=== PATIENT | male | born 1960 | race African-American/Black ===

== ENCOUNTER 2016-10-04 14:46 | Inpatient (IN) | payer OTHER ==
[2016-10-04 15:19] VITALS: BMI 25.8
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
[2016-10-04] MEDS ORDERED: diphenhydrAMINE HCL 50 MG CAPSULE PO PRN (16:37)
[2016-10-04] MEDS ORDERED: P-EPHED 60MG/TRIPROLIDI 2.5MG TABLET PO PRN (16:37)
[2016-10-04] MEDS ORDERED: LOPERAMIDE HCL 2 MG CAPSULE PO PRN (16:37)
[2016-10-04] MEDS ORDERED: ACETAMINOPHEN 325 MG TABLET (FP) PO PRN (16:37)
[2016-10-04] MEDS ORDERED: MAGNESIUM CITRATE 300 ML BOTTLE PO PRN (16:37)
[2016-10-04] MEDS ORDERED: MENTHOL/PHENOL 1 EACH UD MM PRN (16:37)
[2016-10-04] MEDS ORDERED: guaiFENesin/D-METHORPHAN HB 10 ML UNIT-DOSE CUPS PO PRN (16:37)
[2016-10-04] MEDS ORDERED: MAG HYDROX/AL HYDROX/SIMETH 30 ML UNIT-DOSE CUP PO PRN (16:37)
[2016-10-04] MEDS ORDERED: MAGNESIUM HYDROX 2400MG/30ML ORAL SUSPENSION 30 ML CUP PO PRN (16:37)
[2016-10-04] MEDS ORDERED: NICOTINE POLACRILEX 2 MG GUM BC PRN (16:37)
[2016-10-04] MEDS ORDERED: diazePAM 5 MG TABLET PO ONE (17:45)
[2016-10-04] MEDS ORDERED: METHADONE HCL 10 MG TABLET PO SCH (19:00)
[2016-10-04] MEDS ORDERED: METHADONE HCL 40 MG DISPERSABLE TABLET ONE (19:06)
[2016-10-04] MEDS ORDERED: METHADONE HCL 10 MG TABLET ONE (19:06)
[2016-10-04] MEDS ORDERED: METHADONE 40 MG, METHADONE 20 MG PO ONE (19:15)
[2016-10-04] MEDS: THIAMINE HCL 100 MG TABLET (FP) PO SCH (22:21)
[2016-10-04] MEDS: diazePAM 5 MG TABLET PO SCH (22:21)
[2016-10-04] MEDS: BACITRACIN 0.9 GM PACKET TP SCH (22:21)
[2016-10-04 23:10] LABS: URINE APPEARANCE CLEAR; URINE BILIRUBIN NEGATIVE (NEGATIVE); URINE BLOOD NEGATIVE (NEGATIVE); URINE COLOR STRAW; URINE GLUCOSE (UA) NEGATIVE (NEGATIVE); URINE KETONE NEGATIVE (NEGATIVE); URINE LEUK ESTERASE NEGATIVE (NEGATIVE); URINE NITRITE NEGATIVE (NEGATIVE); URINE PROTEIN NEGATIVE (NEGATIVE); URINE UROBILINOGEN NEGATIVE E.U./dl (0.2-1.0)
[2016-10-05] MEDS ORDERED: METHADONE HCL 10 MG TABLET ONE (05:00)
[2016-10-05] MEDS ORDERED: METHADONE HCL 40 MG DISPERSABLE TABLET ONE (05:00)
[2016-10-05] MEDS: diazePAM 5 MG TABLET PO SCH ×3 (05:43→22:22)
[2016-10-05] MEDS ORDERED: METHADONE 40 MG, METHADONE 20 MG PO SCH (06:00)
[2016-10-05] MEDS: metFORMIN HCL 500 MG TABLET (FP) PO SCH ×2 (08:00→17:26)
[2016-10-05 10:05] LABS: MCH 29.5 pg (25.7-33.7); MCHC 33.4 g/dl (32.0-35.9); MEAN CELL VOLUME 88.3 fl (80-96); MEAN PLT VOLUME 9.3 fl (7.5-11.1); PLATELET COUNT 183 K/MM3 (134-434); RDW 14.2 % (11.9-15.9); WHITE BLOOD COUNT 6.6 K/mm3 (4.0-10.0)
[2016-10-05] MEDS: diazePAM 5 MG TABLET PO PRN (10:08)
[2016-10-05] MEDS: BACITRACIN 0.9 GM PACKET TP SCH ×2 (10:08→22:22)
[2016-10-05] MEDS: PRENATAL VITAMINS W/ FOLIC ACID TABLET (FP) PO SCH (10:09)
[2016-10-05] MEDS: ASPIRIN 81 MG CHEWABLE TABLETS PO SCH (10:09)
[2016-10-05] MEDS: NICOTINE 14 MG/24 HOURS TOPICAL PATCH TD SCH (10:10)
--- NOTE | 2016-10-05 10:12 | PN ---
S CIWA - CIWA Score Nausea/Vomitin-No Nausea/No Vomiting Muscle Tremors: 4-Moderate,w/Arms Extend Anxiety: 3 Agitation: 4-Moderately Restless Paroxysmal Sweats: 3 Orientation: 0-Oriented Tacttile Disturbances: 0-None Auditory Disturbances: 0-None Visual Disturbances: 0-None Headache: 1-Very Mild CIWA-Ar Total Score: 15 [facility] Progress Note (SOAP) Subjective: agitation sweats irritable interrupted sleep shakes i need my hep c test done to verify if i am hepatitis c Objective: 10/05/16 10:12 Vital Signs Temperature 98 F 10/05/16 10:06 Pulse Rate 73 10/05/16 10:06 Respiratory Rate 18 10/05/16 10:06 Blood Pressure 116/71 10/05/16 10:06 O2 Sat by Pulse Oximetry (%) Laboratory Tests 10/04/16 10/04/16 10/05/16 16:45 22:22 05:37 WBC RBC Hgb Hct MCV MCHC RDW Plt Count MPV POC Glucometer 86 118 Urine Color Straw Urine Appearance Clear Urine pH 6.0 Ur Specific [place] 1.005 Urine Protein Negative Urine Glucose (UA) Negative Urine Ketones Negative Urine Blood Negative Urine Nitrite Negative Urine Bilirubin Negative Urine Urobilinogen Negative Ur Leukocyte Esterase Negative 10/05/16 07:00 WBC 6.6 D RBC 4.61 Hgb 13.6 Hct 40.7 MCV 88.3 MCHC 33.4 RDW 14.2 Plt Count 183 MPV 9.3 POC Glucometer Urine Color Urine Appearance Urine pH Ur Specific [place] Urine Protein Urine Glucose (UA) Urine Ketones Urine Blood Urine Nitrite Urine Bilirubin Urine Urobilinogen Ur Leukocyte Esterase labs pending awake/alert ambulating no acute distress Assessment: 10/05/16 10:14 withdrawal sx Plan: continue detox increase fluids methadone will increase daily to reach his dose of 110mg. hep c test ordered
[2016-10-05 10:17] LABS: ALBUMIN 3.7 g/dl (3.4-5.0); ANION GAP 4 (8-16); CALCIUM 8.7 mg/dL (8.5-10.1); CO2 29 mmol/L (21-32); GLUCOSE,RANDOM 82 mg/dL (74-106)
[2016-10-05 10:24] LABS: ALK PHOS 118 U/L (45-117); BILIRUBIN,TOTAL 0.4 mg/dL (0.2-1.0); CREATININE 1.2 mg/dL (0.7-1.3); SGOT/AST 16 U/L (15-37); SGPT/ALT 19 U/L (12-78)
[2016-10-05] MEDS: ARIPiprazole 5 MG TABLET (FP) PO SCH ×2 (11:53→22:22)
[2016-10-05] MEDS: DIVALPROEX SODIUM 500 MG TABLET E.C. PO SCH ×2 (11:53→22:22)
--- NOTE | 2016-10-05 13:03 | CONSULT ---
[facility] Psychiatric Consult - Data Date of interview: 10/05/16 Admission source: [facility] Identifying data: Kelly is 55 years old male with history of psychiatric admission, history of Bipolar disorder intoxicated with: Alcohol, Cannabuis, Cocaine, OIpioids, Xanax, Nicotine Substance Abuse History: Urine Drug Screen Results: TEVIN-Cocaine, OPI-Opiates, BZO-Benzodiazepines, MTD-Methadone, OXY-Oxycodone- Smoking Cessation. Smoking history: Current every day smoker. Have you smoked in the past 12 months: Yes. Aproximately how many cigarettes per day: 10. Cigars Per Day: 0. Hx Chewing Tobacco Use: No. Initiated information on smoking cessation: Yes. 'Breaking Loose' booklet given: 10/04/16. - Substance & Tx. History. Hx Alcohol Use: Yes. Hx Substance Use: Yes. Substance Use Type: Alcohol, Cocaine, Heroin, Opiates, Tranquilizers. Hx Substance Use Treatment: Yes. - Substances Abused. Alcohol. Route: Oral. Frequency: Daily. Amount used: 3 6pks beer/ 1/2 pint tessy. Age of first use: 10. Date of Last Use: 10/03/16. Alprazolam (Xanax). Route: Oral. Frequency: Daily. Amount used: 6mg. Age of first use: 48. Date of Last Use: 10/03/16 Medical History: DM-2, HepC+, PR Hisotry, MMTP, Sickle cell trait Psychiatric History: Patient reportsa history of Bipolar disorder with most recent psychiatric admission on: 2015 at [facility], reports taking prior to admission: Ablify 5mg po bid. Trazodone 100mg p[o qhs. Depakote 500mg po bid Additional Comment: Urine Drug Screen Results: TEVIN-Cocaine, OPI-Opiates, BZO- Benzodiazepines, MTD-Methadone, OXY-Oxycodone Mental Status Exam - Mental Status Exam Alert and Oriented to: Person Cognitive Function: Fair Patient Appearance: Unkempt Mood: Anxious Affect: Mood Congruent Patient Behavior: Cooperative Speech Pattern: Appropriate Voice Loudness: Normal Thought Process: Circumstantial, Goal Oriented Thought Disorder: Being Controlled Hallucinations: Denies Suicidal Ideation: Denies Homicidal Ideation: Denies Insight/Judgement: Fair Sleep: Difficulty falling asleep Appetite: Fair Muscle strength/Tone: Normal Gait/Station: Shuffling Additional Comments: Ablify 5mg po bid. Trazodone 100mg p[o qhs. Depakote 500mg po bid Psychiatric Findings - Problem List ([place] 1, 2,3) (1) Alcohol dependence with uncomplicated withdrawal Current Visit: Yes Status: Acute (2) Nicotine dependence Current Visit: Yes Status: Acute Qualifiers: Nicotine product type: cigarettes Substance use status: uncomplicated Qualified Code(s): F17.210 - Nicotine dependence, cigarettes, uncomplicated (3) Uncomplicated sedative, hypnotic, or anxiolytic withdrawal Current Visit: Yes Status: Acute (4) Bipolar disorder Current Visit: Yes Status: Suspected Qualifiers: Active/Remission status: in partial remission Most recent bipolar episode type: manic Qualified Code(s): F31.73 - Bipolar disorder, in partial remission, most recent episode manic (5) Sedative dependence Current Visit: No Status: Acute (6) Cannabis dependence, uncomplicated Current Visit: No Status: Chronic (7) Cocaine dependence, uncomplicated Current Visit: No Status: Chronic (8) Methadone maintenance therapy patient Current Visit: No Status: Chronic (9) Opioid dependence on agonist therapy Current Visit: No Status: Chronic - Initial Treatment Plan Initial Treatment Plan: Ablify 5mg po bid. Trazodone 100mg p[o qhs. Depakote 500mg po bid. Blood Depakote level
[2016-10-05] MEDS: THIAMINE HCL 100 MG TABLET (FP) PO SCH (22:22)
[2016-10-05] MEDS: traZODone HCL 100 MG TABLET (FP) PO SCH (22:22)
[2016-10-06] MEDS ORDERED: METHADONE HCL 10 MG TABLET ONE (04:51)
[2016-10-06] MEDS ORDERED: METHADONE HCL 40 MG DISPERSABLE TABLET ONE (04:52)
[2016-10-06] MEDS ORDERED: METHADONE 40 MG, METHADONE 30 MG PO ONE (06:00)
[2016-10-06] MEDS: diazePAM 5 MG TABLET PO PRN ×2 (07:53→17:29)
[2016-10-06] MEDS: metFORMIN HCL 500 MG TABLET (FP) PO SCH ×2 (08:15→17:29)
--- NOTE | 2016-10-06 10:24 | PN ---
[facility] CIWA - CIWA Score Nausea/Vomitin-Mild Nausea/No Vomiting Muscle Tremors: None Anxiety: 2 Agitation: 1-Slight > Activity Paroxysmal Sweats: No Perspiration Orientation: 0-Oriented Tacttile Disturbances: 0-None Auditory Disturbances: 0-None Visual Disturbances: 0-None Headache: 0-None Present CIWA-Ar Total Score: 4 [facility] Progress Note (SOAP) Objective: 10/06/16 10:23 Laboratory Tests 10/04/16 10/04/16 10/05/16 16:45 22:22 05:37 WBC RBC Hgb Hct MCV MCHC RDW Plt Count MPV Sodium Potassium Chloride Carbon Dioxide Anion Gap BUN Creatinine Creat Clearance w eGFR POC Glucometer 86 118 Random Glucose Calcium Total Bilirubin AST ALT Alkaline Phosphatase Total Protein Albumin Urine Color Straw Urine Appearance Clear Urine pH 6.0 Ur Specific [place] 1.005 Urine Protein Negative Urine Glucose (UA) Negative Urine Ketones Negative Urine Blood Negative Urine Nitrite Negative Urine Bilirubin Negative Urine Urobilinogen Negative Ur Leukocyte Esterase Negative Valproic Acid RPR Titer Hepatitis C Antibody 10/05/16 10/05/16 10/05/16 07:00 07:00 07:00 WBC 6.6 D RBC 4.61 Hgb 13.6 Hct 40.7 MCV 88.3 MCHC 33.4 RDW 14.2 Plt Count 183 MPV 9.3 Sodium 139 Potassium 4.4 Chloride 106 Carbon Dioxide 29 Anion Gap 4 L BUN 18 Creatinine 1.2 Creat Clearance w eGFR > 60 POC Glucometer Random Glucose 82 Calcium 8.7 Total Bilirubin 0.4 AST 16 D ALT 19 D Alkaline Phosphatase 118 H D Total Protein 7.0 Albumin 3.7 Urine Color Urine Appearance Urine pH Ur Specific [place] Urine Protein Urine Glucose (UA) Urine Ketones Urine Blood Urine Nitrite Urine Bilirubin Urine Urobilinogen Ur Leukocyte Esterase Valproic Acid RPR Titer Nonreactive Hepatitis C Antibody 10/05/16 10/05/16 10/05/16 07:00 11:15 16:35 WBC RBC Hgb Hct MCV MCHC RDW Plt Count MPV Sodium Potassium Chloride Carbon Dioxide Anion Gap BUN Creatinine Creat Clearance w eGFR POC Glucometer 102 Random Glucose Calcium Total Bilirubin AST ALT Alkaline Phosphatase Total Protein Albumin Urine Color Urine Appearance Urine pH Ur Specific [place] Urine Protein Urine Glucose (UA) Urine Ketones Urine Blood Urine Nitrite Urine Bilirubin Urine Urobilinogen Ur Leukocyte Esterase Valproic Acid < 3.000 L RPR Titer Hepatitis C Antibody <0.1 10/06/16 05:47 WBC RBC Hgb Hct MCV MCHC RDW Plt Count MPV Sodium Potassium Chloride Carbon Dioxide Anion Gap BUN Creatinine Creat Clearance w eGFR POC Glucometer 74 Random Glucose Calcium Total Bilirubin AST ALT Alkaline Phosphatase Total Protein Albumin Urine Color Urine Appearance Urine pH Ur Specific [place] Urine Protein Urine Glucose (UA) Urine Ketones Urine Blood Urine Nitrite Urine Bilirubin Urine Urobilinogen Ur Leukocyte Esterase Valproic Acid RPR Titer Hepatitis C Antibody Vital Signs - 24 hr 10/05/16 10/05/16 10/05/16 14:48 18:07 22:32 Temperature 97 F L 96.4 F L 98.1 F Pulse Rate 73 64 67 Respiratory 16 16 18 Rate Blood Pressure 114/72 106/53 113/71 10/06/16 10/06/16 10/06/16 00:30 03:30 06:00 Temperature 97.3 F L Pulse Rate 58 L Respiratory 18 18 16 Rate Blood Pressure 130/61 10/06/16 10:17 Temperature 98.8 F Pulse Rate 86 Respiratory 18 Rate Blood Pressure 138/75 Assessment: 10/06/16 10:23 ongoing withdrawal Plan: continue detox protocol
[2016-10-06] MEDS: DIVALPROEX SODIUM 500 MG TABLET E.C. PO SCH ×2 (10:33→22:20)
[2016-10-06] MEDS: PRENATAL VITAMINS W/ FOLIC ACID TABLET (FP) PO SCH (10:33)
[2016-10-06] MEDS: ASPIRIN 81 MG CHEWABLE TABLETS PO SCH (10:33)
[2016-10-06] MEDS: ARIPiprazole 5 MG TABLET (FP) PO SCH ×2 (10:33→22:20)
[2016-10-06] MEDS: NICOTINE 14 MG/24 HOURS TOPICAL PATCH TD SCH (10:34)
[2016-10-06] MEDS: BACITRACIN 0.9 GM PACKET TP SCH ×2 (10:34→22:20)
[2016-10-06] MEDS: diazePAM 5 MG TABLET PO SCH ×2 (10:34→22:20)
[2016-10-06] MEDS ORDERED: METHADONE HCL 10 MG TABLET PO ONE (12:12)
[2016-10-06] MEDS: traZODone HCL 100 MG TABLET (FP) PO SCH (22:20)
[2016-10-06] MEDS: THIAMINE HCL 100 MG TABLET (FP) PO SCH (22:20)
[2016-10-07] MEDS ORDERED: METHADONE HCL 40 MG DISPERSABLE TABLET PO ONE (06:00)
[2016-10-07] MEDS: diazePAM 5 MG TABLET PO PRN (07:33)
[2016-10-07] MEDS: metFORMIN HCL 500 MG TABLET (FP) PO SCH (07:34)
[2016-10-07] MEDS: PRENATAL VITAMINS W/ FOLIC ACID TABLET (FP) PO SCH (10:14)
[2016-10-07] MEDS: diazePAM 5 MG TABLET PO SCH (10:14)
[2016-10-07] MEDS: ASPIRIN 81 MG CHEWABLE TABLETS PO SCH (10:14)
[2016-10-07] MEDS: DIVALPROEX SODIUM 500 MG TABLET E.C. PO SCH (10:14)
[2016-10-07] MEDS: ARIPiprazole 5 MG TABLET (FP) PO SCH (10:14)
[2016-10-07] MEDS: BACITRACIN 0.9 GM PACKET TP SCH (10:15)
[2016-10-07] MEDS: NICOTINE 14 MG/24 HOURS TOPICAL PATCH TD SCH (10:15)
--- NOTE | 2016-10-07 10:45 | PN ---
[facility] Progress Note (SOAP) Subjective: ALERT,IRRITABLE,ANXIOUS,TREMOR,PAIN IN THE BODY AND BACK Objective: 10/07/16 10:43 Vital Signs Temperature 99.9 F H 10/07/16 09:38 Pulse Rate 91 H 10/07/16 09:38 Respiratory Rate 18 10/07/16 09:38 Blood Pressure 106/72 10/07/16 09:38 O2 Sat by Pulse Oximetry (%) 10/07/16 10:49 Assessment: 10/07/16 10:49 WITHDRAWAL SYMPTOM Plan: CONTINUE DETOX,DISCHARGE IN AM
--- NOTE | 2016-10-07 11:16 | PN ---
[facility] Progress Note Note: PATIENT DID NOT WANT TO COMPLETE TREATMENT,,SEEN BY ME AND COUNSELOR,INSIST ON LEAVING STATED HE HAS TO LEAVE,SIGNED RELEASE AMA,HAS ALL MEDICATIONS AT HOME ADVISE TO FOLLOW UP WITH PMD FOR MEDICAL PROBLEM AND METHADONE PROGRAM, ADDRESS THE PROBLEM WITH METHADONE DOSE FOR SUNDAY,HE SAID HE IS OK,STILL INSIST TO LEAVE
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
[2016-10-07 14:25] VITALS: BP 123/66; PULSE 77; TEMP 99.3
[2016-10-08] MEDS ORDERED: METHADONE 80 MG, METHADONE 10 MG PO ONE (06:00)
[2016-10-08] MEDS ORDERED: METHADONE HCL 10 MG TABLET PO ONE (06:00)
[2016-10-08] MEDS ORDERED: diazePAM 5 MG TABLET PO SCH (10:00)
== END 2016-10-07 14:08 | disposition left against medical advice (07) | DRG 770 ==
LOC: YASAS 14:46 → Y6N 17:28
PROVIDERS: ADMIT Internal Medicine Addiction Medicine; ATTEND Internal Medicine Addiction Medicine
PROC: HZ2ZZZZ Detoxification Services for Substance Abuse Treatment (ICD-10-PCS; principal; 2016-10-04)
DX: F13.230 Sedative, hypnotic or anxiolytic dependence with withdrawal, uncomplicated (principal); F11.20 Opioid dependence, uncomplicated; F10.230 Alcohol dependence with withdrawal, uncomplicated; F17.210 Nicotine dependence, cigarettes, uncomplicated; F31.73 Bipolar disorder, in partial remission, most recent episode manic; E11.9 Type 2 diabetes mellitus without complications; B18.2 Chronic viral hepatitis C; H91.92 Unspecified hearing loss, left ear; I25.2 Old myocardial infarction; D57.3 Sickle-cell trait; R76.11 Nonspecific reaction to tuberculin skin test without active tuberculosis; Z87.438 Personal history of other diseases of male genital organs
CPT/HCPCS: 36415; 80053; 80164; 81003; 85027; 86593; 86803; 93005; 93010

== ENCOUNTER 2016-12-01 15:23 | Inpatient (IN) | payer OTHER ==
[2016-12-01 18:03] VITALS: BMI 23.3
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
[2016-12-01] MEDS ORDERED: MENTHOL/PHENOL 1 EACH UD MM PRN (18:32)
[2016-12-01] MEDS ORDERED: guaiFENesin/D-METHORPHAN HB 10 ML UNIT-DOSE CUPS PO PRN (18:32)
[2016-12-01] MEDS ORDERED: MAGNESIUM CITRATE 300 ML BOTTLE PO PRN (18:32)
[2016-12-01] MEDS ORDERED: P-EPHED 60MG/TRIPROLIDI 2.5MG TABLET PO PRN (18:32)
[2016-12-01] MEDS ORDERED: ACETAMINOPHEN 325 MG TABLET (FP) PO PRN (18:32)
[2016-12-01] MEDS ORDERED: diphenhydrAMINE HCL 50 MG CAPSULE PO PRN (18:32)
[2016-12-01] MEDS ORDERED: NICOTINE POLACRILEX 2 MG GUM BC PRN (18:32)
[2016-12-01] MEDS ORDERED: MAG HYDROX/AL HYDROX/SIMETH 30 ML UNIT-DOSE CUP PO PRN (18:32)
[2016-12-01] MEDS ORDERED: MAGNESIUM HYDROX 2400MG/30ML ORAL SUSPENSION 30 ML CUP PO PRN (18:32)
[2016-12-01] MEDS ORDERED: LOPERAMIDE HCL 2 MG CAPSULE PO PRN (18:32)
[2016-12-01] MEDS ORDERED: chlordiazePOXIDE HCL 25 MG CAPSULE PO PRN (18:32)
[2016-12-01] MEDS ORDERED: chlordiazePOXIDE HCL 25 MG CAPSULE PO ONE (20:30)
[2016-12-01] MEDS ORDERED: BACITRACIN 0.9 GM PACKET TP ONE (20:30)
[2016-12-01] MEDS: chlordiazePOXIDE HCL 25 MG CAPSULE PO SCH (22:27)
[2016-12-01] MEDS: THIAMINE HCL 100 MG TABLET (FP) PO SCH (22:27)
[2016-12-01 23:11] LABS: URINE APPEARANCE CLEAR; URINE BILIRUBIN NEGATIVE (NEGATIVE); URINE BLOOD NEGATIVE (NEGATIVE); URINE COLOR LTYELLOW; URINE GLUCOSE (UA) NEGATIVE (NEGATIVE); URINE KETONE NEGATIVE (NEGATIVE); URINE LEUK ESTERASE NEGATIVE (NEGATIVE); URINE NITRITE NEGATIVE (NEGATIVE); URINE PROTEIN NEGATIVE (NEGATIVE); URINE UROBILINOGEN NEGATIVE E.U./dl (0.2-1.0)
[2016-12-02] MEDS: chlordiazePOXIDE HCL 25 MG CAPSULE PO SCH ×4 (05:07→22:24)
[2016-12-02] MEDS: metFORMIN HCL 500 MG TABLET (FP) PO SCH ×2 (07:15→17:31)
--- NOTE | 2016-12-02 09:05 | PN ---
S CIWA - CIWA Score Nausea/Vomitin Muscle Tremors: 3 Anxiety: 4-Mod. Anxious/Guarded Agitation: 4-Moderately Restless Paroxysmal Sweats: 3 Orientation: 0-Oriented Tacttile Disturbances: 0-None Auditory Disturbances: 0-None Visual Disturbances: 0-None Headache: 0-None Present CIWA-Ar Total Score: 16 BHS Progress Note (SOAP) Subjective: Anxiety,tremors,sweating,interrupted sleep,restless Objective: 12/02/16 09:04 Vital Signs - 8 hr 12/02/16 12/02/16 03:30 06:31 Temperature 97.1 F L Pulse Rate 63 Respiratory 18 18 Rate Blood Pressure 129/68 Laboratory Tests 12/01/16 12/01/16 12/02/16 18:30 20:15 05:09 POC Glucometer 74 96 Urine Color Ltyellow Urine Appearance Clear Urine pH 5.0 Ur Specific [place] 1.014 Urine Protein Negative Urine Glucose (UA) Negative Urine Ketones Negative Urine Blood Negative Urine Nitrite Negative Urine Bilirubin Negative Urine Urobilinogen Negative Ur Leukocyte Esterase Negative u/a noted Assessment: 12/02/16 09:05 withdrawal sx. Plan: continue detox
[2016-12-02] MEDS ORDERED: METHADONE HCL 10 MG TABLET PO SCH (09:15)
[2016-12-02] MEDS: PRENATAL VITAMINS W/ FOLIC ACID TABLET (FP) PO SCH (10:24)
[2016-12-02] MEDS: ASPIRIN 81 MG CHEWABLE TABLETS PO SCH (10:24)
[2016-12-02] MEDS ORDERED: METHADONE HCL 10 MG TABLET ONE (10:25)
[2016-12-02] MEDS ORDERED: METHADONE HCL 40 MG DISPERSABLE TABLET ONE (10:25)
[2016-12-02] MEDS: METHADONE 80 MG, METHADONE 30 MG PO SCH (10:25)
[2016-12-02] MEDS: NICOTINE 14 MG/24 HOURS TOPICAL PATCH TD SCH (10:26)
[2016-12-02 11:20] LABS: MCH 29.6 pg (25.7-33.7); MEAN CELL VOLUME 89.7 fl (80-96); MEAN PLT VOLUME 9.6 fl (7.5-11.1); PLATELET COUNT 137 K/MM3 (134-434); WHITE BLOOD COUNT 3.7 K/mm3 (4.0-10.0)
[2016-12-02 11:44] LABS: ALBUMIN 3.3 g/dl (3.4-5.0); ALK PHOS 96 U/L (45-117); ANION GAP 10 (8-16); BILIRUBIN,TOTAL 0.5 mg/dL (0.2-1.0); CALCIUM 8.3 mg/dL (8.5-10.1); CO2 27 mmol/L (21-32); GLUCOSE,RANDOM 119 mg/dL (74-106); SGOT/AST 12 U/L (15-37); SGPT/ALT 13 U/L (12-78); TOT PROT 6.3 g/dl (6.4-8.2)
[2016-12-02] MEDS ORDERED: INFLUENZA VACCINE 45 MCG/0.5 ML (MDV 16-17) IM ONE (12:00)
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
[2016-12-02] MEDS ORDERED: BACITRACIN 0.9 GM PACKET ONE (14:20)
[2016-12-02] MEDS: BACITRACIN 30 GM TUBE TOPICAL OINTMENT TP SCH ×2 (14:20→22:24)
[2016-12-02] MEDS: THIAMINE HCL 100 MG TABLET (FP) PO SCH (22:24)
[2016-12-02] MEDS: ARIPiprazole 10 MG TABLET PO SCH (22:24)
[2016-12-02] MEDS: DIVALPROEX SODIUM 500 MG TABLET E.C. PO SCH (22:24)
[2016-12-02] MEDS: traZODone HCL 100 MG TABLET (FP) PO SCH (22:24)
[2016-12-03] MEDS ORDERED: METHADONE HCL 10 MG TABLET ONE (04:00)
[2016-12-03] MEDS ORDERED: METHADONE HCL 40 MG DISPERSABLE TABLET ONE (04:01)
[2016-12-03] MEDS: chlordiazePOXIDE HCL 25 MG CAPSULE PO SCH ×3 (05:44→17:17)
[2016-12-03] MEDS: METHADONE 80 MG, METHADONE 30 MG PO SCH (05:44)
[2016-12-03] MEDS: metFORMIN HCL 500 MG TABLET (FP) PO SCH ×2 (06:05→17:17)
[2016-12-03] MEDS: PRENATAL VITAMINS W/ FOLIC ACID TABLET (FP) PO SCH (10:17)
[2016-12-03] MEDS: DIVALPROEX SODIUM 500 MG TABLET E.C. PO SCH ×2 (10:17→23:00)
[2016-12-03] MEDS: ASPIRIN 81 MG CHEWABLE TABLETS PO SCH (10:17)
[2016-12-03] MEDS: BACITRACIN 30 GM TUBE TOPICAL OINTMENT TP SCH ×2 (10:18→23:00)
[2016-12-03] MEDS: NICOTINE 14 MG/24 HOURS TOPICAL PATCH TD SCH (10:18)
--- NOTE | 2016-12-03 14:54 | PN ---
S CIWA - CIWA Score Nausea/Vomitin Muscle Tremors: 4-Moderate,w/Arms Extend Anxiety: 4-Mod. Anxious/Guarded Agitation: 2 Paroxysmal Sweats: No Perspiration Orientation: 0-Oriented Tacttile Disturbances: 1-Very Mild Itch/Numbness Auditory Disturbances: 0-None Visual Disturbances: 0-None Headache: 3-Moderate CIWA-Ar Total Score: 17 BHS Progress Note (SOAP) Subjective: Anxious, sweating, nausea, interrupted sleep, tremor Objective: 12/03/16 14:52 Last Vital Signs Temp Pulse Resp BP Pulse Ox 97 F L 80 18 112/74 12/03/16 13:54 12/03/16 13:54 12/03/16 13:54 12/03/16 13:54 Laboratory Tests 12/01/16 12/01/16 12/02/16 18:30 20:15 05:09 WBC RBC Hgb Hct MCV MCHC RDW Plt Count MPV Sodium Potassium Chloride Carbon Dioxide Anion Gap BUN Creatinine Creat Clearance w eGFR POC Glucometer 74 96 Random Glucose Calcium Total Bilirubin AST ALT Alkaline Phosphatase Total Protein Albumin Urine Color Ltyellow Urine Appearance Clear Urine pH 5.0 Ur Specific [place] 1.014 Urine Protein Negative Urine Glucose (UA) Negative Urine Ketones Negative Urine Blood Negative Urine Nitrite Negative Urine Bilirubin Negative Urine Urobilinogen Negative Ur Leukocyte Esterase Negative Valproic Acid RPR Titer 12/02/16 12/02/16 12/02/16 08:00 08:00 08:00 WBC 3.7 L D RBC 4.22 Hgb 12.5 Hct 37.9 MCV 89.7 MCHC 33.0 RDW 15.0 Plt Count 137 D MPV 9.6 Sodium 142 Potassium 3.9 Chloride 105 Carbon Dioxide 27 Anion Gap 10 BUN 14 D Creatinine 1.0 Creat Clearance w eGFR > 60 POC Glucometer Random Glucose 119 H D Calcium 8.3 L Total Bilirubin 0.5 D AST 12 L D ALT 13 D Alkaline Phosphatase 96 Total Protein 6.3 L Albumin 3.3 L Urine Color Urine Appearance Urine pH Ur Specific [place] Urine Protein Urine Glucose (UA) Urine Ketones Urine Blood Urine Nitrite Urine Bilirubin Urine Urobilinogen Ur Leukocyte Esterase Valproic Acid 13.056 L RPR Titer 12/02/16 12/02/16 12/03/16 08:00 16:24 05:43 WBC RBC Hgb Hct MCV MCHC RDW Plt Count MPV Sodium Potassium Chloride Carbon Dioxide Anion Gap BUN Creatinine Creat Clearance w eGFR POC Glucometer 76 82 Random Glucose Calcium Total Bilirubin AST ALT Alkaline Phosphatase Total Protein Albumin Urine Color Urine Appearance Urine pH Ur Specific [place] Urine Protein Urine Glucose (UA) Urine Ketones Urine Blood Urine Nitrite Urine Bilirubin Urine Urobilinogen Ur Leukocyte Esterase Valproic Acid RPR Titer Nonreactive 12/03/16 08:00 WBC RBC Hgb Hct MCV MCHC RDW Plt Count MPV Sodium Potassium Chloride Carbon Dioxide Anion Gap BUN Creatinine Creat Clearance w eGFR POC Glucometer Random Glucose Calcium Total Bilirubin AST ALT Alkaline Phosphatase Total Protein Albumin Urine Color Urine Appearance Urine pH Ur Specific [place] Urine Protein Urine Glucose (UA) Urine Ketones Urine Blood Urine Nitrite Urine Bilirubin Urine Urobilinogen Ur Leukocyte Esterase Valproic Acid 15.003 L RPR Titer Labs noted Assessment: 12/03/16 14:53 Withdrawal symptoms Plan: Continue detox
--- NOTE | 2016-12-03 22:53 | EKG ---
Test Reason : Blood Pressure : / mmHG Vent. Rate : 053 BPM Atrial Rate : 053 BPM P-R Int : 174 ms QRS Dur : 090 ms QT Int : 442 ms P-R-T Axes : 063 058 052 degrees QTc Int : 414 ms SINUS BRADYCARDIA RSR' OR QR PATTERN IN V1 SUGGESTS RIGHT VENTRICULAR CONDUCTION DELAY POSSIBLE LEFT ATRIAL ENLARGEMENT BORDERLINE ECG NO PREVIOUS ECGS AVAILABLE Confirmed by ARELI MELGAR, YAO ([id number]) on 12/03/2016 10:53:06 PM Referred By: Confirmed By:YAO SINGLETON MD
[2016-12-03] MEDS: traZODone HCL 100 MG TABLET (FP) PO SCH (23:00)
[2016-12-03] MEDS: ARIPiprazole 10 MG TABLET PO SCH (23:00)
[2016-12-03] MEDS: chlordiazePOXIDE 5 MG CAPSULE PO SCH (23:01)
[2016-12-03] MEDS: THIAMINE HCL 100 MG TABLET (FP) PO SCH (23:01)
[2016-12-04] MEDS ORDERED: METHADONE HCL 40 MG DISPERSABLE TABLET ONE (05:56)
[2016-12-04] MEDS ORDERED: METHADONE HCL 10 MG TABLET ONE (05:56)
[2016-12-04] MEDS: METHADONE 80 MG, METHADONE 30 MG PO SCH (06:07)
[2016-12-04] MEDS: chlordiazePOXIDE 5 MG CAPSULE PO SCH (06:07)
[2016-12-04] MEDS: metFORMIN HCL 500 MG TABLET (FP) PO SCH ×2 (06:33→17:23)
[2016-12-04] MEDS ORDERED: BACITRACIN 0.9 GM PACKET ONE (08:20)
[2016-12-04] MEDS: PRENATAL VITAMINS W/ FOLIC ACID TABLET (FP) PO SCH (10:17)
[2016-12-04] MEDS: DIVALPROEX SODIUM 500 MG TABLET E.C. PO SCH ×2 (10:17→22:24)
[2016-12-04] MEDS: NICOTINE 14 MG/24 HOURS TOPICAL PATCH TD SCH (10:17)
[2016-12-04] MEDS: BACITRACIN 30 GM TUBE TOPICAL OINTMENT TP SCH ×2 (10:17→22:25)
[2016-12-04] MEDS: ASPIRIN 81 MG CHEWABLE TABLETS PO SCH (10:17)
--- NOTE | 2016-12-04 12:55 | PN ---
BHS Progress Note (SOAP) Subjective: Sweating,interrupted sleep,restless Objective: 12/04/16 12:54 Vital Signs - 8 hr 12/04/16 12/04/16 06:42 09:27 Temperature 98.9 F 98.6 F Pulse Rate 73 80 Respiratory 18 18 Rate Blood Pressure 125/71 126/76 Laboratory Tests 12/01/16 12/01/16 12/02/16 18:30 20:15 05:09 WBC RBC Hgb Hct MCV MCHC RDW Plt Count MPV Sodium Potassium Chloride Carbon Dioxide Anion Gap BUN Creatinine Creat Clearance w eGFR POC Glucometer 74 96 Random Glucose Calcium Total Bilirubin AST ALT Alkaline Phosphatase Total Protein Albumin Urine Color Ltyellow Urine Appearance Clear Urine pH 5.0 Ur Specific [place] 1.014 Urine Protein Negative Urine Glucose (UA) Negative Urine Ketones Negative Urine Blood Negative Urine Nitrite Negative Urine Bilirubin Negative Urine Urobilinogen Negative Ur Leukocyte Esterase Negative Valproic Acid RPR Titer 12/02/16 12/02/16 12/02/16 08:00 08:00 08:00 WBC 3.7 L D RBC 4.22 Hgb 12.5 Hct 37.9 MCV 89.7 MCHC 33.0 RDW 15.0 Plt Count 137 D MPV 9.6 Sodium 142 Potassium 3.9 Chloride 105 Carbon Dioxide 27 Anion Gap 10 BUN 14 D Creatinine 1.0 Creat Clearance w eGFR > 60 POC Glucometer Random Glucose 119 H D Calcium 8.3 L Total Bilirubin 0.5 D AST 12 L D ALT 13 D Alkaline Phosphatase 96 Total Protein 6.3 L Albumin 3.3 L Urine Color Urine Appearance Urine pH Ur Specific [place] Urine Protein Urine Glucose (UA) Urine Ketones Urine Blood Urine Nitrite Urine Bilirubin Urine Urobilinogen Ur Leukocyte Esterase Valproic Acid 13.056 L RPR Titer 12/02/16 12/02/16 12/03/16 08:00 16:24 05:43 WBC RBC Hgb Hct MCV MCHC RDW Plt Count MPV Sodium Potassium Chloride Carbon Dioxide Anion Gap BUN Creatinine Creat Clearance w eGFR POC Glucometer 76 82 Random Glucose Calcium Total Bilirubin AST ALT Alkaline Phosphatase Total Protein Albumin Urine Color Urine Appearance Urine pH Ur Specific [place] Urine Protein Urine Glucose (UA) Urine Ketones Urine Blood Urine Nitrite Urine Bilirubin Urine Urobilinogen Ur Leukocyte Esterase Valproic Acid RPR Titer Nonreactive 12/03/16 12/03/16 12/04/16 08:00 16:32 05:55 WBC RBC Hgb Hct MCV MCHC RDW Plt Count MPV Sodium Potassium Chloride Carbon Dioxide Anion Gap BUN Creatinine Creat Clearance w eGFR POC Glucometer 85 114 Random Glucose Calcium Total Bilirubin AST ALT Alkaline Phosphatase Total Protein Albumin Urine Color Urine Appearance Urine pH Ur Specific [place] Urine Protein Urine Glucose (UA) Urine Ketones Urine Blood Urine Nitrite Urine Bilirubin Urine Urobilinogen Ur Leukocyte Esterase Valproic Acid 15.003 L RPR Titer labs noted Assessment: 12/04/16 12:54 Withdrawal sx. Plan: Continue detox
[2016-12-04] MEDS: ARIPiprazole 10 MG TABLET PO SCH (22:24)
[2016-12-04] MEDS: THIAMINE HCL 100 MG TABLET (FP) PO SCH (22:25)
[2016-12-04] MEDS ORDERED: chlordiazePOXIDE HCL 10 MG CAPSULE PO SCH ×2 (23:00)
[2016-12-05] MEDS ORDERED: METHADONE HCL 10 MG TABLET ONE (01:41)
[2016-12-05] MEDS ORDERED: METHADONE HCL 40 MG DISPERSABLE TABLET ONE (01:41)
[2016-12-05] MEDS: METHADONE 80 MG, METHADONE 30 MG PO SCH (05:09)
[2016-12-05] MEDS: metFORMIN HCL 500 MG TABLET (FP) PO SCH (07:24)
[2016-12-05 09:48] VITALS: BP 133/74; PULSE 51; TEMP 96.4
[2016-12-05] MEDS: DIVALPROEX SODIUM 500 MG TABLET E.C. PO SCH (10:18)
[2016-12-05] MEDS: PRENATAL VITAMINS W/ FOLIC ACID TABLET (FP) PO SCH (10:18)
[2016-12-05] MEDS: ASPIRIN 81 MG CHEWABLE TABLETS PO SCH (10:18)
[2016-12-05] MEDS: BACITRACIN 30 GM TUBE TOPICAL OINTMENT TP SCH (10:18)
[2016-12-05] MEDS: NICOTINE 14 MG/24 HOURS TOPICAL PATCH TD SCH (10:18)
--- NOTE | 2016-12-05 10:41 | DS ---
[facility] Detox Discharge Summary Admission Date: 12/01/16 Discharge Date: 12/05/16 - History Present History: Alcohol Dependence, Cocaine Dependence, Sedative Dependence, MMTP Pertinent Past History: Type II DM PPD+ - Physical Exam Results Vital Signs: Vital Signs Temperature 96.4 F L 12/05/16 09:48 Pulse Rate 51 L 12/05/16 09:48 Respiratory Rate 18 12/05/16 09:48 Blood Pressure 133/74 12/05/16 09:48 O2 Sat by Pulse Oximetry (%) Pertinent Admission Physical Exam Findings: Withdrawal sx. Laboratory Tests 12/01/16 12/01/16 12/02/16 18:30 20:15 05:09 WBC RBC Hgb Hct MCV MCHC RDW Plt Count MPV Sodium Potassium Chloride Carbon Dioxide Anion Gap BUN Creatinine Creat Clearance w eGFR POC Glucometer 74 96 Random Glucose Calcium Total Bilirubin AST ALT Alkaline Phosphatase Total Protein Albumin Urine Color Ltyellow Urine Appearance Clear Urine pH 5.0 Ur Specific [place] 1.014 Urine Protein Negative Urine Glucose (UA) Negative Urine Ketones Negative Urine Blood Negative Urine Nitrite Negative Urine Bilirubin Negative Urine Urobilinogen Negative Ur Leukocyte Esterase Negative Valproic Acid RPR Titer 12/02/16 12/02/16 12/02/16 08:00 08:00 08:00 WBC 3.7 L D RBC 4.22 Hgb 12.5 Hct 37.9 MCV 89.7 MCHC 33.0 RDW 15.0 Plt Count 137 D MPV 9.6 Sodium 142 Potassium 3.9 Chloride 105 Carbon Dioxide 27 Anion Gap 10 BUN 14 D Creatinine 1.0 Creat Clearance w eGFR > 60 POC Glucometer Random Glucose 119 H D Calcium 8.3 L Total Bilirubin 0.5 D AST 12 L D ALT 13 D Alkaline Phosphatase 96 Total Protein 6.3 L Albumin 3.3 L Urine Color Urine Appearance Urine pH Ur Specific [place] Urine Protein Urine Glucose (UA) Urine Ketones Urine Blood Urine Nitrite Urine Bilirubin Urine Urobilinogen Ur Leukocyte Esterase Valproic Acid 13.056 L RPR Titer 12/02/16 12/02/16 12/03/16 08:00 16:24 05:43 WBC RBC Hgb Hct MCV MCHC RDW Plt Count MPV Sodium Potassium Chloride Carbon Dioxide Anion Gap BUN Creatinine Creat Clearance w eGFR POC Glucometer 76 82 Random Glucose Calcium Total Bilirubin AST ALT Alkaline Phosphatase Total Protein Albumin Urine Color Urine Appearance Urine pH Ur Specific [place] Urine Protein Urine Glucose (UA) Urine Ketones Urine Blood Urine Nitrite Urine Bilirubin Urine Urobilinogen Ur Leukocyte Esterase Valproic Acid RPR Titer Nonreactive 12/03/16 12/03/16 12/04/16 08:00 16:32 05:55 WBC RBC Hgb Hct MCV MCHC RDW Plt Count MPV Sodium Potassium Chloride Carbon Dioxide Anion Gap BUN Creatinine Creat Clearance w eGFR POC Glucometer 85 114 Random Glucose Calcium Total Bilirubin AST ALT Alkaline Phosphatase Total Protein Albumin Urine Color Urine Appearance Urine pH Ur Specific [place] Urine Protein Urine Glucose (UA) Urine Ketones Urine Blood Urine Nitrite Urine Bilirubin Urine Urobilinogen Ur Leukocyte Esterase Valproic Acid 15.003 L RPR Titer 12/04/16 12/05/16 16:17 05:08 WBC RBC Hgb Hct MCV MCHC RDW Plt Count MPV Sodium Potassium Chloride Carbon Dioxide Anion Gap BUN Creatinine Creat Clearance w eGFR POC Glucometer 119 114 Random Glucose Calcium Total Bilirubin AST ALT Alkaline Phosphatase Total Protein Albumin Urine Color Urine Appearance Urine pH Ur Specific [place] Urine Protein Urine Glucose (UA) Urine Ketones Urine Blood Urine Nitrite Urine Bilirubin Urine Urobilinogen Ur Leukocyte Esterase Valproic Acid RPR Titer labs noted - Treatment Hospital Course: Detox Protocol Followed, Detoxed Safely, Responded well, Discharged Condition Good, Rehab Referral Accepted Patient has Accepted a Rehab Referral to: [facility] - Medication Discharge Medications: Ambulatory Orders Aspirin [ASA -] 81 mg PO DAILY #30 tab.chew 10/07/14 Divalproex [Depakote -] 500 mg PO BID #60 tablet.ec 07/04/16 Trazodone HCl [Desyrel -] 100 mg PO HS #30 tablet 07/04/16 Aripiprazole [Abilify -] 5 mg PO BID 08/30/16 Metformin HCl [Glucophage -] 500 mg PO BID 08/30/16 Aripiprazole [Abilify -] 5 mg PO BID #60 tablet 10/05/16 Divalproex [Depakote -] 500 mg PO BID #60 tablet.ec 10/05/16 Trazodone HCl 100 mg PO HS #30 tablet 10/05/16 Aripiprazole [Abilify -] 10 mg PO DAILY #30 tablet 12/02/16 Divalproex [Depakote -] 500 mg PO BID #60 tablet.ec 12/02/16 Trazodone HCl 50 mg PO HS #30 tablet 12/02/16 - Diagnosis (1) Alcohol dependence with uncomplicated withdrawal Current Visit: Yes Status: Acute (2) Cocaine dependence, uncomplicated Current Visit: Yes Status: Acute (3) Diabetes mellitus type II, controlled Current Visit: Yes Status: Acute Qualifiers: Diabetes mellitus complication status: without complication Diabetes mellitus senior care insulin use: without senior care use Qualified Code(s): E11.9 - Type 2 diabetes mellitus without complications (4) Nicotine dependence Current Visit: Yes Status: Acute Qualifiers: Nicotine product type: cigarettes Substance use status: in withdrawal Qualified Code(s): F17.213 - Nicotine dependence, cigarettes, with withdrawal (5) Opioid dependence on agonist therapy Current Visit: Yes Status: Acute (6) Hepatitis C Current Visit: Yes Status: Chronic Qualifiers: Hepatic coma status: without hepatic coma (7) Sickle cell trait Current Visit: Yes Status: Chronic (8) Uncomplicated sedative, hypnotic, or anxiolytic withdrawal Current Visit: Yes Status: Acute (9) Cannabis dependence, uncomplicated Current Visit: Yes Status: Chronic (10) Bipolar II disorder Current Visit: Yes Status: Suspected
== END 2016-12-05 13:31 | disposition other institution (70) | DRG 773 ==
LOC: YASAS 15:23 → Y3N 19:38
PROVIDERS: ADMIT Internal Medicine; ATTEND Internal Medicine
PROC: HZ2ZZZZ Detoxification Services for Substance Abuse Treatment (ICD-10-PCS; principal; 2016-12-05)
DX: F11.20 Opioid dependence, uncomplicated (principal); F13.230 Sedative, hypnotic or anxiolytic dependence with withdrawal, uncomplicated; F10.230 Alcohol dependence with withdrawal, uncomplicated; F14.20 Cocaine dependence, uncomplicated; F12.20 Cannabis dependence, uncomplicated; F17.213 Nicotine dependence, cigarettes, with withdrawal; F31.81 Bipolar II disorder; B18.2 Chronic viral hepatitis C; E11.9 Type 2 diabetes mellitus without complications; Z79.84 Long term (current) use of oral hypoglycemic drugs; D57.3 Sickle-cell trait; H91.8X2 Other specified hearing loss, left ear; R76.11 Nonspecific reaction to tuberculin skin test without active tuberculosis
CPT/HCPCS: 36415; 80053; 80164; 81003; 85027; 86593; 93005; 93010

== ENCOUNTER 2016-12-05 13:34 | Inpatient (IN) | payer OTHER ==
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
[2016-12-05 14:25] VITALS: BMI 24.3
[2016-12-05] MEDS ORDERED: LOPERAMIDE HCL 2 MG CAPSULE PO PRN (14:42)
[2016-12-05] MEDS ORDERED: NICOTINE POLACRILEX 4 MG GUM BUC PRN (14:42)
[2016-12-05] MEDS ORDERED: IBUPROFEN 400 MG TABLET (FP) PO PRN (14:42)
[2016-12-05] MEDS ORDERED: MAGNESIUM HYDROX 2400MG/30ML ORAL SUSPENSION 30 ML CUP PO PRN (14:42)
[2016-12-05] MEDS ORDERED: MENTHOL/PHENOL 1 EACH UD MM PRN (14:42)
[2016-12-05] MEDS ORDERED: MAG HYDROX/AL HYDROX/SIMETH 30 ML UNIT-DOSE CUP PO PRN (14:42)
[2016-12-05] MEDS ORDERED: ACETAMINOPHEN 325 MG TABLET (FP) PO PRN (14:42)
[2016-12-05] MEDS ORDERED: P-EPHED 60MG/TRIPROLIDI 2.5MG TABLET PO PRN (14:42)
[2016-12-05] MEDS ORDERED: diphenhydrAMINE HCL 50 MG CAPSULE PO PRN (14:42)
[2016-12-05] MEDS ORDERED: guaiFENesin/D-METHORPHAN HB 10 ML UNIT-DOSE CUPS PO PRN (14:42)
[2016-12-05] MEDS ORDERED: MAGNESIUM CITRATE 300 ML BOTTLE PO PRN (14:42)
--- NOTE | 2016-12-05 16:10 | HP ---
JAYA MELGAR Rehab Assess/Revision - Admission History Admitted to Rehab from: [facility] [place] Date of Admission to Rehab: 11/07/16 - Vital signs Vital Signs: Vital Signs Period Temp Pulse Resp BP Sys/Lane Pulse Ox Last 24 Hr 70 18 128/81 - Findings Detox History & Physical reviewed: Yes Concur with findings: Yes Comments/Additional Findings: trasnferred from detox to rehab admission as per protocol
[2016-12-05] MEDS: metFORMIN HCL 500 MG TABLET (FP) PO SCH (17:10)
[2016-12-05] MEDS: DIVALPROEX SODIUM 500 MG TABLET E.C. PO SCH (21:00)
[2016-12-05] MEDS: THIAMINE HCL 100 MG TABLET (FP) PO SCH (21:00)
[2016-12-05] MEDS: traZODone HCL 100 MG TABLET (FP) PO SCH (21:00)
[2016-12-05] MEDS ORDERED: DIVALPROEX SODIUM 500 MG TABLET E.C. PO SCH (22:00)
[2016-12-06] MEDS ORDERED: METHADONE HCL 10 MG TABLET PO SCH (06:45)
[2016-12-06] MEDS ORDERED: METHADONE HCL 10 MG TABLET ONE (06:54)
[2016-12-06] MEDS ORDERED: METHADONE HCL 40 MG DISPERSABLE TABLET ONE (06:54)
[2016-12-06] MEDS: METHADONE 80 MG, METHADONE 30 MG PO SCH (06:56)
[2016-12-06] MEDS: metFORMIN HCL 500 MG TABLET (FP) PO SCH ×2 (07:19→17:06)
[2016-12-06] MEDS: PRENATAL VITAMINS W/ FOLIC ACID TABLET (FP) PO SCH (10:13)
[2016-12-06] MEDS: ASPIRIN 81 MG CHEWABLE TABLETS PO SCH (10:13)
[2016-12-06] MEDS: ARIPiprazole 10 MG TABLET PO SCH (10:13)
[2016-12-06] MEDS: DIVALPROEX SODIUM 500 MG TABLET E.C. PO SCH ×2 (10:13→21:50)
[2016-12-06] MEDS: NICOTINE 21 MG/24 HOURS TOPICAL PATCH TD SCH (10:14)
[2016-12-06] MEDS: traZODone HCL 100 MG TABLET (FP) PO SCH (21:49)
[2016-12-06] MEDS: THIAMINE HCL 100 MG TABLET (FP) PO SCH (21:49)
[2016-12-07] MEDS ORDERED: METHADONE HCL 40 MG DISPERSABLE TABLET ONE (04:15)
[2016-12-07] MEDS ORDERED: METHADONE HCL 10 MG TABLET ONE (04:15)
[2016-12-07] MEDS: METHADONE 80 MG, METHADONE 30 MG PO SCH (06:23)
[2016-12-07] MEDS: metFORMIN HCL 500 MG TABLET (FP) PO SCH ×2 (07:39→17:00)
[2016-12-07 09:16] LABS: HIV 1 & 2 AB NEGATIVE; HIV 1 AGp24 NEGATIVE
[2016-12-07] MEDS: ARIPiprazole 10 MG TABLET PO SCH (10:34)
[2016-12-07] MEDS: ASPIRIN 81 MG CHEWABLE TABLETS PO SCH (10:34)
[2016-12-07] MEDS: DIVALPROEX SODIUM 500 MG TABLET E.C. PO SCH ×2 (10:34→21:19)
[2016-12-07] MEDS: PRENATAL VITAMINS W/ FOLIC ACID TABLET (FP) PO SCH (10:34)
[2016-12-07] MEDS: NICOTINE 21 MG/24 HOURS TOPICAL PATCH TD SCH (10:35)
[2016-12-07] MEDS: THIAMINE HCL 100 MG TABLET (FP) PO SCH (21:19)
[2016-12-07] MEDS: traZODone HCL 100 MG TABLET (FP) PO SCH (21:19)
[2016-12-08] MEDS ORDERED: METHADONE HCL 40 MG DISPERSABLE TABLET ONE (04:41)
[2016-12-08] MEDS ORDERED: METHADONE HCL 10 MG TABLET ONE (04:41)
[2016-12-08] MEDS: METHADONE 80 MG, METHADONE 30 MG PO SCH (06:26)
[2016-12-08 07:00] VITALS: BP 134/72; PULSE 75; TEMP 98.6
[2016-12-08] MEDS: metFORMIN HCL 500 MG TABLET (FP) PO SCH (07:34)
--- NOTE | 2016-12-08 09:52 | PN ---
S Progress Note Note: Patient's Valproic Acid serum level is 97.413 on Depakote 500 mg po BID
[2016-12-08] MEDS: ASPIRIN 81 MG CHEWABLE TABLETS PO SCH (09:58)
[2016-12-08] MEDS: PRENATAL VITAMINS W/ FOLIC ACID TABLET (FP) PO SCH (09:58)
[2016-12-08] MEDS: ARIPiprazole 10 MG TABLET PO SCH (09:58)
[2016-12-08] MEDS: DIVALPROEX SODIUM 500 MG TABLET E.C. PO SCH (09:58)
[2016-12-08] MEDS: NICOTINE 21 MG/24 HOURS TOPICAL PATCH TD SCH (09:59)
--- NOTE | 2016-12-08 10:16 | PN ---
Psychiatric Progress Note Vital Signs: Vital Signs Period Temp Pulse Resp BP Sys/Lane Pulse Ox Last 24 Hr 98.6 F 75 18-18 134/72 Date of Session: 12/08/16 Chief Complaint:: Psychiatrist Discharge Note(AMA) HPI: Patient addressing Alcohol, Cocaine and Sedative Dependence comorbid with Nicotine Dependence and Bipolar II Disorder ROS: type 2 DM, Hep C, old MN, Sickle cell Current Medications: Active Medications Generic Name Dose Route Start Last Admin Trade Name Freq PRN Reason Stop Dose Admin Acetaminophen 650 mg 12/05/16 14:42 Tylenol - PO Q4H PRN FEVER OR PAIN Al Hydroxide/Mg Hydroxide 30 ml 12/05/16 14:42 Mylanta Oral Suspension - PO Q6H PRN DYSPEPSIA Aripiprazole 10 mg 12/06/16 10:00 12/08/16 09:58 Abilify PO 10 mg DAILY ALIDA Administration Aspirin 81 mg 12/06/16 10:00 12/08/16 09:58 Asa - PO 81 mg DAILY ALIDA Administration Diphenhydramine HCl 50 mg 12/05/16 14:42 Benadryl - PO HSMR1 PRN FOR ITCHING Divalproex Sodium 500 mg 12/05/16 22:00 12/08/16 09:58 Depakote - PO 500 mg BID ALIDA Administration Eucalyptus/Menthol/Phenol/Sorbitol 1 each 12/05/16 14:42 Cepastat Lozenge - MM Q4H PRN SORE THROAT Guaifenesin 10 ml 12/05/16 14:42 12/07/16 15:48 Robitussin Dm - PO 10 ml Q6H PRN Administration COUGH Ibuprofen 400 mg 12/05/16 14:42 Motrin - PO Q6H PRN PAIN Loperamide HCl 4 mg 12/05/16 14:42 Imodium - PO Q6H PRN DIARRHEA Magnesium Hydroxide 30 ml 12/05/16 14:42 Milk Of Magnesia - PO DAILY PRN CONSTIPATION Metformin HCl 500 mg 12/05/16 16:30 12/08/16 07:34 Glucophage - PO 500 mg BIDAC ALIDA Administration Methadone HCl 80 mg/ Methadone 110 mg 12/06/16 07:00 12/08/16 06:26 HCl 30 mg PO 110 mg DAILY@0600 ALIDA Administration Nicotine 21 mg 12/06/16 10:00 12/08/16 09:59 Nicoderm Patch - TD Not Given DAILY ALIDA Nicotine Polacrilex 4 mg 12/05/16 14:42 Nicorette Gum - BUC Q2H PRN NICOTINE REPLACEMENT RX Multivit/Folic Acid/Iron 1 tab 12/06/16 10:00 12/08/16 09:58 Vitamins (Sjr) - PO 1 tab DAILY ALIDA Administration Pseudoephedrine/Triprolidine 1 combo 12/05/16 14:42 Actifed - PO TID PRN NASAL CONGESTION Thiamine HCl 100 mg 12/05/16 22:00 12/07/16 21:19 Vitamin B1 - PO 100 mg HS ALIDA Administration Trazodone HCl 100 mg 12/05/16 22:00 12/07/16 21:19 Desyrel - PO 100 mg HS ALIDA Administration Current Side Effect: No Lab tests ordered: Yes Lab tests reviewed: Yes Provider note:: Patient wants to leave treatment against medical advice. His reason for being in treatment was discussed and he was reminded about consequences of not completing treatment. He is determined to leave [facility] despite encouragement from automotive service writer to stay and complete treatment. He is currently on Depakote 500 mg po BID(serum level: 97.413 on 12/06/16), Abilify 10 mg po daily and Trazadone 100 mg po HS and found that regimen very helpful. Scripts for 30 days supply electronically transmitted to [facility] on [address] [place] [address]. He is stable for discharge today against medical advice Total face to face time:: 25 Mental Status Exam - Mental Status Exam Alert and Oriented to: Time, Place, Person Cognitive Function: Fair Patient Appearance: Well Groomed Mood: Hopeful, Euthymic Affect: Appropriate Patient Behavior: Cooperative Speech Pattern: Clear Voice Loudness: Normal Thought Process: Intact Thought Disorder: Not Present Hallucinations: Denies Suicidal Ideation: Denies Insight/Judgement: Fair Sleep: Fair Appetite: Good Muscle strength/Tone: Normal Gait/Station: Normal Psychiatric Treatment Plan - Problem List (1) Alcohol dependence with uncomplicated withdrawal Current Visit: No (2) Cocaine dependence, uncomplicated Current Visit: No (3) Sedative dependence Current Visit: No (4) Opioid dependence on agonist therapy Current Visit: No (5) Nicotine dependence Current Visit: No Qualifiers: Nicotine product type: cigarettes Substance use status: in withdrawal Qualified Code(s): F17.213 - Nicotine dependence, cigarettes, with withdrawal (6) Bipolar II disorder Current Visit: No (7) Diabetes mellitus type II, controlled Current Visit: No Qualifiers: Diabetes mellitus complication status: without complication Diabetes mellitus intermediate accountant insulin use: without intermediate accountant use Qualified Code(s): E11.9 - Type 2 diabetes mellitus without complications (8) Old MN (myocardial infarction) Current Visit: No (9) Deafness in left ear Current Visit: No (10) Hepatitis C Current Visit: No Qualifiers: Hepatic coma status: without hepatic coma (11) Sickle cell trait Current Visit: No Initial treatment plan: Patient is leaving [facility] today and will go back to [facility] for outpatient treatment
--- NOTE | 2016-12-12 16:09 | HP ---
JAYA MELGAR Rehab Assess/Revision - Admission History Admitted to Rehab from: [facility] Date of Admission to Rehab: 12/12/16 - Findings Detox History & Physical reviewed: Yes Concur with findings: Yes Comments/Additional Findings: transferred from detox to rehab admission as per protocol
[2016-12-12] MEDS ORDERED: MAG HYDROX/AL HYDROX/SIMETH 30 ML UNIT-DOSE CUP PO PRN (16:10)
[2016-12-12] MEDS ORDERED: NICOTINE POLACRILEX 2 MG GUM BUC PRN (16:10)
[2016-12-12] MEDS ORDERED: MAGNESIUM HYDROX 2400MG/30ML ORAL SUSPENSION 30 ML CUP PO PRN (16:10)
[2016-12-12] MEDS ORDERED: LOPERAMIDE HCL 2 MG CAPSULE PO PRN (16:10)
[2016-12-12] MEDS ORDERED: guaiFENesin/D-METHORPHAN HB 10 ML UNIT-DOSE CUPS PO PRN (16:10)
[2016-12-12] MEDS ORDERED: ACETAMINOPHEN 325 MG TABLET (FP) PO PRN (16:10)
[2016-12-12] MEDS ORDERED: hydrOXYzine PAMOATE 50 MG CAPSULE (FP) PO PRN (16:10)
[2016-12-12] MEDS ORDERED: NICOTINE 14 MG/24 HOURS TOPICAL PATCH TD PRN (16:10)
[2016-12-12] MEDS ORDERED: diphenhydrAMINE HCL 50 MG CAPSULE PO PRN (16:10)
[2016-12-12] MEDS ORDERED: P-EPHED 60MG/TRIPROLIDI 2.5MG TABLET PO PRN (16:10)
[2016-12-12] MEDS ORDERED: MENTHOL/PHENOL 1 EACH UD MM PRN (16:10)
[2016-12-12] MEDS ORDERED: MAGNESIUM CITRATE 300 ML BOTTLE PO PRN (16:10)
[2016-12-12] MEDS ORDERED: metFORMIN HCL 500 MG TABLET (FP) PO SCH (16:30)
[2016-12-12] MEDS ORDERED: THIAMINE HCL 100 MG TABLET (FP) PO SCH (22:00)
[2016-12-13] MEDS ORDERED: PRENATAL VITAMINS W/ FOLIC ACID TABLET (FP) PO SCH (10:00)
[2016-12-13] MEDS ORDERED: ASPIRIN 81 MG CHEWABLE TABLETS PO SCH (10:00)
== END 2016-12-08 10:20 | disposition left against medical advice (07) | DRG 770 ==
LOC: YASAS 13:34 → Y3W 13:35
PROVIDERS: ADMIT Psychiatry & Neurology Psychiatry; ATTEND Psychiatry & Neurology Psychiatry
PROC: HZ42ZZZ Group Counseling for Substance Abuse Treatment, Cognitive-Behavioral (ICD-10-PCS; principal; 2016-12-08)
DX: F11.20 Opioid dependence, uncomplicated (principal); F13.230 Sedative, hypnotic or anxiolytic dependence with withdrawal, uncomplicated; F10.230 Alcohol dependence with withdrawal, uncomplicated; F14.20 Cocaine dependence, uncomplicated; F17.210 Nicotine dependence, cigarettes, uncomplicated; E11.9 Type 2 diabetes mellitus without complications; Z79.84 Long term (current) use of oral hypoglycemic drugs; B18.2 Chronic viral hepatitis C; I25.2 Old myocardial infarction
CPT/HCPCS: 36415; 80164; 87389

== ENCOUNTER 2017-01-25 10:41 | Inpatient (IN) | payer OTHER ==
[2017-01-25 11:17] VITALS: BMI 23.1
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
[2017-01-25] MEDS ORDERED: MENTHOL/PHENOL 1 EACH UD MM PRN (13:52)
[2017-01-25] MEDS ORDERED: MAGNESIUM CITRATE 300 ML BOTTLE PO PRN (13:52)
[2017-01-25] MEDS ORDERED: LOPERAMIDE HCL 2 MG CAPSULE PO PRN (13:52)
[2017-01-25] MEDS ORDERED: guaiFENesin/D-METHORPHAN HB 10 ML UNIT-DOSE CUPS PO PRN (13:52)
[2017-01-25] MEDS ORDERED: IBUPROFEN 400 MG TABLET (FP) PO PRN (13:52)
[2017-01-25] MEDS ORDERED: diphenhydrAMINE HCL 50 MG CAPSULE PO PRN (13:52)
[2017-01-25] MEDS ORDERED: MAG HYDROX/AL HYDROX/SIMETH 30 ML UNIT-DOSE CUP PO PRN (13:52)
[2017-01-25] MEDS ORDERED: hydrOXYzine PAMOATE 50 MG CAPSULE (FP) PO PRN (13:52)
[2017-01-25] MEDS ORDERED: P-EPHED 60MG/TRIPROLIDI 2.5MG TABLET PO PRN (13:52)
[2017-01-25] MEDS ORDERED: MAGNESIUM HYDROX 2400MG/30ML ORAL SUSPENSION 30 ML CUP PO PRN (13:52)
[2017-01-25] MEDS ORDERED: ACETAMINOPHEN 325 MG TABLET (FP) PO PRN (13:52)
[2017-01-25] MEDS ORDERED: diazePAM 5 MG TABLET PO ONE (14:06)
[2017-01-25] MEDS: diazePAM 5 MG TABLET PO SCH ×2 (14:53→22:47)
--- NOTE | 2017-01-25 16:01 | CONSULT ---
[facility] Psychiatric Consult - Data Date of interview: 01/25/17 Admission source: [facility] Identifying data: This is 56 years old male with history of Bipolar Disorder , intoxicated with: Cociane, Xanax, Alcohol, Methadone, Nicotine Substance Abuse History: Smoking history: Current every day smoker. Have you smoked in the past 12 months: Yes. Aproximately how many cigarettes per day: 10. Cigars Per Day: 0. Hx Chewing Tobacco Use: No. Initiated information on smoking cessation: Yes. 'Breaking Loose' booklet given: 01/25/17. - Substance & Tx. History. Hx Alcohol Use: Yes. Hx Substance Use: Yes. Substance Use Type : Alcohol, Tranquilizers. Hx Substance Use Treatment: Yes. - Substances Abused. Alcohol. Route: Oral. Frequency: Daily. Amount used: 1 pint vodka. Age of first use: 10. Date of Last Use: 01/24/17. Alprazolam (Xanax ). Route: Oral. Frequency: Daily. Amount used: 3-4mg. Age of first use: 43. Date of Last Use: 01/23/17. Cocaine. Route: Injection. Frequency: Daily. Amount used: $25. Age of first use: 19. Date of Last Use: 01/23/17 Medical History: Weight loss history, DM-2, HepC+, Left ear deafness, Sickle cell trait, Psychiatric History: Patient rep[orts history od Bipolar disorderwith most recent psychiatric hospitalization on 2016 at [facility] due to depression, reports currently taking: Depakote 500mg po bid. Abilify 10mg poqd. Trazodone 100mg po qhs Physical/Sexual Abuse/Trauma History: Denies Additional Comment: Depakote 500mg po bid. Abilify 10mg poqd. Trazodone 100mg po qhs Mental Status Exam - Mental Status Exam Alert and Oriented to: Person Cognitive Function: Fair Patient Appearance: Well Groomed Mood: Apprehensive Affect: Mood Congruent Patient Behavior: Cooperative Speech Pattern: Appropriate Voice Loudness: Normal Thought Process: Goal Oriented Thought Disorder: Being Controlled Hallucinations: Denies Suicidal Ideation: Denies Homicidal Ideation: Denies Insight/Judgement: Fair Sleep: Difficulty falling asleep Appetite: Weight loss Muscle strength/Tone: Normal Gait/Station: Normal Additional Comments: Depakote 500mg po bid. Abilify 10mg poqd. Trazodone 100mg po qhs Psychiatric Findings - Problem List ([place] 1, 2,3) (1) Alcohol dependence with uncomplicated withdrawal Current Visit: Yes Status: Chronic (2) Cocaine dependence, uncomplicated Current Visit: Yes Status: Chronic (3) Methadone maintenance therapy patient Current Visit: Yes Status: Chronic Comment: 110 mg verification pending (4) Nicotine dependence Current Visit: Yes Status: Chronic Qualifiers: Nicotine product type: cigarettes Substance use status: uncomplicated Qualified Code(s): F17.210 - Nicotine dependence, cigarettes, uncomplicated (5) Bipolar disorder Current Visit: Yes Status: Acute - Initial Treatment Plan Initial Treatment Plan: Depakote 500mg po bid. Abilify 10mg poqd. Trazodone 100mg po qhs
--- NOTE | 2017-01-25 16:08 | EKG ---
Test Reason : Blood Pressure : / mmHG Vent. Rate : 062 BPM Atrial Rate : 062 BPM P-R Int : 176 ms QRS Dur : 092 ms QT Int : 424 ms P-R-T Axes : 070 051 038 degrees QTc Int : 430 ms NORMAL SINUS RHYTHM POSSIBLE LEFT ATRIAL ENLARGEMENT BORDERLINE ECG WHEN COMPARED WITH ECG OF 01-DEC-2016 20:24, NO SIGNIFICANT CHANGE WAS FOUND Confirmed by ROSALINDA MULLER MD ([id number]) on 01/25/2017 4:07:57 PM Referred By: Confirmed By:ROSALINDA MULLER MD
[2017-01-25] MEDS: metFORMIN HCL 500 MG TABLET (FP) PO SCH (17:43)
[2017-01-25] MEDS: diazePAM 5 MG TABLET PO PRN (18:43)
[2017-01-25 18:58] LABS: HIV 1 & 2 AB NEGATIVE; HIV 1 AGp24 NEGATIVE
[2017-01-25 20:07] LABS: URINE APPEARANCE CLEAR; URINE BILIRUBIN NEGATIVE (NEGATIVE); URINE BLOOD NEGATIVE (NEGATIVE); URINE COLOR COLORLESS; URINE GLUCOSE (UA) NEGATIVE (NEGATIVE); URINE KETONE NEGATIVE (NEGATIVE); URINE LEUK ESTERASE NEGATIVE (NEGATIVE); URINE NITRITE NEGATIVE (NEGATIVE); URINE PROTEIN NEGATIVE (NEGATIVE); URINE UROBILINOGEN NEGATIVE E.U./dl (0.2-1.0)
[2017-01-25] MEDS: BACITRACIN 0.9 GM PACKET TP SCH (22:47)
[2017-01-25] MEDS: THIAMINE HCL 100 MG TABLET (FP) PO SCH (22:47)
[2017-01-26] MEDS: diazePAM 5 MG TABLET PO SCH ×3 (05:23→22:39)
[2017-01-26] MEDS ORDERED: METHADONE HCL 10 MG TABLET PO SCH (06:45)
[2017-01-26] MEDS ORDERED: METHADONE HCL 10 MG TABLET ONE (06:52)
[2017-01-26] MEDS ORDERED: METHADONE HCL 40 MG DISPERSABLE TABLET ONE (06:53)
[2017-01-26] MEDS: METHADONE 80 MG, METHADONE 30 MG PO SCH (06:54)
[2017-01-26] MEDS: metFORMIN HCL 500 MG TABLET (FP) PO SCH ×2 (06:55→17:17)
[2017-01-26] MEDS: PRENATAL VITAMINS W/ FOLIC ACID TABLET (FP) PO SCH (09:58)
[2017-01-26] MEDS: ASPIRIN 81 MG CHEWABLE TABLETS PO SCH (09:58)
[2017-01-26] MEDS: BACITRACIN 0.9 GM PACKET TP SCH ×2 (09:58→22:39)
[2017-01-26] MEDS: NICOTINE 21 MG/24 HOURS TOPICAL PATCH TD SCH (09:58)
[2017-01-26] MEDS: diazePAM 5 MG TABLET PO PRN (09:58)
[2017-01-26 10:17] LABS: MCH 29.7 pg (25.7-33.7); MEAN CELL VOLUME 89.8 fl (80-96); PLATELET COUNT 178 K/MM3 (134-434); RDW 15.3 % (11.9-15.9); WHITE BLOOD COUNT 4.1 K/mm3 (4.0-10.0)
[2017-01-26 10:35] LABS: ALBUMIN 3.7 g/dl (3.4-5.0); ALK PHOS 93 U/L (45-117); ANION GAP 9 (8-16); BILIRUBIN,TOTAL 0.6 mg/dL (0.2-1.0); CO2 30 mmol/L (21-32); COCKROFT - GAULT 84.95; CREATININE 0.9 mg/dL (0.7-1.3); GLUCOSE,RANDOM 94 mg/dL (74-106); SGOT/AST 14 U/L (15-37); SGPT/ALT 14 U/L (12-78)
--- NOTE | 2017-01-26 11:16 | PN ---
[facility] CIWA - CIWA Score Nausea/Vomitin-No Nausea/No Vomiting Muscle Tremors: 4-Moderate,w/Arms Extend Anxiety: 4-Mod. Anxious/Guarded Agitation: 4-Moderately Restless Paroxysmal Sweats: 1-Minimal Palms Moist Orientation: 0-Oriented Tacttile Disturbances: 3-Moderate Itch/Numb/Burn Auditory Disturbances: 0-None Visual Disturbances: 0-None Headache: 0-None Present CIWA-Ar Total Score: 16 BHS Progress Note (SOAP) Subjective: ANXIETY,TREMORS, BACKACHE, INTERMITTENT SLEEP Objective: 01/26/17 11:15 Vital Signs Temperature 97.6 F 01/26/17 09:20 Pulse Rate 70 01/26/17 09:20 Respiratory Rate 18 01/26/17 09:20 Blood Pressure 129/76 01/26/17 09:20 O2 Sat by Pulse Oximetry (%) Laboratory Last Values WBC 4.1 K/mm3 (4.0-10.0) 01/26/17 06:00 RBC 4.48 M/mm3 (4.00-5.60) 01/26/17 06:00 Hgb 13.3 GM/dL (11.7-16.9) 01/26/17 06:00 Hct 40.2 % (35.4-49) 01/26/17 06:00 MCV 89.8 fl (80-96) 01/26/17 06:00 MCHC 33.0 g/dl (32.0-35.9) 01/26/17 06:00 RDW 15.3 % (11.9-15.9) 01/26/17 06:00 Plt Count 178 K/MM3 (134-434) D 01/26/17 06:00 MPV 10.0 fl (7.5-11.1) 01/26/17 06:00 Sodium 139 mmol/L (136-145) 01/26/17 06:00 Potassium 4.2 mmol/L (3.5-5.1) 01/26/17 06:00 Chloride 100 mmol/L (98-107) 01/26/17 06:00 Carbon Dioxide 30 mmol/L (21-32) 01/26/17 06:00 Anion Gap 9 (8-16) 01/26/17 06:00 BUN 13 mg/dL (7-18) 01/26/17 06:00 Creatinine 0.9 mg/dL (0.7-1.3) 01/26/17 06:00 Creat Clearance w eGFR > 60 (>60) 01/26/17 06:00 POC Glucometer 93 UNITS (()) 01/26/17 05:22 Random Glucose 94 mg/dL (74-106) D 01/26/17 06:00 Calcium 9.0 mg/dL (8.5-10.1) 01/26/17 06:00 Total Bilirubin 0.6 mg/dL (0.2-1.0) 01/26/17 06:00 AST 14 U/L (15-37) L 01/26/17 06:00 ALT 14 U/L (12-78) 01/26/17 06:00 Alkaline Phosphatase 93 U/L (45-117) 01/26/17 06:00 Total Protein 7.0 g/dl (6.4-8.2) 01/26/17 06:00 Albumin 3.7 g/dl (3.4-5.0) 01/26/17 06:00 Urine Color Colorless 01/25/17 14:00 Urine Appearance Clear 01/25/17 14:00 Urine pH 6.0 (5.0-8.0) 01/25/17 14:00 Ur Specific [place] 1.005 (1.001-1.035) 01/25/17 14:00 Urine Protein Negative (NEGATIVE) 01/25/17 14:00 Urine Glucose (UA) Negative (NEGATIVE) 01/25/17 14:00 Urine Ketones Negative (NEGATIVE) 01/25/17 14:00 Urine Blood Negative (NEGATIVE) 01/25/17 14:00 Urine Nitrite Negative (NEGATIVE) 01/25/17 14:00 Urine Bilirubin Negative (NEGATIVE) 01/25/17 14:00 Urine Urobilinogen Negative E.U./dl (0.2-1.0) 01/25/17 14:00 Ur Leukocyte Esterase Negative (NEGATIVE) 01/25/17 14:00 HIV 1&2 Antibody Screen Negative 01/25/17 12:00 HIV P24 Antigen Negative 01/25/17 12:00 Assessment: 01/26/17 11:15 WITHDRAWAL SX Plan: CONTINUE DETOX
[2017-01-26] MEDS: THIAMINE HCL 100 MG TABLET (FP) PO SCH (22:39)
[2017-01-27] MEDS ORDERED: METHADONE HCL 10 MG TABLET ONE (05:03)
[2017-01-27] MEDS ORDERED: METHADONE HCL 40 MG DISPERSABLE TABLET ONE (05:04)
[2017-01-27] MEDS: METHADONE 80 MG, METHADONE 30 MG PO SCH (05:04)
[2017-01-27] MEDS: diazePAM 5 MG TABLET PO PRN (05:07)
[2017-01-27] MEDS: metFORMIN HCL 500 MG TABLET (FP) PO SCH ×2 (07:34→17:20)
[2017-01-27] MEDS: NICOTINE 21 MG/24 HOURS TOPICAL PATCH TD SCH (10:35)
[2017-01-27] MEDS: ASPIRIN 81 MG CHEWABLE TABLETS PO SCH (10:35)
[2017-01-27] MEDS: PRENATAL VITAMINS W/ FOLIC ACID TABLET (FP) PO SCH (10:35)
[2017-01-27] MEDS: BACITRACIN 0.9 GM PACKET TP SCH ×2 (10:35→22:33)
[2017-01-27] MEDS: diazePAM 5 MG TABLET PO SCH ×2 (10:35→22:33)
[2017-01-27] MEDS ORDERED: ONDANSETRON *ODT* 4 MG TABLET SL PRN (10:50)
--- NOTE | 2017-01-27 14:26 | PN ---
S CIWA - CIWA Score Nausea/Vomitin Muscle Tremors: 4-Moderate,w/Arms Extend Anxiety: 2 Agitation: 3 Paroxysmal Sweats: 3 Orientation: 0-Oriented Tacttile Disturbances: 3-Moderate Itch/Numb/Burn Auditory Disturbances: 0-None Visual Disturbances: 0-None Headache: 0-None Present CIWA-Ar Total Score: 20 BHS Progress Note (SOAP) Subjective: Tremors, Sweating, Body aches, Vomiting, Interrupted sleep. Objective: PT. A & O X 3, OBSERVED AMBULATING ON UNIT. 01/27/17 14:24 Vital Signs Temperature 97.8 F 01/27/17 13:40 Pulse Rate 60 01/27/17 13:40 Respiratory Rate 18 01/27/17 13:40 Blood Pressure 127/79 01/27/17 13:40 O2 Sat by Pulse Oximetry (%) Laboratory Last Values WBC 4.1 K/mm3 (4.0-10.0) 01/26/17 06:00 RBC 4.48 M/mm3 (4.00-5.60) 01/26/17 06:00 Hgb 13.3 GM/dL (11.7-16.9) 01/26/17 06:00 Hct 40.2 % (35.4-49) 01/26/17 06:00 MCV 89.8 fl (80-96) 01/26/17 06:00 MCHC 33.0 g/dl (32.0-35.9) 01/26/17 06:00 RDW 15.3 % (11.9-15.9) 01/26/17 06:00 Plt Count 178 K/MM3 (134-434) D 01/26/17 06:00 MPV 10.0 fl (7.5-11.1) 01/26/17 06:00 Sodium 139 mmol/L (136-145) 01/26/17 06:00 Potassium 4.2 mmol/L (3.5-5.1) 01/26/17 06:00 Chloride 100 mmol/L (98-107) 01/26/17 06:00 Carbon Dioxide 30 mmol/L (21-32) 01/26/17 06:00 Anion Gap 9 (8-16) 01/26/17 06:00 BUN 13 mg/dL (7-18) 01/26/17 06:00 Creatinine 0.9 mg/dL (0.7-1.3) 01/26/17 06:00 Creat Clearance w eGFR > 60 (>60) 01/26/17 06:00 POC Glucometer 121 UNITS (()) 01/27/17 05:06 Random Glucose 94 mg/dL (74-106) D 01/26/17 06:00 Calcium 9.0 mg/dL (8.5-10.1) 01/26/17 06:00 Total Bilirubin 0.6 mg/dL (0.2-1.0) 01/26/17 06:00 AST 14 U/L (15-37) L 01/26/17 06:00 ALT 14 U/L (12-78) 01/26/17 06:00 Alkaline Phosphatase 93 U/L (45-117) 01/26/17 06:00 Total Protein 7.0 g/dl (6.4-8.2) 01/26/17 06:00 Albumin 3.7 g/dl (3.4-5.0) 01/26/17 06:00 Urine Color Colorless 01/25/17 14:00 Urine Appearance Clear 01/25/17 14:00 Urine pH 6.0 (5.0-8.0) 01/25/17 14:00 Ur Specific [place] 1.005 (1.001-1.035) 01/25/17 14:00 Urine Protein Negative (NEGATIVE) 01/25/17 14:00 Urine Glucose (UA) Negative (NEGATIVE) 01/25/17 14:00 Urine Ketones Negative (NEGATIVE) 01/25/17 14:00 Urine Blood Negative (NEGATIVE) 01/25/17 14:00 Urine Nitrite Negative (NEGATIVE) 01/25/17 14:00 Urine Bilirubin Negative (NEGATIVE) 01/25/17 14:00 Urine Urobilinogen Negative E.U./dl (0.2-1.0) 01/25/17 14:00 Ur Leukocyte Esterase Negative (NEGATIVE) 01/25/17 14:00 RPR Titer Nonreactive (NONREACTIVE) 01/26/17 06:00 HIV 1&2 Antibody Screen Negative 01/25/17 12:00 HIV P24 Antigen Negative 01/25/17 12:00 LABS NOTED. Assessment: 01/27/17 14:25 WITHDRAWAL SYMPTOMS. Plan: CONTINUE DETOX. ADVISED PATIENT TO FOLLOW-UP WITH CLIENT MANAGER [employer] / REHAB MEDICAL PROVIDER AFTER DISCHARGE FROM DETOX FOR GENERAL MEDICAL ASSESSMENT AND FOR ABNORMAL ADMISSION LAB VALUES.
[2017-01-27] MEDS: THIAMINE HCL 100 MG TABLET (FP) PO SCH (22:33)
[2017-01-28] MEDS ORDERED: METHADONE HCL 40 MG DISPERSABLE TABLET ONE (03:25)
[2017-01-28] MEDS ORDERED: METHADONE HCL 10 MG TABLET ONE (03:25)
[2017-01-28] MEDS: METHADONE 80 MG, METHADONE 30 MG PO SCH (05:44)
[2017-01-28] MEDS: metFORMIN HCL 500 MG TABLET (FP) PO SCH (07:16)
[2017-01-28] MEDS: PRENATAL VITAMINS W/ FOLIC ACID TABLET (FP) PO SCH (10:41)
[2017-01-28] MEDS: ASPIRIN 81 MG CHEWABLE TABLETS PO SCH (10:41)
[2017-01-28] MEDS: diazePAM 5 MG TABLET PO SCH (10:42)
[2017-01-28] MEDS: BACITRACIN 0.9 GM PACKET TP SCH (10:42)
[2017-01-28] MEDS: NICOTINE 21 MG/24 HOURS TOPICAL PATCH TD SCH (10:42)
[2017-01-28 13:34] VITALS: BP 117/77; PULSE 77; TEMP 96
--- NOTE | 2017-01-28 14:00 | PN ---
BHS Progress Note (SOAP) Subjective: Anxious, restless, sweating, interrupted sleep Objective: 01/28/17 13:58 Last Vital Signs Temp Pulse Resp BP Pulse Ox 96 F L 77 18 117/77 01/28/17 13:27 01/28/17 13:27 01/28/17 13:27 01/28/17 13:27 Laboratory Tests 01/25/17 01/25/17 01/25/17 12:00 12:43 14:00 WBC RBC Hgb Hct MCV MCHC RDW Plt Count MPV Sodium Potassium Chloride Carbon Dioxide Anion Gap BUN Creatinine Creat Clearance w eGFR POC Glucometer 127 Random Glucose Calcium Total Bilirubin AST ALT Alkaline Phosphatase Total Protein Albumin Urine Color Colorless Urine Appearance Clear Urine pH 6.0 Ur Specific [place] 1.005 Urine Protein Negative Urine Glucose (UA) Negative Urine Ketones Negative Urine Blood Negative Urine Nitrite Negative Urine Bilirubin Negative Urine Urobilinogen Negative Ur Leukocyte Esterase Negative RPR Titer HIV 1&2 Antibody Screen Negative HIV P24 Antigen Negative 01/25/17 01/26/17 01/26/17 16:21 05:22 06:00 WBC 4.1 RBC 4.48 Hgb 13.3 Hct 40.2 MCV 89.8 MCHC 33.0 RDW 15.3 Plt Count 178 D MPV 10.0 Sodium Potassium Chloride Carbon Dioxide Anion Gap BUN Creatinine Creat Clearance w eGFR POC Glucometer 76 93 Random Glucose Calcium Total Bilirubin AST ALT Alkaline Phosphatase Total Protein Albumin Urine Color Urine Appearance Urine pH Ur Specific [place] Urine Protein Urine Glucose (UA) Urine Ketones Urine Blood Urine Nitrite Urine Bilirubin Urine Urobilinogen Ur Leukocyte Esterase RPR Titer HIV 1&2 Antibody Screen HIV P24 Antigen 01/26/17 01/26/17 01/26/17 06:00 06:00 16:18 WBC RBC Hgb Hct MCV MCHC RDW Plt Count MPV Sodium 139 Potassium 4.2 Chloride 100 Carbon Dioxide 30 Anion Gap 9 BUN 13 Creatinine 0.9 Creat Clearance w eGFR > 60 POC Glucometer 90 Random Glucose 94 D Calcium 9.0 Total Bilirubin 0.6 AST 14 L ALT 14 Alkaline Phosphatase 93 Total Protein 7.0 Albumin 3.7 Urine Color Urine Appearance Urine pH Ur Specific [place] Urine Protein Urine Glucose (UA) Urine Ketones Urine Blood Urine Nitrite Urine Bilirubin Urine Urobilinogen Ur Leukocyte Esterase RPR Titer Nonreactive HIV 1&2 Antibody Screen HIV P24 Antigen 0401/27/17 01/28/17 05:06 16:22 05:43 WBC RBC Hgb Hct MCV MCHC RDW Plt Count MPV Sodium Potassium Chloride Carbon Dioxide Anion Gap BUN Creatinine Creat Clearance w eGFR POC Glucometer 121 99 111 Random Glucose Calcium Total Bilirubin AST ALT Alkaline Phosphatase Total Protein Albumin Urine Color Urine Appearance Urine pH Ur Specific [place] Urine Protein Urine Glucose (UA) Urine Ketones Urine Blood Urine Nitrite Urine Bilirubin Urine Urobilinogen Ur Leukocyte Esterase RPR Titer HIV 1&2 Antibody Screen HIV P24 Antigen Labs noted Assessment: 01/28/17 13:58 Withdrawal symptoms Plan: Continue detox, patient requesting rehab admission here at [facility] post discharge
--- NOTE | 2017-01-28 15:59 | DS ---
[facility] Detox Discharge Summary Admission Date: 01/25/17 Discharge Date: 01/28/17 - History Present History: Alcohol Dependence, Cocaine Dependence, Sedative Dependence, MMTP Pertinent Past History: PPD Positive DMT2 Hepatitis C - Physical Exam Results Vital Signs: Vital Signs Temperature 96 F L 01/28/17 13:27 Pulse Rate 77 01/28/17 13:27 Respiratory Rate 18 01/28/17 13:27 Blood Pressure 117/77 01/28/17 13:27 O2 Sat by Pulse Oximetry (%) Pertinent Admission Physical Exam Findings: Withdrawal symptoms Laboratory Tests 01/25/17 01/25/17 01/25/17 12:00 12:43 14:00 WBC RBC Hgb Hct MCV MCHC RDW Plt Count MPV Sodium Potassium Chloride Carbon Dioxide Anion Gap BUN Creatinine Creat Clearance w eGFR POC Glucometer 127 Random Glucose Calcium Total Bilirubin AST ALT Alkaline Phosphatase Total Protein Albumin Urine Color Colorless Urine Appearance Clear Urine pH 6.0 Ur Specific [place] 1.005 Urine Protein Negative Urine Glucose (UA) Negative Urine Ketones Negative Urine Blood Negative Urine Nitrite Negative Urine Bilirubin Negative Urine Urobilinogen Negative Ur Leukocyte Esterase Negative RPR Titer HIV 1&2 Antibody Screen Negative HIV P24 Antigen Negative 01/25/17 01/26/17 01/26/17 16:21 05:22 06:00 WBC 4.1 RBC 4.48 Hgb 13.3 Hct 40.2 MCV 89.8 MCHC 33.0 RDW 15.3 Plt Count 178 D MPV 10.0 Sodium Potassium Chloride Carbon Dioxide Anion Gap BUN Creatinine Creat Clearance w eGFR POC Glucometer 76 93 Random Glucose Calcium Total Bilirubin AST ALT Alkaline Phosphatase Total Protein Albumin Urine Color Urine Appearance Urine pH Ur Specific [place] Urine Protein Urine Glucose (UA) Urine Ketones Urine Blood Urine Nitrite Urine Bilirubin Urine Urobilinogen Ur Leukocyte Esterase RPR Titer HIV 1&2 Antibody Screen HIV P24 Antigen 01/26/17 01/26/17 01/26/17 06:00 06:00 16:18 WBC RBC Hgb Hct MCV MCHC RDW Plt Count MPV Sodium 139 Potassium 4.2 Chloride 100 Carbon Dioxide 30 Anion Gap 9 BUN 13 Creatinine 0.9 Creat Clearance w eGFR > 60 POC Glucometer 90 Random Glucose 94 D Calcium 9.0 Total Bilirubin 0.6 AST 14 L ALT 14 Alkaline Phosphatase 93 Total Protein 7.0 Albumin 3.7 Urine Color Urine Appearance Urine pH Ur Specific [place] Urine Protein Urine Glucose (UA) Urine Ketones Urine Blood Urine Nitrite Urine Bilirubin Urine Urobilinogen Ur Leukocyte Esterase RPR Titer Nonreactive HIV 1&2 Antibody Screen HIV P24 Antigen 01/27/17 01/27/17 01/28/17 05:06 16:22 05:43 WBC RBC Hgb Hct MCV MCHC RDW Plt Count MPV Sodium Potassium Chloride Carbon Dioxide Anion Gap BUN Creatinine Creat Clearance w eGFR POC Glucometer 121 99 111 Random Glucose Calcium Total Bilirubin AST ALT Alkaline Phosphatase Total Protein Albumin Urine Color Urine Appearance Urine pH Ur Specific [place] Urine Protein Urine Glucose (UA) Urine Ketones Urine Blood Urine Nitrite Urine Bilirubin Urine Urobilinogen Ur Leukocyte Esterase RPR Titer HIV 1&2 Antibody Screen HIV P24 Antigen Labs noted - Medication Discharge Medications: Ambulatory Orders Aspirin [ASA -] 81 mg PO DAILY #30 tab.chew 10/07/14 Metformin HCl [Glucophage -] 500 mg PO BID 08/30/16 Aripiprazole [Abilify -] 10 mg PO DAILY #30 tablet 12/08/16 Divalproex [Depakote -] 500 mg PO BID #60 tablet.ec 12/08/16 Trazodone HCl [Desyrel -] 100 mg PO HS #30 tablet 12/08/16 - Diagnosis (1) Alcohol dependence with uncomplicated withdrawal Status: Acute (2) Diabetes mellitus type II, controlled Status: Chronic Qualifiers: Diabetes mellitus complication status: without complication Diabetes mellitus group home insulin use: without director long term care use Qualified Code(s): E11.9 - Type 2 diabetes mellitus without complications (3) Hepatitis C Status: Chronic Qualifiers: Hepatic coma status: without hepatic coma (4) Methadone maintenance therapy patient Status: Chronic (5) Nicotine dependence Status: Chronic Qualifiers: Nicotine product type: cigarettes Substance use status: uncomplicated Qualified Code(s): F17.210 - Nicotine dependence, cigarettes, uncomplicated (6) Cocaine dependence, uncomplicated Status: Chronic (7) Sedative hypnotic or anxiolytic dependence Status: Acute - AMA Did Patient Leave Against Medical Advice: Yes
[2017-01-29] MEDS ORDERED: diazePAM 5 MG TABLET PO SCH (10:00)
== END 2017-01-28 15:04 | disposition left against medical advice (07) | DRG 770 ==
LOC: YASAS 10:41 → Y3N 13:30
PROVIDERS: ADMIT Internal Medicine; ATTEND Internal Medicine
PROC: HZ2ZZZZ Detoxification Services for Substance Abuse Treatment (ICD-10-PCS; principal; 2017-01-28)
DX: F11.20 Opioid dependence, uncomplicated (principal); F13.230 Sedative, hypnotic or anxiolytic dependence with withdrawal, uncomplicated; F10.230 Alcohol dependence with withdrawal, uncomplicated; F14.20 Cocaine dependence, uncomplicated; F17.210 Nicotine dependence, cigarettes, uncomplicated; E11.9 Type 2 diabetes mellitus without complications; Z79.84 Long term (current) use of oral hypoglycemic drugs; F31.9 Bipolar disorder, unspecified; B18.2 Chronic viral hepatitis C; D57.3 Sickle-cell trait; S41.002A Unspecified open wound of left shoulder, initial encounter
CPT/HCPCS: 36415; 80053; 81003; 85027; 86593; 87389; 93005; 93010

== ENCOUNTER 2017-03-19 11:19 | Inpatient (IN) | payer OTHER ==
[2017-03-19 12:17] VITALS: BMI 20.9
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
[2017-03-19] MEDS ORDERED: MENTHOL/PHENOL 1 EACH UD MM PRN (13:59)
[2017-03-19] MEDS ORDERED: LOPERAMIDE HCL 2 MG CAPSULE PO PRN (13:59)
[2017-03-19] MEDS ORDERED: ACETAMINOPHEN 325 MG TABLET (FP) PO PRN (13:59)
[2017-03-19] MEDS ORDERED: NICOTINE POLACRILEX 2 MG GUM BUC PRN (13:59)
[2017-03-19] MEDS ORDERED: MAG HYDROX/AL HYDROX/SIMETH 30 ML UNIT-DOSE CUP PO PRN (13:59)
[2017-03-19] MEDS ORDERED: MAGNESIUM HYDROX 2400MG/30ML ORAL SUSPENSION 30 ML CUP PO PRN (13:59)
[2017-03-19] MEDS ORDERED: IBUPROFEN 400 MG TABLET (FP) PO PRN (13:59)
[2017-03-19] MEDS ORDERED: MAGNESIUM CITRATE 300 ML BOTTLE PO PRN (13:59)
[2017-03-19] MEDS ORDERED: diphenhydrAMINE HCL 50 MG CAPSULE PO PRN (13:59)
[2017-03-19] MEDS ORDERED: guaiFENesin/D-METHORPHAN HB 10 ML UNIT-DOSE CUPS PO PRN (13:59)
[2017-03-19] MEDS ORDERED: P-EPHED 60MG/TRIPROLIDI 2.5MG TABLET PO PRN (13:59)
[2017-03-19] MEDS ORDERED: diazePAM 5 MG TABLET PO ONE (14:33)
[2017-03-19] MEDS: ASPIRIN 81 MG CHEWABLE TABLETS PO SCH (14:49)
[2017-03-19] MEDS: NICOTINE 14 MG/24 HOURS TOPICAL PATCH TD SCH (14:50)
[2017-03-19] MEDS: metFORMIN HCL 500 MG TABLET (FP) PO SCH (17:07)
[2017-03-19 17:49] LABS: URINE APPEARANCE CLEAR; URINE BILIRUBIN NEGATIVE (NEGATIVE); URINE BLOOD NEGATIVE (NEGATIVE); URINE COLOR LTYELLOW; URINE GLUCOSE (UA) NEGATIVE (NEGATIVE); URINE KETONE NEGATIVE (NEGATIVE); URINE NITRITE NEGATIVE (NEGATIVE); URINE PROTEIN NEGATIVE (NEGATIVE); URINE UROBILINOGEN NEGATIVE E.U./dl (0.2-1.0)
[2017-03-19 17:56] LABS: URINE LEUK ESTERASE TRACE (NEGATIVE)
[2017-03-19 18:09] LABS: URINE RBC <1 /hpf (0-3); URINE WBC 2 /hpf (3-5)
[2017-03-19] MEDS ORDERED: metFORMIN HCL 500 MG TABLET (FP) PO SCH (22:00)
[2017-03-19] MEDS: diazePAM 5 MG TABLET PO SCH (22:17)
[2017-03-19] MEDS: THIAMINE HCL 100 MG TABLET (FP) PO SCH (22:17)
[2017-03-20] MEDS: diazePAM 5 MG TABLET PO SCH ×3 (06:13→22:10)
--- NOTE | 2017-03-20 08:38 | CONSULT ---
[facility] Psychiatric Consult - Data Date of interview: 03/20/17 Admission source: [facility] Identifying data: This is 56 years old male with history of Bipolar Disorder, history of Psychiatric admissions, intoxicated with: Alcohol, Cocaine, Xanax and Nicotine, Opiuoids dependence history Substance Abuse History: - Smoking Cessation. Smoking history: Current every day smoker. Have you smoked in the past 12 months: Yes. Aproximately how many cigarettes per day: 10. Cigars Per Day: 0. Hx Chewing Tobacco Use: No. Initiated information on smoking cessation: Yes. 'Breaking Loose' booklet given : 03/19/17. - Substance & Tx. History. Hx Alcohol Use: Yes (BEER/JOSSY). Hx Substance Use: Yes (COCAINE/XANAX/MARIJUANA). Substance Use Type: Alcohol, Cocaine, Marijuana, Tranquilizers. - Substances Abused. Cocaine. Route: Injection. Frequency: 1-2 times per week. Amount used: $20. Age of first use : 18. Date of Last Use: 03/18/17. Alcohol-beer/jossy. Route: Oral. Frequency: Daily. Amount used: 2-6 pks./2 pts. Age of first use: 11. Date of Last Use: 03/19/17. Xanax. Route: Oral. Frequency: 3-6 times per week. Amount used: 6 mg. Age of first use: 54. Date of Last Use: 03/18/17. Marijuana. Route: Smoking. Frequency: 1-2 times per week. Amount used: $10. Age of first use: 11. Date of Last Use: 03/16/17 Medical History: Weight loss, HepC+, dm, Old [place] history, Left ear deafness, Sickle cell trait Psychiatric History: Patient reports to carry Bipolar Disorder, reports currently stable on: Depakote 500mg po bid. Trazodone 100mg po qhs. Abilify 10mg poqd. Reports most recent psychioatric admission at [facility] on 2016 for safety Physical/Sexual Abuse/Trauma History: Denies Additional Comment: Depakote 500mg po bid. Trazodone 100mg po qhs. Abilify 10mg poqd Mental Status Exam - Mental Status Exam Alert and Oriented to: Place, Person Cognitive Function: Fair Patient Appearance: Well Groomed Mood: Apprehensive Affect: Appropriate Patient Behavior: Cooperative Speech Pattern: Appropriate Voice Loudness: Normal Thought Process: Goal Oriented Thought Disorder: Being Controlled Hallucinations: Denies Suicidal Ideation: Denies Homicidal Ideation: Denies Sleep: Difficulty falling asleep Appetite: Weight loss Muscle strength/Tone: Normal Gait/Station: Normal Additional Comments: Depakote 500mg po bid. Trazodone 100mg po qhs. Abilify 10mg poqd Psychiatric Findings - Problem List ([place] 1, 2,3) (1) Alcohol dependence with uncomplicated withdrawal Current Visit: Yes Status: Acute (2) Cocaine dependence, uncomplicated Current Visit: Yes Status: Acute (3) Nicotine dependence Current Visit: Yes Status: Acute Qualifiers: Nicotine product type: cigarettes Substance use status: in withdrawal Qualified Code(s): F17.213 - Nicotine dependence, cigarettes, with withdrawal (4) Sedative hypnotic or anxiolytic dependence Current Visit: Yes Status: Acute (5) Weight loss Current Visit: Yes Status: Acute (6) Diabetes mellitus type II, controlled Current Visit: Yes Status: Chronic Qualifiers: Diabetes mellitus complication status: without complication (7) Methadone maintenance therapy patient Current Visit: Yes Status: Chronic Comment: 110 MG VERIFIED--LAST DOSE TODAY. (8) Bipolar disorder Current Visit: No Status: Acute - Initial Treatment Plan Initial Treatment Plan: Depakote 500mg po bid. Trazodone 100mg po qhs. Abilify 10mg poqd
[2017-03-20] MEDS ORDERED: METHADONE HCL 10 MG TABLET PO ONE (08:41)
[2017-03-20] MEDS ORDERED: METHADONE 80 MG, METHADONE 30 MG PO ONE (09:05)
[2017-03-20] MEDS ORDERED: METHADONE HCL 40 MG DISPERSABLE TABLET ONE (09:15)
[2017-03-20] MEDS ORDERED: METHADONE HCL 10 MG TABLET ONE (09:16)
[2017-03-20] MEDS: metFORMIN HCL 500 MG TABLET (FP) PO SCH ×2 (09:20→17:58)
[2017-03-20 09:44] LABS: MCH 29.8 pg (25.7-33.7); MCHC 33.4 g/dl (32.0-35.9); MEAN CELL VOLUME 89.1 fl (80-96); MEAN PLT VOLUME 9.2 fl (7.5-11.1); PLATELET COUNT 199 K/MM3 (134-434); RDW 14.9 % (11.9-15.9); WHITE BLOOD COUNT 3.8 K/mm3 (4.0-10.0)
[2017-03-20 10:13] LABS: ALBUMIN 3.7 g/dl (3.4-5.0); ALK PHOS 94 U/L (45-117); ANION GAP 8 (8-16); BILIRUBIN,TOTAL 0.8 mg/dL (0.2-1.0); CALCIUM 9.1 mg/dL (8.5-10.1); CO2 28 mmol/L (21-32); CREATININE 1.2 mg/dL (0.7-1.3); GLUCOSE,RANDOM 92 mg/dL (74-106); SGOT/AST 17 U/L (15-37); SGPT/ALT 18 U/L (12-78); TOT PROT 7.1 g/dl (6.4-8.2)
[2017-03-20] MEDS: PRENATAL VITAMINS W/ FOLIC ACID TABLET (FP) PO SCH (10:20)
[2017-03-20] MEDS: ASPIRIN 81 MG CHEWABLE TABLETS PO SCH (10:20)
[2017-03-20] MEDS: DIVALPROEX SODIUM 500 MG TABLET E.C. PO SCH ×2 (10:20→22:10)
[2017-03-20] MEDS: NICOTINE 14 MG/24 HOURS TOPICAL PATCH TD SCH (10:21)
[2017-03-20] MEDS: ARIPiprazole 10 MG TABLET PO SCH (10:21)
[2017-03-20] MEDS: diazePAM 5 MG TABLET PO PRN ×2 (10:22→16:58)
--- NOTE | 2017-03-20 10:26 | PN ---
S CIWA - CIWA Score Nausea/Vomitin Muscle Tremors: 2 Anxiety: 3 Agitation: 2 Paroxysmal Sweats: 3 Orientation: 0-Oriented Tacttile Disturbances: 2-Mild Itch/Numbness/Burn Auditory Disturbances: 0-None Visual Disturbances: 0-None Headache: 0-None Present CIWA-Ar Total Score: 14 S Progress Note (SOAP) Subjective: interrupted sleep, sweats, knee pains , wants to wear sneakers Objective: 03/20/17 10:24 Last Vital Signs Temp Pulse Resp BP Pulse Ox 98.4 F 76 18 136/76 03/20/17 09:37 03/20/17 09:37 03/20/17 09:37 03/20/17 09:37 Laboratory Tests 03/19/17 03/19/17 03/19/17 13:12 15:00 16:39 WBC RBC Hgb Hct MCV MCHC RDW Plt Count MPV POC Glucometer 73 111 Urine Color Ltyellow Urine Appearance Clear Urine pH 6.0 Ur Specific [place] 1.015 Urine Protein Negative Urine Glucose (UA) Negative Urine Ketones Negative Urine Blood Negative Urine Nitrite Negative Urine Bilirubin Negative Urine Urobilinogen Negative Ur Leukocyte Esterase Trace H Urine RBC <1 Urine WBC 2 03/20/17 03/20/17 03/20/17 05:50 05:58 06:00 WBC 3.8 L RBC 4.45 Hgb 13.3 Hct 39.7 MCV 89.1 MCHC 33.4 RDW 14.9 Plt Count 199 MPV 9.2 POC Glucometer 89 135 Urine Color Urine Appearance Urine pH Ur Specific [place] Urine Protein Urine Glucose (UA) Urine Ketones Urine Blood Urine Nitrite Urine Bilirubin Urine Urobilinogen Ur Leukocyte Esterase Urine RBC Urine WBC pending labs pt aox3 in nad ambulating Assessment: 03/20/17 10:25 withdrawal sx's dm Plan: cont. detox increease fluids may use own sneakers f/up pending labs daily bgms
--- NOTE | 2017-03-20 14:47 | EKG ---
Test Reason : Blood Pressure : / mmHG Vent. Rate : 067 BPM Atrial Rate : 067 BPM P-R Int : 168 ms QRS Dur : 094 ms QT Int : 422 ms P-R-T Axes : 071 054 040 degrees QTc Int : 445 ms NORMAL SINUS RHYTHM POSSIBLE LEFT ATRIAL ENLARGEMENT ST ELEVATION, CONSIDER EARLY REPOLARIZATION BORDERLINE ECG WHEN COMPARED WITH ECG OF 25-JAN-2017 14:03, NO SIGNIFICANT CHANGE WAS FOUND Confirmed by HAZEL MELGAR, ALTAGRACIA ([id number]) on 03/20/2017 2:47:24 PM Referred By: Bartolo Munroe Confirmed By:ALTAGRACIA OLIVA MD
[2017-03-20] MEDS: traZODone HCL 100 MG TABLET (FP) PO SCH (22:10)
[2017-03-20] MEDS: THIAMINE HCL 100 MG TABLET (FP) PO SCH (22:10)
[2017-03-21] MEDS ORDERED: METHADONE HCL 40 MG DISPERSABLE TABLET ONE (04:39)
[2017-03-21] MEDS ORDERED: METHADONE HCL 10 MG TABLET ONE (04:40)
[2017-03-21] MEDS: METHADONE 80 MG, METHADONE 30 MG PO SCH (05:46)
[2017-03-21] MEDS ORDERED: METHADONE HCL 40 MG DISPERSABLE TABLET PO SCH (06:00)
[2017-03-21] MEDS: ASPIRIN 81 MG CHEWABLE TABLETS PO SCH (10:17)
[2017-03-21] MEDS: DIVALPROEX SODIUM 500 MG TABLET E.C. PO SCH ×2 (10:17→22:26)
[2017-03-21] MEDS: ARIPiprazole 10 MG TABLET PO SCH (10:17)
[2017-03-21] MEDS: diazePAM 5 MG TABLET PO SCH ×2 (10:17→22:26)
[2017-03-21] MEDS: PRENATAL VITAMINS W/ FOLIC ACID TABLET (FP) PO SCH (10:17)
[2017-03-21] MEDS: NICOTINE 14 MG/24 HOURS TOPICAL PATCH TD SCH (10:18)
--- NOTE | 2017-03-21 12:30 | PN ---
[facility] CIWA - CIWA Score Nausea/Vomitin Muscle Tremors: 2 Anxiety: 2 Agitation: 2 Paroxysmal Sweats: 3 Orientation: 0-Oriented Tacttile Disturbances: 1-Very Mild Itch/Numbness Auditory Disturbances: 0-None Visual Disturbances: 0-None Headache: 0-None Present CIWA-Ar Total Score: 12 S Progress Note (SOAP) Subjective: sweats , but better today Objective: 03/21/17 12:29 Vital Signs Temperature 99.1 F 03/21/17 09:50 Pulse Rate 83 03/21/17 09:50 Respiratory Rate 18 03/21/17 09:50 Blood Pressure 108/73 03/21/17 09:50 O2 Sat by Pulse Oximetry (%) Laboratory Tests 03/19/17 03/19/17 03/19/17 12:00 13:12 15:00 WBC RBC Hgb Hct MCV MCHC RDW Plt Count MPV Sodium Potassium Chloride Carbon Dioxide Anion Gap BUN Creatinine Creat Clearance w eGFR POC Glucometer 73 Random Glucose Calcium Total Bilirubin AST ALT Alkaline Phosphatase Total Protein Albumin Urine Color Ltyellow Urine Appearance Clear Urine pH 6.0 Ur Specific [place] 1.015 Urine Protein Negative Urine Glucose (UA) Negative Urine Ketones Negative Urine Blood Negative Urine Nitrite Negative Urine Bilirubin Negative Urine Urobilinogen Negative Ur Leukocyte Esterase Trace H Urine RBC <1 Urine WBC 2 Valproic Acid RPR Titer Hepatitis C Antibody 0.1 03/19/17 03/20/17 03/20/17 16:39 05:50 05:58 WBC RBC Hgb Hct MCV MCHC RDW Plt Count MPV Sodium Potassium Chloride Carbon Dioxide Anion Gap BUN Creatinine Creat Clearance w eGFR POC Glucometer 111 89 135 Random Glucose Calcium Total Bilirubin AST ALT Alkaline Phosphatase Total Protein Albumin Urine Color Urine Appearance Urine pH Ur Specific [place] Urine Protein Urine Glucose (UA) Urine Ketones Urine Blood Urine Nitrite Urine Bilirubin Urine Urobilinogen Ur Leukocyte Esterase Urine RBC Urine WBC Valproic Acid RPR Titer Hepatitis C Antibody 03/20/17 03/20/17 03/20/17 06:00 06:00 06:00 WBC 3.8 L RBC 4.45 Hgb 13.3 Hct 39.7 MCV 89.1 MCHC 33.4 RDW 14.9 Plt Count 199 MPV 9.2 Sodium 138 Potassium 4.2 Chloride 102 Carbon Dioxide 28 Anion Gap 8 BUN 20 H D Creatinine 1.2 D Creat Clearance w eGFR > 60 POC Glucometer Random Glucose 92 Calcium 9.1 Total Bilirubin 0.8 D AST 17 D ALT 18 D Alkaline Phosphatase 94 Total Protein 7.1 Albumin 3.7 Urine Color Urine Appearance Urine pH Ur Specific [place] Urine Protein Urine Glucose (UA) Urine Ketones Urine Blood Urine Nitrite Urine Bilirubin Urine Urobilinogen Ur Leukocyte Esterase Urine RBC Urine WBC Valproic Acid RPR Titer Nonreactive Hepatitis C Antibody 03/20/17 03/21/17 16:44 07:00 WBC RBC Hgb Hct MCV MCHC RDW Plt Count MPV Sodium Potassium Chloride Carbon Dioxide Anion Gap BUN Creatinine Creat Clearance w eGFR POC Glucometer 57 Random Glucose Calcium Total Bilirubin AST ALT Alkaline Phosphatase Total Protein Albumin Urine Color Urine Appearance Urine pH Ur Specific [place] Urine Protein Urine Glucose (UA) Urine Ketones Urine Blood Urine Nitrite Urine Bilirubin Urine Urobilinogen Ur Leukocyte Esterase Urine RBC Urine WBC Valproic Acid 68.039 RPR Titer Hepatitis C Antibody pt aox3 in nad ambulating Assessment: 03/21/17 12:29 withdrawal sx's Plan: cont. detox increase fluids
[2017-03-21] MEDS: metFORMIN HCL 500 MG TABLET (FP) PO SCH (22:22)
[2017-03-21] MEDS: THIAMINE HCL 100 MG TABLET (FP) PO SCH (22:25)
[2017-03-21] MEDS: traZODone HCL 100 MG TABLET (FP) PO SCH (22:26)
[2017-03-22] MEDS ORDERED: METHADONE HCL 10 MG TABLET ONE (05:16)
[2017-03-22] MEDS ORDERED: METHADONE HCL 40 MG DISPERSABLE TABLET ONE (05:16)
[2017-03-22] MEDS: METHADONE 80 MG, METHADONE 30 MG PO SCH (05:44)
[2017-03-22] MEDS: metFORMIN HCL 500 MG TABLET (FP) PO SCH ×3 (08:16→17:15)
--- NOTE | 2017-03-22 09:18 | PN ---
[facility] Progress Note (SOAP) Subjective: sweats Objective: 03/22/17 09:17 Vital Signs Temperature 98.4 F 03/22/17 06:00 Pulse Rate 67 03/22/17 06:00 Respiratory Rate 18 03/22/17 06:00 Blood Pressure 117/60 03/22/17 06:00 O2 Sat by Pulse Oximetry (%) Laboratory Tests 03/19/17 03/19/17 03/19/17 12:00 13:12 15:00 WBC RBC Hgb Hct MCV MCHC RDW Plt Count MPV Sodium Potassium Chloride Carbon Dioxide Anion Gap BUN Creatinine Creat Clearance w eGFR POC Glucometer 73 Random Glucose Calcium Total Bilirubin AST ALT Alkaline Phosphatase Total Protein Albumin Urine Color Ltyellow Urine Appearance Clear Urine pH 6.0 Ur Specific [place] 1.015 Urine Protein Negative Urine Glucose (UA) Negative Urine Ketones Negative Urine Blood Negative Urine Nitrite Negative Urine Bilirubin Negative Urine Urobilinogen Negative Ur Leukocyte Esterase Trace H Urine RBC <1 Urine WBC 2 Valproic Acid RPR Titer Hepatitis C Antibody 0.1 03/19/17 03/20/17 03/20/17 16:39 05:50 05:58 WBC RBC Hgb Hct MCV MCHC RDW Plt Count MPV Sodium Potassium Chloride Carbon Dioxide Anion Gap BUN Creatinine Creat Clearance w eGFR POC Glucometer 111 89 135 Random Glucose Calcium Total Bilirubin AST ALT Alkaline Phosphatase Total Protein Albumin Urine Color Urine Appearance Urine pH Ur Specific [place] Urine Protein Urine Glucose (UA) Urine Ketones Urine Blood Urine Nitrite Urine Bilirubin Urine Urobilinogen Ur Leukocyte Esterase Urine RBC Urine WBC Valproic Acid RPR Titer Hepatitis C Antibody 03/20/17 03/20/17 03/20/17 06:00 06:00 06:00 WBC 3.8 L RBC 4.45 Hgb 13.3 Hct 39.7 MCV 89.1 MCHC 33.4 RDW 14.9 Plt Count 199 MPV 9.2 Sodium 138 Potassium 4.2 Chloride 102 Carbon Dioxide 28 Anion Gap 8 BUN 20 H D Creatinine 1.2 D Creat Clearance w eGFR > 60 POC Glucometer Random Glucose 92 Calcium 9.1 Total Bilirubin 0.8 D AST 17 D ALT 18 D Alkaline Phosphatase 94 Total Protein 7.1 Albumin 3.7 Urine Color Urine Appearance Urine pH Ur Specific [place] Urine Protein Urine Glucose (UA) Urine Ketones Urine Blood Urine Nitrite Urine Bilirubin Urine Urobilinogen Ur Leukocyte Esterase Urine RBC Urine WBC Valproic Acid RPR Titer Nonreactive Hepatitis C Antibody 03/20/17 03/21/17 03/21/17 16:44 07:00 16:20 WBC RBC Hgb Hct MCV MCHC RDW Plt Count MPV Sodium Potassium Chloride Carbon Dioxide Anion Gap BUN Creatinine Creat Clearance w eGFR POC Glucometer 57 91 Random Glucose Calcium Total Bilirubin AST ALT Alkaline Phosphatase Total Protein Albumin Urine Color Urine Appearance Urine pH Ur Specific [place] Urine Protein Urine Glucose (UA) Urine Ketones Urine Blood Urine Nitrite Urine Bilirubin Urine Urobilinogen Ur Leukocyte Esterase Urine RBC Urine WBC Valproic Acid 68.039 RPR Titer Hepatitis C Antibody pt aox3 in nad ambulating Assessment: 03/22/17 09:17 withdrawal sx's Plan: cont. detox increase fluids d/c in am
[2017-03-22] MEDS: PRENATAL VITAMINS W/ FOLIC ACID TABLET (FP) PO SCH (10:58)
[2017-03-22] MEDS: ARIPiprazole 10 MG TABLET PO SCH (10:58)
[2017-03-22] MEDS: NICOTINE 14 MG/24 HOURS TOPICAL PATCH TD SCH (10:58)
[2017-03-22] MEDS: DIVALPROEX SODIUM 500 MG TABLET E.C. PO SCH ×2 (10:58→22:27)
[2017-03-22] MEDS: diazePAM 5 MG TABLET PO SCH ×2 (10:58→22:27)
[2017-03-22] MEDS: ASPIRIN 81 MG CHEWABLE TABLETS PO SCH (10:58)
[2017-03-22] MEDS: traZODone HCL 100 MG TABLET (FP) PO SCH (22:27)
[2017-03-22] MEDS: THIAMINE HCL 100 MG TABLET (FP) PO SCH (22:27)
[2017-03-23] MEDS ORDERED: METHADONE HCL 40 MG DISPERSABLE TABLET ONE (04:30)
[2017-03-23] MEDS ORDERED: METHADONE HCL 10 MG TABLET ONE (04:30)
[2017-03-23] MEDS: METHADONE 80 MG, METHADONE 30 MG PO SCH (05:31)
[2017-03-23] MEDS: metFORMIN HCL 500 MG TABLET (FP) PO SCH (07:55)
[2017-03-23] MEDS ORDERED: diazePAM 5 MG TABLET PO SCH (10:00)
--- NOTE | 2017-03-23 10:36 | DS ---
[facility] Detox Discharge Summary Admission Date: 03/19/17 Discharge Date: 03/23/17 - History Present History: Alcohol Dependence, Cocaine Dependence, Sedative Dependence, MMTP Pertinent Past History: Hep C Type II DM - Physical Exam Results Vital Signs: Vital Signs Temperature 97.5 F L 03/23/17 06:00 Pulse Rate 52 L 03/23/17 06:00 Respiratory Rate 18 03/23/17 06:00 Blood Pressure 137/70 03/23/17 06:00 O2 Sat by Pulse Oximetry (%) Pertinent Admission Physical Exam Findings: Withdrawal sx. Laboratory Last Values WBC 3.8 K/mm3 (4.0-10.0) L 03/20/17 06:00 RBC 4.45 M/mm3 (4.00-5.60) 03/20/17 06:00 Hgb 13.3 GM/dL (11.7-16.9) 03/20/17 06:00 Hct 39.7 % (35.4-49) 03/20/17 06:00 MCV 89.1 fl (80-96) 03/20/17 06:00 MCHC 33.4 g/dl (32.0-35.9) 03/20/17 06:00 RDW 14.9 % (11.9-15.9) 03/20/17 06:00 Plt Count 199 K/MM3 (134-434) 03/20/17 06:00 MPV 9.2 fl (7.5-11.1) 03/20/17 06:00 Sodium 138 mmol/L (136-145) 03/20/17 06:00 Potassium 4.2 mmol/L (3.5-5.1) 03/20/17 06:00 Chloride 102 mmol/L (98-107) 03/20/17 06:00 Carbon Dioxide 28 mmol/L (21-32) 03/20/17 06:00 Anion Gap 8 (8-16) 03/20/17 06:00 BUN 20 mg/dL (7-18) H D 03/20/17 06:00 Creatinine 1.2 mg/dL (0.7-1.3) D 03/20/17 06:00 Creat Clearance w eGFR > 60 (>60) 03/20/17 06:00 POC Glucometer 91 UNITS (()) 03/22/17 16:29 Random Glucose 92 mg/dL (74-106) 03/20/17 06:00 Calcium 9.1 mg/dL (8.5-10.1) 03/20/17 06:00 Total Bilirubin 0.8 mg/dL (0.2-1.0) D 03/20/17 06:00 AST 17 U/L (15-37) D 03/20/17 06:00 ALT 18 U/L (12-78) D 03/20/17 06:00 Alkaline Phosphatase 94 U/L (45-117) 03/20/17 06:00 Total Protein 7.1 g/dl (6.4-8.2) 03/20/17 06:00 Albumin 3.7 g/dl (3.4-5.0) 03/20/17 06:00 Urine Color Ltyellow 03/19/17 15:00 Urine Appearance Clear 03/19/17 15:00 Urine pH 6.0 (5.0-8.0) 03/19/17 15:00 Ur Specific [place] 1.015 (1.005-1.025) 03/19/17 15:00 Urine Protein Negative (NEGATIVE) 03/19/17 15:00 Urine Glucose (UA) Negative (NEGATIVE) 03/19/17 15:00 Urine Ketones Negative (NEGATIVE) 03/19/17 15:00 Urine Blood Negative (NEGATIVE) 03/19/17 15:00 Urine Nitrite Negative (NEGATIVE) 03/19/17 15:00 Urine Bilirubin Negative (NEGATIVE) 03/19/17 15:00 Urine Urobilinogen Negative E.U./dl (0.2-1.0) 03/19/17 15:00 Ur Leukocyte Esterase Trace (NEGATIVE) H 03/19/17 15:00 Urine RBC <1 /hpf (0-3) 03/19/17 15:00 Urine WBC 2 /hpf (3-5) 03/19/17 15:00 Valproic Acid 68.039 ug/ml (50-100) 03/21/17 07:00 RPR Titer Nonreactive (NONREACTIVE) 03/20/17 06:00 Hepatitis C Antibody 0.1 s/co ratio (0.0-0.9) 03/19/17 12:00 labs noted - Treatment Hospital Course: Detox Protocol Followed, Detoxed Safely, Responded well, Discharged Condition Good, Rehab Referral Accepted Patient has Accepted a Rehab Referral to: [facility] - Medication Discharge Medications: Ambulatory Orders Aspirin [ASA -] 81 mg PO DAILY #30 tab.chew 10/07/14 Metformin HCl [Glucophage -] 500 mg PO BID 08/30/16 Aripiprazole [Abilify -] 10 mg PO DAILY #30 tablet 12/08/16 Divalproex [Depakote -] 500 mg PO BID #60 tablet.ec 12/08/16 Trazodone HCl [Desyrel -] 100 mg PO HS #30 tablet 12/08/16 Aripiprazole [Abilify -] 10 mg PO DAILY #30 tablet 03/20/17 Divalproex [Depakote -] 500 mg PO BID #60 tablet.ec 03/20/17 Trazodone HCl [Desyrel -] 100 mg PO HS #30 tablet 03/20/17 - Diagnosis (1) Alcohol dependence with uncomplicated withdrawal Current Visit: Yes Status: Acute (2) Cocaine dependence, uncomplicated Current Visit: Yes Status: Acute (3) Nicotine dependence Current Visit: Yes Status: Acute Qualifiers: Nicotine product type: cigarettes Substance use status: in withdrawal Qualified Code(s): F17.213 - Nicotine dependence, cigarettes, with withdrawal (4) Sedative hypnotic or anxiolytic dependence Current Visit: Yes Status: Acute (5) Deafness in left ear Current Visit: Yes Status: Chronic (6) Diabetes mellitus type II, controlled Current Visit: Yes Status: Chronic Qualifiers: Diabetes mellitus complication status: without complication (7) Methadone maintenance therapy patient Current Visit: Yes Status: Chronic (8) Bipolar disorder Current Visit: No Status: Acute (9) Hepatitis C Current Visit: No Status: Chronic Qualifiers: Hepatic coma status: without hepatic coma - AMA Did Patient Leave Against Medical Advice: No
[2017-03-23 10:54] VITALS: BP 150/65; PULSE 71; TEMP 98.1
== END 2017-03-23 09:15 | disposition home or self-care (01) | DRG 773 ==
LOC: YASAS 11:19 → Y6N 14:06
PROVIDERS: ADMIT Internal Medicine; ATTEND Internal Medicine
PROC: HZ2ZZZZ Detoxification Services for Substance Abuse Treatment (ICD-10-PCS; principal; 2017-03-23)
DX: F11.20 Opioid dependence, uncomplicated (principal); F13.20 Sedative, hypnotic or anxiolytic dependence, uncomplicated; F10.230 Alcohol dependence with withdrawal, uncomplicated; F14.20 Cocaine dependence, uncomplicated; F17.213 Nicotine dependence, cigarettes, with withdrawal; F31.9 Bipolar disorder, unspecified; B18.2 Chronic viral hepatitis C; H91.92 Unspecified hearing loss, left ear; E11.9 Type 2 diabetes mellitus without complications; Z79.84 Long term (current) use of oral hypoglycemic drugs; D57.3 Sickle-cell trait; E66.01 Morbid (severe) obesity due to excess calories; Z68.21 Body mass index [BMI] 21.0-21.9, adult
CPT/HCPCS: 36415; 80053; 80164; 81003; 81015; 85027; 86593; 86803; 93005; 93010

== ENCOUNTER 2017-04-27 11:21 | Inpatient (IN) | payer OTHER ==
[2017-04-27 12:13] VITALS: BMI 23.8
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
[2017-04-27] MEDS ORDERED: guaiFENesin/D-METHORPHAN HB 10 ML UNIT-DOSE CUPS PO PRN (16:57)
[2017-04-27] MEDS ORDERED: MAGNESIUM HYDROX 2400MG/30ML ORAL SUSPENSION 30 ML CUP PO PRN (16:57)
[2017-04-27] MEDS ORDERED: LOPERAMIDE HCL 2 MG CAPSULE PO PRN (16:57)
[2017-04-27] MEDS ORDERED: ACETAMINOPHEN 325 MG TABLET (FP) PO PRN (16:57)
[2017-04-27] MEDS ORDERED: IBUPROFEN 400 MG TABLET (FP) PO PRN (16:57)
[2017-04-27] MEDS ORDERED: P-EPHED 60MG/TRIPROLIDI 2.5MG TABLET PO PRN (16:57)
[2017-04-27] MEDS ORDERED: MENTHOL/PHENOL 1 EACH UD MM PRN (16:57)
[2017-04-27] MEDS ORDERED: hydrOXYzine PAMOATE 25 MG CAPSULE (FP) PO PRN (16:57)
[2017-04-27] MEDS ORDERED: MAG HYDROX/AL HYDROX/SIMETH 30 ML UNIT-DOSE CUP PO PRN (16:57)
[2017-04-27] MEDS ORDERED: MAGNESIUM CITRATE 300 ML BOTTLE PO PRN (16:57)
[2017-04-27] MEDS: metFORMIN HCL 500 MG TABLET (FP) PO SCH (20:03)
[2017-04-27] MEDS: THIAMINE HCL 100 MG TABLET (FP) PO SCH (21:59)
[2017-04-27] MEDS ORDERED: diphenhydrAMINE HCL 50 MG CAPSULE PO PRN (22:00)
[2017-04-27 22:02] LABS: URINE APPEARANCE CLEAR; URINE BILIRUBIN NEGATIVE (NEGATIVE); URINE BLOOD NEGATIVE (NEGATIVE); URINE COLOR YELLOW; URINE GLUCOSE (UA) NEGATIVE (NEGATIVE); URINE KETONE NEGATIVE (NEGATIVE); URINE LEUK ESTERASE TRACE (NEGATIVE); URINE NITRITE NEGATIVE (NEGATIVE); URINE PROTEIN NEGATIVE (NEGATIVE); URINE UROBILINOGEN NEGATIVE mg/dL (0.2-1.0)
[2017-04-27 22:13] LABS: URINE MUCUS RARE; URINE RBC <1 /hpf (0-3)
[2017-04-28] MEDS: metFORMIN HCL 500 MG TABLET (FP) PO SCH ×2 (06:53→17:35)
[2017-04-28] MEDS ORDERED: METHADONE HCL 10 MG TABLET PO SCH (10:00)
[2017-04-28 10:35] LABS: MCH 29.8 pg (25.7-33.7); MCHC 32.9 g/dl (32.0-35.9); MEAN CELL VOLUME 90.4 fl (80-96); MEAN PLT VOLUME 9.1 fl (7.5-11.1); PLATELET COUNT 149 K/MM3 (134-434); RDW 14.8 % (11.9-15.9)
[2017-04-28] MEDS: PRENATAL VITAMINS W/ FOLIC ACID TABLET (FP) PO SCH (10:55)
[2017-04-28] MEDS: ASPIRIN 81 MG CHEWABLE TABLETS PO SCH (10:55)
[2017-04-28 10:56] LABS: ALBUMIN 3.6 g/dl (3.4-5.0); ALK PHOS 101 U/L (45-117); ANION GAP 7 (8-16); BILIRUBIN,TOTAL 0.3 mg/dL (0.2-1.0); CALCIUM 9.3 mg/dL (8.5-10.1); CO2 30 mmol/L (21-32); CREATININE 1.1 mg/dL (0.7-1.3); GLUCOSE,RANDOM 73 mg/dL (74-106); SGPT/ALT 15 U/L (12-78)
[2017-04-28 10:58] LABS: SGOT/AST 16 U/L (15-37)
[2017-04-28] MEDS ORDERED: METHADONE HCL 10 MG TABLET ONE (10:58)
[2017-04-28] MEDS ORDERED: METHADONE HCL 40 MG DISPERSABLE TABLET ONE (10:58)
[2017-04-28] MEDS ORDERED: METHADONE 80 MG, METHADONE 10 MG PO ONE (11:00)
[2017-04-28] MEDS: ARIPiprazole 10 MG TABLET PO SCH (13:56)
[2017-04-28] MEDS: DIVALPROEX SODIUM 500 MG TABLET E.C. PO SCH ×2 (13:56→23:54)
[2017-04-28] MEDS: traZODone HCL 100 MG TABLET (FP) PO SCH (23:54)
[2017-04-28] MEDS: THIAMINE HCL 100 MG TABLET (FP) PO SCH (23:54)
[2017-04-29] MEDS ORDERED: METHADONE HCL 40 MG DISPERSABLE TABLET ONE (05:18)
[2017-04-29] MEDS ORDERED: METHADONE HCL 10 MG TABLET ONE (05:18)
[2017-04-29] MEDS: METHADONE 80 MG, METHADONE 10 MG PO SCH (06:10)
[2017-04-29] MEDS: metFORMIN HCL 500 MG TABLET (FP) PO SCH ×2 (06:12→17:44)
[2017-04-29] MEDS ORDERED: ARIPiprazole 5 MG TABLET (FP) ONE (08:32)
[2017-04-29] MEDS: ARIPiprazole 10 MG TABLET PO SCH (09:37)
[2017-04-29] MEDS: DIVALPROEX SODIUM 500 MG TABLET E.C. PO SCH ×2 (09:38→23:29)
[2017-04-29] MEDS: PRENATAL VITAMINS W/ FOLIC ACID TABLET (FP) PO SCH (09:38)
[2017-04-29] MEDS: ASPIRIN 81 MG CHEWABLE TABLETS PO SCH (09:38)
[2017-04-29] MEDS: traZODone HCL 100 MG TABLET (FP) PO SCH (23:30)
[2017-04-29] MEDS: THIAMINE HCL 100 MG TABLET (FP) PO SCH (23:31)
[2017-04-30] MEDS ORDERED: METHADONE HCL 10 MG TABLET ONE (04:11)
[2017-04-30] MEDS ORDERED: METHADONE HCL 40 MG DISPERSABLE TABLET ONE (04:11)
[2017-04-30] MEDS: METHADONE 80 MG, METHADONE 10 MG PO SCH (06:18)
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
[2017-04-30] MEDS: metFORMIN HCL 500 MG TABLET (FP) PO SCH (07:27)
[2017-04-30] MEDS: DIVALPROEX SODIUM 500 MG TABLET E.C. PO SCH ×2 (09:36→21:41)
[2017-04-30] MEDS: PRENATAL VITAMINS W/ FOLIC ACID TABLET (FP) PO SCH (09:36)
[2017-04-30] MEDS: ARIPiprazole 10 MG TABLET PO SCH (09:36)
[2017-04-30] MEDS: ASPIRIN 81 MG CHEWABLE TABLETS PO SCH (09:37)
--- NOTE | 2017-04-30 09:59 | EKG ---
Test Reason : Blood Pressure : / mmHG Vent. Rate : 068 BPM Atrial Rate : 068 BPM P-R Int : 186 ms QRS Dur : 088 ms QT Int : 408 ms P-R-T Axes : 071 059 049 degrees QTc Int : 433 ms NORMAL SINUS RHYTHM POSSIBLE LEFT ATRIAL ENLARGEMENT BORDERLINE ECG WHEN COMPARED WITH ECG OF 19-MAR-2017 14:02, NO SIGNIFICANT CHANGE WAS FOUND Confirmed by ALTAGRACIA OLIVA MD ([id number]) on 04/30/2017 9:59:02 AM Referred By: Chelsea Tomas Confirmed By:ALTAGRACIA OLIVA MD
[2017-04-30] MEDS: THIAMINE HCL 100 MG TABLET (FP) PO SCH (21:41)
[2017-04-30] MEDS: traZODone HCL 100 MG TABLET (FP) PO SCH (21:41)
[2017-05-01] MEDS ORDERED: METHADONE HCL 40 MG DISPERSABLE TABLET ONE (04:44)
[2017-05-01] MEDS ORDERED: METHADONE HCL 10 MG TABLET ONE (04:44)
[2017-05-01] MEDS: METHADONE 80 MG, METHADONE 10 MG PO SCH (06:13)
[2017-05-01] MEDS: metFORMIN HCL 500 MG TABLET (FP) PO SCH (06:58)
[2017-05-01] MEDS: ASPIRIN 81 MG CHEWABLE TABLETS PO SCH (10:02)
[2017-05-01] MEDS: ARIPiprazole 10 MG TABLET PO SCH (10:02)
[2017-05-01] MEDS: PRENATAL VITAMINS W/ FOLIC ACID TABLET (FP) PO SCH (10:02)
[2017-05-01] MEDS: DIVALPROEX SODIUM 500 MG TABLET E.C. PO SCH ×2 (10:03→21:38)
[2017-05-01] MEDS: THIAMINE HCL 100 MG TABLET (FP) PO SCH (21:37)
[2017-05-01] MEDS: traZODone HCL 100 MG TABLET (FP) PO SCH (21:37)
[2017-05-02] MEDS ORDERED: METHADONE HCL 10 MG TABLET ONE (04:12)
[2017-05-02] MEDS ORDERED: METHADONE HCL 40 MG DISPERSABLE TABLET ONE (04:12)
[2017-05-02] MEDS: METHADONE 80 MG, METHADONE 10 MG PO SCH (06:35)
[2017-05-02 07:03] VITALS: TEMP 98.4
[2017-05-02] MEDS: metFORMIN HCL 500 MG TABLET (FP) PO SCH (07:43)
[2017-05-02] MEDS: DIVALPROEX SODIUM 500 MG TABLET E.C. PO SCH (10:00)
[2017-05-02] MEDS: ASPIRIN 81 MG CHEWABLE TABLETS PO SCH (10:00)
[2017-05-02] MEDS: ARIPiprazole 10 MG TABLET PO SCH (10:00)
[2017-05-02] MEDS: PRENATAL VITAMINS W/ FOLIC ACID TABLET (FP) PO SCH (10:00)
[2017-05-02 11:12] VITALS: BP 110/59; PULSE 65
--- NOTE | 2017-05-02 14:44 | PN ---
Psychiatric Progress Note Vital Signs: Vital Signs Period Temp Pulse Resp BP Sys/Lane Pulse Ox Last 24 Hr 98.4 F 57-67 18-18 110-124/59-68 Date of Session: 05/02/17 Chief Complaint:: AMA Discharge Note HPI: Patient addressing Sedative Dependence comorbid with Opoid Dependence on Agonist Therapy, Nicotine Dependence and Bipolar Disorder ROS: Deafness left ear, type 2 DM, Sickle Elena trait Current Medications: Active Medications Generic Name Dose Route Start Last Admin Trade Name Freq PRN Reason Stop Dose Admin Acetaminophen 650 mg 04/27/17 16:57 Tylenol - PO Q4H PRN PAIN Al Hydroxide/Mg Hydroxide 30 ml 04/27/17 16:57 Mylanta Oral Suspension - PO Q6H PRN DYSPEPSIA Aripiprazole 10 mg 04/28/17 13:30 05/02/17 10:00 Abilify PO 10 mg DAILY ALIDA Administration Aspirin 81 mg 04/28/17 10:00 05/02/17 10:00 Asa - PO 81 mg DAILY ALIDA Administration Diphenhydramine HCl 50 mg 04/27/17 22:00 04/27/17 22:00 Benadryl - PO 50 mg HSMR1 PRN Administration INSOMNIA Divalproex Sodium 500 mg 04/28/17 13:30 05/02/17 10:00 Depakote - PO 500 mg BID ALIDA Administration Eucalyptus/Menthol/Phenol/Sorbitol 1 each 04/27/17 16:57 Cepastat Lozenge - MM Q4H PRN SORE THROAT Guaifenesin 10 ml 04/27/17 16:57 Robitussin Dm - PO Q6H PRN COUGH Hydroxyzine Pamoate 25 mg 04/27/17 16:57 Vistaril - PO Q4H PRN AGITATION Loperamide HCl 4 mg 04/27/17 16:57 Imodium - PO Q6H PRN DIARRHEA Magnesium Citrate 300 ml 04/27/17 16:57 Citroma - PO Q48H PRN CONSTIPATION Magnesium Hydroxide 30 ml 04/27/17 16:57 Milk Of Magnesia - PO DAILY PRN CONSTIPATION Metformin HCl 500 mg 05/01/17 07:00 05/02/17 07:43 Glucophage - PO 500 mg DAILY@0700 ALIDA Administration Methadone HCl 80 mg/ Methadone 90 mg 04/29/17 06:00 05/02/17 06:35 HCl 10 mg PO 05/04/17 06:01 90 mg DAILY@0600 ALIDA Administration Multivit/Folic Acid/Iron 1 tab 04/28/17 10:00 05/02/17 10:00 Vitamins (Sjr) - PO 1 tab DAILY ALIDA Administration Pseudoephedrine/Triprolidine 1 combo 04/27/17 16:57 Actifed - PO TID PRN NASAL CONGESTION Thiamine HCl 100 mg 04/27/17 22:00 05/01/17 21:37 Vitamin B1 - PO 100 mg HS ALIDA Administration Trazodone HCl 100 mg 04/28/17 22:00 05/01/17 21:37 Desyrel - PO 100 mg HS ALIDA Administration Current Side Effect: No Lab tests ordered: Yes Lab tests reviewed: Yes Provider note:: Patient has not completed this program. He wants to leave against medical advice citing"eviction from his apartment." He is determined to leave despite encourage by staff to stay and complete the program. He declined scripts for his medications(Depakote 500 mg po BID, Abilify 10 mg po daily & Trazadone 100 mg po HS) saying he has medications at home. He is stable for discharge against medical advice Total face to face time:: 25 Mental Status Exam - Mental Status Exam Alert and Oriented to: Time, Place, Person Cognitive Function: Fair Patient Appearance: Well Groomed Mood: Hopeful, Euthymic Affect: Appropriate Patient Behavior: Cooperative Speech Pattern: Clear Voice Loudness: Normal Thought Process: Intact, Goal Oriented Thought Disorder: Not Present Hallucinations: Denies Suicidal Ideation: Denies Homicidal Ideation: Denies Sleep: Fair Appetite: Good Muscle strength/Tone: Normal Gait/Station: Normal Psychiatric Treatment Plan - Problem List (1) Sedative dependence Current Visit: Yes (2) Opioid dependence on agonist therapy Current Visit: Yes (3) Nicotine dependence Current Visit: No Qualifiers: Nicotine product type: cigarettes Substance use status: in withdrawal Qualified Code(s): F17.213 - Nicotine dependence, cigarettes, with withdrawal (4) Bipolar II disorder Current Visit: Yes (5) Deafness in left ear Current Visit: No (6) Diabetes mellitus type II, controlled Current Visit: No Qualifiers: Diabetes mellitus complication status: without complication (7) Sickle cell trait Current Visit: No Initial treatment plan: Patient is leaving [place]
== END 2017-05-02 14:45 | disposition left against medical advice (07) | DRG 770 ==
LOC: YASAS 11:21 → Y3W 16:32
PROVIDERS: ADMIT Psychiatry & Neurology Psychiatry; ATTEND Psychiatry & Neurology Psychiatry
PROC: HZ42ZZZ Group Counseling for Substance Abuse Treatment, Cognitive-Behavioral (ICD-10-PCS; principal; 2017-04-27)
DX: F13.20 Sedative, hypnotic or anxiolytic dependence, uncomplicated (principal); F11.20 Opioid dependence, uncomplicated; F17.213 Nicotine dependence, cigarettes, with withdrawal; F31.81 Bipolar II disorder; B18.2 Chronic viral hepatitis C; H91.92 Unspecified hearing loss, left ear; E11.9 Type 2 diabetes mellitus without complications; D57.3 Sickle-cell trait; Z87.438 Personal history of other diseases of male genital organs; Z87.898 Personal history of other specified conditions; Z79.84 Long term (current) use of oral hypoglycemic drugs; Z87.828 Personal history of other (healed) physical injury and trauma
CPT/HCPCS: 36415; 80053; 80164; 81003; 81015; 85027; 86593; 93005; 93010

== ENCOUNTER 2017-06-01 10:07 | Inpatient (IN) | payer OTHER ==
[2017-06-01 10:46] VITALS: BMI 24.8
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
[2017-06-01] MEDS ORDERED: diazePAM 5 MG TABLET PO PRN (13:02)
[2017-06-01] MEDS ORDERED: MENTHOL/PHENOL 1 EACH UD MM PRN (13:02)
[2017-06-01] MEDS ORDERED: diphenhydrAMINE HCL 50 MG CAPSULE PO PRN (13:02)
[2017-06-01] MEDS ORDERED: LOPERAMIDE HCL 2 MG CAPSULE PO PRN (13:02)
[2017-06-01] MEDS ORDERED: MAGNESIUM CITRATE 300 ML BOTTLE PO PRN (13:02)
[2017-06-01] MEDS ORDERED: guaiFENesin/D-METHORPHAN HB 10 ML UNIT-DOSE CUPS PO PRN (13:02)
[2017-06-01] MEDS ORDERED: MAGNESIUM HYDROX 2400MG/30ML ORAL SUSPENSION 30 ML CUP PO PRN (13:02)
[2017-06-01] MEDS ORDERED: NICOTINE POLACRILEX 4 MG GUM BC PRN (13:02)
[2017-06-01] MEDS ORDERED: MAG HYDROX/AL HYDROX/SIMETH 30 ML UNIT-DOSE CUP PO PRN (13:02)
[2017-06-01] MEDS ORDERED: ACETAMINOPHEN 325 MG TABLET (FP) PO PRN (13:02)
[2017-06-01] MEDS ORDERED: hydrOXYzine PAMOATE 50 MG CAPSULE (FP) PO PRN (13:02)
[2017-06-01] MEDS ORDERED: P-EPHED 60MG/TRIPROLIDI 2.5MG TABLET PO PRN (13:02)
[2017-06-01] MEDS ORDERED: diazePAM 5 MG TABLET PO ONE (13:30)
[2017-06-01] MEDS ORDERED: METHADONE HCL 40 MG DISPERSABLE TABLET PO ONE (13:30)
[2017-06-01] MEDS: diazePAM 5 MG TABLET PO SCH ×2 (13:46→22:24)
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
[2017-06-01] MEDS: metFORMIN HCL 500 MG TABLET (FP) PO SCH (17:55)
[2017-06-01] MEDS ORDERED: BACITRACIN 0.9 GM PACKET TP ONE (19:03)
[2017-06-01 21:16] LABS: URINE APPEARANCE CLEAR; URINE BILIRUBIN NEGATIVE (NEGATIVE); URINE BLOOD NEGATIVE (NEGATIVE); URINE COLOR LT. YELLOW; URINE GLUCOSE (UA) NEGATIVE (NEGATIVE); URINE KETONE NEGATIVE (NEGATIVE); URINE LEUK ESTERASE NEGATIVE (NEGATIVE); URINE NITRITE NEGATIVE (NEGATIVE); URINE PROTEIN NEGATIVE (NEGATIVE); URINE UROBILINOGEN 0.2 mg/dL (0.2-1.0)
[2017-06-01] MEDS: THIAMINE HCL 100 MG TABLET (FP) PO SCH (22:24)
[2017-06-01] MEDS: DIVALPROEX SODIUM 500 MG TABLET E.C. PO SCH (22:24)
[2017-06-02] MEDS: METHADONE HCL 40 MG DISPERSABLE TABLET PO SCH (05:33)
[2017-06-02] MEDS: diazePAM 5 MG TABLET PO SCH ×4 (05:33→22:18)
[2017-06-02] MEDS: metFORMIN HCL 500 MG TABLET (FP) PO SCH ×2 (07:25→17:36)
[2017-06-02] MEDS: IBUPROFEN 400 MG TABLET (FP) PO PRN (07:27)
[2017-06-02] MEDS: INSULIN SLIDING SCALE (NOVOLOG) 1 VIAL SQ SCH ×2 (07:32→16:51)
[2017-06-02 10:32] LABS: MCH 29.4 pg (25.7-33.7); MEAN CELL VOLUME 89.1 fl (80-96); MEAN PLT VOLUME 10.1 fl (7.5-11.1); PLATELET COUNT 181 K/MM3 (134-434); RDW 14.6 % (11.9-15.9); WHITE BLOOD COUNT 4.1 K/mm3 (4.0-10.0)
[2017-06-02] MEDS: DIVALPROEX SODIUM 500 MG TABLET E.C. PO SCH ×2 (10:34→22:18)
[2017-06-02] MEDS: PRENATAL VITAMINS W/ FOLIC ACID TABLET (FP) PO SCH (10:34)
[2017-06-02] MEDS: ASPIRIN 81 MG CHEWABLE TABLETS PO SCH (10:34)
[2017-06-02] MEDS: NICOTINE 21 MG/24 HOURS TOPICAL PATCH TD SCH (10:34)
[2017-06-02] MEDS: ARIPiprazole 10 MG TABLET PO SCH (10:34)
[2017-06-02 10:57] LABS: ALBUMIN 3.8 g/dl (3.4-5.0); ALK PHOS 111 U/L (45-117); ANION GAP 7 (8-16); BILIRUBIN,TOTAL 0.5 mg/dL (0.2-1.0); CALCIUM 9.3 mg/dL (8.5-10.1); CO2 27 mmol/L (21-32); GLUCOSE,RANDOM 83 mg/dL (74-106); SGOT/AST 20 U/L (15-37); SGPT/ALT 20 U/L (12-78); TOT PROT 7.6 g/dl (6.4-8.2)
--- NOTE | 2017-06-02 11:37 | PN ---
S CIWA - CIWA Score Nausea/Vomitin Muscle Tremors: 4-Moderate,w/Arms Extend Anxiety: 4-Mod. Anxious/Guarded Agitation: 4-Moderately Restless Paroxysmal Sweats: 3 Orientation: 0-Oriented Tacttile Disturbances: 1-Very Mild Itch/Numbness Auditory Disturbances: 0-None Visual Disturbances: 0-None Headache: 1-Very Mild CIWA-Ar Total Score: 20 BHS Progress Note (SOAP) Subjective: nausea, sweats, interrupted sleep, anxiety, tremors Objective: 06/02/17 11:36 Vital Signs - 24 hr 06/01/17 06/01/17 06/01/17 13:55 17:59 21:16 Temperature 96.9 F L 98.2 F 98.7 F Pulse Rate 84 73 73 Respiratory 18 18 18 Rate Blood Pressure 130/70 129/78 115/72 06/02/17 06/02/17 06/02/17 00:30 03:30 06:00 Temperature 97.3 F L Pulse Rate 62 Respiratory 18 18 16 Rate Blood Pressure 130/85 06/02/17 10:07 Temperature 99.1 F Pulse Rate 63 Respiratory 18 Rate Blood Pressure 119/84 Laboratory Tests 06/01/17 06/01/17 06/02/17 14:00 16:38 05:32 WBC RBC Hgb Hct MCV MCH MCHC RDW Plt Count MPV Sodium Potassium Chloride Carbon Dioxide Anion Gap BUN Creatinine Creat Clearance w eGFR POC Glucometer 84 101 Random Glucose Calcium Total Bilirubin AST ALT Alkaline Phosphatase Total Protein Albumin Urine Color Lt. yellow Urine Appearance Clear Urine pH 6.0 Ur Specific [place] 1.015 Urine Protein Negative Urine Glucose (UA) Negative Urine Ketones Negative Urine Blood Negative Urine Nitrite Negative Urine Bilirubin Negative Urine Urobilinogen 0.2 Ur Leukocyte Esterase Negative Valproic Acid 06/02/17 06/02/17 06/02/17 06:00 06:00 06:00 WBC 4.1 RBC 4.82 Hgb 14.2 Hct 42.9 MCV 89.1 MCH 29.4 MCHC 33.0 RDW 14.6 Plt Count 181 D MPV 10.1 D Sodium 138 Potassium 4.3 Chloride 104 Carbon Dioxide 27 Anion Gap 7 L BUN 18 Creatinine 1.0 Creat Clearance w eGFR > 60 POC Glucometer Random Glucose 83 Calcium 9.3 Total Bilirubin 0.5 D AST 20 D ALT 20 D Alkaline Phosphatase 111 Total Protein 7.6 Albumin 3.8 Urine Color Urine Appearance Urine pH Ur Specific [place] Urine Protein Urine Glucose (UA) Urine Ketones Urine Blood Urine Nitrite Urine Bilirubin Urine Urobilinogen Ur Leukocyte Esterase Valproic Acid 5.081 L Assessment: 06/02/17 11:37 withdrawal sx, labs noted, low depakote leel Plan: cont detox, fluids, notify psychiatrist of result
[2017-06-02] MEDS: BACITRACIN 0.9 GM PACKET TP SCH ×2 (12:09→22:18)
--- NOTE | 2017-06-02 13:01 | EKG ---
Test Reason : Blood Pressure : / mmHG Vent. Rate : 067 BPM Atrial Rate : 067 BPM P-R Int : 174 ms QRS Dur : 090 ms QT Int : 424 ms P-R-T Axes : 064 041 036 degrees QTc Int : 448 ms NORMAL SINUS RHYTHM POSSIBLE LEFT ATRIAL ENLARGEMENT RSR' IN V1-V2 NONSPECIFIC ST ABNORMALITY ABNORMAL ECG WHEN COMPARED WITH ECG OF 27-APR-2017 21:49, RSR' IN V1-V2 REPEAT EKG IF CLINICALLY INDICATED Confirmed by LIZ AVILA MD ([id number]) on 06/02/2017 1:00:53 PM Referred By: Georgia LYNN Confirmed By:LIZ AVILA MD
[2017-06-02] MEDS: TOLNAFTATE 1% CREAM 15 GM TUBE TP SCH ×2 (15:10→22:18)
[2017-06-02] MEDS: THIAMINE HCL 100 MG TABLET (FP) PO SCH (22:18)
[2017-06-03] MEDS: METHADONE HCL 40 MG DISPERSABLE TABLET PO SCH (05:53)
[2017-06-03] MEDS: INSULIN SLIDING SCALE (NOVOLOG) 1 VIAL SQ SCH ×2 (06:54→16:55)
[2017-06-03] MEDS: metFORMIN HCL 500 MG TABLET (FP) PO SCH ×2 (06:54→17:55)
--- NOTE | 2017-06-03 10:20 | PN ---
S CIWA - CIWA Score Nausea/Vomitin Muscle Tremors: 4-Moderate,w/Arms Extend Anxiety: 4-Mod. Anxious/Guarded Agitation: 4-Moderately Restless Paroxysmal Sweats: 3 Orientation: 0-Oriented Tacttile Disturbances: 1-Very Mild Itch/Numbness Auditory Disturbances: 0-None Visual Disturbances: 0-None Headache: 1-Very Mild CIWA-Ar Total Score: 20 BHS Progress Note (SOAP) Subjective: naussa, sweats, interrupted sleep, anxiety, tremors Objective: 06/03/17 10:20 Vital Signs - 8 hr 06/03/17 06/03/17 03:30 06:20 Temperature 97.2 F L Pulse Rate 64 Respiratory 18 16 Rate Blood Pressure 111/76 Laboratory Tests 06/01/17 06/01/17 06/02/17 14:00 16:38 05:32 WBC RBC Hgb Hct MCV MCH MCHC RDW Plt Count MPV Sodium Potassium Chloride Carbon Dioxide Anion Gap BUN Creatinine Creat Clearance w eGFR POC Glucometer 84 101 Random Glucose Calcium Total Bilirubin AST ALT Alkaline Phosphatase Total Protein Albumin Urine Color Lt. yellow Urine Appearance Clear Urine pH 6.0 Ur Specific [place] 1.015 Urine Protein Negative Urine Glucose (UA) Negative Urine Ketones Negative Urine Blood Negative Urine Nitrite Negative Urine Bilirubin Negative Urine Urobilinogen 0.2 Ur Leukocyte Esterase Negative Valproic Acid RPR Titer 06/02/17 06/02/17 06/02/17 06:00 06:00 06:00 WBC 4.1 RBC 4.82 Hgb 14.2 Hct 42.9 MCV 89.1 MCH 29.4 MCHC 33.0 RDW 14.6 Plt Count 181 D MPV 10.1 D Sodium 138 Potassium 4.3 Chloride 104 Carbon Dioxide 27 Anion Gap 7 L BUN 18 Creatinine 1.0 Creat Clearance w eGFR > 60 POC Glucometer Random Glucose 83 Calcium 9.3 Total Bilirubin 0.5 D AST 20 D ALT 20 D Alkaline Phosphatase 111 Total Protein 7.6 Albumin 3.8 Urine Color Urine Appearance Urine pH Ur Specific [place] Urine Protein Urine Glucose (UA) Urine Ketones Urine Blood Urine Nitrite Urine Bilirubin Urine Urobilinogen Ur Leukocyte Esterase Valproic Acid RPR Titer Nonreactive 06/02/17 06/02/17 06/03/17 06:00 16:31 05:55 WBC RBC Hgb Hct MCV MCH MCHC RDW Plt Count MPV Sodium Potassium Chloride Carbon Dioxide Anion Gap BUN Creatinine Creat Clearance w eGFR POC Glucometer 100 94 Random Glucose Calcium Total Bilirubin AST ALT Alkaline Phosphatase Total Protein Albumin Urine Color Urine Appearance Urine pH Ur Specific [place] Urine Protein Urine Glucose (UA) Urine Ketones Urine Blood Urine Nitrite Urine Bilirubin Urine Urobilinogen Ur Leukocyte Esterase Valproic Acid 5.081 L RPR Titer Assessment: 06/03/17 10:20 withdrawal sx Plan: cont detox
[2017-06-03] MEDS: PRENATAL VITAMINS W/ FOLIC ACID TABLET (FP) PO SCH (10:40)
[2017-06-03] MEDS: DIVALPROEX SODIUM 500 MG TABLET E.C. PO SCH ×2 (10:41→22:30)
[2017-06-03] MEDS: diazePAM 5 MG TABLET PO SCH ×2 (10:41→22:30)
[2017-06-03] MEDS: ASPIRIN 81 MG CHEWABLE TABLETS PO SCH (10:41)
[2017-06-03] MEDS: ARIPiprazole 10 MG TABLET PO SCH (10:41)
[2017-06-03] MEDS: BACITRACIN 0.9 GM PACKET TP SCH ×2 (10:41→22:29)
[2017-06-03] MEDS: TOLNAFTATE 1% CREAM 15 GM TUBE TP SCH ×2 (10:42→22:30)
[2017-06-03] MEDS: NICOTINE 21 MG/24 HOURS TOPICAL PATCH TD SCH (12:17)
[2017-06-03] MEDS: THIAMINE HCL 100 MG TABLET (FP) PO SCH (22:30)
[2017-06-04] MEDS: METHADONE HCL 40 MG DISPERSABLE TABLET PO SCH (05:22)
[2017-06-04] MEDS: metFORMIN HCL 500 MG TABLET (FP) PO SCH (06:50)
[2017-06-04] MEDS: INSULIN SLIDING SCALE (NOVOLOG) 1 VIAL SQ SCH (06:51)
[2017-06-04] MEDS: IBUPROFEN 400 MG TABLET (FP) PO PRN (07:20)
[2017-06-04 09:32] VITALS: BP 138/79; PULSE 65; TEMP 97.9
[2017-06-04] MEDS: BACITRACIN 0.9 GM PACKET TP SCH (10:28)
[2017-06-04] MEDS: TOLNAFTATE 1% CREAM 15 GM TUBE TP SCH (10:28)
[2017-06-04] MEDS: ARIPiprazole 10 MG TABLET PO SCH (10:29)
[2017-06-04] MEDS: PRENATAL VITAMINS W/ FOLIC ACID TABLET (FP) PO SCH (10:29)
[2017-06-04] MEDS: DIVALPROEX SODIUM 500 MG TABLET E.C. PO SCH (10:29)
[2017-06-04] MEDS: ASPIRIN 81 MG CHEWABLE TABLETS PO SCH (10:29)
[2017-06-04] MEDS: NICOTINE 21 MG/24 HOURS TOPICAL PATCH TD SCH (10:29)
--- NOTE | 2017-06-04 10:29 | PN ---
BHS Progress Note (SOAP) Subjective: no complaints Objective: 06/04/17 10:28 Vital Signs - 24 hr 06/03/17 06/03/17 06/03/17 10:32 14:16 18:10 Temperature 97.9 F 98.1 F 97.9 F Pulse Rate 79 71 68 Respiratory 16 18 18 Rate Blood Pressure 130/91 126/78 133/60 06/03/17 06/04/17 06/04/17 23:14 00:30 06:35 Temperature 98.2 F 96.9 F L Pulse Rate 78 59 L Respiratory 18 18 16 Rate Blood Pressure 127/78 101/54 06/04/17 09:32 Temperature 97.9 F Pulse Rate 65 Respiratory 16 Rate Blood Pressure 138/79 Laboratory Tests 06/01/17 06/01/17 06/02/17 14:00 16:38 05:32 WBC RBC Hgb Hct MCV MCH MCHC RDW Plt Count MPV Sodium Potassium Chloride Carbon Dioxide Anion Gap BUN Creatinine Creat Clearance w eGFR POC Glucometer 84 101 Random Glucose Calcium Total Bilirubin AST ALT Alkaline Phosphatase Total Protein Albumin Urine Color Lt. yellow Urine Appearance Clear Urine pH 6.0 Ur Specific [place] 1.015 Urine Protein Negative Urine Glucose (UA) Negative Urine Ketones Negative Urine Blood Negative Urine Nitrite Negative Urine Bilirubin Negative Urine Urobilinogen 0.2 Ur Leukocyte Esterase Negative Valproic Acid RPR Titer 06/02/17 06/02/17 06/02/17 06:00 06:00 06:00 WBC 4.1 RBC 4.82 Hgb 14.2 Hct 42.9 MCV 89.1 MCH 29.4 MCHC 33.0 RDW 14.6 Plt Count 181 D MPV 10.1 D Sodium 138 Potassium 4.3 Chloride 104 Carbon Dioxide 27 Anion Gap 7 L BUN 18 Creatinine 1.0 Creat Clearance w eGFR > 60 POC Glucometer Random Glucose 83 Calcium 9.3 Total Bilirubin 0.5 D AST 20 D ALT 20 D Alkaline Phosphatase 111 Total Protein 7.6 Albumin 3.8 Urine Color Urine Appearance Urine pH Ur Specific [place] Urine Protein Urine Glucose (UA) Urine Ketones Urine Blood Urine Nitrite Urine Bilirubin Urine Urobilinogen Ur Leukocyte Esterase Valproic Acid RPR Titer Nonreactive 06/02/17 06/02/17 06/03/17 06:00 16:31 05:55 WBC RBC Hgb Hct MCV MCH MCHC RDW Plt Count MPV Sodium Potassium Chloride Carbon Dioxide Anion Gap BUN Creatinine Creat Clearance w eGFR POC Glucometer 100 94 Random Glucose Calcium Total Bilirubin AST ALT Alkaline Phosphatase Total Protein Albumin Urine Color Urine Appearance Urine pH Ur Specific [place] Urine Protein Urine Glucose (UA) Urine Ketones Urine Blood Urine Nitrite Urine Bilirubin Urine Urobilinogen Ur Leukocyte Esterase Valproic Acid 5.081 L RPR Titer 06/03/17 06/04/17 16:34 06:01 WBC RBC Hgb Hct MCV MCH MCHC RDW Plt Count MPV Sodium Potassium Chloride Carbon Dioxide Anion Gap BUN Creatinine Creat Clearance w eGFR POC Glucometer 107 105 Random Glucose Calcium Total Bilirubin AST ALT Alkaline Phosphatase Total Protein Albumin Urine Color Urine Appearance Urine pH Ur Specific [place] Urine Protein Urine Glucose (UA) Urine Ketones Urine Blood Urine Nitrite Urine Bilirubin Urine Urobilinogen Ur Leukocyte Esterase Valproic Acid RPR Titer Assessment: 06/04/17 10:28 no withdrawal sx, completed detox, medically stable Plan: d/c today
--- NOTE | 2017-06-04 10:32 | DS ---
[facility] Detox Discharge Summary Admission Date: 06/01/17 Discharge Date: 06/04/17 - History Present History: Alcohol Dependence, Cannabis Dependence, Sedative Dependence, MMTP Pertinent Past History: nicotine dependence, insomnia, anxiety, depression - Physical Exam Results Vital Signs: Vital Signs Temperature 97.9 F 06/04/17 09:32 Pulse Rate 65 06/04/17 09:32 Respiratory Rate 16 06/04/17 09:32 Blood Pressure 138/79 06/04/17 09:32 O2 Sat by Pulse Oximetry (%) Laboratory Tests 06/01/17 06/01/17 06/02/17 14:00 16:38 05:32 WBC RBC Hgb Hct MCV MCH MCHC RDW Plt Count MPV Sodium Potassium Chloride Carbon Dioxide Anion Gap BUN Creatinine Creat Clearance w eGFR POC Glucometer 84 101 Random Glucose Calcium Total Bilirubin AST ALT Alkaline Phosphatase Total Protein Albumin Urine Color Lt. yellow Urine Appearance Clear Urine pH 6.0 Ur Specific [place] 1.015 Urine Protein Negative Urine Glucose (UA) Negative Urine Ketones Negative Urine Blood Negative Urine Nitrite Negative Urine Bilirubin Negative Urine Urobilinogen 0.2 Ur Leukocyte Esterase Negative Valproic Acid RPR Titer 06/02/17 06/02/17 06/02/17 06:00 06:00 06:00 WBC 4.1 RBC 4.82 Hgb 14.2 Hct 42.9 MCV 89.1 MCH 29.4 MCHC 33.0 RDW 14.6 Plt Count 181 D MPV 10.1 D Sodium 138 Potassium 4.3 Chloride 104 Carbon Dioxide 27 Anion Gap 7 L BUN 18 Creatinine 1.0 Creat Clearance w eGFR > 60 POC Glucometer Random Glucose 83 Calcium 9.3 Total Bilirubin 0.5 D AST 20 D ALT 20 D Alkaline Phosphatase 111 Total Protein 7.6 Albumin 3.8 Urine Color Urine Appearance Urine pH Ur Specific [place] Urine Protein Urine Glucose (UA) Urine Ketones Urine Blood Urine Nitrite Urine Bilirubin Urine Urobilinogen Ur Leukocyte Esterase Valproic Acid RPR Titer Nonreactive 06/02/17 06/02/17 06/03/17 06:00 16:31 05:55 WBC RBC Hgb Hct MCV MCH MCHC RDW Plt Count MPV Sodium Potassium Chloride Carbon Dioxide Anion Gap BUN Creatinine Creat Clearance w eGFR POC Glucometer 100 94 Random Glucose Calcium Total Bilirubin AST ALT Alkaline Phosphatase Total Protein Albumin Urine Color Urine Appearance Urine pH Ur Specific [place] Urine Protein Urine Glucose (UA) Urine Ketones Urine Blood Urine Nitrite Urine Bilirubin Urine Urobilinogen Ur Leukocyte Esterase Valproic Acid 5.081 L RPR Titer 06/03/17 06/04/17 16:34 06:01 WBC RBC Hgb Hct MCV MCH MCHC RDW Plt Count MPV Sodium Potassium Chloride Carbon Dioxide Anion Gap BUN Creatinine Creat Clearance w eGFR POC Glucometer 107 105 Random Glucose Calcium Total Bilirubin AST ALT Alkaline Phosphatase Total Protein Albumin Urine Color Urine Appearance Urine pH Ur Specific [place] Urine Protein Urine Glucose (UA) Urine Ketones Urine Blood Urine Nitrite Urine Bilirubin Urine Urobilinogen Ur Leukocyte Esterase Valproic Acid RPR Titer Pertinent Admission Physical Exam Findings: withdrawal sx - Treatment Hospital Course: Detox Protocol Followed, Detoxed Safely, Responded well, Discharged Condition Good, Rehab Referral Accepted Patient has Accepted a Rehab Referral to: Yes - Medication Discharge Medications: Ambulatory Orders Metformin HCl [Glucophage -] 500 mg PO BID 08/30/16 Aripiprazole [Abilify -] 10 mg PO DAILY #30 tablet 03/20/17 Divalproex [Depakote -] 500 mg PO BID #60 tablet.ec 03/20/17 Trazodone HCl [Desyrel -] 100 mg PO HS #30 tablet 03/20/17 Aspirin [ASA -] 81 mg PO DAILY #30 tab.chew 05/02/17 Aripiprazole [Abilify -] 10 mg PO DAILY #30 tablet 06/01/17 Divalproex [Depakote -] 500 mg PO BID #60 tablet.ec 06/01/17 Trazodone HCl 100 mg PO HS #30 tablet 06/01/17 - Diagnosis (1) Alcohol dependence with uncomplicated withdrawal Current Visit: Yes Status: Chronic (2) [place]hu[place] dependence Current Visit: Yes Status: Chronic (3) Nicotine dependence Current Visit: Yes Status: Chronic Qualifiers: Nicotine product type: cigarettes Substance use status: uncomplicated Qualified Code(s): F17.210 - Nicotine dependence, cigarettes, uncomplicated (4) Opioid dependence on agonist therapy Current Visit: Yes Status: Chronic (5) Bipolar disorder Current Visit: Yes Status: Chronic (6) Cocaine dependence, uncomplicated Current Visit: Yes Status: Chronic (7) Deafness in left ear Current Visit: Yes Status: Chronic (8) Diabetes mellitus type II, controlled Current Visit: Yes Status: Chronic Qualifiers: Diabetes mellitus complication status: without complication Diabetes mellitus fdc insulin use: with fdc use Qualified Code(s): E11.9 - Type 2 diabetes mellitus without complications (9) Hepatitis C Current Visit: Yes Status: Chronic Qualifiers: Viral hepatitis chronicity: chronic (10) Sedative hypnotic or anxiolytic dependence Current Visit: Yes Status: Chronic (11) Sickle cell trait Current Visit: Yes Status: Inactive - AMA Did Patient Leave Against Medical Advice: No
[2017-06-05] MEDS ORDERED: diazePAM 5 MG TABLET PO SCH ×2 (10:00)
== END 2017-06-04 10:50 | disposition home or self-care (01) | DRG 773 ==
LOC: YASAS 10:07 → Y6N 12:48
PROVIDERS: ADMIT Internal Medicine Addiction Medicine; ATTEND Internal Medicine Addiction Medicine
PROC: HZ2ZZZZ Detoxification Services for Substance Abuse Treatment (ICD-10-PCS; principal; 2017-06-01)
DX: F10.230 Alcohol dependence with withdrawal, uncomplicated (principal); F11.20 Opioid dependence, uncomplicated; F13.20 Sedative, hypnotic or anxiolytic dependence, uncomplicated; F14.20 Cocaine dependence, uncomplicated; F12.20 Cannabis dependence, uncomplicated; F17.210 Nicotine dependence, cigarettes, uncomplicated; F31.9 Bipolar disorder, unspecified; H91.92 Unspecified hearing loss, left ear; E11.9 Type 2 diabetes mellitus without complications; B18.2 Chronic viral hepatitis C; D57.3 Sickle-cell trait; Z79.4 Long term (current) use of insulin; Z87.438 Personal history of other diseases of male genital organs
CPT/HCPCS: 36415; 80053; 80164; 81003; 85027; 86593; 93005; 93010

== ENCOUNTER 2017-10-16 12:10 | Inpatient (IN) | payer OTHER ==
[2017-10-16 14:35] VITALS: BMI 25.2
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
[2017-10-16] MEDS ORDERED: MENTHOL/PHENOL 1 EACH UD MM PRN (18:22)
[2017-10-16] MEDS ORDERED: LOPERAMIDE HCL 2 MG CAPSULE PO PRN (18:22)
[2017-10-16] MEDS ORDERED: MAGNESIUM HYDROX 2400MG/30ML ORAL SUSPENSION 30 ML CUP PO PRN (18:22)
[2017-10-16] MEDS ORDERED: MAG HYDROX/AL HYDROX/SIMETH 30 ML UNIT-DOSE CUP PO PRN (18:22)
[2017-10-16] MEDS ORDERED: MAGNESIUM CITRATE 300 ML BOTTLE PO PRN (18:22)
[2017-10-16] MEDS ORDERED: P-EPHED 60MG/TRIPROLIDI 2.5MG TABLET PO PRN (18:22)
[2017-10-16] MEDS ORDERED: NICOTINE POLACRILEX 2 MG GUM BC PRN (18:22)
[2017-10-16] MEDS ORDERED: ACETAMINOPHEN 325 MG TABLET (FP) PO PRN (18:22)
[2017-10-16] MEDS ORDERED: diazePAM 5 MG TABLET PO ONE (19:00)
[2017-10-16] MEDS: MINERAL OIL/PETROLAT/WATER TOPICAL CREAM 113 GM JAR TP SCH (21:59)
[2017-10-16] MEDS: diazePAM 5 MG TABLET PO SCH (22:01)
[2017-10-16] MEDS: THIAMINE HCL 100 MG TABLET (FP) PO SCH (22:01)
[2017-10-17 00:02] LABS: URINE APPEARANCE CLEAR; URINE BILIRUBIN NEGATIVE (NEGATIVE); URINE BLOOD NEGATIVE (NEGATIVE); URINE COLOR YELLOW; URINE GLUCOSE (UA) NEGATIVE (NEGATIVE); URINE KETONE NEGATIVE (NEGATIVE); URINE LEUK ESTERASE NEGATIVE (NEGATIVE); URINE NITRITE NEGATIVE (NEGATIVE); URINE PROTEIN NEGATIVE (NEGATIVE); URINE UROBILINOGEN 4.0 E.U/dl mg/dL (0.2-1.0)
[2017-10-17] MEDS: diazePAM 5 MG TABLET PO SCH ×3 (05:07→22:05)
[2017-10-17] MEDS ORDERED: METHADONE HCL 10 MG TABLET PO SCH (07:30)
[2017-10-17] MEDS ORDERED: METHADONE HCL 10 MG TABLET ONE (07:48)
[2017-10-17] MEDS ORDERED: METHADONE HCL 40 MG DISPERSABLE TABLET ONE (07:49)
[2017-10-17] MEDS: METHADONE 120 MG, METHADONE 10 MG PO SCH (07:50)
[2017-10-17] MEDS: metFORMIN HCL 500 MG TABLET (FP) PO SCH ×2 (07:50→17:31)
[2017-10-17] MEDS: ASPIRIN 81 MG CHEWABLE TABLETS PO SCH (10:01)
[2017-10-17] MEDS: PRENATAL VITAMINS W/ FOLIC ACID TABLET (FP) PO SCH (10:01)
[2017-10-17] MEDS: NICOTINE 14 MG/24 HOURS TOPICAL PATCH TD SCH (10:02)
[2017-10-17] MEDS: guaiFENesin/D-METHORPHAN HB 10 ML UNIT-DOSE CUPS PO PRN ×2 (10:03→17:44)
[2017-10-17 10:37] LABS: CHLORIDE 104 mmol/L (98-107); HEMATOCRIT 42.8 % (35.4-49); MCH 30.1 pg (25.7-33.7); MCHC 32.8 g/dl (32.0-35.9); MEAN CELL VOLUME 91.8 fl (80-96); MEAN PLT VOLUME 9.2 fl (7.5-11.1); PLATELET COUNT 235 K/MM3 (134-434); POTASSIUM 4.2 mmol/L (3.5-5.1); RBC 4.66 M/mm3 (4.00-5.60); RDW 15.5 % (11.9-15.9); SODIUM 139 mmol/L (136-145); WHITE BLOOD COUNT 5.5 K/mm3 (4.0-10.0)
[2017-10-17] MEDS ORDERED: TOLNAFTATE 1% CREAM 15 GM TUBE TP SCH (10:45)
--- NOTE | 2017-10-17 10:45 | EKG ---
Test Reason : Blood Pressure : / mmHG Vent. Rate : 060 BPM Atrial Rate : 060 BPM P-R Int : 184 ms QRS Dur : 086 ms QT Int : 440 ms P-R-T Axes : 072 062 052 degrees QTc Int : 440 ms NORMAL SINUS RHYTHM NORMAL ECG WHEN COMPARED WITH ECG OF 01-JUN-2017 14:34, NO SIGNIFICANT CHANGE WAS FOUND Confirmed by GRACIE ALANIS MD ([id number]) on 10/17/2017 10:45:17 AM Referred By: Confirmed By:GRACIE ALANIS MD
--- NOTE | 2017-10-17 10:47 | PN ---
[facility] CIWA - CIWA Score Nausea/Vomitin-No Nausea/No Vomiting Muscle Tremors: 4-Moderate,w/Arms Extend Anxiety: 4-Mod. Anxious/Guarded Agitation: 4-Moderately Restless Paroxysmal Sweats: 1-Minimal Palms Moist Orientation: 0-Oriented Tacttile Disturbances: 3-Moderate Itch/Numb/Burn Auditory Disturbances: 0-None Visual Disturbances: 0-None Headache: 0-None Present CIWA-Ar Total Score: 16 BHS Progress Note (SOAP) Subjective: ANXIETY,SWEATS,TREMORS,ITCHY FEET. Objective: 10/17/17 10:45 Vital Signs Temperature 98.4 F 10/17/17 09:09 Pulse Rate 70 10/17/17 09:09 Respiratory Rate 18 10/17/17 09:09 Blood Pressure 116/71 10/17/17 09:09 O2 Sat by Pulse Oximetry (%) Laboratory Last Values POC Glucometer 108 UNITS (80-120) 10/17/17 05:06 Urine Color Yellow 10/16/17 19:45 Urine Appearance Clear 10/16/17 19:45 Urine pH 6.0 (5.0-8.0) 10/16/17 19:45 Ur Specific [place] 1.013 (1.001-1.035) 10/16/17 19:45 Urine Protein Negative (NEGATIVE) 10/16/17 19:45 Urine Glucose (UA) Negative (NEGATIVE) 10/16/17 19:45 Urine Ketones Negative (NEGATIVE) 10/16/17 19:45 Urine Blood Negative (NEGATIVE) 10/16/17 19:45 Urine Nitrite Negative (NEGATIVE) 10/16/17 19:45 Urine Bilirubin Negative (NEGATIVE) 10/16/17 19:45 Urine Urobilinogen 4.0 e.u/dl mg/dL (0.2-1.0) 10/16/17 19:45 Ur Leukocyte Esterase Negative (NEGATIVE) 10/16/17 19:45 OTHER LABS PENDING FEET:DRY AND SCALY Assessment: 10/17/17 10:45 WITHDRAWAL SX [facility] Plan: CONTINUE DETOX TINACTIN CREAM DIRECTED
[2017-10-17 10:49] LABS: ALBUMIN 3.6 g/dl (3.4-5.0); ALK PHOS 95 U/L (45-117); ANION GAP 5 (8-16); BILIRUBIN,TOTAL 0.7 mg/dL (0.2-1.0); BLOOD UREA NITROGEN 8 mg/dL (7-18); CALCIUM 8.8 mg/dL (8.5-10.1); CO2 30 mmol/L (21-32); GLUCOSE,RANDOM 107 mg/dL (74-106); SGOT/AST 15 U/L (15-37); SGPT/ALT 21 U/L (12-78); TOT PROT 7.6 g/dl (6.4-8.2)
[2017-10-17] MEDS: TOLNAFTATE 1% CREAM 15 GM TUBE TP SCH ×2 (13:15→22:05)
--- NOTE | 2017-10-17 16:45 | CONSULT ---
[facility] Psychiatric Consult - Data Date of interview: 10/17/17 Admission source: [facility] Identifying data: Pt. is a 56 year old male, , father of eight, and currently unemployed. This is one of multiple admissions for patient. Pt. admitted to for alcohol, benzodiazepine, and cocaine dependence. Substance Abuse History: Following information confirmed with Mr. Ramos: - Smoking Cessation. Smoking history: Current every day smoker. Have you smoked in the past 12 months: Yes. Aproximately how many cigarettes per day: 10. Cigars Per Day: 0. Hx Chewing Tobacco Use: No. Initiated information on smoking cessation: Yes. 'Breaking Loose' booklet given: 10/16/17. - Substance & Tx. History. Hx Alcohol Use: Yes. Hx Substance Use: Yes. Substance Use Type : Alcohol, Cocaine. Hx Substance Use Treatment: Yes (06/2017 [facility] - Substances Abused. Alcohol. Route: Oral. Frequency: Daily. Amount used: 2 6PK BEER 1/2 [place]. Age of first use: 10. Date of Last Use: 10/16/17. Alprazolam (Xanax). Route: Oral. Frequency: Daily. Amount used: 6MG. Age of first use: 33. Date of Last Use: 10/15/17. Cocaine. Route: Injection. Frequency: Daily. Amount used: 1/2 GRAM. Age of first use: 23. Date of Last Use: 10/14/17 Medical History: Diabetes Psychiatric History: Pt. with a h/o multiple psychiatric hospitalizations. Most recently hospitalized one month ago at [facility]. Reports a diagnosis of MDD and bipolar disorder. Pt is currently provided outpatient psychiatric care by Dr. Guy at [facility]. States he is prescribed Depakote 500mg BID, trazodone 100mg and abilify 10mg. Pharmacy claims reviewed and verified. Pt. denies h/o suicide attempts. Physical/Sexual Abuse/Trauma History: Denies. Mental Status Exam - Mental Status Exam Alert and Oriented to: Time, Place, Person Cognitive Function: Good Patient Appearance: Well Groomed Mood: Withdrawn Affect: Normal Range Patient Behavior: Fatigued, Cooperative Speech Pattern: Appropriate Voice Loudness: Normal Thought Process: Goal Oriented Thought Disorder: Not Present Hallucinations: Denies Suicidal Ideation: Denies Homicidal Ideation: Denies Insight/Judgement: Poor Sleep: Poorly Appetite: Fair Muscle strength/Tone: Normal Gait/Station: Normal Psychiatric Findings - Problem List ([place] 1, 2,3) (1) MDD (major depressive disorder) Current Visit: Yes Status: Chronic Comment: Self reports. (2) Alcohol dependence with uncomplicated withdrawal Current Visit: Yes Status: Acute (3) Cocaine dependence, uncomplicated Current Visit: Yes Status: Acute (4) Nicotine dependence Current Visit: Yes Status: Acute Qualifiers: Nicotine product type: cigarettes Substance use status: in withdrawal Qualified Code(s): F17.213 - Nicotine dependence, cigarettes, with withdrawal (5) Sedative, hypnotic or anxiolytic dependence with withdrawal, uncomplicated Current Visit: Yes Status: Acute (6) Bipolar disorder Current Visit: Yes Status: Chronic Comment: Self reports. - Initial Treatment Plan Initial Treatment Plan: Psychoeducation provided. Detoxification in progress. Depakote 500mg BID + Trazodone 50mg qhs (reduce dosage) + abilify 10mg. Depakote level ordered for the morning of 10/18/2017. Pharmacy claims reviewed and verified. Verbal consent given. Benefits and side effects discussed. Will continue to monitor patient.
[2017-10-17] MEDS: THIAMINE HCL 100 MG TABLET (FP) PO SCH (22:05)
[2017-10-17] MEDS: DIVALPROEX SODIUM 500 MG TABLET E.C. PO SCH (22:05)
[2017-10-17] MEDS: traZODone HCL 50 MG TABLET (FP) PO SCH (22:05)
[2017-10-17] MEDS: MINERAL OIL/PETROLAT/WATER TOPICAL CREAM 113 GM JAR TP SCH (22:06)
[2017-10-18] MEDS ORDERED: METHADONE HCL 10 MG TABLET ONE (04:47)
[2017-10-18] MEDS ORDERED: METHADONE HCL 40 MG DISPERSABLE TABLET ONE (04:48)
[2017-10-18] MEDS: METHADONE 120 MG, METHADONE 10 MG PO SCH (05:05)
[2017-10-18] MEDS: metFORMIN HCL 500 MG TABLET (FP) PO SCH ×2 (06:43→17:43)
[2017-10-18] MEDS: diazePAM 5 MG TABLET PO PRN (08:26)
[2017-10-18] MEDS: diazePAM 5 MG TABLET PO SCH ×2 (10:01→22:01)
[2017-10-18] MEDS: TOLNAFTATE 1% CREAM 15 GM TUBE TP SCH ×2 (10:02→22:03)
[2017-10-18] MEDS: ASPIRIN 81 MG CHEWABLE TABLETS PO SCH (10:02)
[2017-10-18] MEDS: ARIPiprazole 10 MG TABLET PO SCH (10:02)
[2017-10-18] MEDS: DIVALPROEX SODIUM 500 MG TABLET E.C. PO SCH ×2 (10:02→22:02)
[2017-10-18] MEDS: NICOTINE 14 MG/24 HOURS TOPICAL PATCH TD SCH (10:02)
[2017-10-18] MEDS: PRENATAL VITAMINS W/ FOLIC ACID TABLET (FP) PO SCH (10:03)
[2017-10-18] MEDS: guaiFENesin/D-METHORPHAN HB 10 ML UNIT-DOSE CUPS PO PRN (10:04)
--- NOTE | 2017-10-18 10:31 | PN ---
S CIWA - CIWA Score Nausea/Vomitin-No Nausea/No Vomiting Muscle Tremors: 3 Anxiety: 3 Agitation: 3 Paroxysmal Sweats: 1-Minimal Palms Moist Orientation: 0-Oriented Tacttile Disturbances: 3-Moderate Itch/Numb/Burn Auditory Disturbances: 0-None Visual Disturbances: 0-None Headache: 0-None Present CIWA-Ar Total Score: 13 BHS Progress Note (SOAP) Subjective: DECREASED ANXIETY,SWEATS,TREMORS. REPORTS MEDS EFFECTIVE. Objective: 10/18/17 10:30 Vital Signs Temperature 96.4 F L 10/18/17 09:01 Pulse Rate 76 10/18/17 09:01 Respiratory Rate 18 10/18/17 09:01 Blood Pressure 134/80 10/18/17 09:01 O2 Sat by Pulse Oximetry (%) Laboratory Last Values WBC 5.5 K/mm3 (4.0-10.0) D 10/17/17 05:45 RBC 4.66 M/mm3 (4.00-5.60) 10/17/17 05:45 Hgb 14.0 GM/dL (11.7-16.9) 10/17/17 05:45 Hct 42.8 % (35.4-49) 10/17/17 05:45 MCV 91.8 fl (80-96) 10/17/17 05:45 MCH 30.1 pg (25.7-33.7) 10/17/17 05:45 MCHC 32.8 g/dl (32.0-35.9) 10/17/17 05:45 RDW 15.5 % (11.9-15.9) 10/17/17 05:45 Plt Count 235 K/MM3 (134-434) D 10/17/17 05:45 MPV 9.2 fl (7.5-11.1) 10/17/17 05:45 Sodium 139 mmol/L (136-145) 10/17/17 05:45 Potassium 4.2 mmol/L (3.5-5.1) 10/17/17 05:45 Chloride 104 mmol/L (98-107) 10/17/17 05:45 Carbon Dioxide 30 mmol/L (21-32) 10/17/17 05:45 Anion Gap 5 (8-16) L 10/17/17 05:45 BUN 8 mg/dL (7-18) D 10/17/17 05:45 Creatinine 1.0 mg/dL (0.7-1.3) 10/17/17 05:45 Creat Clearance w eGFR > 60 (>60) 10/17/17 05:45 POC Glucometer 106 UNITS (80-120) 10/17/17 16:15 Random Glucose 107 mg/dL (74-106) H D 10/17/17 05:45 Calcium 8.8 mg/dL (8.5-10.1) 10/17/17 05:45 Total Bilirubin 0.7 mg/dL (0.2-1.0) D 10/17/17 05:45 AST 15 U/L (15-37) D 10/17/17 05:45 ALT 21 U/L (12-78) 10/17/17 05:45 Alkaline Phosphatase 95 U/L (45-117) 10/17/17 05:45 Total Protein 7.6 g/dl (6.4-8.2) 10/17/17 05:45 Albumin 3.6 g/dl (3.4-5.0) 10/17/17 05:45 Urine Color Yellow 10/16/17 19:45 Urine Appearance Clear 10/16/17 19:45 Urine pH 6.0 (5.0-8.0) 10/16/17 19:45 Ur Specific [place] 1.013 (1.001-1.035) 10/16/17 19:45 Urine Protein Negative (NEGATIVE) 10/16/17 19:45 Urine Glucose (UA) Negative (NEGATIVE) 10/16/17 19:45 Urine Ketones Negative (NEGATIVE) 10/16/17 19:45 Urine Blood Negative (NEGATIVE) 10/16/17 19:45 Urine Nitrite Negative (NEGATIVE) 10/16/17 19:45 Urine Bilirubin Negative (NEGATIVE) 10/16/17 19:45 Urine Urobilinogen 4.0 e.u/dl mg/dL (0.2-1.0) 10/16/17 19:45 Ur Leukocyte Esterase Negative (NEGATIVE) 10/16/17 19:45 RPR Titer Nonreactive (NONREACTIVE) 10/17/17 05:45 HIV 1&2 Antibody Screen Negative 10/16/17 05:45 HIV P24 Antigen Negative 10/16/17 05:45 Assessment: 10/18/17 10:31 DECREASED WITHDRAWAL SX Plan: CONTINUE DETOX
[2017-10-18] MEDS: THIAMINE HCL 100 MG TABLET (FP) PO SCH (22:01)
[2017-10-18] MEDS: traZODone HCL 50 MG TABLET (FP) PO SCH (22:02)
[2017-10-18] MEDS: MINERAL OIL/PETROLAT/WATER TOPICAL CREAM 113 GM JAR TP SCH (22:03)
[2017-10-19] MEDS ORDERED: METHADONE HCL 10 MG TABLET ONE (04:20)
[2017-10-19] MEDS ORDERED: METHADONE HCL 40 MG DISPERSABLE TABLET ONE (04:20)
[2017-10-19] MEDS: METHADONE 120 MG, METHADONE 10 MG PO SCH (05:32)
[2017-10-19] MEDS: metFORMIN HCL 500 MG TABLET (FP) PO SCH (06:49)
[2017-10-19] MEDS: diazePAM 5 MG TABLET PO PRN (08:51)
[2017-10-19] MEDS: ARIPiprazole 10 MG TABLET PO SCH (10:03)
[2017-10-19] MEDS: guaiFENesin/D-METHORPHAN HB 10 ML UNIT-DOSE CUPS PO PRN (10:03)
[2017-10-19] MEDS: TOLNAFTATE 1% CREAM 15 GM TUBE TP SCH (10:03)
[2017-10-19] MEDS: diazePAM 5 MG TABLET PO SCH (10:03)
[2017-10-19] MEDS: PRENATAL VITAMINS W/ FOLIC ACID TABLET (FP) PO SCH (10:03)
[2017-10-19] MEDS: ASPIRIN 81 MG CHEWABLE TABLETS PO SCH (10:03)
[2017-10-19] MEDS: DIVALPROEX SODIUM 500 MG TABLET E.C. PO SCH (10:03)
[2017-10-19] MEDS: NICOTINE 14 MG/24 HOURS TOPICAL PATCH TD SCH (11:37)
--- NOTE | 2017-10-19 11:50 | PN ---
BHS Progress Note (SOAP) Subjective: DECREASED ANXIETY,SWEATS,TREMORS. Objective: 10/19/17 11:49 Vital Signs Temperature 97.3 F L 10/19/17 09:35 Pulse Rate 66 10/19/17 09:35 Respiratory Rate 19 10/19/17 09:35 Blood Pressure 111/75 10/19/17 09:35 O2 Sat by Pulse Oximetry (%) Laboratory Last Values WBC 5.5 K/mm3 (4.0-10.0) D 10/17/17 05:45 RBC 4.66 M/mm3 (4.00-5.60) 10/17/17 05:45 Hgb 14.0 GM/dL (11.7-16.9) 10/17/17 05:45 Hct 42.8 % (35.4-49) 10/17/17 05:45 MCV 91.8 fl (80-96) 10/17/17 05:45 MCH 30.1 pg (25.7-33.7) 10/17/17 05:45 MCHC 32.8 g/dl (32.0-35.9) 10/17/17 05:45 RDW 15.5 % (11.9-15.9) 10/17/17 05:45 Plt Count 235 K/MM3 (134-434) D 10/17/17 05:45 MPV 9.2 fl (7.5-11.1) 10/17/17 05:45 Sodium 139 mmol/L (136-145) 10/17/17 05:45 Potassium 4.2 mmol/L (3.5-5.1) 10/17/17 05:45 Chloride 104 mmol/L (98-107) 10/17/17 05:45 Carbon Dioxide 30 mmol/L (21-32) 10/17/17 05:45 Anion Gap 5 (8-16) L 10/17/17 05:45 BUN 8 mg/dL (7-18) D 10/17/17 05:45 Creatinine 1.0 mg/dL (0.7-1.3) 10/17/17 05:45 Creat Clearance w eGFR > 60 (>60) 10/17/17 05:45 POC Glucometer 92 UNITS (80-120) 10/19/17 05:31 Random Glucose 107 mg/dL (74-106) H D 10/17/17 05:45 Calcium 8.8 mg/dL (8.5-10.1) 10/17/17 05:45 Total Bilirubin 0.7 mg/dL (0.2-1.0) D 10/17/17 05:45 AST 15 U/L (15-37) D 10/17/17 05:45 ALT 21 U/L (12-78) 10/17/17 05:45 Alkaline Phosphatase 95 U/L (45-117) 10/17/17 05:45 Total Protein 7.6 g/dl (6.4-8.2) 10/17/17 05:45 Albumin 3.6 g/dl (3.4-5.0) 10/17/17 05:45 Urine Color Yellow 10/16/17 19:45 Urine Appearance Clear 10/16/17 19:45 Urine pH 6.0 (5.0-8.0) 10/16/17 19:45 Ur Specific [place] 1.013 (1.001-1.035) 10/16/17 19:45 Urine Protein Negative (NEGATIVE) 10/16/17 19:45 Urine Glucose (UA) Negative (NEGATIVE) 10/16/17 19:45 Urine Ketones Negative (NEGATIVE) 10/16/17 19:45 Urine Blood Negative (NEGATIVE) 10/16/17 19:45 Urine Nitrite Negative (NEGATIVE) 10/16/17 19:45 Urine Bilirubin Negative (NEGATIVE) 10/16/17 19:45 Urine Urobilinogen 4.0 e.u/dl mg/dL (0.2-1.0) 10/16/17 19:45 Ur Leukocyte Esterase Negative (NEGATIVE) 10/16/17 19:45 Valproic Acid < 3.000 ug/ml (50-100) L 10/18/17 06:00 RPR Titer Nonreactive (NONREACTIVE) 10/17/17 05:45 HIV 1&2 Antibody Screen Negative 10/16/17 05:45 HIV P24 Antigen Negative 10/16/17 05:45 Assessment: 10/19/17 11:49 WITHDRAWAL SX Plan: CONTINUE DETOX
[2017-10-19 13:09] VITALS: BP 113/75; PULSE 68; TEMP 97.9
--- NOTE | 2017-10-19 15:22 | DS ---
[facility] Detox Discharge Summary Admission Date: 10/16/17 Discharge Date: 10/19/17 - Physical Exam Results Vital Signs: Vital Signs Temperature 97.9 F 10/19/17 13:08 Pulse Rate 68 10/19/17 13:08 Respiratory Rate 20 10/19/17 13:08 Blood Pressure 113/75 10/19/17 13:08 O2 Sat by Pulse Oximetry (%) - Medication Discharge Medications: Ambulatory Orders Metformin HCl [Glucophage -] 500 mg PO BID 08/30/16 Trazodone HCl [Desyrel -] 100 mg PO HS #30 tablet 03/20/17 Aspirin [ASA -] 81 mg PO DAILY #30 tab.chew 05/02/17 Aripiprazole [Abilify -] 10 mg PO DAILY #30 tablet 06/01/17 Divalproex [Depakote -] 500 mg PO BID #60 tablet.ec 06/01/17 - Diagnosis (1) Alcohol dependence with uncomplicated withdrawal Current Visit: Yes Status: Acute (2) Nicotine dependence Current Visit: Yes Status: Acute Qualifiers: Nicotine product type: cigarettes Substance use status: in withdrawal Qualified Code(s): F17.213 - Nicotine dependence, cigarettes, with withdrawal (3) Diabetes mellitus type II, controlled Current Visit: Yes Status: Chronic Qualifiers: Diabetes mellitus complication status: without complication Diabetes mellitus mcc insulin use: without exterminator use Qualified Code(s): E11.9 - Type 2 diabetes mellitus without complications (4) 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
[2017-10-20] MEDS ORDERED: diazePAM 5 MG TABLET PO SCH (10:00)
== END 2017-10-19 15:28 | disposition left against medical advice (07) | DRG 770 ==
LOC: YASAS 12:10 → Y3N 16:48
PROVIDERS: ADMIT Internal Medicine; ATTEND Internal Medicine
PROC: HZ2ZZZZ Detoxification Services for Substance Abuse Treatment (ICD-10-PCS; principal; 2017-10-16)
DX: F11.20 Opioid dependence, uncomplicated (principal); F13.230 Sedative, hypnotic or anxiolytic dependence with withdrawal, uncomplicated; F10.230 Alcohol dependence with withdrawal, uncomplicated; F14.20 Cocaine dependence, uncomplicated; F17.213 Nicotine dependence, cigarettes, with withdrawal; F33.9 Major depressive disorder, recurrent, unspecified; F31.9 Bipolar disorder, unspecified; E11.9 Type 2 diabetes mellitus without complications; Z79.84 Long term (current) use of oral hypoglycemic drugs; B35.3 Tinea pedis; H91.92 Unspecified hearing loss, left ear; Z87.438 Personal history of other diseases of male genital organs
CPT/HCPCS: 36415; 71046-TC; 80053; 80164; 81003; 82962; 85027; 86593; 87389; 93005; 93010

== ENCOUNTER 2017-11-26 09:45 | Inpatient (IN) | payer OTHER ==
[2017-11-26 10:46] VITALS: BMI 25.0
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
[2017-11-26] MEDS ORDERED: IBUPROFEN 400 MG TABLET (FP) PO PRN (11:54)
[2017-11-26] MEDS ORDERED: MAG HYDROX/AL HYDROX/SIMETH 30 ML UNIT-DOSE CUP PO PRN (11:54)
[2017-11-26] MEDS ORDERED: guaiFENesin/D-METHORPHAN HB 10 ML UNIT-DOSE CUPS PO PRN (11:54)
[2017-11-26] MEDS ORDERED: hydrOXYzine PAMOATE 50 MG CAPSULE (FP) PO PRN (11:54)
[2017-11-26] MEDS ORDERED: P-EPHED 60MG/TRIPROLIDI 2.5MG TABLET PO PRN (11:54)
[2017-11-26] MEDS ORDERED: MENTHOL/PHENOL 1 EACH UD MM PRN (11:54)
[2017-11-26] MEDS ORDERED: ACETAMINOPHEN 325 MG TABLET (FP) PO PRN (11:54)
[2017-11-26] MEDS ORDERED: MAGNESIUM HYDROX 2400MG/30ML ORAL SUSPENSION 30 ML CUP PO PRN (11:54)
[2017-11-26] MEDS ORDERED: LOPERAMIDE HCL 2 MG CAPSULE PO PRN (11:54)
[2017-11-26] MEDS ORDERED: MAGNESIUM CITRATE 300 ML BOTTLE PO PRN (11:54)
[2017-11-26] MEDS ORDERED: METHADONE HCL 10 MG TABLET PO ONE (11:55)
[2017-11-26] MEDS ORDERED: METHADONE 120 MG, METHADONE 10 MG PO ONE (14:00)
[2017-11-26] MEDS ORDERED: METHADONE HCL 40 MG DISPERSABLE TABLET ONE (14:40)
[2017-11-26] MEDS ORDERED: METHADONE HCL 10 MG TABLET ONE (14:40)
[2017-11-26 15:16] LABS: HEMATOCRIT 38.7 % (35.4-49); HEMOGLOBIN 12.9 GM/dL (11.7-16.9); MCHC 33.4 g/dl (32.0-35.9); MEAN CELL VOLUME 89.7 fl (80-96); MEAN PLT VOLUME 9.3 fl (7.5-11.1); PLATELET COUNT 166 K/MM3 (134-434); RBC 4.32 M/mm3 (4.00-5.60); RDW 13.8 % (11.9-15.9); WHITE BLOOD COUNT 3.6 K/mm3 (4.0-10.0)
[2017-11-26 15:17] LABS: CHLORIDE 102 mmol/L (98-107); POTASSIUM 4.1 mmol/L (3.5-5.1); SODIUM 139 mmol/L (136-145)
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
[2017-11-26 15:26] LABS: ALBUMIN 3.4 g/dl (3.4-5.0); ALK PHOS 81 U/L (45-117); ANION GAP 10 (8-16); BILIRUBIN,TOTAL 0.5 mg/dL (0.2-1.0); BLOOD UREA NITROGEN 10 mg/dL (7-18); CALCIUM 9.4 mg/dL (8.5-10.1); CO2 27 mmol/L (21-32); GLUCOSE,RANDOM 97 mg/dL (74-106); SGOT/AST 61 U/L (15-37); SGPT/ALT 27 U/L (12-78); TOT PROT 7.1 g/dl (6.4-8.2)
[2017-11-26] MEDS: metFORMIN HCL 500 MG TABLET (FP) PO SCH (16:48)
[2017-11-26 18:38] LABS: URINE APPEARANCE CLEAR; URINE BILIRUBIN NEGATIVE (NEGATIVE); URINE BLOOD NEGATIVE (NEGATIVE); URINE COLOR LTYELLOW; URINE GLUCOSE (UA) NEGATIVE (NEGATIVE); URINE KETONE NEGATIVE (NEGATIVE); URINE LEUK ESTERASE TRACE (NEGATIVE); URINE NITRITE NEGATIVE (NEGATIVE); URINE PROTEIN NEGATIVE (NEGATIVE)
[2017-11-26] MEDS: THIAMINE HCL 100 MG TABLET (FP) PO SCH (21:27)
[2017-11-26] MEDS: DIVALPROEX SODIUM 500 MG TABLET E.C. PO SCH (21:27)
[2017-11-26] MEDS: traZODone HCL 100 MG TABLET (FP) PO SCH (21:27)
[2017-11-27] MEDS ORDERED: METHADONE HCL 40 MG DISPERSABLE TABLET PO SCH (06:00)
[2017-11-27] MEDS ORDERED: METHADONE HCL 10 MG TABLET ONE (06:03)
[2017-11-27] MEDS ORDERED: METHADONE HCL 40 MG DISPERSABLE TABLET ONE (06:04)
[2017-11-27] MEDS: METHADONE 120 MG, METHADONE 10 MG PO SCH (06:15)
[2017-11-27] MEDS: metFORMIN HCL 500 MG TABLET (FP) PO SCH ×2 (06:15→16:55)
[2017-11-27] MEDS: DIVALPROEX SODIUM 500 MG TABLET E.C. PO SCH ×2 (10:13→21:39)
[2017-11-27] MEDS: NICOTINE 14 MG/24 HOURS TOPICAL PATCH TD SCH (10:13)
[2017-11-27] MEDS: PRENATAL VITAMINS W/ FOLIC ACID TABLET (FP) PO SCH (10:13)
[2017-11-27] MEDS: ARIPiprazole 10 MG TABLET PO SCH (10:13)
[2017-11-27] MEDS: ASPIRIN 81 MG CHEWABLE TABLETS PO SCH (10:13)
--- NOTE | 2017-11-27 13:35 | EKG ---
Test Reason : Blood Pressure : / mmHG Vent. Rate : 056 BPM Atrial Rate : 056 BPM P-R Int : 180 ms QRS Dur : 084 ms QT Int : 434 ms P-R-T Axes : 071 066 058 degrees QTc Int : 418 ms SINUS BRADYCARDIA POSSIBLE LEFT ATRIAL ENLARGEMENT BORDERLINE ECG WHEN COMPARED WITH ECG OF 16-OCT-2017 20:20, NO SIGNIFICANT CHANGE WAS FOUND Confirmed by MD Rendon Daniel ([id number]) on 11/27/2017 1:35:04 PM Referred By: Confirmed By:Blaise Rendon MD
--- NOTE | 2017-11-27 15:23 | PN ---
S Progress Note Note: depakote blood result noted 4.532 low, patient on Depakote 500 mg po bid started on 11/26/17
[2017-11-27] MEDS: THIAMINE HCL 100 MG TABLET (FP) PO SCH (21:39)
[2017-11-27] MEDS: traZODone HCL 100 MG TABLET (FP) PO SCH (21:39)
[2017-11-28] MEDS ORDERED: METHADONE HCL 10 MG TABLET ONE (03:31)
[2017-11-28] MEDS ORDERED: METHADONE HCL 40 MG DISPERSABLE TABLET ONE (03:32)
[2017-11-28] MEDS: METHADONE 120 MG, METHADONE 10 MG PO SCH (06:09)
[2017-11-28] MEDS: metFORMIN HCL 500 MG TABLET (FP) PO SCH ×2 (06:09→16:58)
[2017-11-28] MEDS: ARIPiprazole 10 MG TABLET PO SCH (10:27)
[2017-11-28] MEDS: DIVALPROEX SODIUM 500 MG TABLET E.C. PO SCH ×2 (10:27→21:58)
[2017-11-28] MEDS: NICOTINE 14 MG/24 HOURS TOPICAL PATCH TD SCH (10:27)
[2017-11-28] MEDS: PRENATAL VITAMINS W/ FOLIC ACID TABLET (FP) PO SCH (10:27)
[2017-11-28] MEDS: ASPIRIN 81 MG CHEWABLE TABLETS PO SCH (10:27)
[2017-11-28] MEDS ORDERED: ALBUTEROL SO4 2.5/IPRATROPIUM 0.5 INH SOL 3 ML VIAL.NEB. NEB PRN (14:43)
[2017-11-28] MEDS: ALBUTEROL SO4 18 GM HFA INHALER IH PRN (16:04)
[2017-11-28] MEDS: traZODone HCL 100 MG TABLET (FP) PO SCH (21:58)
[2017-11-28] MEDS: THIAMINE HCL 100 MG TABLET (FP) PO SCH (21:58)
[2017-11-29] MEDS ORDERED: METHADONE HCL 10 MG TABLET ONE (05:20)
[2017-11-29] MEDS ORDERED: METHADONE HCL 40 MG DISPERSABLE TABLET ONE (05:20)
[2017-11-29] MEDS: METHADONE 120 MG, METHADONE 10 MG PO SCH (06:06)
[2017-11-29] MEDS: metFORMIN HCL 500 MG TABLET (FP) PO SCH (06:06)
[2017-11-29 07:05] VITALS: BP 144/72; PULSE 63; TEMP 98.3
[2017-11-29] MEDS: ARIPiprazole 10 MG TABLET PO SCH (10:19)
[2017-11-29] MEDS: DIVALPROEX SODIUM 500 MG TABLET E.C. PO SCH (10:19)
[2017-11-29] MEDS: PRENATAL VITAMINS W/ FOLIC ACID TABLET (FP) PO SCH (10:19)
[2017-11-29] MEDS: NICOTINE 14 MG/24 HOURS TOPICAL PATCH TD SCH (10:19)
[2017-11-29] MEDS: ASPIRIN 81 MG CHEWABLE TABLETS PO SCH (10:19)
[2017-11-29] MEDS: ALBUTEROL SO4 18 GM HFA INHALER IH PRN (10:20)
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
== END 2017-11-29 11:00 | disposition left against medical advice (07) | DRG 770 ==
LOC: YASAS 09:45 → Y5N 13:11
PROVIDERS: ADMIT Psychiatry & Neurology Psychiatry; ATTEND Psychiatry & Neurology Psychiatry
PROC: HZ42ZZZ Group Counseling for Substance Abuse Treatment, Cognitive-Behavioral (ICD-10-PCS; principal; 2017-11-26)
DX: F10.20 Alcohol dependence, uncomplicated (principal); F11.20 Opioid dependence, uncomplicated; F14.20 Cocaine dependence, uncomplicated; F13.20 Sedative, hypnotic or anxiolytic dependence, uncomplicated; F17.210 Nicotine dependence, cigarettes, uncomplicated; F31.9 Bipolar disorder, unspecified; E11.9 Type 2 diabetes mellitus without complications; D57.3 Sickle-cell trait; H90.42 Sensorineural hearing loss, unilateral, left ear, with unrestricted hearing on the contralateral side; Z79.84 Long term (current) use of oral hypoglycemic drugs; Z87.438 Personal history of other diseases of male genital organs
CPT/HCPCS: 36415; 80053; 80164; 81003; 81015; 82962; 85027; 86593; 93005; 93010

== ENCOUNTER 2018-03-06 11:48 | Inpatient (IN) | payer OTHER ==
[2018-03-06 15:49] VITALS: BMI 25.4
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
[2018-03-06] MEDS ORDERED: MENTHOL/PHENOL 1 EACH UD MM PRN (17:31)
[2018-03-06] MEDS ORDERED: guaiFENesin/D-METHORPHAN HB 10 ML UNIT-DOSE CUPS PO PRN (17:31)
[2018-03-06] MEDS ORDERED: NICOTINE POLACRILEX 2 MG GUM BC PRN (17:31)
[2018-03-06] MEDS ORDERED: LOPERAMIDE HCL 2 MG CAPSULE PO PRN (17:31)
[2018-03-06] MEDS ORDERED: hydrOXYzine PAMOATE 50 MG CAPSULE (FP) PO PRN (17:31)
[2018-03-06] MEDS ORDERED: IBUPROFEN 400 MG TABLET (FP) PO PRN (17:31)
[2018-03-06] MEDS ORDERED: ACETAMINOPHEN 325 MG TABLET (FP) PO PRN (17:31)
[2018-03-06] MEDS ORDERED: MAGNESIUM CITRATE 300 ML BOTTLE PO PRN (17:31)
[2018-03-06] MEDS ORDERED: MAGNESIUM HYDROX 2400MG/30ML ORAL SUSPENSION 30 ML CUP PO PRN (17:31)
[2018-03-06] MEDS ORDERED: chlordiazePOXIDE HCL 25 MG CAPSULE PO PRN (17:31)
[2018-03-06] MEDS ORDERED: MAG HYDROX/AL HYDROX/SIMETH 30 ML UNIT-DOSE CUP PO PRN (17:31)
[2018-03-06] MEDS ORDERED: chlordiazePOXIDE HCL 25 MG CAPSULE PO ONE (18:15)
[2018-03-06] MEDS: metFORMIN HCL 500 MG TABLET (FP) PO SCH (20:04)
[2018-03-06] MEDS ORDERED: MELATONIN 5 MG TABLETS PO PRN (22:00)
[2018-03-06] MEDS: chlordiazePOXIDE HCL 25 MG CAPSULE PO SCH (22:23)
[2018-03-06] MEDS: THIAMINE HCL 100 MG TABLET (FP) PO SCH (22:23)
[2018-03-07] MEDS: chlordiazePOXIDE HCL 25 MG CAPSULE PO SCH ×4 (05:27→22:19)
[2018-03-07] MEDS: INSULIN SLIDING SCALE (NOVOLOG) 1 VIAL SQ SCH ×2 (07:13→16:59)
[2018-03-07] MEDS: metFORMIN HCL 500 MG TABLET (FP) PO SCH ×2 (07:13→16:58)
[2018-03-07] MEDS ORDERED: METHADONE HCL 10 MG TABLET ONE (07:43)
[2018-03-07] MEDS ORDERED: METHADONE HCL 40 MG DISPERSABLE TABLET ONE (07:43)
[2018-03-07] MEDS ORDERED: METHADONE HCL 10 MG TABLET PO SCH (07:45)
[2018-03-07] MEDS: METHADONE 120 MG, METHADONE 20 MG PO SCH (07:51)
[2018-03-07 07:52] LABS: URINE APPEARANCE CLEAR; URINE BILIRUBIN NEGATIVE (<2.0 mg/dL); URINE BLOOD NEGATIVE (NEGATIVE); URINE COLOR LTYELLOW; URINE GLUCOSE (UA) NEGATIVE (NEGATIVE); URINE KETONE NEGATIVE (NEGATIVE); URINE LEUK ESTERASE TRACE (NEGATIVE); URINE NITRITE NEGATIVE (NEGATIVE); URINE PROTEIN NEGATIVE (NEGATIVE); URINE UROBILINOGEN NEGATIVE mg/dL (0.2-1.0)
[2018-03-07] MEDS: P-EPHED 60MG/TRIPROLIDI 2.5MG TABLET PO PRN ×2 (08:39→22:20)
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
[2018-03-07] MEDS: ASPIRIN 81 MG CHEWABLE TABLETS PO SCH (10:13)
[2018-03-07] MEDS: PRENATAL VITAMINS W/ FOLIC ACID TABLET (FP) PO SCH (10:13)
[2018-03-07] MEDS: NICOTINE 14 MG/24 HOURS TOPICAL PATCH TD SCH (10:14)
[2018-03-07 10:37] LABS: HEMATOCRIT 41.2 % (35.4-49); MCH 29.9 pg (25.7-33.7); MEAN CELL VOLUME 88.1 fl (80-96); PLATELET COUNT 189 K/MM3 (134-434); RBC 4.68 M/mm3 (4.00-5.60); RDW 15.1 % (11.9-15.9); WHITE BLOOD COUNT 5.5 K/mm3 (4.0-10.0)
[2018-03-07 10:46] LABS: CHLORIDE 103 mmol/L (98-107); SODIUM 139 mmol/L (136-145)
[2018-03-07] MEDS: ARIPiprazole 10 MG TABLET PO SCH (10:58)
[2018-03-07 11:26] LABS: ALBUMIN 3.6 g/dl (3.4-5.0); ALK PHOS 105 U/L (45-117); ANION GAP 9 (8-16); BILIRUBIN,TOTAL 0.6 mg/dL (0.2-1.0); BLOOD UREA NITROGEN 12 mg/dL (7-18); CO2 27 mmol/L (21-32); GLUCOSE,RANDOM 107 mg/dL (74-106); SGOT/AST 16 U/L (15-37); SGPT/ALT 17 U/L (12-78)
--- NOTE | 2018-03-07 11:43 | EKG ---
Test Reason : Blood Pressure : / mmHG Vent. Rate : 065 BPM Atrial Rate : 065 BPM P-R Int : 166 ms QRS Dur : 090 ms QT Int : 406 ms P-R-T Axes : 073 065 053 degrees QTc Int : 422 ms NORMAL SINUS RHYTHM POSSIBLE LEFT ATRIAL ENLARGEMENT BORDERLINE ECG WHEN COMPARED WITH ECG OF 26-NOV-2017 15:46, NO SIGNIFICANT CHANGE WAS FOUND Confirmed by YOHANA MELGAR, ROSALINDA ([id number]) on 03/07/2018 11:42:43 AM Referred By: Confirmed By:ROSALINDA MULLER MD
--- NOTE | 2018-03-07 13:51 | PN ---
S CIWA - CIWA Score Nausea/Vomitin-No Nausea/No Vomiting Muscle Tremors: 4-Moderate,w/Arms Extend Anxiety: 4-Mod. Anxious/Guarded Agitation: 4-Moderately Restless Paroxysmal Sweats: 1-Minimal Palms Moist Orientation: 0-Oriented Tacttile Disturbances: 0-None Auditory Disturbances: 0-None Visual Disturbances: 0-None Headache: 0-None Present CIWA-Ar Total Score: 13 BHS Progress Note (SOAP) Subjective: ANXIETY,TREMORS, SWEATS/CHILLS,NASAL CONGESTION. Objective: 03/07/18 13:50 Vital Signs 03/07/18 03/07/18 06:11 09:51 Temperature 97 F L 98.6 F Pulse Rate 67 75 Respiratory 18 18 Rate Blood Pressure 107/67 125/69 Laboratory Tests 03/06/18 03/06/18 03/07/18 16:44 22:00 05:27 WBC RBC Hgb Hct MCV MCH MCHC RDW Plt Count MPV Sodium Potassium Chloride Carbon Dioxide Anion Gap BUN Creatinine Creat Clearance w eGFR POC Glucometer 140 115 Random Glucose Calcium Total Bilirubin AST ALT Alkaline Phosphatase Total Protein Albumin Urine Color Ltyellow Urine Appearance Clear Urine pH 5.0 D Ur Specific [place] 1.013 Urine Protein Negative Urine Glucose (UA) Negative Urine Ketones Negative Urine Blood Negative Urine Nitrite Negative Urine Bilirubin Negative Urine Urobilinogen Negative Ur Leukocyte Esterase Trace Urine WBC (Auto) <1 Urine RBC (Auto) <1 Valproic Acid 03/07/18 03/07/18 03/07/18 08:00 08:00 09:00 WBC 5.5 D RBC 4.68 Hgb 14.0 Hct 41.2 MCV 88.1 MCH 29.9 MCHC 34.0 RDW 15.1 Plt Count 189 MPV 9.0 Sodium 139 Potassium 4.0 Chloride 103 Carbon Dioxide 27 Anion Gap 9 BUN 12 Creatinine 1.0 Creat Clearance w eGFR > 60 POC Glucometer Random Glucose 107 H Calcium 9.0 Total Bilirubin 0.6 AST 16 D ALT 17 D Alkaline Phosphatase 105 D Total Protein 7.0 Albumin 3.6 Urine Color Urine Appearance Urine pH Ur Specific [place] Urine Protein Urine Glucose (UA) Urine Ketones Urine Blood Urine Nitrite Urine Bilirubin Urine Urobilinogen Ur Leukocyte Esterase Urine WBC (Auto) Urine RBC (Auto) Valproic Acid 17.3 L Assessment: 03/07/18 13:51 WITHDRAWAL SX Plan: CONTINUE DETOX
[2018-03-07] MEDS: THIAMINE HCL 100 MG TABLET (FP) PO SCH (22:19)
[2018-03-07] MEDS: DIVALPROEX SODIUM 500 MG TABLET E.C. PO SCH (22:19)
[2018-03-07] MEDS: traZODone HCL 50 MG TABLET (FP) PO SCH (22:19)
[2018-03-08] MEDS ORDERED: METHADONE HCL 10 MG TABLET ONE (04:10)
[2018-03-08] MEDS ORDERED: METHADONE HCL 40 MG DISPERSABLE TABLET ONE (04:11)
[2018-03-08] MEDS: METHADONE 120 MG, METHADONE 20 MG PO SCH (05:04)
[2018-03-08] MEDS: chlordiazePOXIDE HCL 25 MG CAPSULE PO SCH ×3 (05:05→17:24)
[2018-03-08] MEDS: metFORMIN HCL 500 MG TABLET (FP) PO SCH ×2 (06:20→17:24)
[2018-03-08] MEDS: INSULIN SLIDING SCALE (NOVOLOG) 1 VIAL SQ SCH ×2 (06:21→17:25)
[2018-03-08] MEDS: PRENATAL VITAMINS W/ FOLIC ACID TABLET (FP) PO SCH (10:10)
[2018-03-08] MEDS: ARIPiprazole 10 MG TABLET PO SCH (10:10)
[2018-03-08] MEDS: DIVALPROEX SODIUM 500 MG TABLET E.C. PO SCH ×2 (10:10→22:24)
[2018-03-08] MEDS: ASPIRIN 81 MG CHEWABLE TABLETS PO SCH (10:11)
[2018-03-08] MEDS: NICOTINE 14 MG/24 HOURS TOPICAL PATCH TD SCH (10:12)
[2018-03-08] MEDS: P-EPHED 60MG/TRIPROLIDI 2.5MG TABLET PO PRN (11:36)
--- NOTE | 2018-03-08 13:01 | PN ---
[facility] CIWA - CIWA Score Nausea/Vomitin-No Nausea/No Vomiting Muscle Tremors: 4-Moderate,w/Arms Extend Anxiety: 4-Mod. Anxious/Guarded Agitation: 4-Moderately Restless Paroxysmal Sweats: 1-Minimal Palms Moist Orientation: 0-Oriented Tacttile Disturbances: 0-None Auditory Disturbances: 0-None Visual Disturbances: 0-None Headache: 0-None Present CIWA-Ar Total Score: 13 S Progress Note (SOAP) Subjective: ANXIETY,TREMORS,FATIGUE.SLURRY SPEECH DUE TO DRY MOUTH.ALERT O X 3. NAD, OOB AMBULATING WITH STEADY GAIT. Objective: 03/08/18 13:00 Vital Signs 03/08/18 03/08/18 06:31 09:48 Temperature 97.8 F 97.9 F Pulse Rate 65 75 Respiratory 18 18 Rate Blood Pressure 130/71 110/74 Laboratory Tests 03/06/18 03/06/18 03/07/18 16:44 22:00 05:27 WBC RBC Hgb Hct MCV MCH MCHC RDW Plt Count MPV Sodium Potassium Chloride Carbon Dioxide Anion Gap BUN Creatinine Creat Clearance w eGFR POC Glucometer 140 115 Random Glucose Calcium Total Bilirubin AST ALT Alkaline Phosphatase Total Protein Albumin Urine Color Ltyellow Urine Appearance Clear Urine pH 5.0 D Ur Specific [place] 1.013 Urine Protein Negative Urine Glucose (UA) Negative Urine Ketones Negative Urine Blood Negative Urine Nitrite Negative Urine Bilirubin Negative Urine Urobilinogen Negative Ur Leukocyte Esterase Trace Urine WBC (Auto) <1 Urine RBC (Auto) <1 Valproic Acid RPR Titer Hep C Ab Diagnostic Liver Fibrosis Interp HIV 1&2 Antibody Screen HIV P24 Antigen 03/07/18 03/07/18 03/07/18 08:00 08:00 08:00 WBC 5.5 D RBC 4.68 Hgb 14.0 Hct 41.2 MCV 88.1 MCH 29.9 MCHC 34.0 RDW 15.1 Plt Count 189 MPV 9.0 Sodium 139 Potassium 4.0 Chloride 103 Carbon Dioxide 27 Anion Gap 9 BUN 12 Creatinine 1.0 Creat Clearance w eGFR > 60 POC Glucometer Random Glucose 107 H Calcium 9.0 Total Bilirubin 0.6 AST 16 D ALT 17 D Alkaline Phosphatase 105 D Total Protein 7.0 Albumin 3.6 Urine Color Urine Appearance Urine pH Ur Specific [place] Urine Protein Urine Glucose (UA) Urine Ketones Urine Blood Urine Nitrite Urine Bilirubin Urine Urobilinogen Ur Leukocyte Esterase Urine WBC (Auto) Urine RBC (Auto) Valproic Acid RPR Titer Hep C Ab Diagnostic Liver Fibrosis Interp HIV 1&2 Antibody Screen Negative HIV P24 Antigen Negative 03/07/18 03/07/18 03/07/18 08:00 08:00 09:00 WBC RBC Hgb Hct MCV MCH MCHC RDW Plt Count MPV Sodium Potassium Chloride Carbon Dioxide Anion Gap BUN Creatinine Creat Clearance w eGFR POC Glucometer Random Glucose Calcium Total Bilirubin AST ALT Alkaline Phosphatase Total Protein Albumin Urine Color Urine Appearance Urine pH Ur Specific [place] Urine Protein Urine Glucose (UA) Urine Ketones Urine Blood Urine Nitrite Urine Bilirubin Urine Urobilinogen Ur Leukocyte Esterase Urine WBC (Auto) Urine RBC (Auto) Valproic Acid 17.3 L RPR Titer Nonreactive Hep C Ab Diagnostic <0.1 Liver Fibrosis Interp HIV 1&2 Antibody Screen HIV P24 Antigen 03/07/18 03/08/18 16:34 05:07 WBC RBC Hgb Hct MCV MCH MCHC RDW Plt Count MPV Sodium Potassium Chloride Carbon Dioxide Anion Gap BUN Creatinine Creat Clearance w eGFR POC Glucometer 103 90 Random Glucose Calcium Total Bilirubin AST ALT Alkaline Phosphatase Total Protein Albumin Urine Color Urine Appearance Urine pH Ur Specific [place] Urine Protein Urine Glucose (UA) Urine Ketones Urine Blood Urine Nitrite Urine Bilirubin Urine Urobilinogen Ur Leukocyte Esterase Urine WBC (Auto) Urine RBC (Auto) Valproic Acid RPR Titer Hep C Ab Diagnostic Liver Fibrosis Interp HIV 1&2 Antibody Screen HIV P24 Antigen Assessment: 03/08/18 13:01 WITHDRAWAL SX Plan: CONTINUE DETOX INCREASE PO FLUIDS.
[2018-03-08] MEDS: chlordiazePOXIDE 5 MG CAPSULE PO SCH (22:24)
[2018-03-08] MEDS: traZODone HCL 50 MG TABLET (FP) PO SCH (22:24)
[2018-03-08] MEDS: THIAMINE HCL 100 MG TABLET (FP) PO SCH (22:24)
[2018-03-09] MEDS ORDERED: METHADONE HCL 40 MG DISPERSABLE TABLET ONE (04:00)
[2018-03-09] MEDS ORDERED: METHADONE HCL 10 MG TABLET ONE (04:00)
[2018-03-09] MEDS: METHADONE 120 MG, METHADONE 20 MG PO SCH (05:42)
[2018-03-09] MEDS: chlordiazePOXIDE 5 MG CAPSULE PO SCH ×3 (05:42→17:25)
[2018-03-09] MEDS: metFORMIN HCL 500 MG TABLET (FP) PO SCH ×2 (06:39→17:25)
[2018-03-09] MEDS: INSULIN SLIDING SCALE (NOVOLOG) 1 VIAL SQ SCH ×2 (06:50→17:25)
[2018-03-09] MEDS: ASPIRIN 81 MG CHEWABLE TABLETS PO SCH (10:24)
[2018-03-09] MEDS: ARIPiprazole 10 MG TABLET PO SCH (10:24)
[2018-03-09] MEDS: PRENATAL VITAMINS W/ FOLIC ACID TABLET (FP) PO SCH (10:24)
[2018-03-09] MEDS: DIVALPROEX SODIUM 500 MG TABLET E.C. PO SCH ×2 (10:24→22:26)
[2018-03-09] MEDS: NICOTINE 14 MG/24 HOURS TOPICAL PATCH TD SCH (10:25)
[2018-03-09] MEDS: P-EPHED 60MG/TRIPROLIDI 2.5MG TABLET PO PRN (12:56)
--- NOTE | 2018-03-09 17:06 | PN ---
BHS Progress Note (SOAP) Subjective: Fatigue, Sweating. Objective: PATIENT A & O X 3, OBSERVED AMBULATING ON UNIT. NO ACUTE DISTRESS. 03/09/18 17:04 Vital Signs Temperature 99.9 F H 03/09/18 14:11 Pulse Rate 83 03/09/18 14:11 Respiratory Rate 20 03/09/18 14:11 Blood Pressure 115/77 03/09/18 14:11 O2 Sat by Pulse Oximetry (%) Laboratory Tests 03/06/18 03/06/18 03/07/18 16:44 22:00 05:27 WBC RBC Hgb Hct MCV MCH MCHC RDW Plt Count MPV Sodium Potassium Chloride Carbon Dioxide Anion Gap BUN Creatinine Creat Clearance w eGFR POC Glucometer 140 115 Random Glucose Calcium Total Bilirubin AST ALT Alkaline Phosphatase Total Protein Albumin Urine Color Ltyellow Urine Appearance Clear Urine pH 5.0 D Ur Specific [place] 1.013 Urine Protein Negative Urine Glucose (UA) Negative Urine Ketones Negative Urine Blood Negative Urine Nitrite Negative Urine Bilirubin Negative Urine Urobilinogen Negative Ur Leukocyte Esterase Trace Urine WBC (Auto) <1 Urine RBC (Auto) <1 Valproic Acid RPR Titer Hep C Ab Diagnostic Liver Fibrosis Interp HIV 1&2 Antibody Screen HIV P24 Antigen 03/07/18 03/07/18 03/07/18 08:00 08:00 08:00 WBC 5.5 D RBC 4.68 Hgb 14.0 Hct 41.2 MCV 88.1 MCH 29.9 MCHC 34.0 RDW 15.1 Plt Count 189 MPV 9.0 Sodium 139 Potassium 4.0 Chloride 103 Carbon Dioxide 27 Anion Gap 9 BUN 12 Creatinine 1.0 Creat Clearance w eGFR > 60 POC Glucometer Random Glucose 107 H Calcium 9.0 Total Bilirubin 0.6 AST 16 D ALT 17 D Alkaline Phosphatase 105 D Total Protein 7.0 Albumin 3.6 Urine Color Urine Appearance Urine pH Ur Specific [place] Urine Protein Urine Glucose (UA) Urine Ketones Urine Blood Urine Nitrite Urine Bilirubin Urine Urobilinogen Ur Leukocyte Esterase Urine WBC (Auto) Urine RBC (Auto) Valproic Acid RPR Titer Hep C Ab Diagnostic Liver Fibrosis Interp HIV 1&2 Antibody Screen Negative HIV P24 Antigen Negative 03/07/18 03/07/18 03/07/18 08:00 08:00 09:00 WBC RBC Hgb Hct MCV MCH MCHC RDW Plt Count MPV Sodium Potassium Chloride Carbon Dioxide Anion Gap BUN Creatinine Creat Clearance w eGFR POC Glucometer Random Glucose Calcium Total Bilirubin AST ALT Alkaline Phosphatase Total Protein Albumin Urine Color Urine Appearance Urine pH Ur Specific [place] Urine Protein Urine Glucose (UA) Urine Ketones Urine Blood Urine Nitrite Urine Bilirubin Urine Urobilinogen Ur Leukocyte Esterase Urine WBC (Auto) Urine RBC (Auto) Valproic Acid 17.3 L RPR Titer Nonreactive Hep C Ab Diagnostic <0.1 Liver Fibrosis Interp HIV 1&2 Antibody Screen HIV P24 Antigen 03/07/18 03/08/18 03/08/18 16:34 05:07 16:17 WBC RBC Hgb Hct MCV MCH MCHC RDW Plt Count MPV Sodium Potassium Chloride Carbon Dioxide Anion Gap BUN Creatinine Creat Clearance w eGFR POC Glucometer 103 90 109 Random Glucose Calcium Total Bilirubin AST ALT Alkaline Phosphatase Total Protein Albumin Urine Color Urine Appearance Urine pH Ur Specific [place] Urine Protein Urine Glucose (UA) Urine Ketones Urine Blood Urine Nitrite Urine Bilirubin Urine Urobilinogen Ur Leukocyte Esterase Urine WBC (Auto) Urine RBC (Auto) Valproic Acid RPR Titer Hep C Ab Diagnostic Liver Fibrosis Interp HIV 1&2 Antibody Screen HIV P24 Antigen 03/09/18 03/09/18 05:45 16:20 WBC RBC Hgb Hct MCV MCH MCHC RDW Plt Count MPV Sodium Potassium Chloride Carbon Dioxide Anion Gap BUN Creatinine Creat Clearance w eGFR POC Glucometer 176 88 Random Glucose Calcium Total Bilirubin AST ALT Alkaline Phosphatase Total Protein Albumin Urine Color Urine Appearance Urine pH Ur Specific [place] Urine Protein Urine Glucose (UA) Urine Ketones Urine Blood Urine Nitrite Urine Bilirubin Urine Urobilinogen Ur Leukocyte Esterase Urine WBC (Auto) Urine RBC (Auto) Valproic Acid RPR Titer Hep C Ab Diagnostic Liver Fibrosis Interp HIV 1&2 Antibody Screen HIV P24 Antigen LABS NOTED. Assessment: 03/09/18 17:04 WITHDRAWAL SYMPTOMS. Plan: CONTINUE DETOX. PATIENT SCHEDULED FOR D/C TOMORROW.
[2018-03-09] MEDS: traZODone HCL 50 MG TABLET (FP) PO SCH (22:26)
[2018-03-09] MEDS: THIAMINE HCL 100 MG TABLET (FP) PO SCH (22:26)
[2018-03-09] MEDS: chlordiazePOXIDE HCL 10 MG CAPSULE PO SCH (22:26)
[2018-03-10] MEDS ORDERED: METHADONE HCL 10 MG TABLET ONE (03:33)
[2018-03-10] MEDS ORDERED: METHADONE HCL 40 MG DISPERSABLE TABLET ONE (03:34)
[2018-03-10] MEDS: METHADONE 120 MG, METHADONE 20 MG PO SCH (05:25)
[2018-03-10] MEDS: chlordiazePOXIDE HCL 10 MG CAPSULE PO SCH (05:25)
[2018-03-10] MEDS: metFORMIN HCL 500 MG TABLET (FP) PO SCH (06:02)
[2018-03-10] MEDS: INSULIN SLIDING SCALE (NOVOLOG) 1 VIAL SQ SCH (06:02)
[2018-03-10 06:19] VITALS: BP 104/67; PULSE 76; TEMP 97.9
--- NOTE | 2018-03-10 15:45 | PN ---
BHS Progress Note (SOAP) Subjective: PT COMPLETED DETOX. Objective: 03/10/18 15:42 Vital Signs - 24 hr 03/09/18 03/09/18 03/10/18 18:00 23:01 00:30 Temperature 96.9 F L 99.1 F Pulse Rate 66 91 H Respiratory 18 18 16 Rate Blood Pressure 102/59 116/76 03/10/18 03/10/18 03:30 06:18 Temperature 97.9 F Pulse Rate 76 Respiratory 18 16 Rate Blood Pressure 104/67 Laboratory Tests 03/06/18 03/06/18 03/07/18 16:44 22:00 05:27 WBC RBC Hgb Hct MCV MCH MCHC RDW Plt Count MPV Sodium Potassium Chloride Carbon Dioxide Anion Gap BUN Creatinine Creat Clearance w eGFR POC Glucometer 140 115 Random Glucose Calcium Total Bilirubin AST ALT Alkaline Phosphatase Total Protein Albumin Urine Color Ltyellow Urine Appearance Clear Urine pH 5.0 D Ur Specific [place] 1.013 Urine Protein Negative Urine Glucose (UA) Negative Urine Ketones Negative Urine Blood Negative Urine Nitrite Negative Urine Bilirubin Negative Urine Urobilinogen Negative Ur Leukocyte Esterase Trace Urine WBC (Auto) <1 Urine RBC (Auto) <1 Valproic Acid RPR Titer Hep C Ab Diagnostic Liver Fibrosis Interp HIV 1&2 Antibody Screen HIV P24 Antigen 03/07/18 03/07/18 03/07/18 08:00 08:00 08:00 WBC 5.5 D RBC 4.68 Hgb 14.0 Hct 41.2 MCV 88.1 MCH 29.9 MCHC 34.0 RDW 15.1 Plt Count 189 MPV 9.0 Sodium 139 Potassium 4.0 Chloride 103 Carbon Dioxide 27 Anion Gap 9 BUN 12 Creatinine 1.0 Creat Clearance w eGFR > 60 POC Glucometer Random Glucose 107 H Calcium 9.0 Total Bilirubin 0.6 AST 16 D ALT 17 D Alkaline Phosphatase 105 D Total Protein 7.0 Albumin 3.6 Urine Color Urine Appearance Urine pH Ur Specific [place] Urine Protein Urine Glucose (UA) Urine Ketones Urine Blood Urine Nitrite Urine Bilirubin Urine Urobilinogen Ur Leukocyte Esterase Urine WBC (Auto) Urine RBC (Auto) Valproic Acid RPR Titer Hep C Ab Diagnostic Liver Fibrosis Interp HIV 1&2 Antibody Screen Negative HIV P24 Antigen Negative 03/07/18 03/07/18 03/07/18 08:00 08:00 09:00 WBC RBC Hgb Hct MCV MCH MCHC RDW Plt Count MPV Sodium Potassium Chloride Carbon Dioxide Anion Gap BUN Creatinine Creat Clearance w eGFR POC Glucometer Random Glucose Calcium Total Bilirubin AST ALT Alkaline Phosphatase Total Protein Albumin Urine Color Urine Appearance Urine pH Ur Specific [place] Urine Protein Urine Glucose (UA) Urine Ketones Urine Blood Urine Nitrite Urine Bilirubin Urine Urobilinogen Ur Leukocyte Esterase Urine WBC (Auto) Urine RBC (Auto) Valproic Acid 17.3 L RPR Titer Nonreactive Hep C Ab Diagnostic <0.1 Liver Fibrosis Interp HIV 1&2 Antibody Screen HIV P24 Antigen 03/07/18 03/08/18 03/08/18 16:34 05:07 16:17 WBC RBC Hgb Hct MCV MCH MCHC RDW Plt Count MPV Sodium Potassium Chloride Carbon Dioxide Anion Gap BUN Creatinine Creat Clearance w eGFR POC Glucometer 103 90 109 Random Glucose Calcium Total Bilirubin AST ALT Alkaline Phosphatase Total Protein Albumin Urine Color Urine Appearance Urine pH Ur Specific [place] Urine Protein Urine Glucose (UA) Urine Ketones Urine Blood Urine Nitrite Urine Bilirubin Urine Urobilinogen Ur Leukocyte Esterase Urine WBC (Auto) Urine RBC (Auto) Valproic Acid RPR Titer Hep C Ab Diagnostic Liver Fibrosis Interp HIV 1&2 Antibody Screen HIV P24 Antigen 03/09/18 03/09/18 03/10/18 05:45 16:20 05:28 WBC RBC Hgb Hct MCV MCH MCHC RDW Plt Count MPV Sodium Potassium Chloride Carbon Dioxide Anion Gap BUN Creatinine Creat Clearance w eGFR POC Glucometer 176 88 117 Random Glucose Calcium Total Bilirubin AST ALT Alkaline Phosphatase Total Protein Albumin Urine Color Urine Appearance Urine pH Ur Specific [place] Urine Protein Urine Glucose (UA) Urine Ketones Urine Blood Urine Nitrite Urine Bilirubin Urine Urobilinogen Ur Leukocyte Esterase Urine WBC (Auto) Urine RBC (Auto) Valproic Acid RPR Titer Hep C Ab Diagnostic Liver Fibrosis Interp HIV 1&2 Antibody Screen HIV P24 Antigen Assessment: 03/10/18 15:42 MEDICALLY STABLE Plan: D/C PT TODAY
--- NOTE | 2018-03-10 15:48 | DS ---
[facility] Detox Discharge Summary Admission Date: 03/06/18 Discharge Date: 03/10/18 - History Present History: Alcohol Dependence, Cannabis Dependence, Cocaine Dependence, Sedative Dependence, MMTP Additional Comments: DETOX COMPLETED. PT WILL FOLLOW UP WITH HIS PMD FOR MEDICAL MANAGEMENT OF COMORBID CONDITIONS. Pertinent Past History: PLEASE SEE DX BELOW - Physical Exam Results Vital Signs: Vital Signs Temperature 97.9 F 03/10/18 06:18 Pulse Rate 76 03/10/18 06:18 Respiratory Rate 16 03/10/18 06:18 Blood Pressure 104/67 03/10/18 06:18 O2 Sat by Pulse Oximetry (%) Pertinent Admission Physical Exam Findings: WITHDRAWAL SX Laboratory Tests 03/06/18 03/06/18 03/07/18 16:44 22:00 05:27 WBC RBC Hgb Hct MCV MCH MCHC RDW Plt Count MPV Sodium Potassium Chloride Carbon Dioxide Anion Gap BUN Creatinine Creat Clearance w eGFR POC Glucometer 140 115 Random Glucose Calcium Total Bilirubin AST ALT Alkaline Phosphatase Total Protein Albumin Urine Color Ltyellow Urine Appearance Clear Urine pH 5.0 D Ur Specific [place] 1.013 Urine Protein Negative Urine Glucose (UA) Negative Urine Ketones Negative Urine Blood Negative Urine Nitrite Negative Urine Bilirubin Negative Urine Urobilinogen Negative Ur Leukocyte Esterase Trace Urine WBC (Auto) <1 Urine RBC (Auto) <1 Valproic Acid RPR Titer Hep C Ab Diagnostic Liver Fibrosis Interp HIV 1&2 Antibody Screen HIV P24 Antigen 03/07/18 03/07/18 03/07/18 08:00 08:00 08:00 WBC 5.5 D RBC 4.68 Hgb 14.0 Hct 41.2 MCV 88.1 MCH 29.9 MCHC 34.0 RDW 15.1 Plt Count 189 MPV 9.0 Sodium 139 Potassium 4.0 Chloride 103 Carbon Dioxide 27 Anion Gap 9 BUN 12 Creatinine 1.0 Creat Clearance w eGFR > 60 POC Glucometer Random Glucose 107 H Calcium 9.0 Total Bilirubin 0.6 AST 16 D ALT 17 D Alkaline Phosphatase 105 D Total Protein 7.0 Albumin 3.6 Urine Color Urine Appearance Urine pH Ur Specific [place] Urine Protein Urine Glucose (UA) Urine Ketones Urine Blood Urine Nitrite Urine Bilirubin Urine Urobilinogen Ur Leukocyte Esterase Urine WBC (Auto) Urine RBC (Auto) Valproic Acid RPR Titer Hep C Ab Diagnostic Liver Fibrosis Interp HIV 1&2 Antibody Screen Negative HIV P24 Antigen Negative 03/07/18 03/07/18 03/07/18 08:00 08:00 09:00 WBC RBC Hgb Hct MCV MCH MCHC RDW Plt Count MPV Sodium Potassium Chloride Carbon Dioxide Anion Gap BUN Creatinine Creat Clearance w eGFR POC Glucometer Random Glucose Calcium Total Bilirubin AST ALT Alkaline Phosphatase Total Protein Albumin Urine Color Urine Appearance Urine pH Ur Specific [place] Urine Protein Urine Glucose (UA) Urine Ketones Urine Blood Urine Nitrite Urine Bilirubin Urine Urobilinogen Ur Leukocyte Esterase Urine WBC (Auto) Urine RBC (Auto) Valproic Acid 17.3 L RPR Titer Nonreactive Hep C Ab Diagnostic <0.1 Liver Fibrosis Interp HIV 1&2 Antibody Screen HIV P24 Antigen 03/07/18 03/08/18 03/08/18 16:34 05:07 16:17 WBC RBC Hgb Hct MCV MCH MCHC RDW Plt Count MPV Sodium Potassium Chloride Carbon Dioxide Anion Gap BUN Creatinine Creat Clearance w eGFR POC Glucometer 103 90 109 Random Glucose Calcium Total Bilirubin AST ALT Alkaline Phosphatase Total Protein Albumin Urine Color Urine Appearance Urine pH Ur Specific [place] Urine Protein Urine Glucose (UA) Urine Ketones Urine Blood Urine Nitrite Urine Bilirubin Urine Urobilinogen Ur Leukocyte Esterase Urine WBC (Auto) Urine RBC (Auto) Valproic Acid RPR Titer Hep C Ab Diagnostic Liver Fibrosis Interp HIV 1&2 Antibody Screen HIV P24 Antigen 03/09/18 03/09/18 03/10/18 05:45 16:20 05:28 WBC RBC Hgb Hct MCV MCH MCHC RDW Plt Count MPV Sodium Potassium Chloride Carbon Dioxide Anion Gap BUN Creatinine Creat Clearance w eGFR POC Glucometer 176 88 117 Random Glucose Calcium Total Bilirubin AST ALT Alkaline Phosphatase Total Protein Albumin Urine Color Urine Appearance Urine pH Ur Specific [place] Urine Protein Urine Glucose (UA) Urine Ketones Urine Blood Urine Nitrite Urine Bilirubin Urine Urobilinogen Ur Leukocyte Esterase Urine WBC (Auto) Urine RBC (Auto) Valproic Acid RPR Titer Hep C Ab Diagnostic Liver Fibrosis Interp HIV 1&2 Antibody Screen HIV P24 Antigen - Treatment Hospital Course: Detox Protocol Followed, Detoxed Safely, Responded well, Discharged Condition Good - Medication Discharge Medications: Ambulatory Orders metFORMIN HCL [Glucophage -] 500 mg PO BID 08/30/16 Aspirin [ASA -] 81 mg PO DAILY #30 tab.chew 05/02/17 Aripiprazole [Abilify -] 10 mg PO DAILY #30 tablet 11/29/17 Divalproex [Depakote -] 500 mg PO BID #60 tablet.ec 11/29/17 traZODone HCL [Desyrel -] 100 mg PO HS #30 tablet 11/29/17 - Diagnosis (1) Alcohol dependence with uncomplicated withdrawal Status: Acute (2) Sedative, hypnotic or anxiolytic dependence with withdrawal, uncomplicated Status: Acute (3) Cocaine dependence, uncomplicated Status: Acute (4) 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 (5) Diabetes mellitus type II, controlled Status: Chronic Qualifiers: Diabetes mellitus rehab nursing tech insulin use: without rehab nursing tech use Diabetes mellitus complication status: without complication Qualified Code(s): E11.9 - Type 2 diabetes mellitus without complications (6) Nicotine dependence Status: Acute Qualifiers: Nicotine product type: cigarettes Substance use status: in withdrawal Qualified Code(s): F17.213 - Nicotine dependence, cigarettes, with withdrawal (7) Cannabis dependence Status: Acute (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
== END 2018-03-10 06:50 | disposition home or self-care (01) | DRG 773 ==
LOC: YASAS 11:48 → Y3N 17:09
PROVIDERS: ADMIT Surgery; ATTEND Surgery
PROC: HZ2ZZZZ Detoxification Services for Substance Abuse Treatment (ICD-10-PCS; principal; 2018-03-06)
DX: F10.230 Alcohol dependence with withdrawal, uncomplicated (principal); F11.20 Opioid dependence, uncomplicated; F13.230 Sedative, hypnotic or anxiolytic dependence with withdrawal, uncomplicated; F14.20 Cocaine dependence, uncomplicated; F12.20 Cannabis dependence, uncomplicated; F17.213 Nicotine dependence, cigarettes, with withdrawal; F31.81 Bipolar II disorder; H91.92 Unspecified hearing loss, left ear; E11.9 Type 2 diabetes mellitus without complications; R76.11 Nonspecific reaction to tuberculin skin test without active tuberculosis; K76.0 Fatty (change of) liver, not elsewhere classified; D57.3 Sickle-cell trait; Z86.73 Personal history of transient ischemic attack (TIA), and cerebral infarction without residual deficits; Z87.438 Personal history of other diseases of male genital organs
CPT/HCPCS: 36415; 80053; 80164; 81003; 81015; 82962; 85027; 86593; 87389; 93005; 93010

== ENCOUNTER 2018-12-23 12:05 | Inpatient (IN) | payer OTHER ==
[2018-12-23 13:20] VITALS: BMI 25.9
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
[2018-12-23] MEDS ORDERED: METHOCARBAMOL 500 MG TABLET PO PRN (14:35)
[2018-12-23] MEDS ORDERED: ACETAMINOPHEN 325 MG TABLET (FP) PO PRN ×2 (14:35)
[2018-12-23] MEDS ORDERED: MENTHOL/PHENOL 1 EACH UD MM PRN (14:35)
[2018-12-23] MEDS ORDERED: DICYCLOMINE HCL 10 MG CAPSULE PO PRN (14:35)
[2018-12-23] MEDS ORDERED: NICOTINE POLACRILEX 4 MG GUM BUC PRN (14:35)
[2018-12-23] MEDS ORDERED: diazePAM 5 MG TABLET PO ONE (14:35)
[2018-12-23] MEDS ORDERED: MAGNESIUM HYDROX 2400MG/30ML ORAL SUSPENSION 30 ML CUP PO PRN (14:35)
[2018-12-23] MEDS ORDERED: ONDANSETRON *ODT* 4 MG TABLET SL PRN (14:35)
[2018-12-23] MEDS ORDERED: MAGNESIUM CITRATE 300 ML BOTTLE PO PRN (14:35)
[2018-12-23] MEDS ORDERED: MAG HYDROX/AL HYDROX/SIMETH 30 ML UNIT-DOSE CUP PO PRN (14:35)
[2018-12-23] MEDS ORDERED: traZODone HCL 100 MG TABLET (FP) PO PRN (14:35)
[2018-12-23] MEDS ORDERED: BISMUTH SUBSALICYLATE 524 MG/30 ML UD PO PRN (14:35)
[2018-12-23] MEDS ORDERED: hydrOXYzine PAMOATE 25 MG CAPSULE (FP) PO PRN (14:35)
[2018-12-23] MEDS: ASPIRIN 81 MG CHEWABLE TABLETS PO SCH (17:41)
[2018-12-23] MEDS: MINERAL OIL/PETROLAT/WATER TOPICAL CREAM 113 GM JAR TP SCH (17:41)
[2018-12-23] MEDS: metFORMIN HCL 500 MG TABLET (FP) PO SCH (17:42)
[2018-12-23] MEDS: NICOTINE 21 MG/24 HOURS TOPICAL PATCH TD SCH (17:42)
[2018-12-23] MEDS: THIAMINE HCL 100 MG TABLET (FP) PO SCH (22:07)
[2018-12-23] MEDS: MELATONIN 5 MG TABLETS PO PRN (22:07)
[2018-12-23] MEDS: diazePAM 5 MG TABLET PO SCH (22:07)
[2018-12-23] MEDS: CLOTRIMAZOLE 1% CREAM 15 GM TUBE TP SCH (23:08)
[2018-12-24] MEDS: diazePAM 5 MG TABLET PO SCH ×3 (05:31→22:09)
[2018-12-24] MEDS: metFORMIN HCL 500 MG TABLET (FP) PO SCH ×2 (06:34→17:36)
[2018-12-24] MEDS ORDERED: METHADONE HCL 10 MG TABLET ONE (09:27)
[2018-12-24] MEDS ORDERED: METHADONE HCL 40 MG DISPERSABLE TABLET ONE (09:28)
[2018-12-24] MEDS: PRENATAL VITAMINS W/ FOLIC ACID TABLET (FP) PO SCH (09:46)
[2018-12-24] MEDS: diazePAM 5 MG TABLET PO PRN ×2 (09:46→17:35)
[2018-12-24] MEDS: ASPIRIN 81 MG CHEWABLE TABLETS PO SCH (09:47)
[2018-12-24] MEDS: MINERAL OIL/PETROLAT/WATER TOPICAL CREAM 113 GM JAR TP SCH (09:47)
[2018-12-24] MEDS: CLOTRIMAZOLE 1% CREAM 15 GM TUBE TP SCH ×2 (09:47→22:09)
[2018-12-24] MEDS: NICOTINE 21 MG/24 HOURS TOPICAL PATCH TD SCH (09:47)
[2018-12-24] MEDS ORDERED: METHADONE HCL 10 MG TABLET PO ONE (10:00)
[2018-12-24] MEDS ORDERED: METHADONE 120 MG, METHADONE 30 MG PO ONE (10:00)
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
--- NOTE | 2018-12-24 11:06 | PN ---
S CIWA - CIWA Score Nausea/Vomitin-Mild Nausea/No Vomiting Muscle Tremors: 4-Moderate,w/Arms Extend Anxiety: 3 Agitation: 2 Paroxysmal Sweats: 1-Minimal Palms Moist Orientation: 2-Disoriented Date<2 days Tacttile Disturbances: 0-None Auditory Disturbances: 0-None Visual Disturbances: 0-None Headache: 0-None Present CIWA-Ar Total Score: 13 BHS Progress Note (SOAP) Subjective: feeling better with valium better concentration and self care Objective: 12/24/18 11:06 Vital Signs Temperature 97.7 F 12/24/18 09:18 Pulse Rate 88 12/24/18 09:18 Respiratory Rate 20 12/24/18 09:18 Blood Pressure 122/79 12/24/18 09:18 O2 Sat by Pulse Oximetry (%) 12/24/18 11:06 lab pending Assessment: 12/24/18 11:06 withdrawal sx Plan: continue detox
[2018-12-24 12:23] LABS: HEMATOCRIT 39.1 % (35.4-49); HEMOGLOBIN 13.1 GM/dL (11.7-16.9); MCH 30.2 pg (25.7-33.7); MCHC 33.4 g/dl (32.0-35.9); MEAN CELL VOLUME 90.4 fl (80-96); MEAN PLT VOLUME 8.8 fl (7.5-11.1); PLATELET COUNT 133 K/MM3 (134-434); RBC 4.33 M/mm3 (4.00-5.60); RDW 15.5 % (11.9-15.9); WHITE BLOOD COUNT 3.9 K/mm3 (4.0-10.0)
[2018-12-24 12:41] LABS: ALBUMIN 3.3 g/dl (3.4-5.0); ALK PHOS 95 U/L (45-117); ANION GAP 7 MMOL/L (8-16); BILIRUBIN,TOTAL 0.3 mg/dL (0.2-1); BLOOD UREA NITROGEN 24 mg/dL (7-18); CALCIUM 8.4 mg/dL (8.5-10.1); CHLORIDE 107 mmol/L (98-107); CO2 27 mmol/L (21-32); CREATININE 1.3 mg/dL (0.55-1.3); GLUCOSE,RANDOM 125 mg/dL (74-106); POTASSIUM 4.1 mmol/L (3.5-5.1); SGOT/AST 14 U/L (15-37); SGPT/ALT 14 U/L (13-61); SODIUM 141 mmol/L (136-145); TOT PROT 6.2 g/dl (6.4-8.2)
[2018-12-24] MEDS: DIVALPROEX SODIUM 500 MG TABLET E.C. PO SCH (22:08)
[2018-12-24] MEDS: traZODone HCL 50 MG TABLET (FP) PO SCH (22:09)
[2018-12-24] MEDS: THIAMINE HCL 100 MG TABLET (FP) PO SCH (22:09)
[2018-12-24] MEDS: MELATONIN 5 MG TABLETS PO PRN (22:09)
[2018-12-25] MEDS ORDERED: METHADONE HCL 10 MG TABLET ONE (04:41)
[2018-12-25] MEDS ORDERED: METHADONE HCL 40 MG DISPERSABLE TABLET ONE (04:42)
[2018-12-25] MEDS: METHADONE 120 MG, METHADONE 30 MG PO SCH (05:56)
[2018-12-25] MEDS ORDERED: METHADONE HCL 10 MG TABLET PO SCH (06:00)
[2018-12-25] MEDS: metFORMIN HCL 500 MG TABLET (FP) PO SCH ×2 (07:48→18:19)
[2018-12-25] MEDS: CLOTRIMAZOLE 1% CREAM 15 GM TUBE TP SCH ×2 (10:04→22:43)
[2018-12-25] MEDS: DIVALPROEX SODIUM 500 MG TABLET E.C. PO SCH ×2 (10:04→22:43)
[2018-12-25] MEDS: PRENATAL VITAMINS W/ FOLIC ACID TABLET (FP) PO SCH (10:04)
[2018-12-25] MEDS: ASPIRIN 81 MG CHEWABLE TABLETS PO SCH (10:04)
[2018-12-25] MEDS: diazePAM 5 MG TABLET PO SCH ×2 (10:04→22:43)
[2018-12-25] MEDS: MINERAL OIL/PETROLAT/WATER TOPICAL CREAM 113 GM JAR TP SCH (10:05)
[2018-12-25] MEDS: NICOTINE 21 MG/24 HOURS TOPICAL PATCH TD SCH (10:05)
--- NOTE | 2018-12-25 11:30 | PN ---
[facility] CIWA - CIWA Score Nausea/Vomitin-No Nausea/No Vomiting Muscle Tremors: 2 Anxiety: 1-Mildly Anxious Agitation: 2 Paroxysmal Sweats: 1-Minimal Palms Moist Orientation: 2-Disoriented Date<2 days Tacttile Disturbances: 0-None Auditory Disturbances: 0-None Visual Disturbances: 0-None Headache: 1-Very Mild CIWA-Ar Total Score: 9 S Progress Note (SOAP) Subjective: feeling better preferring return to methadone program Objective: 12/25/18 11:29 Vital Signs Temperature 97.4 F L 12/25/18 09:35 Pulse Rate 91 H 12/25/18 09:35 Respiratory Rate 18 12/25/18 09:35 Blood Pressure 123/82 12/25/18 09:35 O2 Sat by Pulse Oximetry (%) Laboratory Last Values WBC 3.9 K/mm3 (4.0-10.0) L 12/24/18 07:30 RBC 4.33 M/mm3 (4.00-5.60) 12/24/18 07:30 Hgb 13.1 GM/dL (11.7-16.9) 12/24/18 07:30 Hct 39.1 % (35.4-49) 12/24/18 07:30 MCV 90.4 fl (80-96) 12/24/18 07:30 MCH 30.2 pg (25.7-33.7) 12/24/18 07:30 MCHC 33.4 g/dl (32.0-35.9) 12/24/18 07:30 RDW 15.5 % (11.9-15.9) 12/24/18 07:30 Plt Count 133 K/MM3 (134-434) L D 12/24/18 07:30 MPV 8.8 fl (7.5-11.1) 12/24/18 07:30 Sodium 141 mmol/L (136-145) 12/24/18 07:30 Potassium 4.1 mmol/L (3.5-5.1) 12/24/18 07:30 Chloride 107 mmol/L (98-107) 12/24/18 07:30 Carbon Dioxide 27 mmol/L (21-32) 12/24/18 07:30 Anion Gap 7 MMOL/L (8-16) L 12/24/18 07:30 BUN 24 mg/dL (7-18) H 12/24/18 07:30 Creatinine 1.3 mg/dL (0.55-1.3) 12/24/18 07:30 Creat Clearance w eGFR 56.31 (>60) 12/24/18 07:30 Random Glucose 125 mg/dL (74-106) H 12/24/18 07:30 Calcium 8.4 mg/dL (8.5-10.1) L 12/24/18 07:30 Total Bilirubin 0.3 mg/dL (0.2-1) 12/24/18 07:30 AST 14 U/L (15-37) L 12/24/18 07:30 ALT 14 U/L (13-61) 12/24/18 07:30 Alkaline Phosphatase 95 U/L (45-117) 12/24/18 07:30 Total Protein 6.2 g/dl (6.4-8.2) L 12/24/18 07:30 Albumin 3.3 g/dl (3.4-5.0) L 12/24/18 07:30 Valproic Acid < 3.0 ug/ml (50-100) L 12/24/18 07:30 RPR Titer Nonreactive (NONREACTIVE) 12/24/18 07:30 lab noted Assessment: 12/25/18 11:30 withdrawal sx Plan: continue detox
[2018-12-25] MEDS: traZODone HCL 50 MG TABLET (FP) PO SCH (22:43)
[2018-12-25] MEDS: THIAMINE HCL 100 MG TABLET (FP) PO SCH (22:43)
[2018-12-26] MEDS ORDERED: METHADONE HCL 10 MG TABLET ONE (04:45)
[2018-12-26] MEDS ORDERED: METHADONE HCL 40 MG DISPERSABLE TABLET ONE (04:45)
[2018-12-26] MEDS: METHADONE 120 MG, METHADONE 30 MG PO SCH (05:52)
[2018-12-26] MEDS ORDERED: diazePAM 5 MG TABLET PO SCH (06:00)
[2018-12-26] MEDS: metFORMIN HCL 500 MG TABLET (FP) PO SCH ×2 (07:51→17:24)
[2018-12-26] MEDS: ASPIRIN 81 MG CHEWABLE TABLETS PO SCH (10:26)
[2018-12-26] MEDS: PRENATAL VITAMINS W/ FOLIC ACID TABLET (FP) PO SCH (10:26)
[2018-12-26] MEDS: DIVALPROEX SODIUM 500 MG TABLET E.C. PO SCH (10:26)
[2018-12-26] MEDS: NICOTINE 21 MG/24 HOURS TOPICAL PATCH TD SCH (10:26)
[2018-12-26] MEDS: CLOTRIMAZOLE 1% CREAM 15 GM TUBE TP SCH (10:27)
[2018-12-26] MEDS: MINERAL OIL/PETROLAT/WATER TOPICAL CREAM 113 GM JAR TP SCH (10:29)
--- NOTE | 2018-12-26 14:05 | DS ---
[facility] Detox Discharge Summary Admission Date: 12/23/18 Discharge Date: 12/26/18 - History Present History: Alcohol Dependence, Sedative Dependence Additional Comments: 58 years old male admitted on 12/23/18 for alcohol and benzo withdrawal stabilization completed detox regimen [facility] - Physical Exam Results Vital Signs: Vital Signs Temperature 98.4 F 12/26/18 10:18 Pulse Rate 92 H 12/26/18 10:18 Respiratory Rate 18 12/26/18 10:18 Blood Pressure 128/77 12/26/18 10:18 O2 Sat by Pulse Oximetry (%) Pertinent Admission Physical Exam Findings: alcohol and benzo withdrawal sx Laboratory Last Values WBC 3.9 K/mm3 (4.0-10.0) L 12/24/18 07:30 RBC 4.33 M/mm3 (4.00-5.60) 12/24/18 07:30 Hgb 13.1 GM/dL (11.7-16.9) 12/24/18 07:30 Hct 39.1 % (35.4-49) 12/24/18 07:30 MCV 90.4 fl (80-96) 12/24/18 07:30 MCH 30.2 pg (25.7-33.7) 12/24/18 07:30 MCHC 33.4 g/dl (32.0-35.9) 12/24/18 07:30 RDW 15.5 % (11.9-15.9) 12/24/18 07:30 Plt Count 133 K/MM3 (134-434) L D 12/24/18 07:30 MPV 8.8 fl (7.5-11.1) 12/24/18 07:30 Sodium 141 mmol/L (136-145) 12/24/18 07:30 Potassium 4.1 mmol/L (3.5-5.1) 12/24/18 07:30 Chloride 107 mmol/L (98-107) 12/24/18 07:30 Carbon Dioxide 27 mmol/L (21-32) 12/24/18 07:30 Anion Gap 7 MMOL/L (8-16) L 12/24/18 07:30 BUN 24 mg/dL (7-18) H 12/24/18 07:30 Creatinine 1.3 mg/dL (0.55-1.3) 12/24/18 07:30 Creat Clearance w eGFR 56.31 (>60) 12/24/18 07:30 Random Glucose 125 mg/dL (74-106) H 12/24/18 07:30 Calcium 8.4 mg/dL (8.5-10.1) L 12/24/18 07:30 Total Bilirubin 0.3 mg/dL (0.2-1) 12/24/18 07:30 AST 14 U/L (15-37) L 12/24/18 07:30 ALT 14 U/L (13-61) 12/24/18 07:30 Alkaline Phosphatase 95 U/L (45-117) 12/24/18 07:30 Total Protein 6.2 g/dl (6.4-8.2) L 12/24/18 07:30 Albumin 3.3 g/dl (3.4-5.0) L 12/24/18 07:30 Valproic Acid < 3.0 ug/ml (50-100) L 12/24/18 07:30 RPR Titer Nonreactive (NONREACTIVE) 12/24/18 07:30 lab noted - Treatment Hospital Course: Detox Protocol Followed, Detoxed Safely, Responded well, Discharged Condition Good, Rehab Referral Accepted - Medication Discharge Medications: Ambulatory Orders Aspirin [ASA -] 81 mg PO DAILY #30 tab.chew 05/02/17 Divalproex [Depakote -] 500 mg PO BID #60 tablet.ec 06/10/18 metFORMIN HCL [Glucophage -] 500 mg PO BID@0700,1630 #60 tablet 06/10/18 traZODone HCL [Desyrel -] 100 mg PO HS #30 tablet 06/10/18 Methadone [Dolophine -] 150 mg PO DAILY 12/23/18 - Diagnosis (1) Alcohol dependence with uncomplicated withdrawal Current Visit: Yes Status: Acute (2) Bipolar I disorder, most recent episode depressed Current Visit: Yes Status: Suspected (3) Nicotine dependence Current Visit: Yes Status: Acute Qualifiers: Nicotine product type: cigarettes Substance use status: in withdrawal Qualified Code(s): F17.213 - Nicotine dependence, cigarettes, with withdrawal (4) Opioid dependence on agonist therapy Current Visit: Yes Status: Chronic (5) Sedative, hypnotic or anxiolytic dependence with withdrawal, uncomplicated Current Visit: Yes Status: Acute (6) Deafness in left ear Current Visit: Yes Status: Chronic (7) Diabetes mellitus type II, controlled Status: Chronic Qualifiers: Diabetes mellitus watcher automat long goods insulin use: without watcher automat long goods use Diabetes mellitus complication status: without complication Qualified Code(s): E11.9 - Type 2 diabetes mellitus without complications (8) Methadone maintenance therapy patient Current Visit: Yes Status: Chronic (9) Positive PPD, treated Current Visit: Yes Status: Resolved - AMA Did Patient Leave Against Medical Advice: No
[2018-12-26 14:58] VITALS: BP 105/66; PULSE 87; TEMP 98.6
== END 2018-12-26 17:49 | disposition other institution (70) | DRG 773 ==
LOC: YASAS 12:05 → Y3N 15:50
PROVIDERS: ADMIT Surgery; ATTEND Surgery
PROC: HZ2ZZZZ Detoxification Services for Substance Abuse Treatment (ICD-10-PCS; principal; 2018-12-23)
DX: F10.230 Alcohol dependence with withdrawal, uncomplicated (principal); F11.20 Opioid dependence, uncomplicated; F13.230 Sedative, hypnotic or anxiolytic dependence with withdrawal, uncomplicated; F17.210 Nicotine dependence, cigarettes, uncomplicated; F31.30 Bipolar disorder, current episode depressed, mild or moderate severity, unspecified; E11.9 Type 2 diabetes mellitus without complications; H91.92 Unspecified hearing loss, left ear; R76.11 Nonspecific reaction to tuberculin skin test without active tuberculosis; R01.1 Cardiac murmur, unspecified; D57.3 Sickle-cell trait; Z86.73 Personal history of transient ischemic attack (TIA), and cerebral infarction without residual deficits; Z87.438 Personal history of other diseases of male genital organs
CPT/HCPCS: 36415; 71046-TC-FY; 80053; 80164; 85027; 86593

== ENCOUNTER 2018-12-26 18:25 | Inpatient (IN) | payer OTHER ==
[2018-12-26] MEDS ORDERED: MAGNESIUM HYDROX 2400MG/30ML ORAL SUSPENSION 30 ML CUP PO PRN (18:32)
[2018-12-26] MEDS ORDERED: ACETAMINOPHEN 325 MG TABLET (FP) PO PRN (18:32)
[2018-12-26] MEDS ORDERED: P-EPHED 60MG/TRIPROLIDI 2.5MG TABLET PO PRN (18:32)
[2018-12-26] MEDS ORDERED: MAGNESIUM CITRATE 300 ML BOTTLE PO PRN (18:32)
[2018-12-26] MEDS ORDERED: hydrOXYzine PAMOATE 25 MG CAPSULE (FP) PO PRN (18:32)
[2018-12-26] MEDS ORDERED: MENTHOL/PHENOL 1 EACH UD MM PRN (18:32)
[2018-12-26] MEDS ORDERED: MAG HYDROX/AL HYDROX/SIMETH 30 ML UNIT-DOSE CUP PO PRN (18:32)
[2018-12-26] MEDS ORDERED: guaiFENesin 200 MG/10 ML 10 ML UNIT-DOSE CUPS PO PRN (18:32)
--- NOTE | 2018-12-26 19:58 | PN ---
S Progress Note Note: Called to see pt for low grade fever and an episode of n/v. Pt states he thinks he ate something that did not agree with him Does not want any medications now PE- alert and oriented abd exam- ess normal exam a/p Non specific gastroenteritis: f/u as needed prn meds
[2018-12-26] MEDS: DIVALPROEX SODIUM 500 MG TABLET E.C. PO SCH (22:41)
[2018-12-26] MEDS: THIAMINE HCL 100 MG TABLET (FP) PO SCH (22:41)
[2018-12-26] MEDS: traZODone HCL 100 MG TABLET (FP) PO SCH (22:41)
[2018-12-27] MEDS ORDERED: METHADONE HCL 10 MG TABLET ONE (04:06)
[2018-12-27] MEDS ORDERED: METHADONE HCL 40 MG DISPERSABLE TABLET ONE (04:06)
[2018-12-27] MEDS ORDERED: METHADONE HCL 40 MG DISPERSABLE TABLET PO SCH (06:00)
[2018-12-27] MEDS: METHADONE 120 MG, METHADONE 30 MG PO SCH (06:14)
[2018-12-27] MEDS: metFORMIN HCL 500 MG TABLET (FP) PO SCH ×2 (07:03→17:02)
[2018-12-27 10:31] LABS: PH,URINE 5.5 (5.0-8.0); URINE APPEARANCE CLEAR; URINE BILIRUBIN NEGATIVE (NEGATIVE); URINE COLOR YELLOW; URINE GLUCOSE (UA) NEGATIVE (NEGATIVE); URINE KETONE NEGATIVE (NEGATIVE); URINE LEUK ESTERASE NEGATIVE (NEGATIVE); URINE NITRITE NEGATIVE (NEGATIVE); URINE PROTEIN NEGATIVE (NEGATIVE); URINE UROBILINOGEN 0.2 mg/dL (0.2-1.0)
[2018-12-27] MEDS: ASPIRIN 81 MG CHEWABLE TABLETS PO SCH (10:45)
[2018-12-27] MEDS: PRENATAL VITAMINS W/ FOLIC ACID TABLET (FP) PO SCH (10:45)
[2018-12-27] MEDS: DIVALPROEX SODIUM 500 MG TABLET E.C. PO SCH ×2 (10:45→21:45)
--- NOTE | 2018-12-27 15:06 | HP ---
[facility] Rehab Assess/Revision - Admission History Admitted to Rehab from: [facility] [place] Date of Admission to Rehab: 12/26/18 - Vital signs Vital Signs: Vital Signs Period Temp Pulse Resp BP Sys/Lane Pulse Ox Last 24 Hr 98.9 F 101 18-18 101/68 - Findings Detox History & Physical reviewed: Yes Concur with findings: Yes Comments/Additional Findings: PT COMPLETED DETOX ON AND REFERRED TO [address] [place] [address] ON 12/26/18. Inpatient Rehab Admission - Rehab Decision to Admit Inpatient rehab admission?: Yes - Initial Determination Are CD services needed?: Yes Free of communicable disease: Yes Not in need of hospitalization: Yes - Rehab Admission Criteria Previous failed treatment: Yes Poor recovery environment: Yes Comorbidities: Yes Lacks judgement: Yes Patient is meeting Inpatient Rehab admission criteria:: Yes
[2018-12-27] MEDS: THIAMINE HCL 100 MG TABLET (FP) PO SCH (21:45)
[2018-12-27] MEDS: traZODone HCL 100 MG TABLET (FP) PO SCH (21:45)
[2018-12-27] MEDS: MELATONIN 5 MG TABLETS PO PRN (21:46)
[2018-12-28] MEDS ORDERED: METHADONE HCL 10 MG TABLET ONE (03:57)
[2018-12-28] MEDS ORDERED: METHADONE HCL 40 MG DISPERSABLE TABLET ONE (03:57)
[2018-12-28] MEDS: METHADONE 120 MG, METHADONE 30 MG PO SCH (06:33)
[2018-12-28] MEDS: metFORMIN HCL 500 MG TABLET (FP) PO SCH ×2 (06:35→16:35)
[2018-12-28] MEDS: ASPIRIN 81 MG CHEWABLE TABLETS PO SCH (10:01)
[2018-12-28] MEDS: DIVALPROEX SODIUM 500 MG TABLET E.C. PO SCH ×2 (10:02→22:48)
[2018-12-28] MEDS: PRENATAL VITAMINS W/ FOLIC ACID TABLET (FP) PO SCH (10:02)
[2018-12-28] MEDS ORDERED: TRIMETHOBENZAMIDE HCL 200MG/2ML INJ IM PRN (22:29)
[2018-12-28] MEDS: THIAMINE HCL 100 MG TABLET (FP) PO SCH (22:48)
[2018-12-28] MEDS: traZODone HCL 100 MG TABLET (FP) PO SCH (22:48)
[2018-12-29] MEDS: IBUPROFEN 400 MG TABLET (FP) PO PRN (00:52)
[2018-12-29] MEDS ORDERED: METHADONE HCL 40 MG DISPERSABLE TABLET ONE (03:36)
[2018-12-29] MEDS ORDERED: METHADONE HCL 10 MG TABLET ONE (03:36)
[2018-12-29] MEDS: METHADONE 120 MG, METHADONE 30 MG PO SCH (06:43)
[2018-12-29] MEDS: metFORMIN HCL 500 MG TABLET (FP) PO SCH ×2 (06:45→16:48)
[2018-12-29] MEDS: DIVALPROEX SODIUM 500 MG TABLET E.C. PO SCH ×2 (10:08→22:02)
[2018-12-29] MEDS: PRENATAL VITAMINS W/ FOLIC ACID TABLET (FP) PO SCH (10:08)
[2018-12-29] MEDS: ASPIRIN 81 MG CHEWABLE TABLETS PO SCH (10:08)
--- NOTE | 2018-12-29 21:37 | PN ---
[facility] Progress Note Note: I was notified by the nurse, Mr. Silas Sin RN that patient vomited but has been refusing Tigan injection as ordered. Patient was seen and examined at bedside. He reports that he vomited about three hours ago but he does not want any injection Vital Signs Temperature 98.3 F 12/29/18 06:43 Pulse Rate 102 H 12/29/18 06:43 Respiratory Rate 16 12/29/18 06:43 Blood Pressure 115/76 12/29/18 06:43 O2 Sat by Pulse Oximetry (%) Action: Ondansetron 4mg sublingual ordered
[2018-12-29] MEDS ORDERED: ONDANSETRON *ODT* 4 MG TABLET SL ONE (21:45)
[2018-12-29] MEDS: THIAMINE HCL 100 MG TABLET (FP) PO SCH (22:02)
[2018-12-29] MEDS: traZODone HCL 100 MG TABLET (FP) PO SCH (22:02)
[2018-12-30] MEDS ORDERED: METHADONE HCL 40 MG DISPERSABLE TABLET ONE (04:12)
[2018-12-30] MEDS ORDERED: METHADONE HCL 10 MG TABLET ONE (04:12)
[2018-12-30] MEDS: METHADONE 120 MG, METHADONE 30 MG PO SCH (06:39)
[2018-12-30] MEDS: metFORMIN HCL 500 MG TABLET (FP) PO SCH ×2 (06:41→16:48)
[2018-12-30] MEDS: DIVALPROEX SODIUM 500 MG TABLET E.C. PO SCH ×2 (10:46→21:48)
[2018-12-30] MEDS: ASPIRIN 81 MG CHEWABLE TABLETS PO SCH (10:46)
[2018-12-30] MEDS: PRENATAL VITAMINS W/ FOLIC ACID TABLET (FP) PO SCH (10:46)
[2018-12-30] MEDS: traZODone HCL 100 MG TABLET (FP) PO SCH (21:48)
[2018-12-30] MEDS: THIAMINE HCL 100 MG TABLET (FP) PO SCH (21:48)
[2018-12-31] MEDS ORDERED: METHADONE HCL 10 MG TABLET ONE (03:18)
[2018-12-31] MEDS ORDERED: METHADONE HCL 40 MG DISPERSABLE TABLET ONE (03:18)
[2018-12-31] MEDS: METHADONE 120 MG, METHADONE 30 MG PO SCH (06:43)
[2018-12-31] MEDS: metFORMIN HCL 500 MG TABLET (FP) PO SCH ×2 (06:44→17:11)
[2018-12-31] MEDS ORDERED: ONDANSETRON *ODT* 4 MG TABLET SL PRN (09:37)
--- NOTE | 2018-12-31 09:37 | PN ---
[facility] Progress Note Note: PT REPORTS HE WILL PREFER THE SL "NAUSEA MEDICINE BECAUSE THE INJECTION HURTS". PT REPORTS HE VOMITED "COUPLE OF TIMES FROM LAST NIGHT TO THIS MORNING". Vital Signs (72 hours) 12/29/18 12/29/18 12/30/18 03:30 06:43 00:30 Temperature 98.3 F Pulse Rate 102 H Respiratory 18 16 18 Rate Blood Pressure 115/76 12/30/18 12/30/18 12/31/18 03:30 07:11 00:30 Temperature 98.2 F Pulse Rate 89 Respiratory 18 18 18 Rate Blood Pressure 107/66 12/31/18 06:51 Temperature 98.4 F Pulse Rate 108 H Respiratory 16 Rate Blood Pressure 148/75 Laboratory Tests 12/27/18 12/27/18 12/28/18 07:00 17:01 16:31 POC Glucometer 81 103 Urine Color Yellow Urine Appearance Clear Urine pH 5.5 Ur Specific Lenora 1.016 Urine Protein Negative Urine Glucose (UA) Negative Urine Ketones Negative Urine Blood Negative Urine Nitrite Negative Urine Bilirubin Negative Urine Urobilinogen 0.2 Ur Leukocyte Esterase Negative 12/29/18 12/29/18 12/30/18 16:42 20:06 17:05 POC Glucometer 69 75 57 Urine Color Urine Appearance Urine pH Ur Specific Lenora Urine Protein Urine Glucose (UA) Urine Ketones Urine Blood Urine Nitrite Urine Bilirubin Urine Urobilinogen Ur Leukocyte Esterase LABS NOTED. A:N/V PLAN:ZOFRAN 4 MG SL Q8H DIRECTED.
[2018-12-31] MEDS: ONDANSETRON *ODT* 4 MG TABLET SL PRN (09:58)
[2018-12-31] MEDS: PRENATAL VITAMINS W/ FOLIC ACID TABLET (FP) PO SCH (10:36)
[2018-12-31] MEDS: DIVALPROEX SODIUM 500 MG TABLET E.C. PO SCH ×2 (10:36→21:51)
[2018-12-31] MEDS: ASPIRIN 81 MG CHEWABLE TABLETS PO SCH (10:36)
--- NOTE | 2018-12-31 18:31 | PN ---
S Progress Note Note: Pt states he takes Metformin 500 mg 3 x / week at home " as a precaution " and checks FS 3 x /week . P : d/c Metfomin ,start daily fingerstick . Pt was advised to notify nursing for any further medical concerns and /or symptoms. Pt verbalizes understanding and agreement w/ POC.
[2018-12-31] MEDS: THIAMINE HCL 100 MG TABLET (FP) PO SCH (21:51)
[2018-12-31] MEDS: traZODone HCL 100 MG TABLET (FP) PO SCH (21:51)
[2018-12-31] MEDS: MELATONIN 5 MG TABLETS PO PRN (21:52)
[2019-01-01] MEDS ORDERED: METHADONE HCL 10 MG TABLET ONE (04:19)
[2019-01-01] MEDS ORDERED: METHADONE HCL 40 MG DISPERSABLE TABLET ONE (04:20)
[2019-01-01] MEDS: METHADONE 120 MG, METHADONE 30 MG PO SCH (06:50)
[2019-01-01] MEDS: PRENATAL VITAMINS W/ FOLIC ACID TABLET (FP) PO SCH (10:28)
[2019-01-01] MEDS: DIVALPROEX SODIUM 500 MG TABLET E.C. PO SCH ×2 (10:28→21:31)
[2019-01-01] MEDS: ASPIRIN 81 MG CHEWABLE TABLETS PO SCH (10:28)
[2019-01-01] MEDS: traZODone HCL 100 MG TABLET (FP) PO SCH (21:31)
[2019-01-01] MEDS: THIAMINE HCL 100 MG TABLET (FP) PO SCH (21:31)
[2019-01-02] MEDS ORDERED: METHADONE HCL 10 MG TABLET ONE (06:40)
[2019-01-02] MEDS: METHADONE 120 MG, METHADONE 30 MG PO SCH (06:41)
[2019-01-02] MEDS ORDERED: METHADONE HCL 40 MG DISPERSABLE TABLET ONE (06:41)
[2019-01-02] MEDS: PRENATAL VITAMINS W/ FOLIC ACID TABLET (FP) PO SCH (10:16)
[2019-01-02] MEDS: ASPIRIN 81 MG CHEWABLE TABLETS PO SCH (10:16)
[2019-01-02] MEDS: DIVALPROEX SODIUM 500 MG TABLET E.C. PO SCH ×2 (10:16→21:41)
[2019-01-02] MEDS: traZODone HCL 100 MG TABLET (FP) PO SCH (21:41)
[2019-01-02] MEDS: THIAMINE HCL 100 MG TABLET (FP) PO SCH (21:41)
[2019-01-03] MEDS ORDERED: METHADONE HCL 40 MG DISPERSABLE TABLET ONE (05:56)
[2019-01-03] MEDS ORDERED: METHADONE HCL 10 MG TABLET ONE (05:56)
[2019-01-03] MEDS: METHADONE 120 MG, METHADONE 30 MG PO SCH (06:34)
[2019-01-03] MEDS: DIVALPROEX SODIUM 500 MG TABLET E.C. PO SCH ×2 (10:13→21:59)
[2019-01-03] MEDS: PRENATAL VITAMINS W/ FOLIC ACID TABLET (FP) PO SCH (10:13)
[2019-01-03] MEDS: ASPIRIN 81 MG CHEWABLE TABLETS PO SCH (10:13)
[2019-01-03] MEDS: traZODone HCL 100 MG TABLET (FP) PO SCH (21:59)
[2019-01-03] MEDS: THIAMINE HCL 100 MG TABLET (FP) PO SCH (21:59)
[2019-01-04] MEDS ORDERED: METHADONE HCL 40 MG DISPERSABLE TABLET ONE (04:43)
[2019-01-04] MEDS ORDERED: METHADONE HCL 10 MG TABLET ONE (04:43)
[2019-01-04] MEDS: METHADONE 120 MG, METHADONE 30 MG PO SCH (07:00)
[2019-01-04] MEDS: PRENATAL VITAMINS W/ FOLIC ACID TABLET (FP) PO SCH (10:06)
[2019-01-04] MEDS: DIVALPROEX SODIUM 500 MG TABLET E.C. PO SCH ×2 (10:06→21:36)
[2019-01-04] MEDS: ASPIRIN 81 MG CHEWABLE TABLETS PO SCH (10:06)
[2019-01-04] MEDS: IBUPROFEN 400 MG TABLET (FP) PO PRN (10:06)
[2019-01-04] MEDS: traZODone HCL 100 MG TABLET (FP) PO SCH (21:36)
[2019-01-04] MEDS: THIAMINE HCL 100 MG TABLET (FP) PO SCH (21:36)
[2019-01-04] MEDS: ONDANSETRON *ODT* 4 MG TABLET SL PRN (22:58)
[2019-01-05] MEDS ORDERED: METHADONE HCL 10 MG TABLET ONE (04:21)
[2019-01-05] MEDS ORDERED: METHADONE HCL 40 MG DISPERSABLE TABLET ONE (04:21)
[2019-01-05] MEDS: METHADONE 120 MG, METHADONE 30 MG PO SCH (06:09)
[2019-01-05] MEDS: ASPIRIN 81 MG CHEWABLE TABLETS PO SCH (09:51)
[2019-01-05] MEDS: PRENATAL VITAMINS W/ FOLIC ACID TABLET (FP) PO SCH (09:52)
[2019-01-05] MEDS: ONDANSETRON *ODT* 4 MG TABLET SL PRN (09:52)
[2019-01-05] MEDS: DIVALPROEX SODIUM 500 MG TABLET E.C. PO SCH ×2 (09:52→21:58)
[2019-01-05] MEDS: traZODone HCL 100 MG TABLET (FP) PO SCH (21:57)
[2019-01-05] MEDS: THIAMINE HCL 100 MG TABLET (FP) PO SCH (21:58)
[2019-01-06] MEDS ORDERED: METHADONE HCL 10 MG TABLET ONE (03:58)
[2019-01-06] MEDS ORDERED: METHADONE HCL 40 MG DISPERSABLE TABLET ONE (03:59)
[2019-01-06] MEDS: METHADONE 120 MG, METHADONE 30 MG PO SCH (06:27)
[2019-01-06] MEDS: PRENATAL VITAMINS W/ FOLIC ACID TABLET (FP) PO SCH (10:58)
[2019-01-06] MEDS: DIVALPROEX SODIUM 500 MG TABLET E.C. PO SCH ×2 (10:58→21:48)
[2019-01-06] MEDS: ASPIRIN 81 MG CHEWABLE TABLETS PO SCH (10:58)
[2019-01-06] MEDS: LOPERAMIDE HCL 2 MG CAPSULE PO PRN (12:15)
--- NOTE | 2019-01-06 12:56 | PN ---
[facility] Progress Note Note: C/O DIARRHEA AND OCCASIONAL NAUSEA.REQUESTING IMODIUM. ALERT O X 3. OOB AMBULATING WITH STEADY GAIT. Vital Signs - 24 hr 01/06/19 01/06/19 01/06/19 00:30 03:30 06:45 Temperature 98.2 F Pulse Rate 97 H Respiratory 18 18 18 Rate Blood Pressure 100/65 Laboratory Tests 12/27/18 12/27/18 12/28/18 07:00 17:01 16:31 POC Glucometer 81 103 Urine Color Yellow Urine Appearance Clear Urine pH 5.5 Ur Specific [place] 1.016 Urine Protein Negative Urine Glucose (UA) Negative Urine Ketones Negative Urine Blood Negative Urine Nitrite Negative Urine Bilirubin Negative Urine Urobilinogen 0.2 Ur Leukocyte Esterase Negative 12/29/18 12/29/18 12/30/18 16:42 20:06 17:05 POC Glucometer 69 75 57 Urine Color Urine Appearance Urine pH Ur Specific [place] Urine Protein Urine Glucose (UA) Urine Ketones Urine Blood Urine Nitrite Urine Bilirubin Urine Urobilinogen Ur Leukocyte Esterase 12/31/18 12/31/18 01/04/19 17:10 17:52 07:01 POC Glucometer 54 65 92 Urine Color Urine Appearance Urine pH Ur Specific [place] Urine Protein Urine Glucose (UA) Urine Ketones Urine Blood Urine Nitrite Urine Bilirubin Urine Urobilinogen Ur Leukocyte Esterase 01/05/19 06:08 POC Glucometer 76 Urine Color Urine Appearance Urine pH Ur Specific [place] Urine Protein Urine Glucose (UA) Urine Ketones Urine Blood Urine Nitrite Urine Bilirubin Urine Urobilinogen Ur Leukocyte Esterase NAD PLAN;IMODIUM PRN DIRECTED. CONTINUE ZOFRAN PRN
[2019-01-06] MEDS: THIAMINE HCL 100 MG TABLET (FP) PO SCH (21:48)
[2019-01-06] MEDS: traZODone HCL 100 MG TABLET (FP) PO SCH (21:48)
[2019-01-07] MEDS ORDERED: METHADONE HCL 40 MG DISPERSABLE TABLET ONE (06:32)
[2019-01-07] MEDS: METHADONE 120 MG, METHADONE 30 MG PO SCH (06:32)
[2019-01-07] MEDS ORDERED: METHADONE HCL 10 MG TABLET ONE (06:32)
[2019-01-07] MEDS: ASPIRIN 81 MG CHEWABLE TABLETS PO SCH (10:12)
[2019-01-07] MEDS: DIVALPROEX SODIUM 500 MG TABLET E.C. PO SCH ×2 (10:12→21:41)
[2019-01-07] MEDS: PRENATAL VITAMINS W/ FOLIC ACID TABLET (FP) PO SCH (10:12)
[2019-01-07] MEDS: LOPERAMIDE HCL 2 MG CAPSULE PO PRN (10:13)
[2019-01-07] MEDS: traZODone HCL 100 MG TABLET (FP) PO SCH (21:41)
[2019-01-07] MEDS: THIAMINE HCL 100 MG TABLET (FP) PO SCH (21:41)
[2019-01-08] MEDS ORDERED: METHADONE HCL 10 MG TABLET ONE (04:18)
[2019-01-08] MEDS ORDERED: METHADONE HCL 40 MG DISPERSABLE TABLET ONE (04:18)
[2019-01-08] MEDS: METHADONE 120 MG, METHADONE 30 MG PO SCH (06:36)
[2019-01-08] MEDS: ONDANSETRON *ODT* 4 MG TABLET SL PRN (08:35)
[2019-01-08] MEDS: DIVALPROEX SODIUM 500 MG TABLET E.C. PO SCH ×2 (10:35→21:17)
[2019-01-08] MEDS: PRENATAL VITAMINS W/ FOLIC ACID TABLET (FP) PO SCH (10:35)
[2019-01-08] MEDS: ASPIRIN 81 MG CHEWABLE TABLETS PO SCH (10:35)
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
[2019-01-08] MEDS: traZODone HCL 100 MG TABLET (FP) PO SCH (21:17)
[2019-01-08] MEDS: THIAMINE HCL 100 MG TABLET (FP) PO SCH (21:17)
[2019-01-09] MEDS ORDERED: METHADONE HCL 10 MG TABLET ONE (05:44)
[2019-01-09] MEDS ORDERED: METHADONE HCL 40 MG DISPERSABLE TABLET ONE (05:45)
[2019-01-09] MEDS ORDERED: METHADONE HCL 10 MG TABLET PO SCH (06:00)
[2019-01-09] MEDS ORDERED: METHADONE 120 MG, METHADONE 30 MG PO SCH (06:00)
[2019-01-09 07:05] VITALS: BP 114/61; PULSE 66; TEMP 98.5
--- NOTE | 2019-01-09 08:45 | PN ---
[facility] Progress Note Note: PT COMPLETED REHAB AND DISCHARGED TODAY. PT MET WITH HIS COUNSELOR, MONICA HATHAWAY AND HAS BEEN REFERRED TO [facility] ON [address] [place], [place] FOR AFTERCARE. PT WILL ALSO FOLLOW UP WITH HIS MMTP AT [facility] ON [place], [place]. PT REPORTS HE HAS A PCP DR. JERZY CLARK ON [place], [place]. Vital Signs - 24 hr 01/09/19 01/09/19 01/09/19 00:30 03:30 07:04 Temperature 98.5 F Pulse Rate 66 Respiratory 18 18 18 Rate Blood Pressure 114/61 Laboratory Tests 12/27/18 12/27/18 12/28/18 07:00 17:01 16:31 POC Glucometer 81 103 Urine Color Yellow Urine Appearance Clear Urine pH 5.5 Ur Specific [place] 1.016 Urine Protein Negative Urine Glucose (UA) Negative Urine Ketones Negative Urine Blood Negative Urine Nitrite Negative Urine Bilirubin Negative Urine Urobilinogen 0.2 Ur Leukocyte Esterase Negative 12/29/18 12/29/18 12/30/18 16:42 20:06 17:05 POC Glucometer 69 75 57 Urine Color Urine Appearance Urine pH Ur Specific [place] Urine Protein Urine Glucose (UA) Urine Ketones Urine Blood Urine Nitrite Urine Bilirubin Urine Urobilinogen Ur Leukocyte Esterase 12/31/18 12/31/18 01/04/19 17:10 17:52 07:01 POC Glucometer 54 65 92 Urine Color Urine Appearance Urine pH Ur Specific [place] Urine Protein Urine Glucose (UA) Urine Ketones Urine Blood Urine Nitrite Urine Bilirubin Urine Urobilinogen Ur Leukocyte Esterase 01/05/19 01/08/19 06:08 06:40 POC Glucometer 76 83 Urine Color Urine Appearance Urine pH Ur Specific [place] Urine Protein Urine Glucose (UA) Urine Ketones Urine Blood Urine Nitrite Urine Bilirubin Urine Urobilinogen Ur Leukocyte Esterase NAD MEDICALLY STABLE PLAN:FOLLOW UP WITH [facility] ON 01/10/19 @ 11:00 AND PCP FOR MEDICAL MANAGEMENT INDICATED WITHIN 1 WEEK AFTER DISCHARGE.
[2019-01-09] MEDS: ASPIRIN 81 MG CHEWABLE TABLETS PO SCH (09:38)
[2019-01-09] MEDS: DIVALPROEX SODIUM 500 MG TABLET E.C. PO SCH (09:38)
[2019-01-09] MEDS: PRENATAL VITAMINS W/ FOLIC ACID TABLET (FP) PO SCH (09:38)
== END 2019-01-09 10:10 | disposition home or self-care (01) | DRG 772 ==
LOC: YASAS 18:25 → Y5N 18:30
PROVIDERS: ADMIT Neuromusculoskeletal Medicine & OMM; ATTEND Neuromusculoskeletal Medicine & OMM
PROC: HZ40ZZZ Group Counseling for Substance Abuse Treatment, Cognitive (ICD-10-PCS; principal; 2018-12-26)
DX: F10.20 Alcohol dependence, uncomplicated (principal); F11.20 Opioid dependence, uncomplicated; F13.20 Sedative, hypnotic or anxiolytic dependence, uncomplicated; F14.20 Cocaine dependence, uncomplicated; F17.213 Nicotine dependence, cigarettes, with withdrawal; F31.9 Bipolar disorder, unspecified; E11.9 Type 2 diabetes mellitus without complications; D57.3 Sickle-cell trait; R11.2 Nausea with vomiting, unspecified; K52.9 Noninfective gastroenteritis and colitis, unspecified; K76.0 Fatty (change of) liver, not elsewhere classified; Z87.438 Personal history of other diseases of male genital organs; Z79.84 Long term (current) use of oral hypoglycemic drugs; Z86.73 Personal history of transient ischemic attack (TIA), and cerebral infarction without residual deficits
CPT/HCPCS: 81003; 82962; Q0162

== ENCOUNTER 2019-06-16 17:43 | Inpatient (IN) | payer OTHER ==
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
[2019-06-17] MEDS ORDERED: guaiFENesin 200 MG/10 ML 10 ML UNIT-DOSE CUPS PO PRN (00:36)
[2019-06-17] MEDS ORDERED: NICOTINE POLACRILEX 2 MG GUM BUC PRN (00:36)
[2019-06-17] MEDS ORDERED: IBUPROFEN 400 MG TABLET (FP) PO PRN (00:36)
[2019-06-17] MEDS ORDERED: hydrOXYzine PAMOATE 25 MG CAPSULE (FP) PO PRN (00:36)
[2019-06-17] MEDS ORDERED: MENTHOL/PHENOL 1 EACH UD MM PRN (00:36)
[2019-06-17] MEDS ORDERED: DICYCLOMINE HCL 10 MG CAPSULE PO PRN (00:36)
[2019-06-17] MEDS ORDERED: BISMUTH SUBSALICYLATE 524 MG/30 ML UD PO PRN (00:36)
[2019-06-17] MEDS ORDERED: P-EPHED 60MG/TRIPROLIDI 2.5MG TABLET PO PRN (00:36)
[2019-06-17] MEDS ORDERED: chlordiazePOXIDE HCL 25 MG CAPSULE PO PRN (00:36)
[2019-06-17] MEDS ORDERED: ACETAMINOPHEN 325 MG TABLET (FP) PO PRN (00:36)
[2019-06-17] MEDS ORDERED: ONDANSETRON *ODT* 4 MG TABLET SL PRN (00:36)
[2019-06-17] MEDS ORDERED: MAG HYDROX/AL HYDROX/SIMETH 30 ML UNIT-DOSE CUP PO PRN (00:36)
[2019-06-17] MEDS ORDERED: METHOCARBAMOL 500 MG TABLET PO PRN (00:36)
[2019-06-17] MEDS ORDERED: MAGNESIUM CITRATE 300 ML BOTTLE PO PRN (00:36)
[2019-06-17] MEDS ORDERED: MAGNESIUM HYDROX 2400MG/30ML ORAL SUSPENSION 30 ML CUP PO PRN (00:36)
[2019-06-17] MEDS: chlordiazePOXIDE HCL 25 MG CAPSULE PO SCH ×4 (06:19→22:06)
[2019-06-17] MEDS: metFORMIN HCL 500 MG TABLET (FP) PO SCH ×2 (06:20→16:47)
[2019-06-17] MEDS ORDERED: METHADONE HCL 40 MG DISPERSABLE TABLET PO ONE (09:01)
[2019-06-17] MEDS: DIVALPROEX SODIUM 500 MG TABLET E.C. PO SCH ×2 (09:38→22:06)
[2019-06-17] MEDS: ASPIRIN 81 MG CHEWABLE TABLETS PO SCH (09:38)
[2019-06-17] MEDS: PRENATAL VITAMINS W/ FOLIC ACID TABLET (FP) PO SCH (09:38)
[2019-06-17] MEDS: NICOTINE 21 MG/24 HOURS TOPICAL PATCH TD SCH (09:39)
[2019-06-17 10:01] LABS: HEMATOCRIT 42.7 % (35.4-49); HEMOGLOBIN 14.5 GM/dL (11.7-16.9); MCH 30.5 pg (25.7-33.7); MCHC 33.9 g/dl (32.0-35.9); MEAN CELL VOLUME 90.1 fl (80-96); MEAN PLT VOLUME 9.2 fl (7.5-11.1); PLATELET COUNT 199 K/MM3 (134-434); RBC 4.73 M/mm3 (4.00-5.60); RDW 14.7 % (11.9-15.9); WHITE BLOOD COUNT 5.4 K/mm3 (4.0-10.0)
[2019-06-17 10:12] LABS: ALBUMIN 3.6 g/dl (3.4-5.0); BILIRUBIN,TOTAL 0.4 mg/dL (0.2-1); CALCIUM 9.1 mg/dL (8.5-10.1); CREATININE 1.2 mg/dL (0.55-1.3); POTASSIUM 4.2 mmol/L (3.5-5.1); TOT PROT 6.9 g/dl (6.4-8.2)
--- NOTE | 2019-06-17 11:41 | PN ---
S CIWA - CIWA Score Nausea/Vomitin Muscle Tremors: 2 Anxiety: 2 Agitation: 2 Paroxysmal Sweats: 1-Minimal Palms Moist Orientation: 0-Oriented Tacttile Disturbances: 1-Very Mild Itch/Numbness Auditory Disturbances: 0-None Visual Disturbances: 0-None Headache: 2-Mild CIWA-Ar Total Score: 12 [facility] Progress Note (SOAP) Subjective: alert,irritable,anxious,interrupted sleep,tremor,pain in the body Objective: 06/17/19 11:39 Vital Signs Temperature 98.4 F 06/17/19 09:20 Pulse Rate 79 06/17/19 09:20 Respiratory Rate 18 06/17/19 09:20 Blood Pressure 112/70 06/17/19 09:20 O2 Sat by Pulse Oximetry (%) 06/17/19 11:40 Laboratory Last Values WBC 5.4 K/mm3 (4.0-10.0) 06/17/19 08:00 RBC 4.73 M/mm3 (4.00-5.60) 06/17/19 08:00 Hgb 14.5 GM/dL (11.7-16.9) 06/17/19 08:00 Hct 42.7 % (35.4-49) 06/17/19 08:00 MCV 90.1 fl (80-96) 06/17/19 08:00 MCH 30.5 pg (25.7-33.7) 06/17/19 08:00 MCHC 33.9 g/dl (32.0-35.9) 06/17/19 08:00 RDW 14.7 % (11.9-15.9) 06/17/19 08:00 Plt Count 199 K/MM3 (134-434) D 06/17/19 08:00 MPV 9.2 fl (7.5-11.1) 06/17/19 08:00 Sodium 137 mmol/L (136-145) 06/17/19 08:00 Potassium 4.2 mmol/L (3.5-5.1) 06/17/19 08:00 Chloride 103 mmol/L (98-107) 06/17/19 08:00 Carbon Dioxide 28 mmol/L (21-32) 06/17/19 08:00 Anion Gap 6 MMOL/L (8-16) L 06/17/19 08:00 BUN 15.0 mg/dL (7-18) 06/17/19 08:00 Creatinine 1.2 mg/dL (0.55-1.3) 06/17/19 08:00 Est GFR (CKD-EPI)AfAm 75.72 06/17/19 08:00 Est GFR (CKD-EPI)NonAf 65.33 06/17/19 08:00 POC Glucometer 70 UNITS (80-120) 06/16/19 20:02 Random Glucose 123 mg/dL (74-106) H 06/17/19 08:00 Calcium 9.1 mg/dL (8.5-10.1) 06/17/19 08:00 Total Bilirubin 0.4 mg/dL (0.2-1) 06/17/19 08:00 AST 22 U/L (15-37) 06/17/19 08:00 ALT 22 U/L (13-61) 06/17/19 08:00 Alkaline Phosphatase 104 U/L (45-117) 06/17/19 08:00 Total Protein 6.9 g/dl (6.4-8.2) 06/17/19 08:00 Albumin 3.6 g/dl (3.4-5.0) 06/17/19 08:00 Assessment: 06/17/19 11:40 withdrawal symptom Plan: continue detox librium regimen,bgm monitoring
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
--- NOTE | 2019-06-17 12:13 | CONSULT ---
[facility] Psychiatric Consult - Data Date of interview: 06/17/19
[2019-06-17] MEDS ORDERED: MELATONIN 5 MG TABLETS PO PRN (22:00)
[2019-06-17] MEDS: THIAMINE HCL 100 MG TABLET (FP) PO SCH (22:06)
[2019-06-17] MEDS: traZODone HCL 100 MG TABLET (FP) PO SCH (22:06)
[2019-06-18] MEDS: METHADONE HCL 40 MG DISPERSABLE TABLET PO SCH (05:41)
[2019-06-18] MEDS: chlordiazePOXIDE HCL 25 MG CAPSULE PO SCH ×4 (05:41→22:05)
[2019-06-18] MEDS: metFORMIN HCL 500 MG TABLET (FP) PO SCH ×2 (06:24→17:22)
[2019-06-18] MEDS: ARIPiprazole 5 MG TABLET (FP) PO SCH (10:36)
[2019-06-18] MEDS: DIVALPROEX SODIUM 500 MG TABLET E.C. PO SCH ×2 (10:36→22:05)
[2019-06-18] MEDS: NICOTINE 21 MG/24 HOURS TOPICAL PATCH TD SCH (10:36)
[2019-06-18] MEDS: PRENATAL VITAMINS W/ FOLIC ACID TABLET (FP) PO SCH (10:36)
[2019-06-18] MEDS: ASPIRIN 81 MG CHEWABLE TABLETS PO SCH (10:36)
[2019-06-18 11:36] LABS: PH,URINE 5.5 (5.0-8.0); URINE APPEARANCE CLEAR; URINE BILIRUBIN NEGATIVE (NEGATIVE); URINE COLOR YELLOW; URINE GLUCOSE (UA) NEGATIVE (NEGATIVE); URINE KETONE NEGATIVE (NEGATIVE); URINE LEUK ESTERASE NEGATIVE (NEGATIVE); URINE NITRITE NEGATIVE (NEGATIVE); URINE PROTEIN NEGATIVE (NEGATIVE); URINE UROBILINOGEN 0.2 mg/dL (0.2-1.0)
--- NOTE | 2019-06-18 13:05 | PN ---
[facility] CIWA - CIWA Score Nausea/Vomitin-No Nausea/No Vomiting Muscle Tremors: 3 Anxiety: 3 Agitation: 2 Paroxysmal Sweats: 2 Orientation: 0-Oriented Tacttile Disturbances: 0-None Auditory Disturbances: 0-None Visual Disturbances: 0-None Headache: 0-None Present CIWA-Ar Total Score: 10 [facility] Progress Note (SOAP) Subjective: doing well with librium detox regimen sleep better at night less tremor tolerate food and fluid well mild anxiety Objective: 06/18/19 13:06 Vital Signs Temperature 97.9 F 06/18/19 09:23 Pulse Rate 91 H 06/18/19 09:23 Respiratory Rate 20 06/18/19 09:23 Blood Pressure 107/68 06/18/19 09:23 O2 Sat by Pulse Oximetry (%) Laboratory Last Values WBC 5.4 K/mm3 (4.0-10.0) 06/17/19 08:00 RBC 4.73 M/mm3 (4.00-5.60) 06/17/19 08:00 Hgb 14.5 GM/dL (11.7-16.9) 06/17/19 08:00 Hct 42.7 % (35.4-49) 06/17/19 08:00 MCV 90.1 fl (80-96) 06/17/19 08:00 MCH 30.5 pg (25.7-33.7) 06/17/19 08:00 MCHC 33.9 g/dl (32.0-35.9) 06/17/19 08:00 RDW 14.7 % (11.9-15.9) 06/17/19 08:00 Plt Count 199 K/MM3 (134-434) D 06/17/19 08:00 MPV 9.2 fl (7.5-11.1) 06/17/19 08:00 Sodium 137 mmol/L (136-145) 06/17/19 08:00 Potassium 4.2 mmol/L (3.5-5.1) 06/17/19 08:00 Chloride 103 mmol/L (98-107) 06/17/19 08:00 Carbon Dioxide 28 mmol/L (21-32) 06/17/19 08:00 Anion Gap 6 MMOL/L (8-16) L 06/17/19 08:00 BUN 15.0 mg/dL (7-18) 06/17/19 08:00 Creatinine 1.2 mg/dL (0.55-1.3) 06/17/19 08:00 Est GFR (CKD-EPI)AfAm 75.72 06/17/19 08:00 Est GFR (CKD-EPI)NonAf 65.33 06/17/19 08:00 POC Glucometer 139 UNITS (80-120) 06/18/19 05:40 Random Glucose 123 mg/dL (74-106) H 06/17/19 08:00 Calcium 9.1 mg/dL (8.5-10.1) 06/17/19 08:00 Total Bilirubin 0.4 mg/dL (0.2-1) 06/17/19 08:00 AST 22 U/L (15-37) 06/17/19 08:00 ALT 22 U/L (13-61) 06/17/19 08:00 Alkaline Phosphatase 104 U/L (45-117) 06/17/19 08:00 Total Protein 6.9 g/dl (6.4-8.2) 06/17/19 08:00 Albumin 3.6 g/dl (3.4-5.0) 06/17/19 08:00 Urine Color Yellow 06/18/19 08:55 Urine Appearance Clear 06/18/19 08:55 Urine pH 5.5 (5.0-8.0) 06/18/19 08:55 Ur Specific [place] 1.012 (1.010-1.035) 06/18/19 08:55 Urine Protein Negative (NEGATIVE) 06/18/19 08:55 Urine Glucose (UA) Negative (NEGATIVE) 06/18/19 08:55 Urine Ketones Negative (NEGATIVE) 06/18/19 08:55 Urine Blood Negative (NEGATIVE) 06/18/19 08:55 Urine Nitrite Negative (NEGATIVE) 06/18/19 08:55 Urine Bilirubin Negative (NEGATIVE) 06/18/19 08:55 Urine Urobilinogen 0.2 mg/dL (0.2-1.0) 06/18/19 08:55 Ur Leukocyte Esterase Negative (NEGATIVE) 06/18/19 08:55 RPR Titer Nonreactive (NONREACTIVE) 06/17/19 08:00 lab noted diabetes treated with metformin bgm within acceptable range 06/18/19 13:08 Assessment: 09/18/19 13:08 alcohol and benzo withdrawal sx Plan: continue librium detox regmen
[2019-06-18] MEDS: traZODone HCL 100 MG TABLET (FP) PO SCH (22:05)
[2019-06-18] MEDS: THIAMINE HCL 100 MG TABLET (FP) PO SCH (22:05)
[2019-06-19] MEDS ORDERED: chlordiazePOXIDE HCL 10 MG CAPSULE PO PRN
[2019-06-19] MEDS: metFORMIN HCL 500 MG TABLET (FP) PO SCH ×2 (06:02→18:06)
[2019-06-19] MEDS: METHADONE HCL 40 MG DISPERSABLE TABLET PO SCH (06:03)
[2019-06-19] MEDS: chlordiazePOXIDE HCL 10 MG CAPSULE PO SCH ×4 (06:03→22:17)
[2019-06-19] MEDS: DIVALPROEX SODIUM 500 MG TABLET E.C. PO SCH ×2 (10:35→22:17)
[2019-06-19] MEDS: PRENATAL VITAMINS W/ FOLIC ACID TABLET (FP) PO SCH (10:35)
[2019-06-19] MEDS: NICOTINE 21 MG/24 HOURS TOPICAL PATCH TD SCH (10:35)
[2019-06-19] MEDS: ASPIRIN 81 MG CHEWABLE TABLETS PO SCH (10:35)
[2019-06-19] MEDS: ARIPiprazole 5 MG TABLET (FP) PO SCH (10:35)
--- NOTE | 2019-06-19 15:35 | PN ---
S CIWA - CIWA Score Nausea/Vomitin-Mild Nausea/No Vomiting Muscle Tremors: 2 Anxiety: 2 Agitation: 2 Paroxysmal Sweats: 1-Minimal Palms Moist Orientation: 0-Oriented Tacttile Disturbances: 0-None Auditory Disturbances: 0-None Visual Disturbances: 0-None Headache: 0-None Present CIWA-Ar Total Score: 8 S Progress Note (SOAP) Subjective: doing well with librium detox regimen mild body ache less tremor Objective: 06/19/19 15:33 Vital Signs Temperature 98.5 F 06/19/19 13:12 Pulse Rate 68 06/19/19 13:12 Respiratory Rate 18 06/19/19 13:12 Blood Pressure 112/67 06/19/19 13:12 O2 Sat by Pulse Oximetry (%) Laboratory Last Values WBC 5.4 K/mm3 (4.0-10.0) 06/17/19 08:00 RBC 4.73 M/mm3 (4.00-5.60) 06/17/19 08:00 Hgb 14.5 GM/dL (11.7-16.9) 06/17/19 08:00 Hct 42.7 % (35.4-49) 06/17/19 08:00 MCV 90.1 fl (80-96) 06/17/19 08:00 MCH 30.5 pg (25.7-33.7) 06/17/19 08:00 MCHC 33.9 g/dl (32.0-35.9) 06/17/19 08:00 RDW 14.7 % (11.9-15.9) 06/17/19 08:00 Plt Count 199 K/MM3 (134-434) D 06/17/19 08:00 MPV 9.2 fl (7.5-11.1) 06/17/19 08:00 Sodium 137 mmol/L (136-145) 06/17/19 08:00 Potassium 4.2 mmol/L (3.5-5.1) 06/17/19 08:00 Chloride 103 mmol/L (98-107) 06/17/19 08:00 Carbon Dioxide 28 mmol/L (21-32) 06/17/19 08:00 Anion Gap 6 MMOL/L (8-16) L 06/17/19 08:00 BUN 15.0 mg/dL (7-18) 06/17/19 08:00 Creatinine 1.2 mg/dL (0.55-1.3) 06/17/19 08:00 Est GFR (CKD-EPI)AfAm 75.72 06/17/19 08:00 Est GFR (CKD-EPI)NonAf 65.33 06/17/19 08:00 POC Glucometer 110 UNITS (80-120) 06/19/19 06:05 Random Glucose 123 mg/dL (74-106) H 06/17/19 08:00 Calcium 9.1 mg/dL (8.5-10.1) 06/17/19 08:00 Total Bilirubin 0.4 mg/dL (0.2-1) 06/17/19 08:00 AST 22 U/L (15-37) 06/17/19 08:00 ALT 22 U/L (13-61) 06/17/19 08:00 Alkaline Phosphatase 104 U/L (45-117) 06/17/19 08:00 Total Protein 6.9 g/dl (6.4-8.2) 06/17/19 08:00 Albumin 3.6 g/dl (3.4-5.0) 06/17/19 08:00 Urine Color Yellow 06/18/19 08:55 Urine Appearance Clear 06/18/19 08:55 Urine pH 5.5 (5.0-8.0) 06/18/19 08:55 Ur Specific [place] 1.012 (1.010-1.035) 06/18/19 08:55 Urine Protein Negative (NEGATIVE) 06/18/19 08:55 Urine Glucose (UA) Negative (NEGATIVE) 06/18/19 08:55 Urine Ketones Negative (NEGATIVE) 06/18/19 08:55 Urine Blood Negative (NEGATIVE) 06/18/19 08:55 Urine Nitrite Negative (NEGATIVE) 06/18/19 08:55 Urine Bilirubin Negative (NEGATIVE) 06/18/19 08:55 Urine Urobilinogen 0.2 mg/dL (0.2-1.0) 06/18/19 08:55 Ur Leukocyte Esterase Negative (NEGATIVE) 06/18/19 08:55 RPR Titer Nonreactive (NONREACTIVE) 06/17/19 08:00 lab noted Assessment: 06/19/19 15:34 alcohol and benzo withdrawal sx Plan: continue librium detox regimen
[2019-06-19] MEDS: traZODone HCL 100 MG TABLET (FP) PO SCH (22:17)
[2019-06-19] MEDS: THIAMINE HCL 100 MG TABLET (FP) PO SCH (22:17)
[2019-06-20] MEDS: chlordiazePOXIDE HCL 10 MG CAPSULE PO SCH ×2 (05:26→17:32)
[2019-06-20] MEDS: METHADONE HCL 40 MG DISPERSABLE TABLET PO SCH (05:27)
[2019-06-20] MEDS: metFORMIN HCL 500 MG TABLET (FP) PO SCH ×2 (06:13→17:32)
[2019-06-20] MEDS: ASPIRIN 81 MG CHEWABLE TABLETS PO SCH (10:05)
[2019-06-20] MEDS: ARIPiprazole 5 MG TABLET (FP) PO SCH (10:05)
[2019-06-20] MEDS: NICOTINE 21 MG/24 HOURS TOPICAL PATCH TD SCH (10:05)
[2019-06-20] MEDS: PRENATAL VITAMINS W/ FOLIC ACID TABLET (FP) PO SCH (10:05)
[2019-06-20] MEDS: DIVALPROEX SODIUM 500 MG TABLET E.C. PO SCH ×2 (10:05→22:07)
--- NOTE | 2019-06-20 17:47 | PN ---
S CIWA - CIWA Score Nausea/Vomitin-No Nausea/No Vomiting Muscle Tremors: None Anxiety: 0-No Anxiety, at Ease Agitation: 2 Paroxysmal Sweats: No Perspiration Orientation: 0-Oriented Tacttile Disturbances: 0-None Auditory Disturbances: 0-None Visual Disturbances: 0-None Headache: 0-None Present CIWA-Ar Total Score: 2 BHS Progress Note (SOAP) Subjective: Patient denies current Withdrawal / Detox symptoms and reports that he feels well overall at this time. Objective: PATIENT A & O X 3, OBSERVED AMBULATING ON DETOX UNIT UNASSISTED. IN NO ACUTE DISTRESS. 06/20/19 17:44 Vital Signs Temperature 99.3 F 06/20/19 17:34 Pulse Rate 81 06/20/19 17:34 Respiratory Rate 18 06/20/19 17:34 Blood Pressure 102/65 06/20/19 17:34 O2 Sat by Pulse Oximetry (%) Laboratory Tests 06/16/19 06/17/19 06/17/19 20:02 08:00 08:00 WBC 5.4 RBC 4.73 Hgb 14.5 Hct 42.7 MCV 90.1 MCH 30.5 MCHC 33.9 RDW 14.7 Plt Count 199 D MPV 9.2 Sodium 137 Potassium 4.2 Chloride 103 Carbon Dioxide 28 Anion Gap 6 L BUN 15.0 Creatinine 1.2 Est GFR (CKD-EPI)AfAm 75.72 Est GFR (CKD-EPI)NonAf 65.33 POC Glucometer 70 Random Glucose 123 H Fasting Glucose Calcium 9.1 Total Bilirubin 0.4 AST 22 ALT 22 Alkaline Phosphatase 104 Total Protein 6.9 Albumin 3.6 Urine Color Urine Appearance Urine pH Ur Specific [place] Urine Protein Urine Glucose (UA) Urine Ketones Urine Blood Urine Nitrite Urine Bilirubin Urine Urobilinogen Ur Leukocyte Esterase RPR Titer 06/17/19 06/17/19 06/18/19 08:00 16:31 05:40 WBC RBC Hgb Hct MCV MCH MCHC RDW Plt Count MPV Sodium Potassium Chloride Carbon Dioxide Anion Gap BUN Creatinine Est GFR (CKD-EPI)AfAm Est GFR (CKD-EPI)NonAf POC Glucometer 101 139 Random Glucose Fasting Glucose Calcium Total Bilirubin AST ALT Alkaline Phosphatase Total Protein Albumin Urine Color Urine Appearance Urine pH Ur Specific [place] Urine Protein Urine Glucose (UA) Urine Ketones Urine Blood Urine Nitrite Urine Bilirubin Urine Urobilinogen Ur Leukocyte Esterase RPR Titer Nonreactive 06/18/19 06/18/19 06/19/19 08:55 17:01 06:05 WBC RBC Hgb Hct MCV MCH MCHC RDW Plt Count MPV Sodium Potassium Chloride Carbon Dioxide Anion Gap BUN Creatinine Est GFR (CKD-EPI)AfAm Est GFR (CKD-EPI)NonAf POC Glucometer 94 110 Random Glucose Fasting Glucose Calcium Total Bilirubin AST ALT Alkaline Phosphatase Total Protein Albumin Urine Color Yellow Urine Appearance Clear Urine pH 5.5 Ur Specific [place] 1.012 Urine Protein Negative Urine Glucose (UA) Negative Urine Ketones Negative Urine Blood Negative Urine Nitrite Negative Urine Bilirubin Negative Urine Urobilinogen 0.2 Ur Leukocyte Esterase Negative RPR Titer 06/19/19 06/20/19 06/20/19 16:25 05:25 07:00 WBC RBC Hgb Hct MCV MCH MCHC RDW Plt Count MPV Sodium Potassium Chloride Carbon Dioxide Anion Gap BUN Creatinine Est GFR (CKD-EPI)AfAm Est GFR (CKD-EPI)NonAf POC Glucometer 96 93 Random Glucose Fasting Glucose 80 Calcium Total Bilirubin AST ALT Alkaline Phosphatase Total Protein Albumin Urine Color Urine Appearance Urine pH Ur Specific [place] Urine Protein Urine Glucose (UA) Urine Ketones Urine Blood Urine Nitrite Urine Bilirubin Urine Urobilinogen Ur Leukocyte Esterase RPR Titer 06/20/19 16:34 WBC RBC Hgb Hct MCV MCH MCHC RDW Plt Count MPV Sodium Potassium Chloride Carbon Dioxide Anion Gap BUN Creatinine Est GFR (CKD-EPI)AfAm Est GFR (CKD-EPI)NonAf POC Glucometer 108 Random Glucose Fasting Glucose Calcium Total Bilirubin AST ALT Alkaline Phosphatase Total Protein Albumin Urine Color Urine Appearance Urine pH Ur Specific [place] Urine Protein Urine Glucose (UA) Urine Ketones Urine Blood Urine Nitrite Urine Bilirubin Urine Urobilinogen Ur Leukocyte Esterase RPR Titer LABS NOTED. Assessment: 06/20/19 17:44 WITHDRAWAL SYMPTOMS. Plan: CONTINUE DETOX. PATIENT SCHEDULED FOR D/C FROM DETOX UNIT TOMORROW.
[2019-06-20] MEDS: traZODone HCL 100 MG TABLET (FP) PO SCH (22:07)
[2019-06-20] MEDS: THIAMINE HCL 100 MG TABLET (FP) PO SCH (22:07)
[2019-06-21] MEDS ORDERED: chlordiazePOXIDE HCL 10 MG CAPSULE PO ONE (05:00)
[2019-06-21] MEDS: METHADONE HCL 40 MG DISPERSABLE TABLET PO SCH (05:23)
[2019-06-21] MEDS: ACETAMINOPHEN 325 MG TABLET (FP) PO PRN (05:26)
[2019-06-21] MEDS: metFORMIN HCL 500 MG TABLET (FP) PO SCH ×2 (07:01→17:59)
[2019-06-21] MEDS: ARIPiprazole 5 MG TABLET (FP) PO SCH (10:41)
[2019-06-21] MEDS: DIVALPROEX SODIUM 500 MG TABLET E.C. PO SCH ×2 (10:41→22:46)
[2019-06-21] MEDS: ASPIRIN 81 MG CHEWABLE TABLETS PO SCH (10:41)
[2019-06-21] MEDS: PRENATAL VITAMINS W/ FOLIC ACID TABLET (FP) PO SCH (10:41)
[2019-06-21] MEDS: NICOTINE 21 MG/24 HOURS TOPICAL PATCH TD SCH (10:41)
--- NOTE | 2019-06-21 15:50 | PN ---
S CIWA - CIWA Score Nausea/Vomitin-No Nausea/No Vomiting Muscle Tremors: None Anxiety: 2 Agitation: 0-Normal Activity Paroxysmal Sweats: No Perspiration Orientation: 2-Disoriented Date<2 days Tacttile Disturbances: 0-None Auditory Disturbances: 0-None Visual Disturbances: 0-None Headache: 0-None Present CIWA-Ar Total Score: 4 BHS Progress Note (SOAP) Subjective: Patient denies current Withdrawal / Detox symptoms and reports that he feels well overall at this time. Objective: PATIENT A & O X 2 (UNCERTAIN ABOUT CURRENT DAY / DATE). IN NO ACUTE DISTRESS. 06/21/19 15:46 Vital Signs Temperature 98.8 F 06/21/19 13:27 Pulse Rate 65 06/21/19 13:27 Respiratory Rate 18 06/21/19 13:27 Blood Pressure 113/62 06/21/19 13:27 O2 Sat by Pulse Oximetry (%) Laboratory Tests 06/16/19 06/17/19 06/17/19 20:02 08:00 08:00 WBC 5.4 RBC 4.73 Hgb 14.5 Hct 42.7 MCV 90.1 MCH 30.5 MCHC 33.9 RDW 14.7 Plt Count 199 D MPV 9.2 Sodium 137 Potassium 4.2 Chloride 103 Carbon Dioxide 28 Anion Gap 6 L BUN 15.0 Creatinine 1.2 Est GFR (CKD-EPI)AfAm 75.72 Est GFR (CKD-EPI)NonAf 65.33 POC Glucometer 70 Random Glucose 123 H Fasting Glucose Calcium 9.1 Total Bilirubin 0.4 AST 22 ALT 22 Alkaline Phosphatase 104 Total Protein 6.9 Albumin 3.6 Urine Color Urine Appearance Urine pH Ur Specific [place] Urine Protein Urine Glucose (UA) Urine Ketones Urine Blood Urine Nitrite Urine Bilirubin Urine Urobilinogen Ur Leukocyte Esterase RPR Titer 06/17/19 06/17/19 06/18/19 08:00 16:31 05:40 WBC RBC Hgb Hct MCV MCH MCHC RDW Plt Count MPV Sodium Potassium Chloride Carbon Dioxide Anion Gap BUN Creatinine Est GFR (CKD-EPI)AfAm Est GFR (CKD-EPI)NonAf POC Glucometer 101 139 Random Glucose Fasting Glucose Calcium Total Bilirubin AST ALT Alkaline Phosphatase Total Protein Albumin Urine Color Urine Appearance Urine pH Ur Specific [place] Urine Protein Urine Glucose (UA) Urine Ketones Urine Blood Urine Nitrite Urine Bilirubin Urine Urobilinogen Ur Leukocyte Esterase RPR Titer Nonreactive 06/18/19 06/18/19 06/19/19 08:55 17:01 06:05 WBC RBC Hgb Hct MCV MCH MCHC RDW Plt Count MPV Sodium Potassium Chloride Carbon Dioxide Anion Gap BUN Creatinine Est GFR (CKD-EPI)AfAm Est GFR (CKD-EPI)NonAf POC Glucometer 94 110 Random Glucose Fasting Glucose Calcium Total Bilirubin AST ALT Alkaline Phosphatase Total Protein Albumin Urine Color Yellow Urine Appearance Clear Urine pH 5.5 Ur Specific [place] 1.012 Urine Protein Negative Urine Glucose (UA) Negative Urine Ketones Negative Urine Blood Negative Urine Nitrite Negative Urine Bilirubin Negative Urine Urobilinogen 0.2 Ur Leukocyte Esterase Negative RPR Titer 06/19/19 06/20/19 06/20/19 16:25 05:25 07:00 WBC RBC Hgb Hct MCV MCH MCHC RDW Plt Count MPV Sodium Potassium Chloride Carbon Dioxide Anion Gap BUN Creatinine Est GFR (CKD-EPI)AfAm Est GFR (CKD-EPI)NonAf POC Glucometer 96 93 Random Glucose Fasting Glucose 80 Calcium Total Bilirubin AST ALT Alkaline Phosphatase Total Protein Albumin Urine Color Urine Appearance Urine pH Ur Specific [place] Urine Protein Urine Glucose (UA) Urine Ketones Urine Blood Urine Nitrite Urine Bilirubin Urine Urobilinogen Ur Leukocyte Esterase RPR Titer 06/20/19 06/21/19 16:34 05:24 WBC RBC Hgb Hct MCV MCH MCHC RDW Plt Count MPV Sodium Potassium Chloride Carbon Dioxide Anion Gap BUN Creatinine Est GFR (CKD-EPI)AfAm Est GFR (CKD-EPI)NonAf POC Glucometer 108 96 Random Glucose Fasting Glucose Calcium Total Bilirubin AST ALT Alkaline Phosphatase Total Protein Albumin Urine Color Urine Appearance Urine pH Ur Specific [place] Urine Protein Urine Glucose (UA) Urine Ketones Urine Blood Urine Nitrite Urine Bilirubin Urine Urobilinogen Ur Leukocyte Esterase RPR Titer LABS NOTED. Assessment: 06/21/19 15:48 WITHDRAWAL SYMPTOMS. Plan: PATIENT INITIALLY SCHEDULED FOR DISCHARGE FROM DETOX UNIT TODAY. HOWEVER, PATIENT WAS FEBRILE X 2 READINGS EARLIER IN AM. PATIENT LATER AFEBRILE X 2 READINGS. PATIENT DENIES ANY UNUSUAL SYMPTOMS AT THIS TIME. NO SIGNIFICANT ABNORMALITIES NOTED ON DETOX ADMISSION UA. PATIENT DENIES ANY UNUSUAL URINARY COMPLAINTS ( BURNING, PAIN, FREQUENCY, URGENCY, HESITANCY, VISUALIZATION OF BLOOD IN URINE). RESULTS OF DETOX ADMISSION WBC LEVEL WITHIN NORMAL RANGE (5.4). PATIENT DENIES HISTORY OF I.V.D.U. A PRECAUTION, PATIENT TO REMAIN ON DETOX UNIT UNTIL TOMORROW AM SO THAT SUBSEQUENT TEMPS. MAY BE ASSESSED. PATIENT TO BE DISCHARGED TOMORROW AM PENDING AM EVALUATION BY COVERING MEDICAL PROVIDER AT THAT TIME.
[2019-06-21] MEDS: traZODone HCL 100 MG TABLET (FP) PO SCH (22:46)
[2019-06-21] MEDS: THIAMINE HCL 100 MG TABLET (FP) PO SCH (22:47)
[2019-06-22] MEDS: METHADONE HCL 40 MG DISPERSABLE TABLET PO SCH (06:21)
[2019-06-22] MEDS: ACETAMINOPHEN 325 MG TABLET (FP) PO PRN (06:23)
[2019-06-22] MEDS: metFORMIN HCL 500 MG TABLET (FP) PO SCH ×2 (06:34→17:39)
--- NOTE | 2019-06-22 07:42 | PN ---
[facility] Progress Note Note: ASKED TO SEE CLIENT FOR FEVER 102.7. CLIENT DENIES SOB, C.P., FEVER, CHILLS, O- Vital Signs (72 hours) 06/19/19 06/19/19 06/19/19 09:28 13:12 17:24 Temperature 98.7 F 98.5 F 97.9 F Pulse Rate 83 68 56 L Respiratory 18 18 16 Rate Blood Pressure 102/67 112/67 116/64 06/19/19 06/20/19 06/20/19 21:37 00:27 03:30 Temperature 98 F Pulse Rate 61 Respiratory 18 18 18 Rate Blood Pressure 102/64 06/20/19 06/20/19 06/20/19 06:07 09:30 15:00 Temperature 98.0 F 97.7 F 98.0 F Pulse Rate 61 60 72 Respiratory 18 18 18 Rate Blood Pressure 100/48 L 111/61 104/61 06/20/19 06/20/19 06/21/19 17:34 21:23 00:22 Temperature 99.3 F 98.8 F Pulse Rate 81 71 Respiratory 18 18 18 Rate Blood Pressure 102/65 100/69 06/21/19 06/21/19 06/21/19 03:30 06:16 07:23 Temperature 101.7 F H 101.4 F H Pulse Rate 93 H Respiratory 18 18 Rate Blood Pressure 121/66 06/21/19 06/21/19 06/21/19 09:28 13:27 17:53 Temperature 98.9 F 98.8 F 97.5 F L Pulse Rate 69 65 61 Respiratory 18 18 18 Rate Blood Pressure 112/63 113/62 99/58 L 06/21/19 06/22/19 06/22/19 21:33 00:26 03:30 Temperature 98.5 F Pulse Rate 83 Respiratory 18 18 18 Rate Blood Pressure 120/76 06/22/19 06/22/19 06:23 07:00 Temperature 102.7 F H 102.6 F H Pulse Rate 108 H 111 H Respiratory 18 18 Rate Blood Pressure 119/70 147/76 Laboratory Tests 06/16/19 06/17/19 06/17/19 20:02 08:00 08:00 WBC 5.4 RBC 4.73 Hgb 14.5 Hct 42.7 MCV 90.1 MCH 30.5 MCHC 33.9 RDW 14.7 Plt Count 199 D MPV 9.2 Sodium 137 Potassium 4.2 Chloride 103 Carbon Dioxide 28 Anion Gap 6 L BUN 15.0 Creatinine 1.2 Est GFR (CKD-EPI)AfAm 75.72 Est GFR (CKD-EPI)NonAf 65.33 POC Glucometer 70 Random Glucose 123 H Fasting Glucose Calcium 9.1 Total Bilirubin 0.4 AST 22 ALT 22 Alkaline Phosphatase 104 Total Protein 6.9 Albumin 3.6 Urine Color Urine Appearance Urine pH Ur Specific [place] Urine Protein Urine Glucose (UA) Urine Ketones Urine Blood Urine Nitrite Urine Bilirubin Urine Urobilinogen Ur Leukocyte Esterase RPR Titer 06/17/19 06/17/19 06/18/19 08:00 16:31 05:40 WBC RBC Hgb Hct MCV MCH MCHC RDW Plt Count MPV Sodium Potassium Chloride Carbon Dioxide Anion Gap BUN Creatinine Est GFR (CKD-EPI)AfAm Est GFR (CKD-EPI)NonAf POC Glucometer 101 139 Random Glucose Fasting Glucose Calcium Total Bilirubin AST ALT Alkaline Phosphatase Total Protein Albumin Urine Color Urine Appearance Urine pH Ur Specific [place] Urine Protein Urine Glucose (UA) Urine Ketones Urine Blood Urine Nitrite Urine Bilirubin Urine Urobilinogen Ur Leukocyte Esterase RPR Titer Nonreactive 06/18/19 06/18/19 06/19/19 08:55 17:01 06:05 WBC RBC Hgb Hct MCV MCH MCHC RDW Plt Count MPV Sodium Potassium Chloride Carbon Dioxide Anion Gap BUN Creatinine Est GFR (CKD-EPI)AfAm Est GFR (CKD-EPI)NonAf POC Glucometer 94 110 Random Glucose Fasting Glucose Calcium Total Bilirubin AST ALT Alkaline Phosphatase Total Protein Albumin Urine Color Yellow Urine Appearance Clear Urine pH 5.5 Ur Specific [place] 1.012 Urine Protein Negative Urine Glucose (UA) Negative Urine Ketones Negative Urine Blood Negative Urine Nitrite Negative Urine Bilirubin Negative Urine Urobilinogen 0.2 Ur Leukocyte Esterase Negative RPR Titer 06/19/19 06/20/19 06/20/19 16:25 05:25 07:00 WBC RBC Hgb Hct MCV MCH MCHC RDW Plt Count MPV Sodium Potassium Chloride Carbon Dioxide Anion Gap BUN Creatinine Est GFR (CKD-EPI)AfAm Est GFR (CKD-EPI)NonAf POC Glucometer 96 93 Random Glucose Fasting Glucose 80 Calcium Total Bilirubin AST ALT Alkaline Phosphatase Total Protein Albumin Urine Color Urine Appearance Urine pH Ur Specific [place] Urine Protein Urine Glucose (UA) Urine Ketones Urine Blood Urine Nitrite Urine Bilirubin Urine Urobilinogen Ur Leukocyte Esterase RPR Titer 06/20/19 06/21/19 06/21/19 16:34 05:24 16:27 WBC RBC Hgb Hct MCV MCH MCHC RDW Plt Count MPV Sodium Potassium Chloride Carbon Dioxide Anion Gap BUN Creatinine Est GFR (CKD-EPI)AfAm Est GFR (CKD-EPI)NonAf POC Glucometer 108 96 74 Random Glucose Fasting Glucose Calcium Total Bilirubin AST ALT Alkaline Phosphatase Total Protein Albumin Urine Color Urine Appearance Urine pH Ur Specific [place] Urine Protein Urine Glucose (UA) Urine Ketones Urine Blood Urine Nitrite Urine Bilirubin Urine Urobilinogen Ur Leukocyte Esterase RPR Titer 06/22/19 06:30 WBC RBC Hgb Hct MCV MCH MCHC RDW Plt Count MPV Sodium Potassium Chloride Carbon Dioxide Anion Gap BUN Creatinine Est GFR (CKD-EPI)AfAm Est GFR (CKD-EPI)NonAf POC Glucometer 80 Random Glucose Fasting Glucose Calcium Total Bilirubin AST ALT Alkaline Phosphatase Total Protein Albumin Urine Color Urine Appearance Urine pH Ur Specific [place] Urine Protein Urine Glucose (UA) Urine Ketones Urine Blood Urine Nitrite Urine Bilirubin Urine Urobilinogen Ur Leukocyte Esterase RPR Titer CLIENT SEEN LYING IN BED SUPINE EATING SOMETHING AND COUGHING. HE IS A/O X1 APPEARS CONFUSED AND POOR HISTORIAN MUMBLING IS SPEECH CV- TACHY CHEST- WHEEZING, COARSE BREATH SOUNDS, WET COUGHING NOTED SKIN- WARM TO TOUCH A- FEVER, ALTERED MS, R/O ASPIRATION P- TRANSFER TO [facility] FOR EVAL REPORT GIVEN TO DR. BERNADETTE PATEL
[2019-06-22] MEDS: ASPIRIN 81 MG CHEWABLE TABLETS PO SCH (16:03)
[2019-06-22] MEDS: ARIPiprazole 5 MG TABLET (FP) PO SCH (16:03)
[2019-06-22] MEDS: DIVALPROEX SODIUM 500 MG TABLET E.C. PO SCH (16:11)
[2019-06-22] MEDS: PRENATAL VITAMINS W/ FOLIC ACID TABLET (FP) PO SCH (16:11)
[2019-06-22] MEDS: NICOTINE 21 MG/24 HOURS TOPICAL PATCH TD SCH (16:11)
[2019-06-22] MEDS ORDERED: PT OWN MED DRAWER 7, Y5N ONE (23:03)
[2019-06-22] MEDS: THIAMINE HCL 100 MG TABLET (FP) PO SCH (23:08)
[2019-06-22] MEDS: traZODone HCL 100 MG TABLET (FP) PO SCH (23:08)
[2019-06-23] MEDS: DIVALPROEX SODIUM 500 MG TABLET E.C. PO SCH ×2 (00:35→10:09)
[2019-06-23 05:47] VITALS: BMI 25.9
[2019-06-23] MEDS: METHADONE HCL 40 MG DISPERSABLE TABLET PO SCH (06:21)
[2019-06-23] MEDS: metFORMIN HCL 500 MG TABLET (FP) PO SCH (06:55)
[2019-06-23] MEDS ORDERED: PT OWN MED DRAWER 7, Y5N ONE (09:37)
[2019-06-23 10:03] VITALS: BP 123/65; PULSE 74; TEMP 98.7
[2019-06-23] MEDS: NICOTINE 21 MG/24 HOURS TOPICAL PATCH TD SCH (10:08)
[2019-06-23] MEDS: ARIPiprazole 5 MG TABLET (FP) PO SCH (10:08)
[2019-06-23] MEDS: ASPIRIN 81 MG CHEWABLE TABLETS PO SCH (10:08)
[2019-06-23] MEDS: PRENATAL VITAMINS W/ FOLIC ACID TABLET (FP) PO SCH (10:09)
== END 2019-06-22 08:00 | disposition short-term general hospital (02) | DRG 773 ==
LOC: YASAS 17:43 → Y3N 23:09 → J5S 06-22 18:41 → UNDODISIN 06-23 11:14
PROVIDERS: ADMIT Surgery; ATTEND Surgery
PROC: HZ2ZZZZ Detoxification Services for Substance Abuse Treatment (ICD-10-PCS; principal; 2019-06-16)
DX: F10.230 Alcohol dependence with withdrawal, uncomplicated (principal); F11.20 Opioid dependence, uncomplicated; F13.10 Sedative, hypnotic or anxiolytic abuse, uncomplicated; F14.20 Cocaine dependence, uncomplicated; F12.20 Cannabis dependence, uncomplicated; F17.210 Nicotine dependence, cigarettes, uncomplicated; F19.282 Other psychoactive substance dependence with psychoactive substance-induced sleep disorder; F19.24 Other psychoactive substance dependence with psychoactive substance-induced mood disorder; F31.9 Bipolar disorder, unspecified; F42.4 Excoriation (skin-picking) disorder; E11.9 Type 2 diabetes mellitus without complications; Z79.84 Long term (current) use of oral hypoglycemic drugs; D57.3 Sickle-cell trait; G47.00 Insomnia, unspecified; H91.92 Unspecified hearing loss, left ear; R50.9 Fever, unspecified; R41.82 Altered mental status, unspecified; Z86.73 Personal history of transient ischemic attack (TIA), and cerebral infarction without residual deficits; Z91.19 Patient's noncompliance with other medical treatment and regimen
CPT/HCPCS: 36415; 80053; 81003; 82947; 82962; 85027; 86593

== ENCOUNTER 2019-06-22 08:05 | Inpatient (IN) | payer OTHER ==
[2019-06-22] MEDS ORDERED: ACETAMINOPHEN 1000 MG/100 ML VIAL (NON FORMULARY) IVPB ONE (08:37)
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
[2019-06-22 09:07] LABS: VENOUS PC02 53.8 mmHg (38-52); VENOUS PH 7.37 (7.31-7.41); VENOUS PO2 58.8 mmHg (28-48)
[2019-06-22 09:17] LABS: BASO % 0.3 % (0-2.0); EOS % 0.1 % (0-4.5); HEMATOCRIT 42.5 % (35.4-49); HEMOGLOBIN 14.5 GM/dL (11.7-16.9); LYMPH % 7.5 % (8-40); MCH 30.2 pg (25.7-33.7); MCHC 34.1 g/dl (32.0-35.9); MEAN CELL VOLUME 88.6 fl (80-96); MEAN PLT VOLUME 9.3 fl (7.5-11.1); MONO % 8.7 % (3.8-10.2); NEUT % 83.4 % (42.8-82.8); PLATELET COUNT 156 K/MM3 (134-434); RDW 14.3 % (11.9-15.9); WHITE BLOOD COUNT 6.7 K/mm3 (4.0-10.0)
[2019-06-22 09:24] LABS: INR 1.15 (0.83-1.09); PROTHROMBIN TIME (PATIENT) 13.6 SEC (9.7-13.0)
[2019-06-22 09:27] LABS: ACTIVATED PTT 35.1 SECONDS (25.2-36.5)
[2019-06-22] MEDS: SODIUM CHLORIDE 0.9% 1000 ML INFUS.BAG IV SCH (09:30)
[2019-06-22 09:39] LABS: ALK PHOS 67 U/L (45-117); ANION GAP 2 MMOL/L (8-16); BILIRUBIN,TOTAL 0.4 mg/dL (0.2-1); BLOOD UREA NITROGEN 10.6 mg/dL (7-18); CALCIUM 9.4 mg/dL (8.5-10.1); CHLORIDE 100 mmol/L (98-107); CO2 30 mmol/L (21-32); GLUCOSE,RANDOM 79 mg/dL (74-106); SGOT/AST 87 U/L (15-37); SGPT/ALT 21 U/L (13-61); SODIUM 132 mmol/L (136-145); TOT PROT 7.6 g/dl (6.4-8.2)
[2019-06-22 09:51] LABS: URINE APPEARANCE CLEAR; URINE BILIRUBIN NEGATIVE (NEGATIVE); URINE COLOR YELLOW; URINE GLUCOSE (UA) NEGATIVE (NEGATIVE); URINE KETONE 1+ (NEGATIVE); URINE LEUK ESTERASE NEGATIVE (NEGATIVE); URINE NITRITE NEGATIVE (NEGATIVE); URINE PROTEIN NEGATIVE (NEGATIVE)
[2019-06-22 10:21] LABS: COCAINE, UR NEGATIVE ng/ml (CUTOFF=300); OPIATES, URI NEGATIVE ng/ml (CUTOFF=300); PHENCYCLIDINE,URINE NEGATIVE ng/ml (CUTOFF=25); URINE AMPHETAMINES NEGATIVE ng/ml (CUTOFF=500); URINE BARBITURATES NEGATIVE ng/ml (CUTOFF=200)
[2019-06-22 10:27] LABS: METHADONE, UR POSITIVE ng/ml (CUTOFF=300); URINE BENZODIAZEPINES POSITIVE ng/ml (CUTOFF=200)
--- NOTE | 2019-06-22 10:38 | PDOC ---
Attending Attestation - Resident Resident Name: Randall Loco - ED Attending Attestation I have performed the following: I have examined & evaluated the patient, The case was reviewed & discussed with the resident, I agree w/resident's findings & plan, Exceptions are as noted - HPI HPI: 06/22/19 10:32 58 M with h/o ETOH and methadone, presenting to ED for fever, cough, and confusion. Per [facility]E CLE[facility]ER, pt has had progressively worsening symptoms over the past 3 days. Pt febrile at [facility], with cough and wheezing. Pt noted to be more lethargic as well. - Physicial Exam PE: 06/22/19 10:47 "GENERAL: Awake, alert, in no acute distress. HEAD: No signs of trauma EYES: PERRLA, EOMI, sclera anicteric, conjunctiva clear ENT: Auricles normal inspection, hearing grossly normal, nares patent, oropharynx clear without exudates. Moist mucosa NECK: Nontender, no stepoffs, Normal ROM, supple, no lymphadenopathy, JVD, or masses LUNGS: + Diffuse rhonchi HEART: Regular rate and rhythm, normal S1 and S2, no murmurs, rubs or gallops ABDOMEN: Soft, nontender, normoactive bowel sounds. No guarding, no rebound. No masses EXTREMITIES: Normal range of motion, no edema. No clubbing or cyanosis. No cords, erythema, or tenderness NEUROLOGICAL: Cranial nerves II through XII intact. 5/5 strength and sensation in all extremities, Normal speech, normal gait, normal cerebellar function SKIN: Warm, Dry, normal turgor, no rashes or lesions noted. - Medical Decision Making 06/22/19 10:50 58 M with fever, confusion. Suspect sepsis. Likely respiratory source. - Labs, cultures - CXR, UA - CT head - IVF, tylenol 06/22/19 13:04 Labs, CXR, UA all unremarkable Pt reassessed - now completely awake and alert, oriented x3 I discussed with pt need for LP to rule out meningitis given his initial presentation of fever and confusion. Pt refusing LP at this time. Pt denies headache, denies neck pain/stiffness. States he feels well. CT chest shows consolidation.
[2019-06-22] MEDS ORDERED: VANCOMYCIN 1 GM in D5W (PRE-DOCKED) 1,000 MG/250 ML IVPB ONE (11:49)
[2019-06-22] MEDS ORDERED: PIPERACILLIN/TAZOB 4.5 GM 4.5 GM in DEXTROSE 5%-WATER 100 ML IVPB ONE (11:50)
[2019-06-22] MEDS ORDERED: VANCOMYCIN 1 GRAM (PRE-DOCKED) 1,000 MG/250 ML BAG IVPB ONE (12:36)
[2019-06-22] MEDS ORDERED: PIPERACILLIN/TAZOB 4.5 GM 4.5 GM/100 ML BAG IVPB ONE (12:36)
[2019-06-22] MEDS ORDERED: SODIUM CHLORIDE 1,000 ML IV SCH (17:45)
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
[2019-06-22] MEDS ORDERED: ASPIRIN 325 MG ENTERIC COATED TABLET (FP) PO ONE (19:01)
[2019-06-22] MEDS ORDERED: ATORVASTATIN CA 40 MG TABLET (FP) PO ONE (19:09)
[2019-06-23] MEDS ORDERED: METHADONE HCL 40 MG DISPERSABLE TABLET PO SCH (06:00)
[2019-06-23] MEDS ORDERED: THIAMINE HCL 100 MG TABLET (FP) PO SCH (10:00)
[2019-06-23] MEDS ORDERED: MULTIVIT-MINERALS ORAL LIQUID PO SCH (10:00)
[2019-06-23] MEDS ORDERED: PANTOPRAZOLE 40 MG TABLET (FP) PO SCH (10:00)
[2019-06-23] MEDS ORDERED: ASPIRIN COATED 81 MG TABLET.EC PO SCH (10:00)
[2019-06-23] MEDS ORDERED: ARIPiprazole 5 MG TABLET (FP) PO SCH (10:00)
[2019-06-23] MEDS ORDERED: FOLIC ACID 1 MG TABLET (FP) PO SCH (10:00)
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
[2019-06-23 11:21] LABS: BASO % 0.2 % (0-2.0); EOS % 4.4 % (0-4.5); HEMATOCRIT 35.6 % (35.4-49); HEMOGLOBIN 11.9 GM/dL (11.7-16.9); LYMPH % 19.1 % (8-40); MCHC 33.4 g/dl (32.0-35.9); MEAN CELL VOLUME 89.8 fl (80-96); MONO % 10.9 % (3.8-10.2); NEUT % 65.4 % (42.8-82.8); PLATELET COUNT 134 K/MM3 (134-434); RBC 3.96 M/mm3 (4.00-5.60); RDW 14.3 % (11.9-15.9); WHITE BLOOD COUNT 5.5 K/mm3 (4.0-10.0)
[2019-06-23 11:35] LABS: BLOOD UREA NITROGEN 7.6 mg/dL (7-18); CALCIUM 8.8 mg/dL (8.5-10.1); CREATININE 0.8 mg/dL (0.55-1.3); MAGNESIUM 2.2 mg/dL (1.8-2.4); PHOSPHOROUS 2.5 mg/dL (2.5-4.9); POTASSIUM 3.8 mmol/L (3.5-5.1)
[2019-06-23 11:38] LABS: CHOLESTEROL 126 mg/dL (50-200); HDL CHOLESTEROL 42 mg/dL (40-60); LDL CHOLESTEROL (ONLY SJRH) 64 mg/dL (5-100); TRIGLYCERIDES 113 mg/dL (0-150)
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
[2019-06-23] MEDS: DEXTROSE 5%-NORMAL SALINE 1,000 ML IV SCH ×3 (12:58→20:01)
[2019-06-23] MEDS: AMPICILLIN NA/SULBACTAM NA 3 GM in SODIUM CHLORIDE 100 ML IVPB SCH ×5 (12:58→21:51)
[2019-06-23] MEDS: HEPARIN NA (PORCINE) 5,000 UNITS/ML 1ML VIAL SQ SCH ×4 (12:59→22:26)
[2019-06-23] MEDS: NYSTATIN 500,000 UNITS TABLET PO SCH ×4 (12:59→23:00)
[2019-06-23] MEDS: DIVALPROEX SODIUM 500 MG TABLET E.C. PO SCH ×2 (12:59→13:02)
[2019-06-23] MEDS: SODIUM CHLORIDE 0.9% 1000 ML INFUS.BAG IV SCH (12:59)
[2019-06-23] MEDS ORDERED: SODIUM CHLORIDE 0.9% 1000 ML INFUS.BAG IV SCH (15:52)
[2019-06-23] MEDS ORDERED: ALBUTEROL SO4 2.5/IPRATROPIUM 0.5 INH SOL 3 ML VIAL.NEB. NEB ONE (16:30)
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
--- NOTE | 2019-06-23 18:23 | EKG ---
Test Reason : Blood Pressure : / mmHG Vent. Rate : 108 BPM Atrial Rate : 108 BPM P-R Int : 166 ms QRS Dur : 076 ms QT Int : 326 ms P-R-T Axes : 065 047 026 degrees QTc Int : 436 ms SINUS TACHYCARDIA POSSIBLE LEFT ATRIAL ENLARGEMENT NONSPECIFIC ST AND T WAVE ABNORMALITY ABNORMAL ECG WHEN COMPARED WITH ECG OF 27-MAY-2018 16:34, VENT. RATE HAS INCREASED BY 42 BPM Confirmed by ALTAGRACIA OLIVA MD ([id number]) on 06/23/2019 6:23:32 PM Referred By: Confirmed By:ALTAGRACIA OLIVA MD
[2019-06-23] MEDS ORDERED: ACETAMINOPHEN 1000 MG/100 ML VIAL (NON FORMULARY) IVPB ONE (19:38)
[2019-06-23] MEDS: ALBUTEROL SO4 2.5/IPRATROPIUM 0.5 INH SOL 3 ML VIAL.NEB. NEB PRN (20:57)
[2019-06-23] MEDS ORDERED: PT OWN MED DRAWER 7, Y5N ONE (21:50)
[2019-06-23] MEDS ORDERED: DIVALPROEX SODIUM 500 MG TABLET E.C. PO SCH (22:00)
[2019-06-23] MEDS ORDERED: ATORVASTATIN CA 20 MG TABLET (FP) PO SCH (22:00)
[2019-06-23] MEDS: VALPROATE SODIUM 500 MG/5 ML VIAL IVPB SCH (22:26)
[2019-06-24] MEDS: AMPICILLIN NA/SULBACTAM NA 3 GM in SODIUM CHLORIDE 100 ML IVPB SCH ×4 (03:07→21:15)
[2019-06-24] MEDS ORDERED: PT OWN MED DRAWER 7, Y5N ONE ×5 (05:24→21:10)
[2019-06-24] MEDS: NYSTATIN 500,000 UNITS TABLET PO SCH ×3 (05:27→21:15)
[2019-06-24] MEDS: METHADONE HCL 40 MG DISPERSABLE TABLET PO SCH (05:32)
[2019-06-24] MEDS: HEPARIN NA (PORCINE) 5,000 UNITS/ML 1ML VIAL SQ SCH ×3 (05:33→21:15)
[2019-06-24 07:02] LABS: BASO % 0.4 % (0-2.0); EOS % 6.3 % (0-4.5); HEMATOCRIT 34.3 % (35.4-49); HEMOGLOBIN 11.5 GM/dL (11.7-16.9); LYMPH % 30.7 % (8-40); MCH 30.1 pg (25.7-33.7); MCHC 33.4 g/dl (32.0-35.9); MEAN CELL VOLUME 90.2 fl (80-96); MEAN PLT VOLUME 9.2 fl (7.5-11.1); MONO % 11.3 % (3.8-10.2); NEUT % 51.3 % (42.8-82.8); PLATELET COUNT 120 K/MM3 (134-434); RBC 3.81 M/mm3 (4.00-5.60); RDW 13.8 % (11.9-15.9); WHITE BLOOD COUNT 4.3 K/mm3 (4.0-10.0)
[2019-06-24 07:25] LABS: BLOOD UREA NITROGEN 4.5 mg/dL (7-18); CALCIUM 8.4 mg/dL (8.5-10.1); CREATININE 0.8 mg/dL (0.55-1.3); MAGNESIUM 2.2 mg/dL (1.8-2.4); PHOSPHOROUS 2.8 mg/dL (2.5-4.9); POTASSIUM 3.8 mmol/L (3.5-5.1)
[2019-06-24] MEDS: ALBUTEROL SO4 2.5/IPRATROPIUM 0.5 INH SOL 3 ML VIAL.NEB. NEB PRN ×2 (08:50→20:27)
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
[2019-06-24] MEDS ORDERED: MULTIVIT-MINERALS ORAL LIQUID PO SCH (10:00)
[2019-06-24] MEDS ORDERED: PANTOPRAZOLE 40 MG TABLET (FP) PO SCH (10:00)
[2019-06-24] MEDS ORDERED: THIAMINE HCL 100 MG TABLET (FP) PO SCH (10:00)
[2019-06-24] MEDS ORDERED: FOLIC ACID 1 MG TABLET (FP) PO SCH (10:00)
[2019-06-24] MEDS ORDERED: ARIPiprazole 5 MG TABLET (FP) PO SCH (10:00)
[2019-06-24] MEDS: PANTOPRAZOLE SODIUM 40 MG VIAL IVPUSH SCH (10:47)
[2019-06-24] MEDS: FOLIC ACID 5 MG/1 ML SQ SCH (10:49)
[2019-06-24] MEDS: ASPIRIN COATED 81 MG TABLET.EC PO SCH (10:54)
--- NOTE | 2019-06-24 11:01 | PN ---
Progress Note, PACKING INSPECTOR - Note Progress Note: MRI (-) for new CVA Speech production better than yesterday but still with articulatory imprecision , hypernasality, rapid speech, intelligibility varies from poor to fair. Left facial. Etiology of speech/swallow impairment unclear. Through EMR, unable to determine if it acute vs LT? Poor historian/ poor insight. Impaired cognition contributes to impaired intelligibility, ] Selected Entries 06/24/19 06/24/19 02:44 06:00 Temperature 98.8 F 98.9 F Laboratory Tests 06/24/19 06:26 WBC 4.3 Swallowing improving. Congested. Possible silent aspiration on thin liquid? Receiving PO methadone. Meds in applesauce ok if necessary MBS
[2019-06-24] MEDS: VALPROATE SODIUM 500 MG/5 ML VIAL IVPB SCH ×2 (11:48→21:51)
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
[2019-06-24] MEDS: THIAMINE HCL 200 MG/2 ML VIAL IVPB SCH (14:28)
[2019-06-24 16:45] VITALS: BMI 25.8
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
[2019-06-25] MEDS ORDERED: PT OWN MED DRAWER 7, Y5N ONE ×3 (01:54→21:02)
[2019-06-25] MEDS: AMPICILLIN NA/SULBACTAM NA 3 GM in SODIUM CHLORIDE 100 ML IVPB SCH ×4 (02:04→21:11)
[2019-06-25] MEDS: DEXTROSE 5%-NORMAL SALINE 1,000 ML IV SCH (03:47)
[2019-06-25] MEDS: NYSTATIN 500,000 UNITS TABLET PO SCH ×3 (05:43→21:12)
[2019-06-25] MEDS: HEPARIN NA (PORCINE) 5,000 UNITS/ML 1ML VIAL SQ SCH ×3 (05:43→21:11)
[2019-06-25] MEDS: METHADONE HCL 40 MG DISPERSABLE TABLET PO SCH (05:43)
[2019-06-25 08:10] LABS: BASO % 0.6 % (0-2.0); EOS % 8.7 % (0-4.5); HEMATOCRIT 34.5 % (35.4-49); HEMOGLOBIN 11.4 GM/dL (11.7-16.9); LYMPH % 38.4 % (8-40); MCH 29.8 pg (25.7-33.7); MEAN CELL VOLUME 90.4 fl (80-96); MEAN PLT VOLUME 10.1 fl (7.5-11.1); MONO % 10.8 % (3.8-10.2); NEUT % 41.5 % (42.8-82.8); PLATELET COUNT 119 K/MM3 (134-434); RBC 3.82 M/mm3 (4.00-5.60); RDW 14.2 % (11.9-15.9); WHITE BLOOD COUNT 6.5 K/mm3 (4.0-10.0)
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
[2019-06-25 08:33] LABS: CALCIUM 8.3 mg/dL (8.5-10.1); CREATININE 0.9 mg/dL (0.55-1.3); MAGNESIUM 2.2 mg/dL (1.8-2.4)
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
[2019-06-25] MEDS: ASPIRIN COATED 81 MG TABLET.EC PO SCH (09:55)
[2019-06-25] MEDS: FOLIC ACID 5 MG/1 ML SQ SCH (09:56)
[2019-06-25] MEDS: PANTOPRAZOLE SODIUM 40 MG VIAL IVPUSH SCH (10:06)
[2019-06-25] MEDS: VALPROATE SODIUM 500 MG/5 ML VIAL IVPB SCH ×2 (10:43→21:11)
[2019-06-25] MEDS: THIAMINE HCL 200 MG/2 ML VIAL IVPB SCH (12:07)
[2019-06-25 12:54] LABS: PLATELET ESTIMATE DECREASED
--- NOTE | 2019-06-25 14:10 | PN ---
Progress Note, STITCH MARKER - Note Progress Note: Selected Entries 06/25/19 06/25/19 06/25/19 06:00 09:00 10:27 Breakfast 75% Lunch Temperature 98.2 F 98.2 F 06/25/19 14:08 Breakfast Lunch 25% Temperature 98.9 F Laboratory Tests 06/25/19 07:50 WBC 6.5 Pt MUCH improved, verbal, speech more intelligible although still varies.Dysphonia but improving. Left facial at rest but with improving ROM/vom/ retraction. Tolerating diet well. 3 oz water (-). Cognition improving although suspect memory deficits.Pt does not recognize me but remembered that I asked him to drink slowly, single sips. REC; Trial of diet upgrade to Dys whole/chopped meat. Thin liquids. OOB in chair mealtime.
[2019-06-25] MEDS ORDERED: amLODIPine BESYLATE 2.5 MG TABLET (FP) PO ONE (14:24)
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
[2019-06-25] MEDS ORDERED: ALBUTEROL SO4 2.5/IPRATROPIUM 0.5 INH SOL 3 ML VIAL.NEB. NEB ONE (20:02)
[2019-06-25] MEDS ORDERED: ALBUTEROL SO4 2.5/IPRATROPIUM 0.5 INH SOL 3 ML VIAL.NEB. NEB PRN (20:02)
[2019-06-26] MEDS: AMPICILLIN NA/SULBACTAM NA 3 GM in SODIUM CHLORIDE 100 ML IVPB SCH ×3 (02:16→14:05)
[2019-06-26] MEDS ORDERED: PT OWN MED DRAWER 7, Y5N ONE ×3 (05:08→13:43)
[2019-06-26] MEDS: HEPARIN NA (PORCINE) 5,000 UNITS/ML 1ML VIAL SQ SCH ×2 (05:25→13:55)
[2019-06-26] MEDS: NYSTATIN 500,000 UNITS TABLET PO SCH ×2 (05:25→13:59)
[2019-06-26] MEDS ORDERED: METHADONE HCL 40 MG DISPERSABLE TABLET PO SCH (06:00)
[2019-06-26] MEDS: VALPROATE SODIUM 500 MG/5 ML VIAL IVPB SCH (09:24)
[2019-06-26] MEDS ORDERED: THIAMINE HCL 200 MG/2 ML VIAL IVPB SCH (10:00)
[2019-06-26] MEDS ORDERED: ASPIRIN COATED 81 MG TABLET.EC PO SCH (10:00)
[2019-06-26] MEDS ORDERED: amLODIPine BESYLATE 2.5 MG TABLET (FP) PO SCH (10:00)
[2019-06-26] MEDS ORDERED: FOLIC ACID 5 MG/1 ML SQ SCH (10:00)
--- NOTE | 2019-06-26 11:59 | PN ---
Progress Note, GAS ROLLER OPERATOR - Note Progress Note: Selected Entries 06/26/19 06/26/19 06/26/19 06:00 08:30 10:15 Breakfast Diet Tolerated Temperature 98.9 F 100.2 F H 100.1 F H 06/26/19 11:35 Breakfast 100% Diet Tolerated Well Temperature Laboratory Tests 06/25/19 07:50 WBC 6.5 Advasnced to Dys whole/thin liquid. Tolerating diet upgrade. Improved appetite.
[2019-06-26 13:52] VITALS: BP 140/72; PULSE 58; TEMP 97.6
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
== END 2019-06-26 21:20 | disposition home or self-care (01) | DRG 720 ==
LOC: JER 08:05 → JERBED 16:16 → J5S 06-23 11:15 → J4S 06-23 15:21
PROVIDERS: ADMIT Internal Medicine; ATTEND Internal Medicine
DX: A41.89 Other specified sepsis (principal); J69.0 Pneumonitis due to inhalation of food and vomit; E11.9 Type 2 diabetes mellitus without complications; D57.3 Sickle-cell trait; I10 Essential (primary) hypertension; B37.0 Candidal stomatitis; K76.0 Fatty (change of) liver, not elsewhere classified; F31.9 Bipolar disorder, unspecified; F14.20 Cocaine dependence, uncomplicated; F11.20 Opioid dependence, uncomplicated; B19.20 Unspecified viral hepatitis C without hepatic coma; R47.81 Slurred speech; R29.810 Facial weakness; H91.92 Unspecified hearing loss, left ear; Z86.73 Personal history of transient ischemic attack (TIA), and cerebral infarction without residual deficits
CPT/HCPCS: 36415; 70450-TC; 70551-TC; 71045-TC-FY; 71250-TC; 74230-TC-FY; 80048; 80053; 80061; 80307; 81003; 82803; 83036; 83605; 83721; 83735; 84100; 84484; 85025; 85610; 85730; 87040; 87086; 87804; 87899; 92611-GN; 93005; 93010; 94640; 97116-GP; 97161-GP; 99285-25; J0131; J1644; J7030

== ENCOUNTER 2019-06-26 20:22 | Inpatient (IN) | payer OTHER ==
[2019-06-26] MEDS ORDERED: NICOTINE POLACRILEX 2 MG GUM BUC PRN (21:01)
[2019-06-26] MEDS ORDERED: P-EPHED 60MG/TRIPROLIDI 2.5MG TABLET PO PRN (21:01)
[2019-06-26] MEDS ORDERED: IBUPROFEN 400 MG TABLET (FP) PO PRN (21:01)
[2019-06-26] MEDS ORDERED: hydrOXYzine PAMOATE 25 MG CAPSULE (FP) PO PRN (21:01)
[2019-06-26] MEDS ORDERED: LOPERAMIDE HCL 2 MG CAPSULE PO PRN (21:01)
[2019-06-26] MEDS ORDERED: MAGNESIUM HYDROX 2400MG/30ML ORAL SUSPENSION 30 ML CUP PO PRN (21:01)
[2019-06-26] MEDS ORDERED: MENTHOL/PHENOL 1 EACH UD MM PRN (21:01)
[2019-06-26] MEDS ORDERED: MAG HYDROX/AL HYDROX/SIMETH 30 ML UNIT-DOSE CUP PO PRN (21:01)
[2019-06-26] MEDS ORDERED: ACETAMINOPHEN 325 MG TABLET (FP) PO PRN (21:01)
[2019-06-26] MEDS ORDERED: MAGNESIUM CITRATE 300 ML BOTTLE PO PRN (21:01)
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
[2019-06-26 21:18] VITALS: BMI 26.8
[2019-06-26] MEDS ORDERED: PNEUMOC 13-VAL CONJ-DIP CRM/PF 0.5 ML DISP.SYRIN IM ONE (21:19)
[2019-06-26] MEDS: THIAMINE HCL 100 MG TABLET (FP) PO SCH (22:08)
[2019-06-26] MEDS: ATORVASTATIN CA 20 MG TABLET (FP) PO SCH (22:09)
[2019-06-26] MEDS: MELATONIN 5 MG TABLETS PO PRN (22:09)
[2019-06-27] MEDS: METHADONE HCL 40 MG DISPERSABLE TABLET PO SCH (06:28)
[2019-06-27] MEDS: AMOX TR/POT CLAV 875MG/125MG TABLETS (FP) PO SCH ×2 (07:31→17:40)
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
[2019-06-27] MEDS: PRENATAL VITAMINS W/ FOLIC ACID TABLET (FP) PO SCH (10:31)
[2019-06-27] MEDS: amLODIPine BESYLATE 5 MG TABLET (FP) PO SCH (10:32)
[2019-06-27] MEDS: NICOTINE 14 MG/24 HOURS TOPICAL PATCH TD SCH (10:32)
[2019-06-27] MEDS: ASPIRIN COATED 81 MG TABLET.EC PO SCH (10:32)
[2019-06-27] MEDS: ARIPiprazole 5 MG TABLET (FP) PO SCH (10:35)
[2019-06-27] MEDS: DIVALPROEX SODIUM 500 MG TABLET E.C. PO SCH ×2 (10:35→21:13)
--- NOTE | 2019-06-27 11:47 | PN ---
[facility] Progress Note Note: Pt admitted to rehab on 06/26/19 from [facility] after medical treatment. Pt was on [address] for detox from 06/16/19 to 06/22/19 when he was taken to the ER for medical evaluation/treatment for pneumonia and discharged yesterday. Pt has a hx of DM(no current med but took in detox),HLD(on Lipitor) and HTN(on Norvasc ) and Psych Hx(on meds). Alert o x 3. Nad. OOB ambulating with steady gait. This magnetic tape typewriter operator called pt's pharmacy [facility] on [facility] listed in the [employer] system and was told pt not on DM med with this pharmacy(suggests pt may be with another pharmacy). However, I spoke to patient again and pt states he had been taking his Metformin while in detox until he got to [facility] admission stay. Lab reviewed from hospital stay had FBS at 80 mg/dl and random Glc of 109 mg/dl with HgbA1c of 5.3. Reports indicate Metformin was not given in [facility] and pt also stated he did not receive it while hospitalized for pneumonia. Vital Signs - 8 hr 06/27/19 07:04 Temperature 98.5 F Pulse Rate 62 Respiratory 18 Rate Blood Pressure 159/71 A/P Rehab Pt Hx HTN DM-controlled. HLD BGM BIDAC monitoring ordered. May consider adding sliding scale if needed May consider reordering Metformin 500 mg po daily and re-evaluate for BID if needed. Follow up with BGM values and re-evaluate restarting.
[2019-06-27] MEDS ORDERED: PNEUMOCOCCAL 23 VACCINE 0.5 ML VIAL IM ONE (12:00)
[2019-06-27] MEDS: traZODone HCL 100 MG TABLET (FP) PO SCH (21:13)
[2019-06-27] MEDS: THIAMINE HCL 100 MG TABLET (FP) PO SCH (21:13)
[2019-06-27] MEDS: ATORVASTATIN CA 20 MG TABLET (FP) PO SCH (21:13)
[2019-06-28] MEDS: METHADONE HCL 40 MG DISPERSABLE TABLET PO SCH (06:32)
[2019-06-28] MEDS: AMOX TR/POT CLAV 875MG/125MG TABLETS (FP) PO SCH ×2 (07:24→17:25)
[2019-06-28] MEDS: ASPIRIN COATED 81 MG TABLET.EC PO SCH (10:14)
[2019-06-28] MEDS: DIVALPROEX SODIUM 500 MG TABLET E.C. PO SCH ×2 (10:14→21:10)
[2019-06-28] MEDS: NICOTINE 14 MG/24 HOURS TOPICAL PATCH TD SCH (10:14)
[2019-06-28] MEDS: PRENATAL VITAMINS W/ FOLIC ACID TABLET (FP) PO SCH (10:14)
[2019-06-28] MEDS: ARIPiprazole 5 MG TABLET (FP) PO SCH (10:14)
[2019-06-28] MEDS: amLODIPine BESYLATE 5 MG TABLET (FP) PO SCH (10:14)
[2019-06-28] MEDS: MELATONIN 5 MG TABLETS PO PRN (21:11)
[2019-06-28] MEDS: ATORVASTATIN CA 20 MG TABLET (FP) PO SCH (21:11)
[2019-06-28] MEDS: THIAMINE HCL 100 MG TABLET (FP) PO SCH (21:11)
[2019-06-28] MEDS: traZODone HCL 100 MG TABLET (FP) PO SCH (21:11)
[2019-06-29] MEDS: METHADONE HCL 40 MG DISPERSABLE TABLET PO SCH (06:29)
[2019-06-29] MEDS: AMOX TR/POT CLAV 875MG/125MG TABLETS (FP) PO SCH ×2 (07:20→17:42)
[2019-06-29] MEDS: ARIPiprazole 5 MG TABLET (FP) PO SCH (09:55)
[2019-06-29] MEDS: amLODIPine BESYLATE 5 MG TABLET (FP) PO SCH (09:55)
[2019-06-29] MEDS: DIVALPROEX SODIUM 500 MG TABLET E.C. PO SCH ×2 (09:55→21:15)
[2019-06-29] MEDS: ASPIRIN COATED 81 MG TABLET.EC PO SCH (09:55)
[2019-06-29] MEDS: NICOTINE 14 MG/24 HOURS TOPICAL PATCH TD SCH (09:56)
[2019-06-29] MEDS: PRENATAL VITAMINS W/ FOLIC ACID TABLET (FP) PO SCH (09:56)
[2019-06-29] MEDS: traZODone HCL 100 MG TABLET (FP) PO SCH (21:15)
[2019-06-29] MEDS: THIAMINE HCL 100 MG TABLET (FP) PO SCH (21:16)
[2019-06-29] MEDS: ATORVASTATIN CA 20 MG TABLET (FP) PO SCH (21:16)
[2019-06-30] MEDS: METHADONE HCL 40 MG DISPERSABLE TABLET PO SCH (06:26)
[2019-06-30] MEDS: AMOX TR/POT CLAV 875MG/125MG TABLETS (FP) PO SCH ×2 (07:39→18:38)
[2019-06-30] MEDS: guaiFENesin 200 MG/10 ML 10 ML UNIT-DOSE CUPS PO PRN (10:12)
[2019-06-30] MEDS: ASPIRIN COATED 81 MG TABLET.EC PO SCH (10:13)
[2019-06-30] MEDS: DIVALPROEX SODIUM 500 MG TABLET E.C. PO SCH ×2 (10:13→21:23)
[2019-06-30] MEDS: PRENATAL VITAMINS W/ FOLIC ACID TABLET (FP) PO SCH (10:13)
[2019-06-30] MEDS: ARIPiprazole 5 MG TABLET (FP) PO SCH (10:13)
[2019-06-30] MEDS: amLODIPine BESYLATE 5 MG TABLET (FP) PO SCH (10:13)
[2019-06-30] MEDS: NICOTINE 14 MG/24 HOURS TOPICAL PATCH TD SCH (10:13)
[2019-06-30] MEDS: ATORVASTATIN CA 20 MG TABLET (FP) PO SCH (21:23)
[2019-06-30] MEDS: THIAMINE HCL 100 MG TABLET (FP) PO SCH (21:23)
[2019-06-30] MEDS: traZODone HCL 100 MG TABLET (FP) PO SCH (21:23)
[2019-06-30] MEDS: MELATONIN 5 MG TABLETS PO PRN (21:24)
[2019-07-01] MEDS: METHADONE HCL 40 MG DISPERSABLE TABLET PO SCH (06:22)
[2019-07-01] MEDS: AMOX TR/POT CLAV 875MG/125MG TABLETS (FP) PO SCH ×2 (07:41→17:42)
[2019-07-01] MEDS: ASPIRIN COATED 81 MG TABLET.EC PO SCH (10:27)
[2019-07-01] MEDS: PRENATAL VITAMINS W/ FOLIC ACID TABLET (FP) PO SCH (10:27)
[2019-07-01] MEDS: DIVALPROEX SODIUM 500 MG TABLET E.C. PO SCH ×2 (10:27→21:21)
[2019-07-01] MEDS: ARIPiprazole 5 MG TABLET (FP) PO SCH (10:27)
[2019-07-01] MEDS: NICOTINE 14 MG/24 HOURS TOPICAL PATCH TD SCH (10:27)
[2019-07-01] MEDS: amLODIPine BESYLATE 5 MG TABLET (FP) PO SCH (11:25)
[2019-07-01] MEDS: ATORVASTATIN CA 20 MG TABLET (FP) PO SCH (21:22)
[2019-07-01] MEDS: traZODone HCL 100 MG TABLET (FP) PO SCH (21:22)
[2019-07-01] MEDS: THIAMINE HCL 100 MG TABLET (FP) PO SCH (21:22)
[2019-07-01] MEDS: MELATONIN 5 MG TABLETS PO PRN (21:22)
[2019-07-02] MEDS: METHADONE HCL 40 MG DISPERSABLE TABLET PO SCH (06:28)
[2019-07-02] MEDS: AMOX TR/POT CLAV 875MG/125MG TABLETS (FP) PO SCH ×2 (07:36→17:38)
[2019-07-02] MEDS: ARIPiprazole 5 MG TABLET (FP) PO SCH (10:06)
[2019-07-02] MEDS: ASPIRIN COATED 81 MG TABLET.EC PO SCH (10:06)
[2019-07-02] MEDS: DIVALPROEX SODIUM 500 MG TABLET E.C. PO SCH ×2 (10:06→21:18)
[2019-07-02] MEDS: PRENATAL VITAMINS W/ FOLIC ACID TABLET (FP) PO SCH (10:06)
[2019-07-02] MEDS: amLODIPine BESYLATE 5 MG TABLET (FP) PO SCH (10:06)
[2019-07-02] MEDS: NICOTINE 14 MG/24 HOURS TOPICAL PATCH TD SCH (10:07)
[2019-07-02] MEDS: guaiFENesin 200 MG/10 ML 10 ML UNIT-DOSE CUPS PO PRN (11:56)
[2019-07-02] MEDS: THIAMINE HCL 100 MG TABLET (FP) PO SCH (21:18)
[2019-07-02] MEDS: ATORVASTATIN CA 20 MG TABLET (FP) PO SCH (21:18)
[2019-07-02] MEDS: traZODone HCL 100 MG TABLET (FP) PO SCH (21:18)
[2019-07-02] MEDS: MELATONIN 5 MG TABLETS PO PRN (21:20)
[2019-07-03] MEDS: METHADONE HCL 40 MG DISPERSABLE TABLET PO SCH (06:04)
[2019-07-03] MEDS: AMOX TR/POT CLAV 875MG/125MG TABLETS (FP) PO SCH ×2 (07:03→17:01)
[2019-07-03] MEDS: ASPIRIN COATED 81 MG TABLET.EC PO SCH (09:58)
[2019-07-03] MEDS: amLODIPine BESYLATE 5 MG TABLET (FP) PO SCH (09:59)
[2019-07-03] MEDS: ARIPiprazole 5 MG TABLET (FP) PO SCH (09:59)
[2019-07-03] MEDS: PRENATAL VITAMINS W/ FOLIC ACID TABLET (FP) PO SCH (09:59)
[2019-07-03] MEDS: DIVALPROEX SODIUM 500 MG TABLET E.C. PO SCH ×2 (09:59→21:20)
[2019-07-03] MEDS: NICOTINE 14 MG/24 HOURS TOPICAL PATCH TD SCH (09:59)
[2019-07-03] MEDS: traZODone HCL 100 MG TABLET (FP) PO SCH (21:21)
[2019-07-03] MEDS: THIAMINE HCL 100 MG TABLET (FP) PO SCH (21:21)
[2019-07-03] MEDS: MELATONIN 5 MG TABLETS PO PRN (21:21)
[2019-07-03] MEDS: ATORVASTATIN CA 20 MG TABLET (FP) PO SCH (21:21)
[2019-07-04] MEDS: METHADONE HCL 40 MG DISPERSABLE TABLET PO SCH (06:09)
[2019-07-04] MEDS: ARIPiprazole 5 MG TABLET (FP) PO SCH (10:22)
[2019-07-04] MEDS: DIVALPROEX SODIUM 500 MG TABLET E.C. PO SCH ×2 (10:23→21:20)
[2019-07-04] MEDS: ASPIRIN COATED 81 MG TABLET.EC PO SCH (10:23)
[2019-07-04] MEDS: amLODIPine BESYLATE 5 MG TABLET (FP) PO SCH (10:23)
[2019-07-04] MEDS: NICOTINE 14 MG/24 HOURS TOPICAL PATCH TD SCH (10:23)
[2019-07-04] MEDS: PRENATAL VITAMINS W/ FOLIC ACID TABLET (FP) PO SCH (10:23)
[2019-07-04] MEDS: ATORVASTATIN CA 20 MG TABLET (FP) PO SCH (21:20)
[2019-07-04] MEDS: traZODone HCL 100 MG TABLET (FP) PO SCH (21:20)
[2019-07-04] MEDS: THIAMINE HCL 100 MG TABLET (FP) PO SCH (21:20)
[2019-07-05] MEDS: METHADONE HCL 40 MG DISPERSABLE TABLET PO SCH (06:06)
[2019-07-05] MEDS: NICOTINE 14 MG/24 HOURS TOPICAL PATCH TD SCH (09:53)
[2019-07-05] MEDS: DIVALPROEX SODIUM 500 MG TABLET E.C. PO SCH ×2 (09:53→21:21)
[2019-07-05] MEDS: ARIPiprazole 5 MG TABLET (FP) PO SCH (09:53)
[2019-07-05] MEDS: PRENATAL VITAMINS W/ FOLIC ACID TABLET (FP) PO SCH (09:53)
[2019-07-05] MEDS: ASPIRIN COATED 81 MG TABLET.EC PO SCH (09:53)
[2019-07-05] MEDS: amLODIPine BESYLATE 5 MG TABLET (FP) PO SCH (09:53)
[2019-07-05] MEDS: THIAMINE HCL 100 MG TABLET (FP) PO SCH (21:21)
[2019-07-05] MEDS: traZODone HCL 100 MG TABLET (FP) PO SCH (21:21)
[2019-07-05] MEDS: ATORVASTATIN CA 20 MG TABLET (FP) PO SCH (21:21)
[2019-07-06] MEDS: METHADONE HCL 40 MG DISPERSABLE TABLET PO SCH (06:15)
[2019-07-06] MEDS: ARIPiprazole 5 MG TABLET (FP) PO SCH (10:08)
[2019-07-06] MEDS: DIVALPROEX SODIUM 500 MG TABLET E.C. PO SCH ×2 (10:08→21:08)
[2019-07-06] MEDS: ASPIRIN COATED 81 MG TABLET.EC PO SCH (10:08)
[2019-07-06] MEDS: amLODIPine BESYLATE 5 MG TABLET (FP) PO SCH (10:08)
[2019-07-06] MEDS: PRENATAL VITAMINS W/ FOLIC ACID TABLET (FP) PO SCH (10:08)
[2019-07-06] MEDS: NICOTINE 14 MG/24 HOURS TOPICAL PATCH TD SCH (10:09)
--- NOTE | 2019-07-06 12:47 | PN ---
[facility] Progress Note Note: Patient is scheduled for discharge tomorrow. Scripts for 30 days supply of medications(Abilfy 5 mg/day, Depakote 500 mg/bid, Trazadone 100 mg/hs) will be electronicaly transmitted to [facility] at [address] [place] [address]
[2019-07-06] MEDS: MELATONIN 5 MG TABLETS PO PRN (21:08)
[2019-07-06] MEDS: traZODone HCL 100 MG TABLET (FP) PO SCH (21:08)
[2019-07-06] MEDS: ATORVASTATIN CA 20 MG TABLET (FP) PO SCH (21:08)
[2019-07-06] MEDS: THIAMINE HCL 100 MG TABLET (FP) PO SCH (21:08)
[2019-07-07] MEDS: METHADONE HCL 40 MG DISPERSABLE TABLET PO SCH (06:14)
[2019-07-07 06:48] VITALS: BP 117/70; PULSE 65; TEMP 97.8
--- NOTE | 2019-07-07 09:37 | DS ---
[facility] Rehab Discharge Summary - [facility] Rehab Discharge Summary Admission Date: 06/26/19 Discharge Date: 07/07/19 - History Present History: Alcohol dependence, Cannabis dependence, Cocaine dependence Additional Comments: pt is a 58 y/o male with a hx of NIELS admitted to Rehab and discharged today after completion. Pt reports he has primary [facility] [address] [facility] [place] [place]. Pertinent Past History: Type 2 DM-Controlled HLD HTN Deaf, left ear - Discharge Physical Exam Vital Signs: Vital Signs Temperature 97.8 F 07/07/19 06:47 Pulse Rate 65 07/07/19 06:47 Respiratory Rate 16 07/07/19 06:47 Blood Pressure 117/70 07/07/19 06:47 O2 Sat by Pulse Oximetry (%) Alert o x 3 Nad oob ambulating with steady gait Cardiac:s1 s2, rrr Lungs:cta,nilsa. Abdomen:soft,+bs,nt,nd Extremities/Skin:No edema, full ROM, skin intact. Pertinent Admission Physical Exam Findings: Laboratory Tests 06/27/19 06/30/19 07/01/19 14:11 11:38 17:05 POC Glucometer 102 101 99 07/02/19 07/02/19 07/03/19 06:27 16:27 06:03 POC Glucometer 83 86 80 07/03/19 07/04/19 07/04/19 16:41 06:40 16:41 POC Glucometer 88 108 83 07/05/19 07/05/19 07/06/19 06:04 16:33 06:14 POC Glucometer 72 111 85 07/06/19 07/07/19 16:55 06:14 POC Glucometer 78 79 Unremarkable. - Treatment Discharge Condition: Discharge condition good Hospital Course: Rehabilitated safely and responded well CD aftercare accepted - Medication Discharge Medications: Ambulatory Orders Methadone [Dolophine -] 80 mg PO DAILY 12/23/18 Amlodipine Besylate [Norvasc -] 5 mg PO DAILY #30 tablet 07/03/19 Aspirin Coated [Ecotrin -] 81 mg PO DAILY #14 tablet.ec 07/03/19 Atorvastatin Ca [Lipitor] 20 mg PO HS #14 tablet 07/03/19 Aripiprazole [Abilify -] 5 mg PO DAILY #30 tablet 07/06/19 Divalproex [Depakote -] 500 mg PO BID #60 tablet.ec 07/06/19 traZODone HCL [Desyrel -] 100 mg PO HS #30 tablet 07/06/19 - Medication-Assisted Treatment (MAT) Medication-Assisted Treatment (MAT): No - Discharge Instructions Diet, activity, other medical instructions: Diet:No concentrated sweets diet and low salt diet Activity: oob ad osvaldo Other medical instructions:Follow up with CD aftercare/Medical management with [facility] as recommended. - Diagnosis (1) HLD (hyperlipidemia) Status: Chronic Qualifiers: Hyperlipidemia type: unspecified Qualified Code(s): E78.5 - Hyperlipidemia , unspecified (2) Alcohol dependence Status: Chronic Qualifiers: Substance use status: uncomplicated Qualified Code(s): F10.20 - Alcohol dependence, uncomplicated (3) Cocaine dependence Status: Chronic Qualifiers: Substance use status: uncomplicated Qualified Code(s): F14.20 - Cocaine dependence, uncomplicated (4) 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 (5) Diabetes mellitus type II, controlled Status: Chronic Qualifiers: Diabetes mellitus terminal make up operator insulin use: without alf use Diabetes mellitus complication status: without complication Qualified Code(s): E11.9 - Type 2 diabetes mellitus without complications (6) Methadone maintenance therapy patient Status: Chronic (7) Nicotine dependence Status: Chronic Qualifiers: Nicotine product type: cigarettes Substance use status: in withdrawal Qualified Code(s): F17.213 - Nicotine dependence, cigarettes, with withdrawal (8) Hypertension Status: Chronic Qualifiers: Hypertension type: essential hypertension Qualified Code(s): I10 - Essential (primary) hypertension - Follow-up Referral Minutes to complete discharge: 20 - AMA Did Patient Leave Against Medical Advice: No Additional Comments: Courtesy Rx for amlodipine, lipitor and aspirin electronically sent to pt's pharmacy- 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
[2019-07-07] MEDS: amLODIPine BESYLATE 5 MG TABLET (FP) PO SCH (09:55)
[2019-07-07] MEDS: PRENATAL VITAMINS W/ FOLIC ACID TABLET (FP) PO SCH (09:55)
[2019-07-07] MEDS: DIVALPROEX SODIUM 500 MG TABLET E.C. PO SCH (09:55)
[2019-07-07] MEDS: ARIPiprazole 5 MG TABLET (FP) PO SCH (09:55)
[2019-07-07] MEDS: ASPIRIN COATED 81 MG TABLET.EC PO SCH (09:56)
[2019-07-07] MEDS: NICOTINE 14 MG/24 HOURS TOPICAL PATCH TD SCH (09:56)
== END 2019-07-07 10:25 | disposition home or self-care (01) | DRG 772 ==
LOC: YASAS 20:22 → Y5N 21:18
PROVIDERS: ADMIT Neuromusculoskeletal Medicine & OMM; ATTEND Neuromusculoskeletal Medicine & OMM
PROC: HZ42ZZZ Group Counseling for Substance Abuse Treatment, Cognitive-Behavioral (ICD-10-PCS; principal; 2019-06-26)
DX: F10.20 Alcohol dependence, uncomplicated (principal); F11.20 Opioid dependence, uncomplicated; F13.20 Sedative, hypnotic or anxiolytic dependence, uncomplicated; F14.20 Cocaine dependence, uncomplicated; F17.213 Nicotine dependence, cigarettes, with withdrawal; F19.282 Other psychoactive substance dependence with psychoactive substance-induced sleep disorder; F31.9 Bipolar disorder, unspecified; I10 Essential (primary) hypertension; E78.5 Hyperlipidemia, unspecified; H91.92 Unspecified hearing loss, left ear; E11.9 Type 2 diabetes mellitus without complications; K76.0 Fatty (change of) liver, not elsewhere classified; D57.3 Sickle-cell trait; Z86.73 Personal history of transient ischemic attack (TIA), and cerebral infarction without residual deficits; Z86.19 Personal history of other infectious and parasitic diseases; Z87.438 Personal history of other diseases of male genital organs
CPT/HCPCS: 82962; 90732; G0009

== ENCOUNTER 2020-04-26 20:16 | Inpatient (IN) | payer OTHER ==
[2020-04-26 21:03] VITALS: BMI 22.8
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
[2020-04-26] MEDS ORDERED: NICOTINE POLACRILEX 2 MG GUM BUC PRN (21:45)
[2020-04-26] MEDS ORDERED: chlordiazePOXIDE HCL 25 MG CAPSULE PO PRN (21:45)
[2020-04-26] MEDS ORDERED: METHOCARBAMOL 500 MG TABLET PO PRN (21:45)
[2020-04-26] MEDS ORDERED: BISMUTH SUBSALICYLATE 524 MG/30 ML UD PO PRN (21:45)
[2020-04-26] MEDS ORDERED: MAG HYDROX/AL HYDROX/SIMETH 30 ML UNIT-DOSE CUP PO PRN (21:45)
[2020-04-26] MEDS ORDERED: IBUPROFEN 400 MG TABLET (FP) PO PRN (21:45)
[2020-04-26] MEDS ORDERED: MAGNESIUM CITRATE 300 ML BOTTLE PO PRN (21:45)
[2020-04-26] MEDS ORDERED: ACETAMINOPHEN 325 MG TABLET (FP) PO PRN ×2 (21:45)
[2020-04-26] MEDS ORDERED: MENTHOL/PHENOL 1 EACH UD MM PRN (21:45)
[2020-04-26] MEDS ORDERED: MAGNESIUM HYDROX 2400MG/30ML ORAL SUSPENSION 30 ML CUP PO PRN (21:45)
[2020-04-26] MEDS ORDERED: ONDANSETRON *ODT* 4 MG TABLET SL ONE (22:15)
[2020-04-26] MEDS: THIAMINE HCL 100 MG TABLET (FP) PO SCH (22:30)
[2020-04-26] MEDS: ATORVASTATIN CA 20 MG TABLET (FP) PO SCH (22:31)
[2020-04-26] MEDS: chlordiazePOXIDE HCL 25 MG CAPSULE PO SCH (22:31)
[2020-04-26] MEDS: MELATONIN 5 MG TABLETS PO SCH (23:00)
[2020-04-27] MEDS: chlordiazePOXIDE HCL 25 MG CAPSULE PO SCH (05:19)
[2020-04-27] MEDS ORDERED: METHADONE HCL 10 MG TABLET PO ONE (08:29)
[2020-04-27] MEDS ORDERED: METHADONE 80 MG, METHADONE 20 MG, METHADONE 5 MG PO ONE (08:29)
[2020-04-27] MEDS ORDERED: diazePAM 5 MG TABLET PO PRN (08:31)
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
--- NOTE | 2020-04-27 08:47 | PN ---
[facility] CIWA - CIWA Score Nausea/Vomitin Muscle Tremors: 3 Anxiety: 3 Agitation: 2 Paroxysmal Sweats: No Perspiration Orientation: 0-Oriented Tacttile Disturbances: 1-Very Mild Itch/Numbness Auditory Disturbances: 0-None Visual Disturbances: 0-None Headache: 2-Mild CIWA-Ar Total Score: 13 BHS Progress Note (SOAP) Subjective: alert,irritable,anxious,interrupted sleep,tremor,pain in the body back Objective: 04/27/20 08:45 Vital Signs Temperature 97.8 F 04/27/20 05:16 Pulse Rate 60 04/27/20 05:16 Respiratory Rate 16 04/27/20 05:16 Blood Pressure 137/75 04/27/20 05:16 O2 Sat by Pulse Oximetry (%) 100 04/27/20 05:16 Assessment: 04/27/20 08:46 withdrawal symptom Plan: patient would like the regimen to change from librium to valium,mmtp 105 mg maintenance
[2020-04-27] MEDS ORDERED: METHADONE HCL 10 MG TABLET ONE (09:11)
[2020-04-27] MEDS ORDERED: METHADONE HCL 5 MG TABLET ONE (09:12)
[2020-04-27] MEDS ORDERED: METHADONE HCL 40 MG DISPERSABLE TABLET ONE (09:12)
--- NOTE | 2020-04-27 09:24 | EKG ---
Test Reason : Blood Pressure : / mmHG Vent. Rate : 081 BPM Atrial Rate : 081 BPM P-R Int : 172 ms QRS Dur : 086 ms QT Int : 378 ms P-R-T Axes : 070 056 042 degrees QTc Int : 439 ms NORMAL SINUS RHYTHM POSSIBLE LEFT ATRIAL ENLARGEMENT BORDERLINE ECG WHEN COMPARED WITH ECG OF 22-JUN-2019 08:17, NONSPECIFIC T WAVE ABNORMALITY NO LONGER EVIDENT IN LATERAL LEADS Confirmed by MD HAYDEE, KIRSTEN ([id number]) on 04/27/2020 9:24:07 AM Referred By: Raghavendra Evans Confirmed By:KIRSTEN HUBBARD MD
[2020-04-27] MEDS: amLODIPine BESYLATE 5 MG TABLET (FP) PO SCH (09:40)
[2020-04-27] MEDS: NICOTINE 21 MG/24 HOURS TOPICAL PATCH TD SCH (09:40)
[2020-04-27] MEDS: ARIPiprazole 10 MG TABLET PO SCH (09:40)
[2020-04-27] MEDS: ASPIRIN COATED 81 MG TABLET.EC PO SCH (09:40)
[2020-04-27] MEDS: DIVALPROEX SODIUM 500 MG TABLET E.C. PO SCH ×2 (09:40→22:22)
[2020-04-27] MEDS: PRENATAL VITAMINS W/ FOLIC ACID TABLET (FP) PO SCH (09:40)
[2020-04-27 09:56] LABS: HEMATOCRIT 42.1 % (35.4-49); MCH 29.8 pg (25.7-33.7); MCHC 33.3 g/dl (32.0-35.9); MEAN CELL VOLUME 89.7 fl (80-96); MEAN PLT VOLUME 8.5 fl (7.5-11.1); PLATELET COUNT 228 K/MM3 (134-434); RBC 4.69 M/mm3 (4.00-5.60); RDW 14.8 % (11.9-15.9); WHITE BLOOD COUNT 5.4 K/mm3 (4.0-10.0)
[2020-04-27 10:09] LABS: ALBUMIN 3.6 g/dl (3.4-5.0); BILIRUBIN,TOTAL 0.7 mg/dL (0.2-1); BLOOD UREA NITROGEN 16.2 mg/dL (7-18); CALCIUM 9.2 mg/dL (8.5-10.1); CREATININE 1.2 mg/dL (0.55-1.3); POTASSIUM 4.5 mmol/L (3.5-5.1); TOT PROT 7.4 g/dl (6.4-8.2)
[2020-04-27] MEDS: hydrOXYzine PAMOATE 25 MG CAPSULE (FP) PO PRN ×2 (11:11→15:46)
[2020-04-27] MEDS ORDERED: PENICILLIN G BENZATHINE 2,400,000 UNIT/4 ML PFS IM ONE (12:31)
--- NOTE | 2020-04-27 12:37 | PN ---
[facility] Progress Note Note: Laboratory Last Values WBC 5.4 K/mm3 (4.0-10.0) 04/27/20 08:00 RBC 4.69 M/mm3 (4.00-5.60) 04/27/20 08:00 Hgb 14.0 GM/dL (11.7-16.9) 04/27/20 08:00 Hct 42.1 % (35.4-49) D 04/27/20 08:00 MCV 89.7 fl (80-96) 04/27/20 08:00 MCH 29.8 pg (25.7-33.7) 04/27/20 08:00 MCHC 33.3 g/dl (32.0-35.9) 04/27/20 08:00 RDW 14.8 % (11.9-15.9) 04/27/20 08:00 Plt Count 228 K/MM3 (134-434) D 04/27/20 08:00 MPV 8.5 fl (7.5-11.1) D 04/27/20 08:00 Sodium 137 mmol/L (136-145) 04/27/20 08:00 Potassium 4.5 mmol/L (3.5-5.1) 04/27/20 08:00 Chloride 104 mmol/L (98-107) 04/27/20 08:00 Carbon Dioxide 27 mmol/L (21-32) 04/27/20 08:00 Anion Gap 7 MMOL/L (8-16) L 04/27/20 08:00 BUN 16.2 mg/dL (7-18) 04/27/20 08:00 Creatinine 1.2 mg/dL (0.55-1.3) 04/27/20 08:00 Est GFR (CKD-EPI)AfAm 75.19 04/27/20 08:00 Est GFR (CKD-EPI)NonAf 64.87 04/27/20 08:00 Random Glucose 88 mg/dL (74-106) 04/27/20 08:00 Calcium 9.2 mg/dL (8.5-10.1) 04/27/20 08:00 Total Bilirubin 0.7 mg/dL (0.2-1) 04/27/20 08:00 AST 24 U/L (15-37) 04/27/20 08:00 ALT 20 U/L (13-61) 04/27/20 08:00 Alkaline Phosphatase 110 U/L (45-117) 04/27/20 08:00 Total Protein 7.4 g/dl (6.4-8.2) 04/27/20 08:00 Albumin 3.6 g/dl (3.4-5.0) 04/27/20 08:00 Syphilis Serology Reactive (NONREACTIVE) A* 04/27/20 08:00 RPR Titer Reactive 1:1 (NONREACTIVE) H D 04/27/20 08:00 patient was treated for syphilis in the past at age of 29 with 3 injections of penicilin will give bicillin 2.4 million units im booster shot patient will follow up with his medical provider also requested hb A1C
[2020-04-27] MEDS: diazePAM 5 MG TABLET PO SCH ×2 (13:01→22:22)
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
[2020-04-27] MEDS: ATORVASTATIN CA 20 MG TABLET (FP) PO SCH (22:22)
[2020-04-27] MEDS: THIAMINE HCL 100 MG TABLET (FP) PO SCH (22:22)
[2020-04-27] MEDS: traZODone HCL 100 MG TABLET (FP) PO SCH (22:22)
[2020-04-27] MEDS: MELATONIN 5 MG TABLETS PO SCH (22:22)
[2020-04-28] MEDS ORDERED: chlordiazePOXIDE HCL 25 MG CAPSULE PO SCH (05:00)
[2020-04-28] MEDS ORDERED: METHADONE HCL 40 MG DISPERSABLE TABLET ONE (05:03)
[2020-04-28] MEDS ORDERED: METHADONE HCL 10 MG TABLET ONE (05:03)
[2020-04-28] MEDS ORDERED: METHADONE HCL 5 MG TABLET ONE (05:04)
[2020-04-28] MEDS ORDERED: METHADONE HCL 10 MG TABLET PO SCH (06:00)
[2020-04-28] MEDS: METHADONE 80 MG, METHADONE 20 MG, METHADONE 5 MG PO SCH (06:22)
[2020-04-28] MEDS: diazePAM 5 MG TABLET PO SCH ×3 (06:23→22:47)
[2020-04-28] MEDS: PRENATAL VITAMINS W/ FOLIC ACID TABLET (FP) PO SCH (09:14)
[2020-04-28] MEDS: DIVALPROEX SODIUM 500 MG TABLET E.C. PO SCH ×2 (09:15→22:47)
[2020-04-28] MEDS: ASPIRIN COATED 81 MG TABLET.EC PO SCH (09:15)
[2020-04-28] MEDS: NICOTINE 21 MG/24 HOURS TOPICAL PATCH TD SCH (09:15)
[2020-04-28] MEDS: amLODIPine BESYLATE 5 MG TABLET (FP) PO SCH (09:15)
[2020-04-28] MEDS: ARIPiprazole 10 MG TABLET PO SCH (10:47)
[2020-04-28] MEDS ORDERED: hydrOXYzine PAMOATE 50 MG CAPSULE (FP) PO PRN (10:53)
--- NOTE | 2020-04-28 11:00 | PN ---
S CIWA - CIWA Score Nausea/Vomitin-Mild Nausea/No Vomiting Muscle Tremors: 2 Anxiety: 2 Agitation: 1-Slight > Activity Paroxysmal Sweats: No Perspiration Orientation: 0-Oriented Tacttile Disturbances: 0-None Auditory Disturbances: 0-None Visual Disturbances: 2-Mild Sensitivity Headache: 0-None Present CIWA-Ar Total Score: 8 BHS Progress Note (SOAP) Subjective: 59 years old male admitted on 04/26/20 for alcohol and benzo withdrawal sx management treating with valium detox regiment received methadone 105 mg po today resting in bed denies facial pain denies headache denies trouble chewing swallowing food rejects cn V and VII examination Objective: 04/28/20 10:57 Vital Signs - 24 hr 04/27/20 04/27/20 04/27/20 12:35 16:44 20:31 Temperature 97.9 F 96.8 F L 97.1 F L Pulse Rate 74 76 64 Respiratory 16 18 18 Rate Blood Pressure 136/80 156/76 143/75 O2 Sat by Pulse 100 95 Oximetry (%) 04/27/20 04/28/20 04/28/20 21:52 05:55 08:41 Temperature 97.5 F L 97.2 F L 97.1 F L Pulse Rate 82 62 71 Respiratory 18 18 18 Rate Blood Pressure 131/80 110/63 100/67 O2 Sat by Pulse 95 99 Oximetry (%) Laboratory Tests 04/26/20 04/27/20 04/27/20 22:00 08:00 08:00 WBC 5.4 RBC 4.69 Hgb 14.0 Hct 42.1 D MCV 89.7 MCH 29.8 MCHC 33.3 RDW 14.8 Plt Count 228 D MPV 8.5 D Sodium Potassium Chloride Carbon Dioxide Anion Gap BUN Creatinine Est GFR (CKD-EPI)AfAm Est GFR (CKD-EPI)NonAf POC Glucometer Random Glucose Hemoglobin A1c % Calcium Total Bilirubin AST ALT Alkaline Phosphatase Total Protein Albumin Syphilis Serology Reactive A* RPR Titer COVID-19 (TELMA) Not detected 04/27/20 04/27/20 04/27/20 08:00 08:00 12:20 WBC RBC Hgb Hct MCV MCH MCHC RDW Plt Count MPV Sodium 137 Potassium 4.5 Chloride 104 Carbon Dioxide 27 Anion Gap 7 L BUN 16.2 Creatinine 1.2 Est GFR (CKD-EPI)AfAm 75.19 Est GFR (CKD-EPI)NonAf 64.87 POC Glucometer Random Glucose 88 Hemoglobin A1c % 5.5 Calcium 9.2 Total Bilirubin 0.7 AST 24 ALT 20 Alkaline Phosphatase 110 Total Protein 7.4 Albumin 3.6 Syphilis Serology RPR Titer Reactive 1:1 H D COVID-19 (TELMA) 04/28/20 06:28 WBC RBC Hgb Hct MCV MCH MCHC RDW Plt Count MPV Sodium Potassium Chloride Carbon Dioxide Anion Gap BUN Creatinine Est GFR (CKD-EPI)AfAm Est GFR (CKD-EPI)NonAf POC Glucometer 100 Random Glucose Hemoglobin A1c % Calcium Total Bilirubin AST ALT Alkaline Phosphatase Total Protein Albumin Syphilis Serology RPR Titer COVID-19 (TELMA) lab noted glucose withing acceptable range Assessment: 04/28/20 11:01 alcohol and benzo withdrawal Plan: valium regiment
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
[2020-04-28] MEDS: MELATONIN 5 MG TABLETS PO SCH (22:47)
[2020-04-28] MEDS: traZODone HCL 100 MG TABLET (FP) PO SCH (22:47)
[2020-04-28] MEDS: THIAMINE HCL 100 MG TABLET (FP) PO SCH (22:47)
[2020-04-28] MEDS: ATORVASTATIN CA 20 MG TABLET (FP) PO SCH (22:47)
[2020-04-29] MEDS ORDERED: chlordiazePOXIDE HCL 10 MG CAPSULE PO PRN
[2020-04-29] MEDS ORDERED: METHADONE HCL 10 MG TABLET ONE (04:57)
[2020-04-29] MEDS ORDERED: METHADONE HCL 40 MG DISPERSABLE TABLET ONE (04:57)
[2020-04-29] MEDS ORDERED: METHADONE HCL 5 MG TABLET ONE (04:57)
[2020-04-29] MEDS ORDERED: chlordiazePOXIDE HCL 10 MG CAPSULE PO SCH (05:00)
[2020-04-29] MEDS: METHADONE 80 MG, METHADONE 20 MG, METHADONE 5 MG PO SCH (05:41)
[2020-04-29] MEDS: diazePAM 5 MG TABLET PO SCH ×2 (05:41→18:02)
[2020-04-29] MEDS: amLODIPine BESYLATE 5 MG TABLET (FP) PO SCH (10:07)
[2020-04-29] MEDS: ARIPiprazole 10 MG TABLET PO SCH (10:07)
[2020-04-29] MEDS: DIVALPROEX SODIUM 500 MG TABLET E.C. PO SCH ×2 (10:07→22:18)
[2020-04-29] MEDS: PRENATAL VITAMINS W/ FOLIC ACID TABLET (FP) PO SCH (10:07)
[2020-04-29] MEDS: NICOTINE 21 MG/24 HOURS TOPICAL PATCH TD SCH (10:07)
[2020-04-29] MEDS: ASPIRIN COATED 81 MG TABLET.EC PO SCH (10:08)
--- NOTE | 2020-04-29 11:33 | PN ---
S CIWA - CIWA Score Nausea/Vomitin-Mild Nausea/No Vomiting Muscle Tremors: 1-None Visible, but [place] Anxiety: 1-Mildly Anxious Agitation: 0-Normal Activity Paroxysmal Sweats: No Perspiration Orientation: 0-Oriented Tacttile Disturbances: 0-None Auditory Disturbances: 0-None Visual Disturbances: 1-Very Mild Sensitivity Headache: 0-None Present CIWA-Ar Total Score: 4 BHS Progress Note (SOAP) Subjective: 59 years old male admitted on 04/26/20 for alcohol and benzo withdrawal sx management treating with valium detox regiment seen by psychiatrist boogie depakote abilify and trazodone feeling better today denies facial pain "I do not know the woman" states that had syphilis 20 years ago treated with three shots Objective: 04/29/20 11:39 Vital Signs - 24 hr 04/28/20 04/28/20 04/28/20 12:45 17:01 20:55 Temperature 97.8 F 98.0 F 98.9 F Pulse Rate 89 91 H 87 Respiratory 18 18 18 Rate Blood Pressure 104/68 122/68 124/70 O2 Sat by Pulse 95 96 Oximetry (%) 04/29/20 04/29/20 06:34 09:34 Temperature 97.5 F L 97.2 F L Pulse Rate 76 93 H Respiratory 18 18 Rate Blood Pressure 99/51 L 102/60 O2 Sat by Pulse 97 97 Oximetry (%) Laboratory Tests 04/26/20 04/27/20 04/27/20 22:00 08:00 08:00 WBC 5.4 RBC 4.69 Hgb 14.0 Hct 42.1 D MCV 89.7 MCH 29.8 MCHC 33.3 RDW 14.8 Plt Count 228 D MPV 8.5 D Sodium Potassium Chloride Carbon Dioxide Anion Gap BUN Creatinine Est GFR (CKD-EPI)AfAm Est GFR (CKD-EPI)NonAf POC Glucometer Random Glucose Hemoglobin A1c % Calcium Total Bilirubin AST ALT Alkaline Phosphatase Total Protein Albumin Syphilis Serology Reactive A* RPR Titer COVID-19 (TELMA) Not detected 04/27/20 04/27/20 04/27/20 08:00 08:00 12:20 WBC RBC Hgb Hct MCV MCH MCHC RDW Plt Count MPV Sodium 137 Potassium 4.5 Chloride 104 Carbon Dioxide 27 Anion Gap 7 L BUN 16.2 Creatinine 1.2 Est GFR (CKD-EPI)AfAm 75.19 Est GFR (CKD-EPI)NonAf 64.87 POC Glucometer Random Glucose 88 Hemoglobin A1c % 5.5 Calcium 9.2 Total Bilirubin 0.7 AST 24 ALT 20 Alkaline Phosphatase 110 Total Protein 7.4 Albumin 3.6 Syphilis Serology RPR Titer Reactive 1:1 H D COVID-19 (TELMA) 04/28/20 06:28 WBC RBC Hgb Hct MCV MCH MCHC RDW Plt Count MPV Sodium Potassium Chloride Carbon Dioxide Anion Gap BUN Creatinine Est GFR (CKD-EPI)AfAm Est GFR (CKD-EPI)NonAf POC Glucometer 100 Random Glucose Hemoglobin A1c % Calcium Total Bilirubin AST ALT Alkaline Phosphatase Total Protein Albumin Syphilis Serology RPR Titer COVID-19 (TELMA) lab noted Assessment: 04/29/20 11:39 alcohol and benzo withdrawal Plan: valium regiment
[2020-04-29] MEDS: THIAMINE HCL 100 MG TABLET (FP) PO SCH (22:17)
[2020-04-29] MEDS: traZODone HCL 100 MG TABLET (FP) PO SCH (22:18)
[2020-04-29] MEDS: ATORVASTATIN CA 20 MG TABLET (FP) PO SCH (22:18)
[2020-04-29] MEDS: MELATONIN 5 MG TABLETS PO SCH (22:18)
[2020-04-30] MEDS ORDERED: METHADONE HCL 10 MG TABLET ONE (03:20)
[2020-04-30] MEDS ORDERED: METHADONE HCL 40 MG DISPERSABLE TABLET ONE (03:20)
[2020-04-30] MEDS ORDERED: METHADONE HCL 5 MG TABLET ONE (03:21)
[2020-04-30] MEDS ORDERED: chlordiazePOXIDE HCL 10 MG CAPSULE PO SCH (05:00)
[2020-04-30] MEDS: METHADONE 80 MG, METHADONE 20 MG, METHADONE 5 MG PO SCH (05:47)
[2020-04-30] MEDS ORDERED: diazePAM 5 MG TABLET PO ONE (06:00)
[2020-04-30 09:02] VITALS: BP 133/70; PULSE 105; TEMP 97.5
--- NOTE | 2020-04-30 09:41 | PN ---
[facility] CIWA - CIWA Score Nausea/Vomitin-No Nausea/No Vomiting Muscle Tremors: None Anxiety: 1-Mildly Anxious Agitation: 0-Normal Activity Paroxysmal Sweats: No Perspiration Orientation: 0-Oriented Tacttile Disturbances: 0-None Auditory Disturbances: 0-None Visual Disturbances: 0-None Headache: 0-None Present CIWA-Ar Total Score: 1 S Progress Note (SOAP) Subjective: alert,no complaint Objective: 04/30/20 09:39 Vital Signs Temperature 97.5 F L 04/30/20 08:36 Pulse Rate 105 H 04/30/20 08:36 Respiratory Rate 04/30/20 08:36 Blood Pressure 133/70 04/30/20 08:36 O2 Sat by Pulse Oximetry (%) 100 04/30/20 06:24 Assessment: 04/30/20 09:39 detox completed,no withdrawal sympto Plan: discharge today,follow up with after care program as arrangement [facility]
--- NOTE | 2020-04-30 09:51 | DS ---
[facility] Detox Discharge Summary Admission Date: 04/26/20 Discharge Date: 04/30/20 - History Present History: Alcohol Dependence, Cannabis Dependence, Cocaine Dependence, Sedative Dependence, MMTP Additional Comments: alert,oriented x 3 ambulation on the unit lung clear bilaterally on auscultation abdomen soft,no pain,no tenderness detox completed,no withdrawal symptom staple for discharge to rehab [facility] today total time spending on discharge 35 minuted Pertinent Past History: hypertension hypercholesterolemia bipolar disorder ptsd - Physical Exam Results Vital Signs: Vital Signs Temperature 97.5 F L 04/30/20 08:36 Pulse Rate 105 H 04/30/20 08:36 Respiratory Rate 04/30/20 08:36 Blood Pressure 133/70 04/30/20 08:36 O2 Sat by Pulse Oximetry (%) 100 04/30/20 06:24 Pertinent Admission Physical Exam Findings: withdrawal signs and symptom Vital Signs Temperature 97.5 F L 04/30/20 08:36 Pulse Rate 105 H 04/30/20 08:36 Respiratory Rate 04/30/20 08:36 Blood Pressure 133/70 04/30/20 08:36 O2 Sat by Pulse Oximetry (%) 100 04/30/20 06:24 Laboratory Last Values WBC 5.4 K/mm3 (4.0-10.0) 04/27/20 08:00 RBC 4.69 M/mm3 (4.00-5.60) 04/27/20 08:00 Hgb 14.0 GM/dL (11.7-16.9) 04/27/20 08:00 Hct 42.1 % (35.4-49) D 04/27/20 08:00 MCV 89.7 fl (80-96) 04/27/20 08:00 MCH 29.8 pg (25.7-33.7) 04/27/20 08:00 MCHC 33.3 g/dl (32.0-35.9) 04/27/20 08:00 RDW 14.8 % (11.9-15.9) 04/27/20 08:00 Plt Count 228 K/MM3 (134-434) D 04/27/20 08:00 MPV 8.5 fl (7.5-11.1) D 04/27/20 08:00 Sodium 137 mmol/L (136-145) 04/27/20 08:00 Potassium 4.5 mmol/L (3.5-5.1) 04/27/20 08:00 Chloride 104 mmol/L (98-107) 04/27/20 08:00 Carbon Dioxide 27 mmol/L (21-32) 04/27/20 08:00 Anion Gap 7 MMOL/L (8-16) L 04/27/20 08:00 BUN 16.2 mg/dL (7-18) 04/27/20 08:00 Creatinine 1.2 mg/dL (0.55-1.3) 04/27/20 08:00 Est GFR (CKD-EPI)AfAm 75.19 04/27/20 08:00 Est GFR (CKD-EPI)NonAf 64.87 04/27/20 08:00 POC Glucometer 100 UNITS (80-120) 04/28/20 06:28 Random Glucose 88 mg/dL (74-106) 04/27/20 08:00 Hemoglobin A1c % 5.5 % (4.2-6.3) 04/27/20 12:20 Calcium 9.2 mg/dL (8.5-10.1) 04/27/20 08:00 Total Bilirubin 0.7 mg/dL (0.2-1) 04/27/20 08:00 AST 24 U/L (15-37) 04/27/20 08:00 ALT 20 U/L (13-61) 04/27/20 08:00 Alkaline Phosphatase 110 U/L (45-117) 04/27/20 08:00 Total Protein 7.4 g/dl (6.4-8.2) 04/27/20 08:00 Albumin 3.6 g/dl (3.4-5.0) 04/27/20 08:00 Syphilis Serology Reactive (NONREACTIVE) A* 04/27/20 08:00 RPR Titer Reactive 1:1 (NONREACTIVE) H D 04/27/20 08:00 COVID-19 (TELMA) Not detected (Not Detected) 04/26/20 22:00 - Treatment Hospital Course: Detox Protocol Followed, Detoxed Safely, Responded well, Discharged Condition Good, Rehab Referral Accepted Patient has Accepted a Rehab Referral to: [facility] - Medication Discharge Medications: Ambulatory Orders Methadone [Dolophine -] 105 mg PO DAILY 12/23/18 Amlodipine Besylate [Norvasc -] 5 mg PO DAILY #30 tablet 07/03/19 Aspirin Coated [Ecotrin -] 81 mg PO DAILY #14 tablet.ec 07/03/19 Atorvastatin Ca [Lipitor] 20 mg PO HS #14 tablet 07/03/19 Divalproex [Depakote -] 500 mg PO BID #60 tablet.ec 07/06/19 traZODone HCL [Desyrel -] 100 mg PO HS #30 tablet 07/06/19 Aripiprazole [Abilify -] 10 mg PO DAILY 04/26/20 - Diagnosis (1) History of diabetes mellitus Current Visit: Yes Status: Acute (2) Alcohol dependence with uncomplicated withdrawal Current Visit: Yes Status: Acute (3) Cannabis dependence Current Visit: Yes Status: Acute (4) Cocaine dependence Current Visit: Yes Status: Acute Qualifiers: Substance use status: uncomplicated Qualified Code(s): F14.20 - Cocaine dependence, uncomplicated (5) HLD (hyperlipidemia) Current Visit: Yes Status: Chronic Qualifiers: Hyperlipidemia type: unspecified Qualified Code(s): E78.5 - Hyperlipidemia, unspecified (6) Hypertension Current Visit: Yes Status: Chronic Qualifiers: Hypertension type: essential hypertension Qualified Code(s): I10 - Essential (primary) hypertension (7) PTSD (post-traumatic stress disorder) Current Visit: Yes Status: Ruled-out (8) Sedative hypnotic or anxiolytic dependence Current Visit: No Status: Acute (9) Bipolar disorder Current Visit: No Status: Chronic Qualifiers: Current episode severity: unspecified - AMA Did Patient Leave Against Medical Advice: No
[2020-04-30] MEDS: ARIPiprazole 10 MG TABLET PO SCH (10:11)
[2020-04-30] MEDS: DIVALPROEX SODIUM 500 MG TABLET E.C. PO SCH (10:11)
[2020-04-30] MEDS: PRENATAL VITAMINS W/ FOLIC ACID TABLET (FP) PO SCH (10:12)
[2020-04-30] MEDS: NICOTINE 21 MG/24 HOURS TOPICAL PATCH TD SCH (10:12)
[2020-04-30] MEDS: amLODIPine BESYLATE 5 MG TABLET (FP) PO SCH (10:12)
[2020-04-30] MEDS: ASPIRIN COATED 81 MG TABLET.EC PO SCH (10:12)
[2020-05-01] MEDS ORDERED: chlordiazePOXIDE HCL 10 MG CAPSULE PO ONE (05:00)
== END 2020-04-30 11:15 | disposition other institution (70) | DRG 773 ==
LOC: YASAS 20:16 → Y6N 22:03 → Y3N 04-27 21:44
PROVIDERS: ADMIT Allergy & Immunology; ATTEND Allergy & Immunology
PROC: HZ2ZZZZ Detoxification Services for Substance Abuse Treatment (ICD-10-PCS; principal; 2020-04-26)
DX: F10.230 Alcohol dependence with withdrawal, uncomplicated (principal); F11.20 Opioid dependence, uncomplicated; F13.230 Sedative, hypnotic or anxiolytic dependence with withdrawal, uncomplicated; F14.20 Cocaine dependence, uncomplicated; F12.20 Cannabis dependence, uncomplicated; F43.10 Post-traumatic stress disorder, unspecified; F31.9 Bipolar disorder, unspecified; F19.280 Other psychoactive substance dependence with psychoactive substance-induced anxiety disorder; F19.282 Other psychoactive substance dependence with psychoactive substance-induced sleep disorder; I10 Essential (primary) hypertension; E78.5 Hyperlipidemia, unspecified; D57.3 Sickle-cell trait; H90.42 Sensorineural hearing loss, unilateral, left ear, with unrestricted hearing on the contralateral side; R76.11 Nonspecific reaction to tuberculin skin test without active tuberculosis; K76.0 Fatty (change of) liver, not elsewhere classified; Y04.0XXA Assault by unarmed brawl or fight, initial encounter; Y93.89 Activity, other specified; Y92.230 Patient room in hospital as the place of occurrence of the external cause; Z86.39 Personal history of other endocrine, nutritional and metabolic disease; Z87.438 Personal history of other diseases of male genital organs; Z86.73 Personal history of transient ischemic attack (TIA), and cerebral infarction without residual deficits; Z62.810 Personal history of physical and sexual abuse in childhood
CPT/HCPCS: 36415; 80053; 82962; 83036; 85027; 86593; 86780; 93005; 93010; U0003

== ENCOUNTER 2020-04-30 11:28 | Inpatient (IN) | payer OTHER ==
[2020-04-30] MEDS ORDERED: IBUPROFEN 400 MG TABLET (FP) PO PRN (12:46)
[2020-04-30] MEDS ORDERED: MENTHOL/PHENOL 1 EACH UD MM PRN (12:46)
[2020-04-30] MEDS ORDERED: NICOTINE POLACRILEX 2 MG GUM BUC PRN (12:46)
[2020-04-30] MEDS ORDERED: guaiFENesin 200 MG/10 ML 10 ML UNIT-DOSE CUPS PO PRN (12:46)
[2020-04-30] MEDS ORDERED: MAGNESIUM HYDROX 2400MG/30ML ORAL SUSPENSION 30 ML CUP PO PRN (12:46)
[2020-04-30] MEDS ORDERED: MAGNESIUM CITRATE 300 ML BOTTLE PO PRN (12:46)
[2020-04-30] MEDS ORDERED: P-EPHED 60MG/TRIPROLIDI 2.5MG TABLET PO PRN (12:46)
[2020-04-30] MEDS ORDERED: ACETAMINOPHEN 325 MG TABLET (FP) PO PRN (12:46)
[2020-04-30] MEDS ORDERED: LOPERAMIDE HCL 2 MG CAPSULE PO PRN (12:46)
[2020-04-30] MEDS ORDERED: MAG HYDROX/AL HYDROX/SIMETH 30 ML UNIT-DOSE CUP PO PRN (12:46)
--- NOTE | 2020-04-30 12:46 | HP ---
[facility] Rehab Assess/Revision - Admission History Admitted to Rehab from: [facility] Date of Admission to Rehab: 04/30/2020 - Vital signs Vital Signs: Vital Signs Period Temp Pulse Resp BP Sys/Lane Pulse Ox Last 24 Hr 98.2 F 92 17 105/65 - Findings Detox History & Physical reviewed: Yes Concur with findings: Yes Comments/Additional Findings: for rehab as protocol Inpatient Rehab Admission - Rehab Decision to Admit Inpatient rehab admission?: Yes - Initial Determination Are CD services needed?: Yes Free of communicable disease: Yes Not in need of hospitalization: Yes - Rehab Admission Criteria Previous failed treatment: Yes Poor recovery environment: Yes Comorbidities: Yes Lacks judgement: No Patient is meeting Inpatient Rehab admission criteria:: Yes
[2020-04-30] MEDS: hydrOXYzine PAMOATE 25 MG CAPSULE (FP) PO SCH ×3 (13:15→21:54)
[2020-04-30] MEDS: THIAMINE HCL 100 MG TABLET (FP) PO SCH (21:51)
[2020-04-30] MEDS: MELATONIN 5 MG TABLETS PO SCH (21:52)
[2020-04-30] MEDS: ATORVASTATIN CA 20 MG TABLET (FP) PO SCH (21:53)
[2020-04-30] MEDS: DIVALPROEX SODIUM 500 MG TABLET E.C. PO SCH (21:53)
[2020-04-30] MEDS ORDERED: traZODone HCL 100 MG TABLET (FP) PO SCH (22:00)
[2020-05-01] MEDS ORDERED: METHADONE HCL 40 MG DISPERSABLE TABLET ONE (06:00)
[2020-05-01] MEDS ORDERED: METHADONE HCL 40 MG DISPERSABLE TABLET PO SCH (06:00)
[2020-05-01] MEDS ORDERED: METHADONE HCL 5 MG TABLET ONE (06:00)
[2020-05-01] MEDS ORDERED: METHADONE HCL 10 MG TABLET ONE (06:00)
[2020-05-01] MEDS: hydrOXYzine PAMOATE 25 MG CAPSULE (FP) PO SCH ×5 (06:30→21:27)
[2020-05-01] MEDS: METHADONE 80 MG, METHADONE 20 MG, METHADONE 5 MG PO SCH (06:30)
[2020-05-01] MEDS ORDERED: ARIPiprazole 5 MG TABLET ONE (09:14)
[2020-05-01] MEDS ORDERED: PT OWN MED DRAWER 7, Y5N ONE (09:15)
[2020-05-01] MEDS: DIVALPROEX SODIUM 500 MG TABLET E.C. PO SCH ×2 (09:54→21:28)
[2020-05-01] MEDS: ASPIRIN COATED 81 MG TABLET.EC PO SCH (09:54)
[2020-05-01] MEDS: amLODIPine BESYLATE 5 MG TABLET (FP) PO SCH (09:54)
[2020-05-01] MEDS: NICOTINE 7 MG/24 HOURS TOPICAL PATCH TD SCH (09:55)
[2020-05-01] MEDS: PRENATAL VITAMINS W/ FOLIC ACID TABLET (FP) PO SCH (09:55)
[2020-05-01] MEDS ORDERED: ARIPiprazole 10 MG TABLET PO SCH (10:00)
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
[2020-05-01] MEDS: MELATONIN 5 MG TABLETS PO SCH (21:27)
[2020-05-01] MEDS: THIAMINE HCL 100 MG TABLET (FP) PO SCH (21:28)
[2020-05-01] MEDS: ATORVASTATIN CA 20 MG TABLET (FP) PO SCH (21:28)
[2020-05-01] MEDS ORDERED: traZODone HCL 50 MG TABLET (FP) PO SCH (22:00)
[2020-05-02] MEDS ORDERED: METHADONE HCL 5 MG TABLET ONE (06:14)
[2020-05-02] MEDS ORDERED: METHADONE HCL 10 MG TABLET ONE (06:14)
[2020-05-02] MEDS ORDERED: METHADONE HCL 40 MG DISPERSABLE TABLET ONE (06:15)
[2020-05-02] MEDS: METHADONE 80 MG, METHADONE 20 MG, METHADONE 5 MG PO SCH (06:16)
[2020-05-02] MEDS: hydrOXYzine PAMOATE 25 MG CAPSULE (FP) PO SCH ×5 (06:17→21:25)
[2020-05-02] MEDS: ASPIRIN COATED 81 MG TABLET.EC PO SCH (09:49)
[2020-05-02] MEDS: NICOTINE 7 MG/24 HOURS TOPICAL PATCH TD SCH (09:49)
[2020-05-02] MEDS: ARIPiprazole 5 MG TABLET PO SCH (09:49)
[2020-05-02] MEDS: amLODIPine BESYLATE 5 MG TABLET (FP) PO SCH (09:49)
[2020-05-02] MEDS: PRENATAL VITAMINS W/ FOLIC ACID TABLET (FP) PO SCH (09:50)
[2020-05-02] MEDS: DIVALPROEX SODIUM 500 MG TABLET E.C. PO SCH ×2 (11:02→21:25)
--- NOTE | 2020-05-02 11:48 | PN ---
[facility] Progress Note Note: Patient seen this morning, he appeared less sedated today. Told fha underwriter that he has difficulty remaining awake during group. He was seen yesterday by Dr Smith and because he was sedated, his medication dosage were modified. Abilify dosage was decreased to 5 mg/day from 10 mg/day, Trazadone was decreased to 50 mg/hs from 100 mg/s and Depakote from 500 mg/hs from 500 mg/bid. He requests to be off Trazadone. Will discontinue Trazadone 50 mg/hs and order Depakote 500 mg/hs which Dr Smith mistakenly omit to order
[2020-05-02] MEDS ORDERED: MASKS NR ONE (18:09)
[2020-05-02] MEDS: MELATONIN 5 MG TABLETS PO SCH (21:24)
[2020-05-02] MEDS: THIAMINE HCL 100 MG TABLET (FP) PO SCH (21:24)
[2020-05-02] MEDS: ATORVASTATIN CA 20 MG TABLET (FP) PO SCH (21:24)
[2020-05-02] MEDS ORDERED: DIVALPROEX SODIUM 500 MG TABLET E.C. PO SCH (22:00)
[2020-05-03] MEDS ORDERED: METHADONE HCL 5 MG TABLET ONE (05:31)
[2020-05-03] MEDS ORDERED: METHADONE HCL 40 MG DISPERSABLE TABLET ONE (05:31)
[2020-05-03] MEDS ORDERED: METHADONE HCL 10 MG TABLET ONE (05:31)
[2020-05-03] MEDS: METHADONE 80 MG, METHADONE 20 MG, METHADONE 5 MG PO SCH (05:54)
[2020-05-03] MEDS: hydrOXYzine PAMOATE 25 MG CAPSULE (FP) PO SCH ×3 (05:54→13:06)
[2020-05-03] MEDS ORDERED: PT OWN MED DRAWER 7, Y5N ONE (08:19)
[2020-05-03] MEDS: NICOTINE 7 MG/24 HOURS TOPICAL PATCH TD SCH (09:45)
[2020-05-03] MEDS: PRENATAL VITAMINS W/ FOLIC ACID TABLET (FP) PO SCH (09:45)
[2020-05-03] MEDS: amLODIPine BESYLATE 5 MG TABLET (FP) PO SCH (09:45)
[2020-05-03] MEDS: ASPIRIN COATED 81 MG TABLET.EC PO SCH (09:45)
[2020-05-03] MEDS: ARIPiprazole 5 MG TABLET PO SCH (09:45)
[2020-05-03] MEDS: DIVALPROEX SODIUM 500 MG TABLET E.C. PO SCH ×2 (10:03→21:07)
--- NOTE | 2020-05-03 10:57 | PN ---
[facility] Progress Note Note: PATIENT C/O BLURRINESS TO LEFT EYE. PATIENT STATES "I HAVE A PROBLEM WITH MY EYE FOR A WHILE NOW AND WENT TO A DOCTOR IN [place]. I DID NOT FOLLOW UP THOUGH." PATIENT DENIES HEADACHES, DIZZINESS AND PAIN TO LEFT EYE. Laboratory Tests 05/02/20 07:20 Valproic Acid < 3.0 L Vital Signs Temperature 98.0 F 05/03/20 06:45 Pulse Rate 70 05/03/20 10:00 Respiratory Rate 18 05/03/20 06:45 Blood Pressure 120/65 05/03/20 10:00 O2 Sat by Pulse Oximetry (%) 97 05/03/20 06:45 PE: ALERT AND ORIENTED X 3 SKIN WARM AND DRY EYES EOMS INTACT BL, NO REDNESS, DISCHARGE PRESENT OU, MILD CLOUDLY FILM OF LEFT PUPIL CAR S1S2 RESP CTA BL EXT FULL ROM, AMB AD [place] A/P: LEFT EYE BLURRINESS-CHRONIC PATIENT HAS APPT WITH EYE DOCTOR IN [facility] 05/25/2020 REQUESTED [facility]ASSES (OTC) REFERRED TO COUNSELING STAFF
[2020-05-03] MEDS: MELATONIN 5 MG TABLETS PO SCH (21:07)
[2020-05-03] MEDS: THIAMINE HCL 100 MG TABLET (FP) PO SCH (21:07)
[2020-05-03] MEDS: ATORVASTATIN CA 20 MG TABLET (FP) PO SCH (21:07)
[2020-05-04] MEDS ORDERED: METHADONE HCL 10 MG TABLET ONE (06:07)
[2020-05-04] MEDS ORDERED: METHADONE HCL 40 MG DISPERSABLE TABLET ONE (06:07)
[2020-05-04] MEDS ORDERED: METHADONE HCL 5 MG TABLET ONE (06:07)
[2020-05-04] MEDS: METHADONE 80 MG, METHADONE 20 MG, METHADONE 5 MG PO SCH (06:08)
[2020-05-04] MEDS ORDERED: PT OWN MED DRAWER 7, Y5N ONE (08:14)
[2020-05-04] MEDS: PRENATAL VITAMINS W/ FOLIC ACID TABLET (FP) PO SCH (09:05)
[2020-05-04] MEDS: ARIPiprazole 5 MG TABLET PO SCH (09:05)
[2020-05-04] MEDS: amLODIPine BESYLATE 5 MG TABLET (FP) PO SCH (09:05)
[2020-05-04] MEDS: DIVALPROEX SODIUM 500 MG TABLET E.C. PO SCH ×2 (09:05→21:26)
[2020-05-04] MEDS: NICOTINE 7 MG/24 HOURS TOPICAL PATCH TD SCH (09:05)
[2020-05-04] MEDS: ASPIRIN COATED 81 MG TABLET.EC PO SCH (10:50)
[2020-05-04] MEDS ORDERED: CLOTRIMAZOLE 1% CREAM 15 GM TUBE TP SCH (11:30)
[2020-05-04] MEDS: THIAMINE HCL 100 MG TABLET (FP) PO SCH (21:26)
[2020-05-04] MEDS: ATORVASTATIN CA 20 MG TABLET (FP) PO SCH (21:26)
[2020-05-04] MEDS: MELATONIN 5 MG TABLETS PO SCH (21:26)
[2020-05-04] MEDS: hydrOXYzine PAMOATE 25 MG CAPSULE (FP) PO PRN (21:26)
[2020-05-05] MEDS ORDERED: METHADONE HCL 5 MG TABLET ONE (03:09)
[2020-05-05] MEDS ORDERED: METHADONE HCL 40 MG DISPERSABLE TABLET ONE (03:09)
[2020-05-05] MEDS ORDERED: METHADONE HCL 10 MG TABLET ONE (03:09)
[2020-05-05] MEDS: METHADONE 80 MG, METHADONE 20 MG, METHADONE 5 MG PO SCH (05:59)
[2020-05-05] MEDS ORDERED: PT OWN MED DRAWER 7, Y5N ONE (09:05)
[2020-05-05] MEDS: NICOTINE 7 MG/24 HOURS TOPICAL PATCH TD SCH (10:04)
[2020-05-05] MEDS: ARIPiprazole 5 MG TABLET PO SCH (10:04)
[2020-05-05] MEDS: amLODIPine BESYLATE 5 MG TABLET (FP) PO SCH (10:04)
[2020-05-05] MEDS: ASPIRIN COATED 81 MG TABLET.EC PO SCH (10:04)
[2020-05-05] MEDS: DIVALPROEX SODIUM 500 MG TABLET E.C. PO SCH ×2 (10:04→21:10)
[2020-05-05] MEDS: PRENATAL VITAMINS W/ FOLIC ACID TABLET (FP) PO SCH (10:05)
[2020-05-05] MEDS: MELATONIN 5 MG TABLETS PO SCH (21:10)
[2020-05-05] MEDS: ATORVASTATIN CA 20 MG TABLET (FP) PO SCH (21:11)
[2020-05-05] MEDS: THIAMINE HCL 100 MG TABLET (FP) PO SCH (21:11)
[2020-05-06] MEDS ORDERED: METHADONE HCL 10 MG TABLET ONE (03:11)
[2020-05-06] MEDS ORDERED: METHADONE HCL 40 MG DISPERSABLE TABLET ONE (03:11)
[2020-05-06] MEDS ORDERED: METHADONE HCL 5 MG TABLET ONE (03:11)
[2020-05-06] MEDS: METHADONE 80 MG, METHADONE 20 MG, METHADONE 5 MG PO SCH (06:07)
[2020-05-06] MEDS ORDERED: PT OWN MED DRAWER 7, Y5N ONE (08:21)
[2020-05-06] MEDS: ARIPiprazole 5 MG TABLET PO SCH (09:14)
[2020-05-06] MEDS: DIVALPROEX SODIUM 500 MG TABLET E.C. PO SCH ×2 (09:15→21:05)
[2020-05-06] MEDS: PRENATAL VITAMINS W/ FOLIC ACID TABLET (FP) PO SCH (09:15)
[2020-05-06] MEDS: amLODIPine BESYLATE 5 MG TABLET (FP) PO SCH (09:15)
[2020-05-06] MEDS: NICOTINE 7 MG/24 HOURS TOPICAL PATCH TD SCH (09:16)
[2020-05-06] MEDS: ASPIRIN COATED 81 MG TABLET.EC PO SCH (09:17)
[2020-05-06] MEDS: hydrOXYzine PAMOATE 25 MG CAPSULE (FP) PO PRN (21:05)
[2020-05-06] MEDS: ATORVASTATIN CA 20 MG TABLET (FP) PO SCH (21:05)
[2020-05-06] MEDS: MELATONIN 5 MG TABLETS PO SCH (21:05)
[2020-05-06] MEDS: THIAMINE HCL 100 MG TABLET (FP) PO SCH (21:05)
[2020-05-07] MEDS ORDERED: METHADONE HCL 5 MG TABLET ONE (05:51)
[2020-05-07] MEDS ORDERED: METHADONE HCL 10 MG TABLET ONE (05:51)
[2020-05-07] MEDS ORDERED: METHADONE HCL 40 MG DISPERSABLE TABLET ONE (05:52)
[2020-05-07] MEDS: METHADONE 80 MG, METHADONE 20 MG, METHADONE 5 MG PO SCH (06:14)
[2020-05-07] MEDS: DIVALPROEX SODIUM 500 MG TABLET E.C. PO SCH ×2 (09:44→21:36)
[2020-05-07] MEDS: ARIPiprazole 5 MG TABLET PO SCH (09:44)
[2020-05-07] MEDS: amLODIPine BESYLATE 5 MG TABLET (FP) PO SCH (09:44)
[2020-05-07] MEDS: NICOTINE 7 MG/24 HOURS TOPICAL PATCH TD SCH (09:44)
[2020-05-07] MEDS: PRENATAL VITAMINS W/ FOLIC ACID TABLET (FP) PO SCH (09:44)
[2020-05-07] MEDS ORDERED: PT OWN MED DRAWER 7, Y5N ONE (09:45)
[2020-05-07] MEDS: ASPIRIN COATED 81 MG TABLET.EC PO SCH (09:45)
[2020-05-07] MEDS: THIAMINE HCL 100 MG TABLET (FP) PO SCH (21:36)
[2020-05-07] MEDS: ATORVASTATIN CA 20 MG TABLET (FP) PO SCH (21:36)
[2020-05-07] MEDS: MELATONIN 5 MG TABLETS PO SCH (21:36)
[2020-05-08] MEDS ORDERED: METHADONE HCL 5 MG TABLET ONE (03:18)
[2020-05-08] MEDS ORDERED: METHADONE HCL 10 MG TABLET ONE (03:18)
[2020-05-08] MEDS ORDERED: METHADONE HCL 40 MG DISPERSABLE TABLET ONE (03:18)
[2020-05-08] MEDS: METHADONE 80 MG, METHADONE 20 MG, METHADONE 5 MG PO SCH (06:05)
[2020-05-08] MEDS ORDERED: PT OWN MED DRAWER 7, Y5N ONE (09:19)
[2020-05-08] MEDS: amLODIPine BESYLATE 5 MG TABLET (FP) PO SCH (09:31)
[2020-05-08] MEDS: DIVALPROEX SODIUM 500 MG TABLET E.C. PO SCH ×2 (09:31→22:22)
[2020-05-08] MEDS: PRENATAL VITAMINS W/ FOLIC ACID TABLET (FP) PO SCH (09:31)
[2020-05-08] MEDS: ASPIRIN COATED 81 MG TABLET.EC PO SCH (09:32)
[2020-05-08] MEDS: NICOTINE 7 MG/24 HOURS TOPICAL PATCH TD SCH (09:32)
[2020-05-08] MEDS: ARIPiprazole 5 MG TABLET PO SCH (09:32)
--- NOTE | 2020-05-08 16:31 | PN ---
S Progress Note Note: Psychiatry Attending's note : Valproic acid level requested. Negligible as of 05/02/20 (less than 3). Patient is on valproate 500 mg po hs. Psychiatry will follow.
[2020-05-08] MEDS: MELATONIN 5 MG TABLETS PO SCH (22:21)
[2020-05-08] MEDS: hydrOXYzine PAMOATE 25 MG CAPSULE (FP) PO PRN (22:21)
[2020-05-08] MEDS: ATORVASTATIN CA 20 MG TABLET (FP) PO SCH (22:22)
[2020-05-08] MEDS: THIAMINE HCL 100 MG TABLET (FP) PO SCH (22:22)
[2020-05-09] MEDS ORDERED: METHADONE HCL 40 MG DISPERSABLE TABLET ONE (03:08)
[2020-05-09] MEDS ORDERED: METHADONE HCL 5 MG TABLET ONE (03:08)
[2020-05-09] MEDS ORDERED: METHADONE HCL 10 MG TABLET ONE (03:08)
[2020-05-09] MEDS: METHADONE 80 MG, METHADONE 20 MG, METHADONE 5 MG PO SCH (06:15)
[2020-05-09] MEDS: ARIPiprazole 5 MG TABLET PO SCH (09:17)
[2020-05-09] MEDS: DIVALPROEX SODIUM 500 MG TABLET E.C. PO SCH ×2 (09:17→21:29)
[2020-05-09] MEDS: NICOTINE 7 MG/24 HOURS TOPICAL PATCH TD SCH (09:17)
[2020-05-09] MEDS: ASPIRIN COATED 81 MG TABLET.EC PO SCH (09:19)
[2020-05-09] MEDS ORDERED: PT OWN MED DRAWER 7, Y5N ONE (09:19)
[2020-05-09] MEDS: amLODIPine BESYLATE 5 MG TABLET (FP) PO SCH (09:25)
[2020-05-09] MEDS: PRENATAL VITAMINS W/ FOLIC ACID TABLET (FP) PO SCH (09:25)
--- NOTE | 2020-05-09 10:43 | PN ---
[facility] Progress Note Note: Psychiatric nurse practitioner note: Mr. Ramos reports poor sleep and is requesting trazodone 50mg for insomnia. Chart reviewed. Dr. Smith and Dr. Dye's note read and appreciated. Patient was prescribed trazodone 50mg in detox but medication was discontinued as per patient's request. Today, patient is requesting to resume trazodone due to difficulty sleeping. Will reorder Trazodone 50mg HS. Benefits and side effects discussed. Verbal consent given.
[2020-05-09] MEDS: ATORVASTATIN CA 20 MG TABLET (FP) PO SCH (21:29)
[2020-05-09] MEDS: THIAMINE HCL 100 MG TABLET (FP) PO SCH (21:29)
[2020-05-09] MEDS: MELATONIN 5 MG TABLETS PO SCH (21:31)
[2020-05-09] MEDS ORDERED: traZODone HCL 50 MG TABLET (FP) PO SCH (22:00)
[2020-05-10] MEDS ORDERED: METHADONE HCL 10 MG TABLET ONE (02:47)
[2020-05-10] MEDS ORDERED: METHADONE HCL 5 MG TABLET ONE (02:47)
[2020-05-10] MEDS ORDERED: METHADONE HCL 40 MG DISPERSABLE TABLET ONE (02:47)
[2020-05-10] MEDS: METHADONE 80 MG, METHADONE 20 MG, METHADONE 5 MG PO SCH (05:53)
[2020-05-10 06:31] VITALS: TEMP 97.8
[2020-05-10] MEDS: amLODIPine BESYLATE 5 MG TABLET (FP) PO SCH (09:55)
[2020-05-10] MEDS: ARIPiprazole 5 MG TABLET PO SCH (09:56)
[2020-05-10] MEDS: PRENATAL VITAMINS W/ FOLIC ACID TABLET (FP) PO SCH (09:58)
[2020-05-10] MEDS: ASPIRIN COATED 81 MG TABLET.EC PO SCH (09:58)
[2020-05-10] MEDS: NICOTINE 7 MG/24 HOURS TOPICAL PATCH TD SCH (09:58)
[2020-05-10 10:34] VITALS: BP 110/70; PULSE 67
--- NOTE | 2020-05-10 10:43 | DS ---
[facility] Rehab Discharge Summary - [facility] Rehab Discharge Summary Admission Date: 04/30/20 Discharge Date: 05/10/20 - History Present History: Alcohol dependence, MMTP, Sedative dependence Additional Comments: Pt has been reminded to follow up with primary care with [place], [place]. Pertinent Past History: Hx Type 2 DM Hyperlipidemia HTN Bipolar Disorder - Discharge Physical Exam Vital Signs: Vital Signs Temperature 97.8 F 05/10/20 05:35 Pulse Rate 67 05/10/20 10:00 Respiratory Rate 18 05/10/20 05:35 Blood Pressure 110/70 05/10/20 10:00 O2 Sat by Pulse Oximetry (%) 96 05/10/20 05:35 Alert o x 3 nad oob ambulating with steady gait Activ ROM all extremities Pertinent Admission Physical Exam Findings: Laboratory Tests 05/02/20 05/09/20 07:20 06:50 Valproic Acid < 3.0 L 56.0 - Treatment Discharge Condition: Discharge condition good Hospital Course: Pt completed rehab and accepted a referral to [facility] in [place], [place]. - Medication Discharge Medications: Ambulatory Orders Methadone [Dolophine -] 105 mg PO DAILY 12/23/18 Divalproex [Depakote -] 500 mg PO BID #60 tablet.ec 07/06/19 traZODone HCL [Desyrel -] 100 mg PO HS #30 tablet 07/06/19 Aripiprazole [Abilify -] 10 mg PO DAILY 04/26/20 Amlodipine Besylate [Norvasc -] 5 mg PO DAILY #30 tablet 05/10/20 Aspirin Coated [Ecotrin -] 81 mg PO DAILY #14 tablet.ec 05/10/20 Atorvastatin Ca [Lipitor] 20 mg PO HS #14 tablet 05/10/20 - Medication-Assisted Treatment (MAT) Medication-Assisted Treatment (MAT): No - Discharge Instructions Diet, activity, other medical instructions: Diet: Activity: Other medical instructions: - Diagnosis (1) History of diabetes mellitus Status: Resolved (2) Cocaine dependence, uncomplicated Status: Chronic (3) 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 (4) HLD (hyperlipidemia) Status: Chronic Qualifiers: Hyperlipidemia type: unspecified Qualified Code(s): E78.5 - Hyperlipidemia, unspecified (5) Hypertension Status: Chronic Qualifiers: Hypertension type: essential hypertension Qualified Code(s): I10 - Essential (primary) hypertension (6) Nicotine dependence Status: Chronic Qualifiers: Nicotine product type: cigarettes Substance use status: uncomplicated Qualified Code(s): F17.210 - Nicotine dependence, cigarettes, uncomplicated (7) CVA (cerebral vascular accident) Status: Resolved Qualifiers: CVA mechanism: unspecified Qualified Code(s): I63.9 - Cerebral infarction, unspecified (8) Methadone maintenance therapy patient Status: Chronic - Follow-up Referral Minutes to complete discharge: 20 - AMA Did Patient Leave Against Medical Advice: No Additional Comments: [facility] Rx electronically sent to patient' home pharmacy to last picker.
== END 2020-05-10 11:02 | disposition home or self-care (01) | DRG 772 ==
LOC: YASAS 11:28 → Y3E 11:29
PROVIDERS: ADMIT Allergy & Immunology; ATTEND Allergy & Immunology
PROC: HZ42ZZZ Group Counseling for Substance Abuse Treatment, Cognitive-Behavioral (ICD-10-PCS; principal; 2020-04-30)
DX: F10.20 Alcohol dependence, uncomplicated (principal); F11.20 Opioid dependence, uncomplicated; F14.20 Cocaine dependence, uncomplicated; F12.20 Cannabis dependence, uncomplicated; F17.210 Nicotine dependence, cigarettes, uncomplicated; F19.24 Other psychoactive substance dependence with psychoactive substance-induced mood disorder; F31.9 Bipolar disorder, unspecified; I10 Essential (primary) hypertension; E78.5 Hyperlipidemia, unspecified; H91.92 Unspecified hearing loss, left ear; H53.8 Other visual disturbances; D57.3 Sickle-cell trait; Z86.73 Personal history of transient ischemic attack (TIA), and cerebral infarction without residual deficits; Z87.438 Personal history of other diseases of male genital organs; Z62.810 Personal history of physical and sexual abuse in childhood
CPT/HCPCS: 80164

== ENCOUNTER 2021-11-08 10:11 | Inpatient (IN) | payer OTHER ==
[2021-11-08] MEDS ORDERED: MAGNESIUM CITRATE 300 ML BOTTLE PO PRN (11:12)
[2021-11-08] MEDS ORDERED: BISMUTH SUBSALICYLATE 262 MG/15 ML BTL PO PRN (11:12)
[2021-11-08] MEDS ORDERED: MAG HYDROX/AL HYDROX/SIMETH 30 ML UNIT-DOSE CUP PO PRN (11:12)
[2021-11-08] MEDS ORDERED: METHOCARBAMOL 500 MG TABLET PO PRN (11:12)
[2021-11-08] MEDS ORDERED: ACETAMINOPHEN 325 MG TABLET (FP) PO PRN ×2 (11:12)
[2021-11-08] MEDS ORDERED: ONDANSETRON *ODT* 4 MG TABLET SL PRN (11:12)
[2021-11-08] MEDS ORDERED: IBUPROFEN 400 MG TABLET (FP) PO PRN (11:12)
[2021-11-08] MEDS ORDERED: MENTHOL/PHENOL 1 EACH UD MM PRN (11:12)
[2021-11-08] MEDS ORDERED: MAGNESIUM HYDROX 2400MG/30ML ORAL SUSPENSION 30 ML CUP PO PRN (11:12)
[2021-11-08] MEDS ORDERED: chlordiazePOXIDE HCL 25 MG CAPSULE PO PRN (11:12)
[2021-11-08] MEDS ORDERED: NICOTINE 10 MG CARTRIDGE (INHALER) IH PRN (11:12)
[2021-11-08 11:47] VITALS: BMI 26.3
[2021-11-08] MEDS ORDERED: methaDONE 80 MG, methaDONE 10 MG PO SCH (12:30)
[2021-11-08] MEDS ORDERED: methaDONE HCL 10 MG TABLET PO SCH (12:30)
[2021-11-08] MEDS ORDERED: methaDONE HCL 40 MG DISPERSABLE TABLET ONE (13:04)
[2021-11-08] MEDS ORDERED: methaDONE HCL 10 MG TABLET ONE (13:04)
[2021-11-08] MEDS: NICOTINE 14 MG/24 HOURS TOPICAL PATCH TD SCH (13:09)
[2021-11-08] MEDS: PRENATAL VITAMINS W/ FOLIC ACID TABLET (FP) PO SCH (13:10)
[2021-11-08] MEDS: chlordiazePOXIDE HCL 25 MG CAPSULE PO SCH ×3 (13:10→22:18)
[2021-11-08] MEDS: hydrOXYzine PAMOATE 25 MG CAPSULE (FP) PO SCH ×3 (15:17→22:16)
[2021-11-08 15:20] LABS: HEMATOCRIT 39.3 % (35.4-49); HEMOGLOBIN 13.6 GM/dL (11.7-16.9); MCH 30.5 pg (25.7-33.7); MCHC 34.7 g/dl (32.0-35.9); MEAN PLT VOLUME 8.3 fl (7.5-11.1); PLATELET COUNT 156 10^3/uL (134-434); RBC 4.46 M/mm3 (4.00-5.60); RDW 14.3 % (11.9-15.9); WHITE BLOOD COUNT 3.5 K/mm3 (4.0-10.0)
[2021-11-08 15:34] LABS: CALCIUM 8.8 mg/dL (8.5-10.1)
[2021-11-08 15:36] LABS: ALBUMIN 3.8 g/dl (3.4-5.0)
[2021-11-08 15:37] LABS: CREATININE 0.9 mg/dL (0.55-1.3)
[2021-11-08 15:38] LABS: BILIRUBIN,TOTAL 0.8 mg/dL (0.2-1)
[2021-11-08 15:39] LABS: TOT PROT 7.4 g/dl (6.4-8.2)
[2021-11-08] MEDS ORDERED: THIAMINE HCL 100 MG TABLET (FP) PO SCH (22:00)
[2021-11-08] MEDS ORDERED: MELATONIN 5 MG TABLETS PO SCH (22:00)
[2021-11-08] MEDS ORDERED: ATORVASTATIN CA 20 MG TABLET (FP) PO SCH (22:00)
[2021-11-08] MEDS: DIVALPROEX SODIUM 500 MG TABLET E.C. PO SCH (22:16)
[2021-11-09] MEDS ORDERED: methaDONE HCL 10 MG TABLET ONE (04:14)
[2021-11-09] MEDS ORDERED: methaDONE HCL 40 MG DISPERSABLE TABLET ONE (04:15)
[2021-11-09] MEDS: hydrOXYzine PAMOATE 25 MG CAPSULE (FP) PO SCH ×4 (05:10→17:36)
[2021-11-09] MEDS: chlordiazePOXIDE HCL 25 MG CAPSULE PO SCH ×3 (05:11→17:36)
[2021-11-09] MEDS ORDERED: methaDONE 80 MG, methaDONE 10 MG PO SCH (06:00)
[2021-11-09] MEDS ORDERED: methaDONE HCL 40 MG DISPERSABLE TABLET PO SCH (10:00)
[2021-11-09] MEDS ORDERED: amLODIPine BESYLATE 5 MG TABLET (FP) PO SCH (10:00)
[2021-11-09] MEDS ORDERED: ASPIRIN COATED 81 MG TABLET.EC PO SCH (10:00)
[2021-11-09] MEDS: NICOTINE 14 MG/24 HOURS TOPICAL PATCH TD SCH (10:12)
[2021-11-09] MEDS: PRENATAL VITAMINS W/ FOLIC ACID TABLET (FP) PO SCH (10:12)
[2021-11-09] MEDS: DIVALPROEX SODIUM 500 MG TABLET E.C. PO SCH (10:12)
[2021-11-09 17:00] VITALS: PULSE 68
[2021-11-09 20:55] VITALS: BP 146/81; TEMP 97.3
[2021-11-09] MEDS ORDERED: traZODone HCL 100 MG TABLET (FP) PO SCH (22:00)
[2021-11-10] MEDS ORDERED: chlordiazePOXIDE HCL 25 MG CAPSULE PO SCH (05:00)
[2021-11-10] MEDS ORDERED: ARIPiprazole 10 MG TABLET PO SCH (10:00)
[2021-11-11] MEDS ORDERED: chlordiazePOXIDE HCL 10 MG CAPSULE PO PRN
[2021-11-11] MEDS ORDERED: chlordiazePOXIDE HCL 10 MG CAPSULE PO SCH (05:00)
[2021-11-12] MEDS ORDERED: chlordiazePOXIDE HCL 10 MG CAPSULE PO SCH (05:00)
[2021-11-13] MEDS ORDERED: chlordiazePOXIDE HCL 10 MG CAPSULE PO ONE (05:00)
== END 2021-11-09 21:02 | disposition left against medical advice (07) | DRG 770 ==
LOC: YASAS 10:11 → Y3N 12:03
PROVIDERS: ADMIT Allergy & Immunology; ATTEND Allergy & Immunology
PROC: HZ2ZZZZ Detoxification Services for Substance Abuse Treatment (ICD-10-PCS; principal; 2021-11-08)
DX: F10.230 Alcohol dependence with withdrawal, uncomplicated (principal); F11.20 Opioid dependence, uncomplicated; F14.20 Cocaine dependence, uncomplicated; F13.20 Sedative, hypnotic or anxiolytic dependence, uncomplicated; F12.20 Cannabis dependence, uncomplicated; F17.210 Nicotine dependence, cigarettes, uncomplicated; F31.81 Bipolar II disorder; F19.24 Other psychoactive substance dependence with psychoactive substance-induced mood disorder; F42.4 Excoriation (skin-picking) disorder; E78.5 Hyperlipidemia, unspecified; I10 Essential (primary) hypertension; E11.9 Type 2 diabetes mellitus without complications; Z79.84 Long term (current) use of oral hypoglycemic drugs; G47.00 Insomnia, unspecified; H91.92 Unspecified hearing loss, left ear; Z62.810 Personal history of physical and sexual abuse in childhood; Z91.410 Personal history of adult physical and sexual abuse; Z86.2 Personal history of diseases of the blood and blood-forming organs and certain disorders involving the immune mechanism
CPT/HCPCS: 36415; 71045-TC-FY; 80053; 85027; 86593; 86780; C9803; U0003; U0005

== ENCOUNTER 2022-02-28 10:45 | Inpatient (IN) | payer OTHER ==
[2022-02-28 11:02] VITALS: BMI 25.7
[2022-02-28] MEDS ORDERED: MAGNESIUM CITRATE 300 ML BOTTLE PO PRN (11:23)
[2022-02-28] MEDS ORDERED: LORazepam 1 MG TABLET PO PRN (11:23)
[2022-02-28] MEDS ORDERED: ONDANSETRON *ODT* 4 MG TABLET SL PRN (11:23)
[2022-02-28] MEDS ORDERED: BENZOCAINE/MENTHOL (CHLORASEPTIC ) LOZENGE MM PRN (11:23)
[2022-02-28] MEDS ORDERED: MAG HYDROX/AL HYDROX/SIMETH 30 ML UNIT-DOSE CUP PO PRN (11:23)
[2022-02-28] MEDS ORDERED: DICYCLOMINE HCL 10 MG CAPSULE PO PRN (11:23)
[2022-02-28] MEDS ORDERED: MAGNESIUM HYDROX 2400MG/30ML ORAL SUSPENSION 30 ML CUP PO PRN (11:23)
[2022-02-28] MEDS ORDERED: LOPERAMIDE HCL 2 MG CAPSULE PO PRN (11:23)
[2022-02-28] MEDS ORDERED: METHOCARBAMOL 500 MG TABLET PO PRN (11:23)
[2022-02-28] MEDS ORDERED: BISMUTH SUBSALICYLATE 262 MG/15 ML BTL PO PRN (11:23)
[2022-02-28] MEDS ORDERED: IBUPROFEN 400 MG TABLET (FP) PO PRN (11:23)
[2022-02-28] MEDS ORDERED: ACETAMINOPHEN 325 MG TABLET (FP) PO PRN ×2 (11:23)
[2022-02-28] MEDS ORDERED: methaDONE HCL 10 MG TABLET PO SCH (12:45)
[2022-02-28] MEDS: PRENATAL VITAMINS W/ FOLIC ACID TABLET (FP) PO SCH (12:46)
[2022-02-28] MEDS: LORazepam 2 MG TABLET PO SCH ×3 (12:46→22:22)
[2022-02-28] MEDS: NICOTINE 14 MG/24 HOURS TOPICAL PATCH TD SCH (12:49)
[2022-02-28] MEDS ORDERED: methaDONE HCL 40 MG DISPERSABLE TABLET ONE (13:01)
[2022-02-28] MEDS ORDERED: methaDONE HCL 10 MG TABLET ONE (13:01)
[2022-02-28] MEDS: methaDONE 80 MG, methaDONE 20 MG PO SCH (13:06)
[2022-02-28] MEDS: hydrOXYzine PAMOATE 25 MG CAPSULE (FP) PO SCH ×3 (13:10→22:22)
[2022-02-28] MEDS: NICOTINE 10 MG CARTRIDGE (INHALER) IH PRN (14:17)
[2022-02-28] MEDS: DIVALPROEX SODIUM 500 MG TABLET E.C. PO SCH ×2 (14:17→22:22)
[2022-02-28] MEDS: ARIPiprazole 10 MG TABLET PO SCH (14:17)
[2022-02-28] MEDS: ASPIRIN COATED 81 MG TABLET.EC PO SCH (15:48)
[2022-02-28] MEDS: amLODIPine BESYLATE 10 MG TABLET (FP) PO SCH (15:49)
[2022-02-28 17:25] LABS: HEMATOCRIT 39.6 % (35.4-49); HEMOGLOBIN 13.4 GM/dL (11.7-16.9); MCH 29.9 pg (25.7-33.7); MCHC 33.7 g/dl (32.0-35.9); MEAN CELL VOLUME 88.5 fl (80-96); MEAN PLT VOLUME 8.6 fl (7.5-11.1); PLATELET COUNT 176 10^3/uL (134-434); RBC 4.48 M/mm3 (4.00-5.60); RDW 15.2 % (11.9-15.9); WHITE BLOOD COUNT 4.3 K/mm3 (4.0-10.0)
[2022-02-28 17:29] LABS: ALBUMIN 3.8 g/dl (3.4-5.0); BLOOD UREA NITROGEN 10.1 mg/dL (7-18)
[2022-02-28 17:32] LABS: CREATININE 1.1 mg/dL (0.55-1.3)
[2022-02-28 17:34] LABS: BILIRUBIN,TOTAL 0.7 mg/dL (0.2-1); TOT PROT 7.4 g/dl (6.4-8.2)
[2022-02-28] MEDS ORDERED: MELATONIN 5 MG TABLETS PO SCH (22:00)
[2022-02-28] MEDS: THIAMINE HCL 100 MG TABLET (FP) PO SCH (22:22)
[2022-02-28] MEDS: traZODone HCL 100 MG TABLET (FP) PO SCH (22:23)
[2022-03-01] MEDS ORDERED: methaDONE HCL 10 MG TABLET ONE (04:20)
[2022-03-01] MEDS ORDERED: methaDONE HCL 40 MG DISPERSABLE TABLET ONE (04:20)
[2022-03-01] MEDS: hydrOXYzine PAMOATE 25 MG CAPSULE (FP) PO SCH ×5 (05:19→23:40)
[2022-03-01] MEDS: LORazepam 2 MG TABLET PO SCH ×2 (05:20→10:20)
[2022-03-01] MEDS: methaDONE 80 MG, methaDONE 20 MG PO SCH (05:20)
[2022-03-01] MEDS: amLODIPine BESYLATE 10 MG TABLET (FP) PO SCH (10:19)
[2022-03-01] MEDS: ASPIRIN COATED 81 MG TABLET.EC PO SCH (10:19)
[2022-03-01] MEDS: PRENATAL VITAMINS W/ FOLIC ACID TABLET (FP) PO SCH (10:19)
[2022-03-01] MEDS: ARIPiprazole 10 MG TABLET PO SCH (10:19)
[2022-03-01] MEDS: DIVALPROEX SODIUM 500 MG TABLET E.C. PO SCH ×2 (10:20→23:44)
[2022-03-01] MEDS: NICOTINE 14 MG/24 HOURS TOPICAL PATCH TD SCH (10:20)
[2022-03-01] MEDS: LORazepam 1 MG TABLET PO SCH ×2 (19:08→23:41)
[2022-03-01] MEDS: THIAMINE HCL 100 MG TABLET (FP) PO SCH (23:41)
[2022-03-01] MEDS: traZODone HCL 100 MG TABLET (FP) PO SCH (23:42)
[2022-03-01] MEDS: ATORVASTATIN CA 20 MG TABLET (FP) PO SCH (23:44)
[2022-03-02] MEDS ORDERED: methaDONE HCL 10 MG TABLET ONE (04:56)
[2022-03-02] MEDS ORDERED: methaDONE HCL 40 MG DISPERSABLE TABLET ONE (04:57)
[2022-03-02] MEDS: methaDONE 80 MG, methaDONE 20 MG PO SCH (06:27)
[2022-03-02] MEDS: LORazepam 1 MG TABLET PO SCH ×4 (06:40→22:11)
[2022-03-02] MEDS: hydrOXYzine PAMOATE 25 MG CAPSULE (FP) PO SCH ×5 (06:40→22:11)
[2022-03-02] MEDS: PRENATAL VITAMINS W/ FOLIC ACID TABLET (FP) PO SCH (10:25)
[2022-03-02] MEDS: DIVALPROEX SODIUM 500 MG TABLET E.C. PO SCH ×2 (10:25→22:10)
[2022-03-02] MEDS: ASPIRIN COATED 81 MG TABLET.EC PO SCH (10:25)
[2022-03-02] MEDS: amLODIPine BESYLATE 10 MG TABLET (FP) PO SCH (10:25)
[2022-03-02] MEDS: ARIPiprazole 10 MG TABLET PO SCH (10:25)
[2022-03-02] MEDS: NICOTINE 14 MG/24 HOURS TOPICAL PATCH TD SCH (10:26)
[2022-03-02] MEDS: LACTULOSE 20 GM/30 ML UDC (FOR ORAL USE ONLY) PO SCH ×4 (11:29→22:10)
[2022-03-02] MEDS: LISINOPRIL 10 MG TABLET PO SCH ×2 (13:55→22:11)
[2022-03-02] MEDS: THIAMINE HCL 100 MG TABLET (FP) PO SCH (22:10)
[2022-03-02] MEDS: traZODone HCL 100 MG TABLET (FP) PO SCH (22:10)
[2022-03-02] MEDS: ATORVASTATIN CA 20 MG TABLET (FP) PO SCH (22:10)
[2022-03-02] MEDS: MINERAL OIL/PETROLAT/WATER TOPICAL CREAM 113 GM JAR TP SCH (22:11)
[2022-03-03] MEDS ORDERED: LORazepam 0.5 MG TABLET PO PRN
[2022-03-03] MEDS ORDERED: methaDONE HCL 40 MG DISPERSABLE TABLET ONE (04:53)
[2022-03-03] MEDS ORDERED: methaDONE HCL 10 MG TABLET ONE (04:53)
[2022-03-03] MEDS: methaDONE 80 MG, methaDONE 20 MG PO SCH (05:49)
[2022-03-03] MEDS: LORazepam 0.5 MG TABLET PO SCH ×4 (05:49→22:36)
[2022-03-03] MEDS: hydrOXYzine PAMOATE 25 MG CAPSULE (FP) PO SCH ×5 (07:13→22:38)
[2022-03-03] MEDS: PRENATAL VITAMINS W/ FOLIC ACID TABLET (FP) PO SCH (10:21)
[2022-03-03] MEDS: ASPIRIN COATED 81 MG TABLET.EC PO SCH (10:22)
[2022-03-03] MEDS: DIVALPROEX SODIUM 500 MG TABLET E.C. PO SCH ×2 (10:22→22:37)
[2022-03-03] MEDS: LACTULOSE 20 GM/30 ML UDC (FOR ORAL USE ONLY) PO SCH ×4 (10:22→22:39)
[2022-03-03] MEDS: amLODIPine BESYLATE 10 MG TABLET (FP) PO SCH (10:22)
[2022-03-03] MEDS: ARIPiprazole 10 MG TABLET PO SCH (10:22)
[2022-03-03] MEDS: LISINOPRIL 10 MG TABLET PO SCH ×2 (10:22→22:37)
[2022-03-03] MEDS: NICOTINE 14 MG/24 HOURS TOPICAL PATCH TD SCH (10:23)
[2022-03-03] MEDS: NICOTINE 10 MG CARTRIDGE (INHALER) IH PRN (12:57)
[2022-03-03] MEDS: traZODone HCL 100 MG TABLET (FP) PO SCH (22:36)
[2022-03-03] MEDS: ATORVASTATIN CA 20 MG TABLET (FP) PO SCH (22:36)
[2022-03-03] MEDS: THIAMINE HCL 100 MG TABLET (FP) PO SCH (22:36)
[2022-03-03] MEDS: MINERAL OIL/PETROLAT/WATER TOPICAL CREAM 113 GM JAR TP SCH (22:38)
[2022-03-04] MEDS ORDERED: methaDONE HCL 40 MG DISPERSABLE TABLET ONE (04:32)
[2022-03-04] MEDS ORDERED: methaDONE HCL 10 MG TABLET ONE (04:32)
[2022-03-04] MEDS ORDERED: LORazepam 0.5 MG TABLET PO ONE (05:00)
[2022-03-04] MEDS: hydrOXYzine PAMOATE 25 MG CAPSULE (FP) PO SCH ×5 (05:53→22:29)
[2022-03-04] MEDS: methaDONE 80 MG, methaDONE 20 MG PO SCH (05:53)
[2022-03-04] MEDS: NICOTINE 14 MG/24 HOURS TOPICAL PATCH TD SCH (10:26)
[2022-03-04] MEDS: LACTULOSE 20 GM/30 ML UDC (FOR ORAL USE ONLY) PO SCH ×4 (10:26→22:31)
[2022-03-04] MEDS: ARIPiprazole 10 MG TABLET PO SCH (10:27)
[2022-03-04] MEDS: amLODIPine BESYLATE 10 MG TABLET (FP) PO SCH (10:27)
[2022-03-04] MEDS: PRENATAL VITAMINS W/ FOLIC ACID TABLET (FP) PO SCH (10:27)
[2022-03-04] MEDS: DIVALPROEX SODIUM 500 MG TABLET E.C. PO SCH ×2 (10:27→22:30)
[2022-03-04] MEDS: LISINOPRIL 10 MG TABLET PO SCH ×2 (10:27→22:29)
[2022-03-04] MEDS: ASPIRIN COATED 81 MG TABLET.EC PO SCH (10:27)
[2022-03-04] MEDS: ATORVASTATIN CA 20 MG TABLET (FP) PO SCH (22:29)
[2022-03-04] MEDS: THIAMINE HCL 100 MG TABLET (FP) PO SCH (22:29)
[2022-03-04] MEDS: traZODone HCL 100 MG TABLET (FP) PO SCH (22:29)
[2022-03-04] MEDS: MINERAL OIL/PETROLAT/WATER TOPICAL CREAM 113 GM JAR TP SCH (23:23)
[2022-03-05] MEDS ORDERED: methaDONE HCL 40 MG DISPERSABLE TABLET ONE (04:15)
[2022-03-05] MEDS ORDERED: methaDONE HCL 10 MG TABLET ONE (04:15)
[2022-03-05] MEDS: methaDONE 80 MG, methaDONE 20 MG PO SCH (05:39)
[2022-03-05] MEDS: hydrOXYzine PAMOATE 25 MG CAPSULE (FP) PO SCH (05:42)
[2022-03-05 09:39] VITALS: BP 129/75; PULSE 84; TEMP 97.7
== END 2022-03-05 11:06 | disposition home or self-care (01) | DRG 773 ==
LOC: YASAS 10:45 → Y6N 11:42
PROVIDERS: ADMIT Allergy & Immunology; ATTEND Surgery
PROC: HZ2ZZZZ Detoxification Services for Substance Abuse Treatment (ICD-10-PCS; principal; 2022-02-28)
DX: F10.230 Alcohol dependence with withdrawal, uncomplicated (principal); F11.20 Opioid dependence, uncomplicated; F14.20 Cocaine dependence, uncomplicated; F12.20 Cannabis dependence, uncomplicated; F17.213 Nicotine dependence, cigarettes, with withdrawal; F25.0 Schizoaffective disorder, bipolar type; D57.3 Sickle-cell trait; H91.92 Unspecified hearing loss, left ear; I10 Essential (primary) hypertension; B18.2 Chronic viral hepatitis C; Z86.11 Personal history of tuberculosis
CPT/HCPCS: 36415; 80053; 82140; 82962; 85027; 86593; 86780; 87811; C9803-CS; U0003; U0005

== ENCOUNTER 2022-06-25 16:54 | Inpatient (IN) | payer OTHER ==
[2022-06-25 17:44] VITALS: BMI 24.7
[2022-06-25] MEDS ORDERED: DICYCLOMINE HCL 10 MG CAPSULE PO PRN (18:19)
[2022-06-25] MEDS ORDERED: MAGNESIUM HYDROX 2400MG/30ML ORAL SUSPENSION 30 ML CUP PO PRN (18:19)
[2022-06-25] MEDS ORDERED: chlordiazePOXIDE HCL 25 MG CAPSULE PO PRN (18:19)
[2022-06-25] MEDS ORDERED: LOPERAMIDE HCL 2 MG CAPSULE PO PRN (18:19)
[2022-06-25] MEDS ORDERED: BENZOCAINE/MENTHOL (CHLORASEPTIC ) LOZENGE MM PRN (18:19)
[2022-06-25] MEDS ORDERED: NICOTINE POLACRILEX 2 MG GUM BUC PRN (18:19)
[2022-06-25] MEDS ORDERED: MAG HYDROX/AL HYDROX/SIMETH 30 ML UNIT-DOSE CUP PO PRN (18:19)
[2022-06-25] MEDS ORDERED: BISMUTH SUBSALICYLATE 524 MG/30 ML PO PRN (18:19)
[2022-06-25] MEDS ORDERED: NALOXONE HCL (KLOXXADO) 8 MG SPRAY NS PRN (18:19)
[2022-06-25] MEDS ORDERED: IBUPROFEN 400 MG TABLET (FP) PO PRN (18:19)
[2022-06-25] MEDS ORDERED: MAGNESIUM CITRATE 300 ML BOTTLE PO PRN (18:19)
[2022-06-25] MEDS ORDERED: IBUPROFEN 600 MG TABLET (FP) PO PRN (18:19)
[2022-06-25] MEDS ORDERED: ONDANSETRON *ODT* 4 MG TABLET SL PRN (18:19)
[2022-06-25] MEDS ORDERED: METHOCARBAMOL 500 MG TABLET PO PRN (18:19)
[2022-06-25] MEDS ORDERED: ACETAMINOPHEN 325 MG TABLET (FP) PO PRN ×2 (18:19)
[2022-06-25] MEDS: chlordiazePOXIDE HCL 25 MG CAPSULE PO SCH (22:31)
[2022-06-25] MEDS: THIAMINE HCL 100 MG TABLET (FP) PO SCH (22:31)
[2022-06-25] MEDS: MELATONIN 5 MG TABLETS PO SCH (22:31)
[2022-06-25] MEDS ORDERED: NICOTINE 10 MG CARTRIDGE (INHALER) IH PRN (23:35)
[2022-06-26] MEDS: chlordiazePOXIDE HCL 25 MG CAPSULE PO SCH ×4 (05:34→23:00)
[2022-06-26] MEDS ORDERED: methaDONE HCL 40 MG DISPERSABLE TABLET PO SCH (08:30)
[2022-06-26] MEDS: methaDONE 40 MG, methaDONE 30 MG PO SCH (09:14)
[2022-06-26] MEDS: PRENATAL VITAMINS W/ FOLIC ACID TABLET (FP) PO SCH (10:10)
[2022-06-26] MEDS: LISINOPRIL 10 MG TABLET PO SCH ×2 (10:10→22:59)
[2022-06-26] MEDS: ASPIRIN 81 MG CHEWABLE TABLETS PO SCH (10:10)
[2022-06-26] MEDS: amLODIPine BESYLATE 10 MG TABLET (FP) PO SCH (10:10)
[2022-06-26] MEDS: NICOTINE 14 MG/24 HOURS TOPICAL PATCH TD SCH (10:11)
[2022-06-26 10:31] LABS: HEMATOCRIT 39.4 % (35.4-49); HEMOGLOBIN 13.4 GM/dL (11.7-16.9); MCH 30.2 pg (25.7-33.7); MEAN CELL VOLUME 88.9 fl (80-96); MEAN PLT VOLUME 8.4 fl (7.5-11.1); PLATELET COUNT 170 10^3/uL (134-434); RBC 4.43 M/mm3 (4.00-5.60); RDW 15.1 % (11.9-15.9); WHITE BLOOD COUNT 4.2 K/mm3 (4.0-10.0)
[2022-06-26 10:35] LABS: CALCIUM 8.9 mg/dL (8.5-10.1)
[2022-06-26 10:36] LABS: ALBUMIN 3.5 g/dl (3.4-5.0); BLOOD UREA NITROGEN 16.9 mg/dL (7-18)
[2022-06-26 10:39] LABS: CREATININE 1.3 mg/dL (0.55-1.3)
[2022-06-26 10:40] LABS: BILIRUBIN,TOTAL 0.7 mg/dL (0.2-1)
[2022-06-26] MEDS ORDERED: FLU VACC QS2022-23(6MOS UP)/PF 60 MCG/0.5 ML SYRINGE IM ONE (12:00)
[2022-06-26 12:03] LABS: HIV INTERPRETATION NEGATIVE (NEGATIVE)
[2022-06-26] MEDS ORDERED: traZODone HCL 100 MG TABLET (FP) PO SCH (22:00)
[2022-06-26] MEDS ORDERED: ATORVASTATIN CA 20 MG TABLET (FP) PO SCH (22:00)
[2022-06-26] MEDS ORDERED: DIVALPROEX SODIUM 500 MG TABLET E.C. PO SCH (22:00)
[2022-06-26] MEDS: THIAMINE HCL 100 MG TABLET (FP) PO SCH (22:59)
[2022-06-26] MEDS: MELATONIN 5 MG TABLETS PO SCH (23:03)
[2022-06-27] MEDS: chlordiazePOXIDE HCL 25 MG CAPSULE PO SCH ×2 (05:51→10:09)
[2022-06-27] MEDS: methaDONE 40 MG, methaDONE 30 MG PO SCH (05:51)
[2022-06-27] MEDS ORDERED: ARIPiprazole 5 MG TABLET PO SCH ×2 (10:00)
[2022-06-27] MEDS: PRENATAL VITAMINS W/ FOLIC ACID TABLET (FP) PO SCH (10:08)
[2022-06-27] MEDS: ASPIRIN 81 MG CHEWABLE TABLETS PO SCH (10:08)
[2022-06-27] MEDS: LISINOPRIL 10 MG TABLET PO SCH (10:09)
[2022-06-27] MEDS: amLODIPine BESYLATE 10 MG TABLET (FP) PO SCH (10:09)
[2022-06-27] MEDS: NICOTINE 14 MG/24 HOURS TOPICAL PATCH TD SCH (10:09)
[2022-06-27 16:52] VITALS: BP 113/59; PULSE 62; RESP 18; TEMP 97.3
[2022-06-27] MEDS ORDERED: DIVALPROEX SODIUM 500 MG TABLET E.C. PO SCH (22:00)
[2022-06-28] MEDS ORDERED: chlordiazePOXIDE HCL 10 MG CAPSULE PO PRN
[2022-06-28] MEDS ORDERED: chlordiazePOXIDE HCL 10 MG CAPSULE PO SCH (05:00)
[2022-06-29] MEDS ORDERED: chlordiazePOXIDE HCL 10 MG CAPSULE PO SCH (05:00)
[2022-06-30] MEDS ORDERED: chlordiazePOXIDE HCL 10 MG CAPSULE PO ONE (05:00)
== END 2022-06-27 17:00 | disposition left against medical advice (07) | DRG 770 ==
LOC: YASAS 16:54 → Y3N 18:30
PROVIDERS: ADMIT Allergy & Immunology; ATTEND Psychiatry & Neurology Psychiatry
PROC: HZ2ZZZZ Detoxification Services for Substance Abuse Treatment (ICD-10-PCS; principal; 2022-06-25)
DX: F10.230 Alcohol dependence with withdrawal, uncomplicated (principal); F11.20 Opioid dependence, uncomplicated; F14.20 Cocaine dependence, uncomplicated; F12.20 Cannabis dependence, uncomplicated; F17.210 Nicotine dependence, cigarettes, uncomplicated; F39 Unspecified mood [affective] disorder; E78.5 Hyperlipidemia, unspecified; I10 Essential (primary) hypertension; D57.3 Sickle-cell trait; H91.92 Unspecified hearing loss, left ear; Z62.810 Personal history of physical and sexual abuse in childhood; Z91.410 Personal history of adult physical and sexual abuse; Z86.39 Personal history of other endocrine, nutritional and metabolic disease; Z86.73 Personal history of transient ischemic attack (TIA), and cerebral infarction without residual deficits; Z86.19 Personal history of other infectious and parasitic diseases
CPT/HCPCS: 36415; 80053; 80164; 85027; 86593; 86780; 87389; 87811; C9803-CS; G0008; Q2036; U0003; U0005

== ENCOUNTER 2022-08-02 14:29 | Inpatient (IN) | payer OTHER ==
[2022-08-02 15:10] VITALS: BMI 25.9
[2022-08-02] MEDS ORDERED: ONDANSETRON *ODT* 4 MG TABLET SL PRN (16:51)
[2022-08-02] MEDS ORDERED: DICYCLOMINE HCL 10 MG CAPSULE PO PRN (16:51)
[2022-08-02] MEDS ORDERED: BENZOCAINE/MENTHOL (CHLORASEPTIC ) LOZENGE MM PRN (16:51)
[2022-08-02] MEDS ORDERED: ACETAMINOPHEN 325 MG TABLET (FP) PO PRN ×2 (16:51)
[2022-08-02] MEDS ORDERED: LOPERAMIDE HCL 2 MG CAPSULE PO PRN (16:51)
[2022-08-02] MEDS ORDERED: NALOXONE HCL (KLOXXADO) 8 MG SPRAY NS PRN (16:51)
[2022-08-02] MEDS ORDERED: NICOTINE 10 MG CARTRIDGE (INHALER) IH PRN (16:51)
[2022-08-02] MEDS ORDERED: MAGNESIUM HYDROX 2400MG/30ML ORAL SUSPENSION 30 ML CUP PO PRN (16:51)
[2022-08-02] MEDS ORDERED: IBUPROFEN 400 MG TABLET (FP) PO PRN (16:51)
[2022-08-02] MEDS ORDERED: hydrOXYzine PAMOATE 25 MG CAPSULE (FP) PO PRN (16:51)
[2022-08-02] MEDS ORDERED: MAGNESIUM CITRATE 300 ML BOTTLE PO PRN (16:51)
[2022-08-02] MEDS ORDERED: MAG HYDROX/AL HYDROX/SIMETH 30 ML UNIT-DOSE CUP PO PRN (16:51)
[2022-08-02] MEDS ORDERED: IBUPROFEN 600 MG TABLET (FP) PO PRN (16:51)
[2022-08-02] MEDS ORDERED: BISMUTH SUBSALICYLATE 524 MG/30 ML PO PRN (16:51)
[2022-08-02] MEDS ORDERED: METHOCARBAMOL 500 MG TABLET PO PRN (16:51)
[2022-08-02] MEDS: ATORVASTATIN CA 20 MG TABLET (FP) PO SCH (22:24)
[2022-08-02] MEDS: THIAMINE HCL 100 MG TABLET (FP) PO SCH (22:24)
[2022-08-02] MEDS: DIVALPROEX SODIUM 500 MG TABLET E.C. PO SCH (22:24)
[2022-08-02] MEDS: LISINOPRIL 10 MG TABLET PO SCH (22:24)
[2022-08-02] MEDS: MELATONIN 5 MG TABLETS PO SCH (22:25)
[2022-08-03] MEDS ORDERED: diazePAM 5 MG TABLET PO PRN (09:59)
[2022-08-03] MEDS: PRENATAL VITAMINS W/ FOLIC ACID TABLET (FP) PO SCH (10:14)
[2022-08-03] MEDS: amLODIPine BESYLATE 10 MG TABLET (FP) PO SCH (10:14)
[2022-08-03] MEDS: ASPIRIN 81 MG CHEWABLE TABLETS PO SCH (10:14)
[2022-08-03] MEDS: ARIPiprazole 10 MG TABLET PO SCH (10:14)
[2022-08-03] MEDS: methaDONE HCL 40 MG DISPERSABLE TABLET PO SCH (10:14)
[2022-08-03] MEDS: DIVALPROEX SODIUM 500 MG TABLET E.C. PO SCH ×2 (10:14→23:15)
[2022-08-03] MEDS: LISINOPRIL 10 MG TABLET PO SCH ×2 (10:14→23:15)
[2022-08-03] MEDS: diazePAM 5 MG TABLET PO SCH ×4 (10:15→23:15)
[2022-08-03] MEDS: NICOTINE 14 MG/24 HOURS TOPICAL PATCH TD SCH (10:16)
[2022-08-03 11:11] LABS: HEMATOCRIT 42.9 % (35.4-49); HEMOGLOBIN 14.4 GM/dL (11.7-16.9); MCH 29.7 pg (25.7-33.7); MCHC 33.5 g/dl (32.0-35.9); MEAN CELL VOLUME 88.6 fl (80-96); MEAN PLT VOLUME 8.7 fl (7.5-11.1); PLATELET COUNT 177 10^3/uL (134-434); RBC 4.84 M/mm3 (4.00-5.60); RDW 15.1 % (11.9-15.9); WHITE BLOOD COUNT 3.7 K/mm3 (4.0-10.0)
[2022-08-03 11:15] LABS: CALCIUM 9.5 mg/dL (8.5-10.1)
[2022-08-03 11:16] LABS: ALBUMIN 3.6 g/dl (3.4-5.0); BLOOD UREA NITROGEN 17.8 mg/dL (7-18)
[2022-08-03 11:18] LABS: CREATININE 1.1 mg/dL (0.55-1.3)
[2022-08-03 11:20] LABS: BILIRUBIN,TOTAL 0.6 mg/dL (0.2-1); TOT PROT 7.1 g/dl (6.4-8.2)
[2022-08-03] MEDS: ATORVASTATIN CA 20 MG TABLET (FP) PO SCH (23:15)
[2022-08-03] MEDS: MELATONIN 5 MG TABLETS PO SCH (23:15)
[2022-08-03] MEDS: THIAMINE HCL 100 MG TABLET (FP) PO SCH (23:15)
[2022-08-03] MEDS: traZODone HCL 100 MG TABLET (FP) PO SCH (23:52)
[2022-08-04] MEDS: methaDONE HCL 40 MG DISPERSABLE TABLET PO SCH (05:27)
[2022-08-04] MEDS: diazePAM 5 MG TABLET PO SCH ×4 (05:28→22:40)
[2022-08-04] MEDS: ARIPiprazole 10 MG TABLET PO SCH (10:14)
[2022-08-04] MEDS: PRENATAL VITAMINS W/ FOLIC ACID TABLET (FP) PO SCH (10:15)
[2022-08-04] MEDS: LISINOPRIL 10 MG TABLET PO SCH (10:15)
[2022-08-04] MEDS: ASPIRIN 81 MG CHEWABLE TABLETS PO SCH (10:15)
[2022-08-04] MEDS: amLODIPine BESYLATE 10 MG TABLET (FP) PO SCH (10:15)
[2022-08-04] MEDS: DIVALPROEX SODIUM 500 MG TABLET E.C. PO SCH ×2 (10:15→22:38)
[2022-08-04] MEDS: NICOTINE 14 MG/24 HOURS TOPICAL PATCH TD SCH (10:15)
[2022-08-04] MEDS: ATORVASTATIN CA 20 MG TABLET (FP) PO SCH (22:38)
[2022-08-04] MEDS: traZODone HCL 100 MG TABLET (FP) PO SCH (22:38)
[2022-08-04] MEDS: THIAMINE HCL 100 MG TABLET (FP) PO SCH (22:38)
[2022-08-05] MEDS: MELATONIN 5 MG TABLETS PO SCH ×2 (00:02→22:35)
[2022-08-05] MEDS: LISINOPRIL 10 MG TABLET PO SCH ×3 (00:03→22:35)
[2022-08-05] MEDS: diazePAM 5 MG TABLET PO SCH ×3 (05:24→22:35)
[2022-08-05] MEDS: methaDONE HCL 40 MG DISPERSABLE TABLET PO SCH (05:25)
[2022-08-05] MEDS: amLODIPine BESYLATE 10 MG TABLET (FP) PO SCH (10:36)
[2022-08-05] MEDS: ARIPiprazole 10 MG TABLET PO SCH (10:36)
[2022-08-05] MEDS: NICOTINE 14 MG/24 HOURS TOPICAL PATCH TD SCH (10:36)
[2022-08-05] MEDS: PRENATAL VITAMINS W/ FOLIC ACID TABLET (FP) PO SCH (10:36)
[2022-08-05] MEDS: ASPIRIN 81 MG CHEWABLE TABLETS PO SCH (10:36)
[2022-08-05] MEDS: DIVALPROEX SODIUM 500 MG TABLET E.C. PO SCH ×2 (10:36→22:36)
[2022-08-05] MEDS: THIAMINE HCL 100 MG TABLET (FP) PO SCH (22:35)
[2022-08-05] MEDS: ATORVASTATIN CA 20 MG TABLET (FP) PO SCH (22:35)
[2022-08-05] MEDS: traZODone HCL 100 MG TABLET (FP) PO SCH (22:35)
[2022-08-06] MEDS: methaDONE HCL 40 MG DISPERSABLE TABLET PO SCH (05:58)
[2022-08-06] MEDS ORDERED: diazePAM 5 MG TABLET PO SCH (06:00)
[2022-08-06 07:00] VITALS: RESP 18
[2022-08-06 09:33] VITALS: BP 113/58; PULSE 77; TEMP 97.3
[2022-08-06] MEDS: PRENATAL VITAMINS W/ FOLIC ACID TABLET (FP) PO SCH (10:12)
[2022-08-06] MEDS: amLODIPine BESYLATE 10 MG TABLET (FP) PO SCH (10:12)
[2022-08-06] MEDS: LISINOPRIL 10 MG TABLET PO SCH (10:12)
[2022-08-06] MEDS: DIVALPROEX SODIUM 500 MG TABLET E.C. PO SCH (10:12)
[2022-08-06] MEDS: NICOTINE 14 MG/24 HOURS TOPICAL PATCH TD SCH (10:12)
[2022-08-06] MEDS: ASPIRIN 81 MG CHEWABLE TABLETS PO SCH (10:12)
[2022-08-06] MEDS: ARIPiprazole 10 MG TABLET PO SCH (10:12)
[2022-08-07] MEDS ORDERED: diazePAM 5 MG TABLET PO ONE (06:00)
== END 2022-08-06 11:00 | disposition home or self-care (01) | DRG 773 ==
LOC: YASAS 14:29 → UNDOADMIN 16:55 → Y6N 16:55
PROVIDERS: ADMIT Allergy & Immunology; ATTEND Surgery
PROC: HZ2ZZZZ Detoxification Services for Substance Abuse Treatment (ICD-10-PCS; principal; 2022-08-02)
DX: F10.230 Alcohol dependence with withdrawal, uncomplicated (principal); F11.20 Opioid dependence, uncomplicated; F14.20 Cocaine dependence, uncomplicated; F12.20 Cannabis dependence, uncomplicated; F17.210 Nicotine dependence, cigarettes, uncomplicated; F31.9 Bipolar disorder, unspecified; F19.282 Other psychoactive substance dependence with psychoactive substance-induced sleep disorder; D57.3 Sickle-cell trait; H91.92 Unspecified hearing loss, left ear; I10 Essential (primary) hypertension; R76.11 Nonspecific reaction to tuberculin skin test without active tuberculosis; Z86.19 Personal history of other infectious and parasitic diseases; Z86.73 Personal history of transient ischemic attack (TIA), and cerebral infarction without residual deficits
CPT/HCPCS: 36415; 80053; 85027; 86593; 86780; C9803-CS; U0003; U0005

== ENCOUNTER 2022-08-26 21:41 | Inpatient (IN) | payer OTHER ==
[2022-08-26 22:41] VITALS: BMI 26.1
[2022-08-26] MEDS ORDERED: DICYCLOMINE HCL 10 MG CAPSULE PO PRN (23:10)
[2022-08-26] MEDS ORDERED: MAG HYDROX/AL HYDROX/SIMETH 30 ML UNIT-DOSE CUP PO PRN (23:10)
[2022-08-26] MEDS ORDERED: ONDANSETRON *ODT* 4 MG TABLET SL PRN (23:10)
[2022-08-26] MEDS ORDERED: IBUPROFEN 400 MG TABLET (FP) PO PRN (23:10)
[2022-08-26] MEDS ORDERED: POLYETHYLENE GLYCOL (HEALTHYLAX) 3350 17 GM PACKET PO PRN (23:10)
[2022-08-26] MEDS ORDERED: NALOXONE HCL (KLOXXADO) 8 MG SPRAY NS PRN (23:10)
[2022-08-26] MEDS ORDERED: ACETAMINOPHEN 325 MG TABLET (FP) PO PRN ×2 (23:10)
[2022-08-26] MEDS ORDERED: NICOTINE POLACRILEX 2 MG GUM BUC PRN (23:10)
[2022-08-26] MEDS ORDERED: METHOCARBAMOL 500 MG TABLET PO PRN (23:10)
[2022-08-26] MEDS ORDERED: hydrOXYzine PAMOATE 25 MG CAPSULE (FP) PO PRN (23:10)
[2022-08-26] MEDS ORDERED: BISMUTH SUBSALICYLATE 524 MG/30 ML PO PRN (23:10)
[2022-08-26] MEDS ORDERED: IBUPROFEN 600 MG TABLET (FP) PO PRN (23:10)
[2022-08-26] MEDS ORDERED: P-EPHED 60MG/TRIPROLIDI 2.5MG TABLET PO PRN (23:10)
[2022-08-26] MEDS ORDERED: BENZOCAINE/MENTHOL (CHLORASEPTIC ) LOZENGE MM PRN (23:10)
[2022-08-26] MEDS ORDERED: MAGNESIUM HYDROX 2400MG/30ML ORAL SUSPENSION 30 ML CUP PO PRN (23:10)
[2022-08-26] MEDS ORDERED: guaiFENesin 200 MG/10 ML 10 ML UNIT-DOSE CUPS PO PRN (23:10)
[2022-08-26] MEDS ORDERED: LOPERAMIDE HCL 2 MG CAPSULE PO PRN (23:10)
[2022-08-27] MEDS ORDERED: ARIPiprazole 5 MG TABLET PO SCH (10:00)
[2022-08-27] MEDS ORDERED: DIVALPROEX SODIUM 500 MG TABLET E.C. PO SCH (10:00)
[2022-08-27] MEDS: ASPIRIN 81 MG CHEWABLE TABLETS PO SCH (10:33)
[2022-08-27] MEDS: amLODIPine BESYLATE 10 MG TABLET (FP) PO SCH (10:33)
[2022-08-27] MEDS: DIVALPROEX SODIUM 500 MG TABLET E.C. PO SCH ×2 (10:33→22:32)
[2022-08-27] MEDS: ARIPiprazole 5 MG TABLET PO SCH (10:34)
[2022-08-27] MEDS: NICOTINE 14 MG/24 HOURS TOPICAL PATCH TD SCH (10:34)
[2022-08-27] MEDS: PRENATAL VITAMINS W/ FOLIC ACID TABLET (FP) PO SCH (10:34)
[2022-08-27 12:22] LABS: ALBUMIN 3.4 g/dl (3.4-5.0)
[2022-08-27 12:23] LABS: BLOOD UREA NITROGEN 15.2 mg/dL (7-18); CALCIUM 9.1 mg/dL (8.5-10.1)
[2022-08-27 12:26] LABS: BILIRUBIN,TOTAL 0.5 mg/dL (0.2-1); TOT PROT 6.7 g/dl (6.4-8.2)
[2022-08-27 12:42] LABS: HEMATOCRIT 40.8 % (35.4-49); HEMOGLOBIN 13.2 GM/dL (11.7-16.9); MCH 28.4 pg (25.7-33.7); MCHC 32.4 g/dl (32.0-35.9); MEAN CELL VOLUME 87.7 fl (80-96); MEAN PLT VOLUME 8.7 fl (7.5-11.1); PLATELET COUNT 172 10^3/uL (134-434); RBC 4.65 M/mm3 (4.00-5.60); RDW 14.8 % (11.9-15.9); WHITE BLOOD COUNT 3.5 K/mm3 (4.0-10.0)
[2022-08-27] MEDS ORDERED: traZODone HCL 100 MG TABLET (FP) PO SCH ×2 (22:00)
[2022-08-27] MEDS ORDERED: ATORVASTATIN CA 20 MG TABLET (FP) PO SCH (22:00)
[2022-08-27] MEDS ORDERED: THIAMINE HCL 100 MG TABLET (FP) PO SCH (22:00)
[2022-08-27] MEDS ORDERED: MELATONIN 5 MG TABLETS PO SCH (22:00)
[2022-08-28 06:38] VITALS: RESP 18
[2022-08-28] MEDS ORDERED: methaDONE HCL 40 MG DISPERSABLE TABLET PO ONE (10:00)
[2022-08-28] MEDS: DIVALPROEX SODIUM 500 MG TABLET E.C. PO SCH (10:03)
[2022-08-28] MEDS: ARIPiprazole 5 MG TABLET PO SCH (10:03)
[2022-08-28] MEDS: ASPIRIN 81 MG CHEWABLE TABLETS PO SCH (10:03)
[2022-08-28] MEDS: amLODIPine BESYLATE 10 MG TABLET (FP) PO SCH (10:03)
[2022-08-28] MEDS: PRENATAL VITAMINS W/ FOLIC ACID TABLET (FP) PO SCH (10:04)
[2022-08-28] MEDS: NICOTINE 14 MG/24 HOURS TOPICAL PATCH TD SCH (10:05)
[2022-08-28 13:03] VITALS: BP 143/53; PULSE 82; TEMP 96.9
[2022-08-29] MEDS ORDERED: methaDONE 80 MG, methaDONE 10 MG PO SCH (06:00)
[2022-08-29] MEDS ORDERED: methaDONE HCL 40 MG DISPERSABLE TABLET PO SCH (06:00)
== END 2022-08-28 14:44 | disposition other institution (70) | DRG 773 ==
LOC: YASAS 21:41 → UNDOADMIN 23:39 → Y6N 23:39
PROVIDERS: ADMIT Allergy & Immunology; ATTEND Surgery
PROC: HZ2ZZZZ Detoxification Services for Substance Abuse Treatment (ICD-10-PCS; principal; 2022-08-26)
DX: F10.230 Alcohol dependence with withdrawal, uncomplicated (principal); F11.20 Opioid dependence, uncomplicated; F14.20 Cocaine dependence, uncomplicated; F13.230 Sedative, hypnotic or anxiolytic dependence with withdrawal, uncomplicated; F10.220 Alcohol dependence with intoxication, uncomplicated; F12.20 Cannabis dependence, uncomplicated; F17.210 Nicotine dependence, cigarettes, uncomplicated; F19.282 Other psychoactive substance dependence with psychoactive substance-induced sleep disorder; F31.9 Bipolar disorder, unspecified; F19.24 Other psychoactive substance dependence with psychoactive substance-induced mood disorder; D57.3 Sickle-cell trait; E78.5 Hyperlipidemia, unspecified; I10 Essential (primary) hypertension; H91.92 Unspecified hearing loss, left ear; B18.2 Chronic viral hepatitis C; R76.11 Nonspecific reaction to tuberculin skin test without active tuberculosis; M54.50 Low back pain, unspecified; G89.29 Other chronic pain; Z62.810 Personal history of physical and sexual abuse in childhood; Z86.19 Personal history of other infectious and parasitic diseases; Z86.73 Personal history of transient ischemic attack (TIA), and cerebral infarction without residual deficits
CPT/HCPCS: 36415; 80053; 80164; 85027; 86593; 86780; 87811; C9803-CS; U0003; U0005

== ENCOUNTER 2022-08-28 14:48 | Inpatient (IN) | payer OTHER ==
[2022-08-28] MEDS ORDERED: POLYETHYLENE GLYCOL (HEALTHYLAX) 3350 17 GM PACKET PO PRN (15:21)
[2022-08-28] MEDS ORDERED: MAGNESIUM HYDROX 2400MG/30ML ORAL SUSPENSION 30 ML CUP PO PRN (15:21)
[2022-08-28] MEDS ORDERED: P-EPHED 60MG/TRIPROLIDI 2.5MG TABLET PO PRN (15:21)
[2022-08-28] MEDS ORDERED: BENZOCAINE/MENTHOL (CHLORASEPTIC ) LOZENGE MM PRN (15:21)
[2022-08-28] MEDS ORDERED: IBUPROFEN 400 MG TABLET (FP) PO PRN (15:21)
[2022-08-28] MEDS ORDERED: hydrOXYzine PAMOATE 25 MG CAPSULE (FP) PO PRN (15:21)
[2022-08-28] MEDS ORDERED: guaiFENesin 200 MG/10 ML 10 ML UNIT-DOSE CUPS PO PRN (15:21)
[2022-08-28] MEDS ORDERED: ACETAMINOPHEN 325 MG TABLET (FP) PO PRN (15:21)
[2022-08-28] MEDS ORDERED: LOPERAMIDE HCL 2 MG CAPSULE PO PRN (15:21)
[2022-08-28] MEDS ORDERED: MAG HYDROX/AL HYDROX/SIMETH 30 ML UNIT-DOSE CUP PO PRN (15:21)
[2022-08-28] MEDS: THIAMINE HCL 100 MG TABLET (FP) PO SCH (21:49)
[2022-08-28] MEDS: MELATONIN 5 MG TABLETS PO SCH (21:49)
[2022-08-29] MEDS ORDERED: methaDONE HCL 40 MG DISPERSABLE TABLET PO ONE (07:30)
[2022-08-29] MEDS ORDERED: NICOTINE 7 MG/24 HOURS TOPICAL PATCH TD SCH (10:00)
[2022-08-29] MEDS ORDERED: methaDONE HCL 40 MG DISPERSABLE TABLET PO SCH (10:00)
[2022-08-29] MEDS: DIVALPROEX SODIUM 500 MG TABLET E.C. PO SCH ×2 (10:15→21:43)
[2022-08-29] MEDS: ARIPiprazole 10 MG TABLET PO SCH (10:15)
[2022-08-29] MEDS: amLODIPine BESYLATE 10 MG TABLET (FP) PO SCH (10:15)
[2022-08-29] MEDS: PRENATAL VITAMINS W/ FOLIC ACID TABLET (FP) PO SCH (10:16)
[2022-08-29] MEDS: ASPIRIN 81 MG CHEWABLE TABLETS PO SCH (10:16)
[2022-08-29] MEDS ORDERED: NICOTINE 7 MG/24 HOURS TOPICAL PATCH TD PRN (14:13)
[2022-08-29] MEDS: THIAMINE HCL 100 MG TABLET (FP) PO SCH (21:42)
[2022-08-29] MEDS: MELATONIN 5 MG TABLETS PO SCH (21:42)
[2022-08-29] MEDS: traZODone HCL 100 MG TABLET (FP) PO SCH (21:43)
[2022-08-29] MEDS: ATORVASTATIN CA 20 MG TABLET (FP) PO SCH (21:43)
[2022-08-30] MEDS: methaDONE HCL 40 MG DISPERSABLE TABLET PO SCH (06:37)
[2022-08-30] MEDS: DIVALPROEX SODIUM 500 MG TABLET E.C. PO SCH ×2 (09:58→21:28)
[2022-08-30] MEDS: ARIPiprazole 10 MG TABLET PO SCH (09:59)
[2022-08-30] MEDS: PRENATAL VITAMINS W/ FOLIC ACID TABLET (FP) PO SCH (09:59)
[2022-08-30] MEDS: amLODIPine BESYLATE 10 MG TABLET (FP) PO SCH (09:59)
[2022-08-30] MEDS: ASPIRIN 81 MG CHEWABLE TABLETS PO SCH (09:59)
[2022-08-30] MEDS: THIAMINE HCL 100 MG TABLET (FP) PO SCH (21:28)
[2022-08-30] MEDS: ATORVASTATIN CA 20 MG TABLET (FP) PO SCH (21:28)
[2022-08-30] MEDS: MELATONIN 5 MG TABLETS PO SCH (21:28)
[2022-08-30] MEDS: traZODone HCL 100 MG TABLET (FP) PO SCH (21:28)
[2022-08-31] MEDS: methaDONE HCL 40 MG DISPERSABLE TABLET PO SCH (06:24)
[2022-08-31] MEDS: DIVALPROEX SODIUM 500 MG TABLET E.C. PO SCH ×2 (09:41→21:27)
[2022-08-31] MEDS: PRENATAL VITAMINS W/ FOLIC ACID TABLET (FP) PO SCH (09:41)
[2022-08-31] MEDS: ASPIRIN 81 MG CHEWABLE TABLETS PO SCH (09:41)
[2022-08-31] MEDS: ARIPiprazole 10 MG TABLET PO SCH (09:41)
[2022-08-31] MEDS: amLODIPine BESYLATE 10 MG TABLET (FP) PO SCH (09:41)
[2022-08-31] MEDS: traZODone HCL 100 MG TABLET (FP) PO SCH (21:26)
[2022-08-31] MEDS: MELATONIN 5 MG TABLETS PO SCH (21:27)
[2022-08-31] MEDS: THIAMINE HCL 100 MG TABLET (FP) PO SCH (21:27)
[2022-08-31] MEDS: ATORVASTATIN CA 20 MG TABLET (FP) PO SCH (21:27)
[2022-09-01] MEDS: methaDONE HCL 40 MG DISPERSABLE TABLET PO SCH (06:47)
[2022-09-01] MEDS: ARIPiprazole 10 MG TABLET PO SCH (09:29)
[2022-09-01] MEDS: amLODIPine BESYLATE 10 MG TABLET (FP) PO SCH (09:29)
[2022-09-01] MEDS: PRENATAL VITAMINS W/ FOLIC ACID TABLET (FP) PO SCH (09:29)
[2022-09-01] MEDS: DIVALPROEX SODIUM 500 MG TABLET E.C. PO SCH ×2 (09:30→21:43)
[2022-09-01] MEDS: ASPIRIN 81 MG CHEWABLE TABLETS PO SCH (09:30)
[2022-09-01] MEDS: MELATONIN 5 MG TABLETS PO SCH (21:42)
[2022-09-01] MEDS: THIAMINE HCL 100 MG TABLET (FP) PO SCH (21:43)
[2022-09-01] MEDS: traZODone HCL 100 MG TABLET (FP) PO SCH (21:43)
[2022-09-01] MEDS: ATORVASTATIN CA 20 MG TABLET (FP) PO SCH (21:43)
[2022-09-02] MEDS: methaDONE HCL 40 MG DISPERSABLE TABLET PO SCH (06:03)
[2022-09-02] MEDS: DIVALPROEX SODIUM 500 MG TABLET E.C. PO SCH ×2 (09:45→21:25)
[2022-09-02] MEDS: ARIPiprazole 10 MG TABLET PO SCH (09:45)
[2022-09-02] MEDS: PRENATAL VITAMINS W/ FOLIC ACID TABLET (FP) PO SCH (09:45)
[2022-09-02] MEDS: NICOTINE 10 MG CARTRIDGE (INHALER) IH PRN (09:45)
[2022-09-02] MEDS: amLODIPine BESYLATE 10 MG TABLET (FP) PO SCH (09:45)
[2022-09-02] MEDS: ASPIRIN 81 MG CHEWABLE TABLETS PO SCH (09:45)
[2022-09-02] MEDS: traZODone HCL 100 MG TABLET (FP) PO SCH (21:24)
[2022-09-02] MEDS: ATORVASTATIN CA 20 MG TABLET (FP) PO SCH (21:24)
[2022-09-02] MEDS: THIAMINE HCL 100 MG TABLET (FP) PO SCH (21:25)
[2022-09-02] MEDS: MELATONIN 5 MG TABLETS PO SCH (21:25)
[2022-09-03] MEDS: methaDONE HCL 40 MG DISPERSABLE TABLET PO SCH (06:21)
[2022-09-03] MEDS: amLODIPine BESYLATE 10 MG TABLET (FP) PO SCH (09:52)
[2022-09-03] MEDS: ARIPiprazole 10 MG TABLET PO SCH (09:52)
[2022-09-03] MEDS: PRENATAL VITAMINS W/ FOLIC ACID TABLET (FP) PO SCH (09:52)
[2022-09-03] MEDS: DIVALPROEX SODIUM 500 MG TABLET E.C. PO SCH ×2 (09:53→21:14)
[2022-09-03] MEDS: ASPIRIN 81 MG CHEWABLE TABLETS PO SCH (09:53)
[2022-09-03] MEDS: MELATONIN 5 MG TABLETS PO SCH (21:14)
[2022-09-03] MEDS: ATORVASTATIN CA 20 MG TABLET (FP) PO SCH (21:14)
[2022-09-03] MEDS: THIAMINE HCL 100 MG TABLET (FP) PO SCH (21:14)
[2022-09-03] MEDS: traZODone HCL 100 MG TABLET (FP) PO SCH (21:14)
[2022-09-04] MEDS: methaDONE HCL 40 MG DISPERSABLE TABLET PO SCH (06:13)
[2022-09-04] MEDS: ARIPiprazole 10 MG TABLET PO SCH (09:39)
[2022-09-04] MEDS: DIVALPROEX SODIUM 500 MG TABLET E.C. PO SCH ×2 (09:39→21:07)
[2022-09-04] MEDS: ASPIRIN 81 MG CHEWABLE TABLETS PO SCH (09:39)
[2022-09-04] MEDS: PRENATAL VITAMINS W/ FOLIC ACID TABLET (FP) PO SCH (09:39)
[2022-09-04] MEDS: amLODIPine BESYLATE 10 MG TABLET (FP) PO SCH (09:39)
[2022-09-04] MEDS ORDERED: ONDANSETRON *ODT* 4 MG TABLET SL PRN (12:41)
[2022-09-04] MEDS: MELATONIN 5 MG TABLETS PO SCH (21:07)
[2022-09-04] MEDS: ATORVASTATIN CA 20 MG TABLET (FP) PO SCH (21:07)
[2022-09-04] MEDS: traZODone HCL 100 MG TABLET (FP) PO SCH (21:07)
[2022-09-04] MEDS: THIAMINE HCL 100 MG TABLET (FP) PO SCH (21:07)
[2022-09-05] MEDS: methaDONE HCL 40 MG DISPERSABLE TABLET PO SCH (06:04)
[2022-09-05] MEDS: PRENATAL VITAMINS W/ FOLIC ACID TABLET (FP) PO SCH (10:02)
[2022-09-05] MEDS: DIVALPROEX SODIUM 500 MG TABLET E.C. PO SCH ×2 (10:02→21:14)
[2022-09-05] MEDS: ASPIRIN 81 MG CHEWABLE TABLETS PO SCH (10:02)
[2022-09-05] MEDS: ARIPiprazole 10 MG TABLET PO SCH (10:03)
[2022-09-05] MEDS: amLODIPine BESYLATE 10 MG TABLET (FP) PO SCH (10:59)
[2022-09-05] MEDS: THIAMINE HCL 100 MG TABLET (FP) PO SCH (21:14)
[2022-09-05] MEDS: traZODone HCL 100 MG TABLET (FP) PO SCH (21:14)
[2022-09-05] MEDS: MELATONIN 5 MG TABLETS PO SCH (21:14)
[2022-09-05] MEDS: ATORVASTATIN CA 20 MG TABLET (FP) PO SCH (21:14)
[2022-09-06] MEDS: methaDONE HCL 40 MG DISPERSABLE TABLET PO SCH (06:07)
[2022-09-06] MEDS: amLODIPine BESYLATE 10 MG TABLET (FP) PO SCH (09:53)
[2022-09-06] MEDS: PRENATAL VITAMINS W/ FOLIC ACID TABLET (FP) PO SCH (09:53)
[2022-09-06] MEDS: DIVALPROEX SODIUM 500 MG TABLET E.C. PO SCH ×2 (09:53→21:15)
[2022-09-06] MEDS: ASPIRIN 81 MG CHEWABLE TABLETS PO SCH (09:53)
[2022-09-06] MEDS: ARIPiprazole 10 MG TABLET PO SCH (09:53)
[2022-09-06] MEDS: traZODone HCL 100 MG TABLET (FP) PO SCH (21:14)
[2022-09-06] MEDS: THIAMINE HCL 100 MG TABLET (FP) PO SCH (21:14)
[2022-09-06] MEDS: MELATONIN 5 MG TABLETS PO SCH (21:15)
[2022-09-06] MEDS: ATORVASTATIN CA 20 MG TABLET (FP) PO SCH (21:15)
[2022-09-07] MEDS: methaDONE HCL 40 MG DISPERSABLE TABLET PO SCH (06:07)
[2022-09-07] MEDS: PRENATAL VITAMINS W/ FOLIC ACID TABLET (FP) PO SCH (10:00)
[2022-09-07] MEDS: amLODIPine BESYLATE 10 MG TABLET (FP) PO SCH (10:01)
[2022-09-07] MEDS: ASPIRIN 81 MG CHEWABLE TABLETS PO SCH (10:01)
[2022-09-07] MEDS: ARIPiprazole 10 MG TABLET PO SCH (10:01)
[2022-09-07] MEDS: DIVALPROEX SODIUM 500 MG TABLET E.C. PO SCH ×2 (10:01→21:17)
[2022-09-07] MEDS: ATORVASTATIN CA 20 MG TABLET (FP) PO SCH (21:17)
[2022-09-07] MEDS: THIAMINE HCL 100 MG TABLET (FP) PO SCH (21:17)
[2022-09-07] MEDS: traZODone HCL 100 MG TABLET (FP) PO SCH (21:17)
[2022-09-07] MEDS: MELATONIN 5 MG TABLETS PO SCH (21:17)
[2022-09-08] MEDS: methaDONE HCL 40 MG DISPERSABLE TABLET PO SCH (06:10)
[2022-09-08] MEDS: ARIPiprazole 10 MG TABLET PO SCH (09:52)
[2022-09-08] MEDS: ASPIRIN 81 MG CHEWABLE TABLETS PO SCH (09:52)
[2022-09-08] MEDS: DIVALPROEX SODIUM 500 MG TABLET E.C. PO SCH ×2 (09:52→21:14)
[2022-09-08] MEDS: amLODIPine BESYLATE 10 MG TABLET (FP) PO SCH (09:53)
[2022-09-08] MEDS: PRENATAL VITAMINS W/ FOLIC ACID TABLET (FP) PO SCH (09:53)
[2022-09-08] MEDS: NICOTINE 10 MG CARTRIDGE (INHALER) IH PRN (09:54)
[2022-09-08] MEDS: THIAMINE HCL 100 MG TABLET (FP) PO SCH (21:14)
[2022-09-08] MEDS: ATORVASTATIN CA 20 MG TABLET (FP) PO SCH (21:14)
[2022-09-08] MEDS: traZODone HCL 100 MG TABLET (FP) PO SCH (21:14)
[2022-09-08] MEDS: MELATONIN 5 MG TABLETS PO SCH (21:14)
[2022-09-09] MEDS: methaDONE HCL 40 MG DISPERSABLE TABLET PO SCH (06:09)
[2022-09-09] MEDS: PRENATAL VITAMINS W/ FOLIC ACID TABLET (FP) PO SCH (09:47)
[2022-09-09] MEDS: DIVALPROEX SODIUM 500 MG TABLET E.C. PO SCH ×2 (09:47→21:17)
[2022-09-09] MEDS: ARIPiprazole 10 MG TABLET PO SCH (09:47)
[2022-09-09] MEDS: ASPIRIN 81 MG CHEWABLE TABLETS PO SCH (09:47)
[2022-09-09] MEDS: amLODIPine BESYLATE 10 MG TABLET (FP) PO SCH (09:47)
[2022-09-09] MEDS: MELATONIN 5 MG TABLETS PO SCH (21:17)
[2022-09-09] MEDS: traZODone HCL 100 MG TABLET (FP) PO SCH (21:17)
[2022-09-09] MEDS: THIAMINE HCL 100 MG TABLET (FP) PO SCH (21:17)
[2022-09-09] MEDS: ATORVASTATIN CA 20 MG TABLET (FP) PO SCH (21:17)
[2022-09-10] MEDS: methaDONE HCL 40 MG DISPERSABLE TABLET PO SCH (05:54)
[2022-09-10] MEDS: amLODIPine BESYLATE 10 MG TABLET (FP) PO SCH (09:41)
[2022-09-10] MEDS: PRENATAL VITAMINS W/ FOLIC ACID TABLET (FP) PO SCH (09:41)
[2022-09-10] MEDS: ARIPiprazole 10 MG TABLET PO SCH (09:41)
[2022-09-10] MEDS: DIVALPROEX SODIUM 500 MG TABLET E.C. PO SCH ×2 (09:41→21:14)
[2022-09-10] MEDS: ASPIRIN 81 MG CHEWABLE TABLETS PO SCH (09:42)
[2022-09-10 09:45] VITALS: RESP 18
[2022-09-10] MEDS: ATORVASTATIN CA 20 MG TABLET (FP) PO SCH (21:13)
[2022-09-10] MEDS: traZODone HCL 100 MG TABLET (FP) PO SCH (21:13)
[2022-09-10] MEDS: MELATONIN 5 MG TABLETS PO SCH (21:13)
[2022-09-10] MEDS: THIAMINE HCL 100 MG TABLET (FP) PO SCH (21:13)
[2022-09-11] MEDS: methaDONE HCL 40 MG DISPERSABLE TABLET PO SCH (05:58)
[2022-09-11] MEDS: ARIPiprazole 10 MG TABLET PO SCH (10:05)
[2022-09-11] MEDS: DIVALPROEX SODIUM 500 MG TABLET E.C. PO SCH ×2 (10:05→22:07)
[2022-09-11] MEDS: ASPIRIN 81 MG CHEWABLE TABLETS PO SCH (10:05)
[2022-09-11] MEDS: amLODIPine BESYLATE 10 MG TABLET (FP) PO SCH (10:05)
[2022-09-11] MEDS: PRENATAL VITAMINS W/ FOLIC ACID TABLET (FP) PO SCH (10:05)
[2022-09-11] MEDS: traZODone HCL 100 MG TABLET (FP) PO SCH (22:07)
[2022-09-11] MEDS: MELATONIN 5 MG TABLETS PO SCH (22:07)
[2022-09-11] MEDS: THIAMINE HCL 100 MG TABLET (FP) PO SCH (22:07)
[2022-09-11] MEDS: ATORVASTATIN CA 20 MG TABLET (FP) PO SCH (22:09)
[2022-09-12] MEDS: methaDONE HCL 40 MG DISPERSABLE TABLET PO SCH (06:07)
[2022-09-12] MEDS: DIVALPROEX SODIUM 500 MG TABLET E.C. PO SCH ×2 (09:34→21:03)
[2022-09-12] MEDS: amLODIPine BESYLATE 10 MG TABLET (FP) PO SCH (09:34)
[2022-09-12] MEDS: ARIPiprazole 10 MG TABLET PO SCH (09:34)
[2022-09-12] MEDS: PRENATAL VITAMINS W/ FOLIC ACID TABLET (FP) PO SCH (09:34)
[2022-09-12] MEDS: ASPIRIN 81 MG CHEWABLE TABLETS PO SCH (09:34)
[2022-09-12] MEDS: ATORVASTATIN CA 20 MG TABLET (FP) PO SCH (21:03)
[2022-09-12] MEDS: THIAMINE HCL 100 MG TABLET (FP) PO SCH (21:03)
[2022-09-12] MEDS: traZODone HCL 100 MG TABLET (FP) PO SCH (21:03)
[2022-09-12] MEDS: MELATONIN 5 MG TABLETS PO SCH (21:03)
[2022-09-13] MEDS: methaDONE HCL 40 MG DISPERSABLE TABLET PO SCH (05:49)
[2022-09-13 06:37] VITALS: BP 143/62; PULSE 57; TEMP 98.4
[2022-09-13] MEDS: amLODIPine BESYLATE 10 MG TABLET (FP) PO SCH (09:45)
[2022-09-13] MEDS: DIVALPROEX SODIUM 500 MG TABLET E.C. PO SCH (09:45)
[2022-09-13] MEDS: ASPIRIN 81 MG CHEWABLE TABLETS PO SCH (09:45)
[2022-09-13] MEDS: ARIPiprazole 10 MG TABLET PO SCH (09:46)
[2022-09-13] MEDS: PRENATAL VITAMINS W/ FOLIC ACID TABLET (FP) PO SCH (09:47)
== END 2022-09-13 09:50 | disposition home or self-care (01) | DRG 772 ==
LOC: YASAS 14:48 → Y3W 14:49
PROVIDERS: ADMIT Allergy & Immunology; ATTEND Surgery
PROC: HZ42ZZZ Group Counseling for Substance Abuse Treatment, Cognitive-Behavioral (ICD-10-PCS; principal; 2022-08-28)
DX: F10.20 Alcohol dependence, uncomplicated (principal); F11.20 Opioid dependence, uncomplicated; F13.20 Sedative, hypnotic or anxiolytic dependence, uncomplicated; F14.20 Cocaine dependence, uncomplicated; F12.20 Cannabis dependence, uncomplicated; F17.213 Nicotine dependence, cigarettes, with withdrawal; F31.9 Bipolar disorder, unspecified; I10 Essential (primary) hypertension; E78.5 Hyperlipidemia, unspecified
CPT/HCPCS: C9803-CS; Q0162; U0003; U0005

== ENCOUNTER 2022-11-26 14:00 | Inpatient (IN) | payer OTHER ==
[2022-11-26 14:24] VITALS: BMI 25.0
[2022-11-26] MEDS ORDERED: BENZOCAINE/MENTHOL (CHLORASEPTIC ) LOZENGE MM PRN (18:20)
[2022-11-26] MEDS ORDERED: hydrOXYzine PAMOATE 25 MG CAPSULE (FP) PO PRN (18:20)
[2022-11-26] MEDS ORDERED: ONDANSETRON *ODT* 4 MG TABLET SL PRN (18:20)
[2022-11-26] MEDS ORDERED: DICYCLOMINE HCL 10 MG CAPSULE PO PRN (18:20)
[2022-11-26] MEDS ORDERED: MAGNESIUM HYDROX 2400MG/30ML ORAL SUSPENSION 30 ML CUP PO PRN (18:20)
[2022-11-26] MEDS ORDERED: BISMUTH SUBSALICYLATE 524 MG/30 ML PO PRN (18:20)
[2022-11-26] MEDS ORDERED: NALOXONE HCL (KLOXXADO) 8 MG SPRAY NS PRN (18:20)
[2022-11-26] MEDS ORDERED: METHOCARBAMOL 500 MG TABLET PO PRN (18:20)
[2022-11-26] MEDS ORDERED: NICOTINE 10 MG CARTRIDGE (INHALER) IH PRN (18:20)
[2022-11-26] MEDS ORDERED: IBUPROFEN 600 MG TABLET (FP) PO PRN (18:20)
[2022-11-26] MEDS ORDERED: MAG HYDROX/AL HYDROX/SIMETH 30 ML UNIT-DOSE CUP PO PRN (18:20)
[2022-11-26] MEDS ORDERED: ACETAMINOPHEN 325 MG TABLET (FP) PO PRN ×2 (18:20)
[2022-11-26] MEDS ORDERED: POLYETHYLENE GLYCOL (HEALTHYLAX) 3350 17 GM PACKET PO PRN (18:20)
[2022-11-26] MEDS ORDERED: LOPERAMIDE HCL 2 MG CAPSULE PO PRN (18:20)
[2022-11-26] MEDS ORDERED: IBUPROFEN 400 MG TABLET (FP) PO PRN (18:20)
[2022-11-26] MEDS ORDERED: MELATONIN 5 MG TABLETS PO SCH (22:00)
[2022-11-26] MEDS: diazePAM 5 MG TABLET PO SCH (22:38)
[2022-11-26] MEDS: THIAMINE HCL 100 MG TABLET (FP) PO SCH (22:38)
[2022-11-27] MEDS: diazePAM 5 MG TABLET PO SCH ×4 (05:41→22:32)
[2022-11-27] MEDS ORDERED: methaDONE HCL 10 MG TABLET PO SCH (09:00)
[2022-11-27] MEDS: DIVALPROEX SODIUM 500 MG TABLET E.C. PO SCH ×2 (10:14→22:32)
[2022-11-27] MEDS: PRENATAL VITAMINS W/ FOLIC ACID TABLET (FP) PO SCH (10:14)
[2022-11-27] MEDS: methaDONE 40 MG, methaDONE 20 MG PO SCH (10:14)
[2022-11-27] MEDS: ARIPiprazole 10 MG TABLET PO SCH (10:14)
[2022-11-27 13:53] LABS: HEMATOCRIT 35.6 % (35.4-49); HEMOGLOBIN 12.2 GM/dL (11.7-16.9); MCH 30.5 pg (25.7-33.7); MCHC 34.2 g/dl (32.0-35.9); MEAN CELL VOLUME 89.2 fl (80-96); MEAN PLT VOLUME 8.6 fl (7.5-11.1); PLATELET COUNT 289 10^3/uL (134-434); RBC 3.99 M/mm3 (4.00-5.60); RDW 15.5 % (11.9-15.9); WHITE BLOOD COUNT 3.7 K/mm3 (4.0-10.0)
[2022-11-27 14:37] LABS: BLOOD UREA NITROGEN 9.2 mg/dL (7-18); CALCIUM 8.8 mg/dL (8.5-10.1)
[2022-11-27 14:38] LABS: ALBUMIN 3.1 g/dl (3.4-5.0)
[2022-11-27 14:40] LABS: CREATININE 1.1 mg/dL (0.55-1.3)
[2022-11-27 14:42] LABS: BILIRUBIN,TOTAL 0.4 mg/dL (0.2-1); TOT PROT 6.5 g/dl (6.4-8.2)
[2022-11-27 15:22] LABS: URINE APPEARANCE CLEAR; URINE BILIRUBIN NEGATIVE (NEGATIVE); URINE COLOR YELLOW; URINE GLUCOSE (UA) NEGATIVE (NEGATIVE); URINE KETONE NEGATIVE (NEGATIVE); URINE LEUK ESTERASE NEGATIVE (NEGATIVE); URINE NITRITE NEGATIVE (NEGATIVE); URINE PROTEIN NEGATIVE (NEGATIVE); URINE UROBILINOGEN 0.2 mg/dL (0.2-1.0)
[2022-11-27] MEDS: THIAMINE HCL 100 MG TABLET (FP) PO SCH (22:31)
[2022-11-27] MEDS: traZODone HCL 100 MG TABLET (FP) PO SCH (22:32)
[2022-11-28] MEDS: diazePAM 5 MG TABLET PO SCH ×4 (05:46→23:15)
[2022-11-28] MEDS: methaDONE 40 MG, methaDONE 20 MG PO SCH (05:46)
[2022-11-28] MEDS: DIVALPROEX SODIUM 500 MG TABLET E.C. PO SCH ×3 (10:11→23:16)
[2022-11-28] MEDS: ARIPiprazole 10 MG TABLET PO SCH (10:11)
[2022-11-28] MEDS: PRENATAL VITAMINS W/ FOLIC ACID TABLET (FP) PO SCH (10:11)
[2022-11-28] MEDS: diazePAM 5 MG TABLET PO PRN ×2 (10:13→23:14)
[2022-11-28] MEDS: THIAMINE HCL 100 MG TABLET (FP) PO SCH (10:50)
[2022-11-28] MEDS: traZODone HCL 100 MG TABLET (FP) PO SCH ×2 (23:01→23:16)
[2022-11-29] MEDS: methaDONE 40 MG, methaDONE 20 MG PO SCH (06:06)
[2022-11-29] MEDS: diazePAM 5 MG TABLET PO SCH ×2 (06:07→17:20)
[2022-11-29] MEDS: PRENATAL VITAMINS W/ FOLIC ACID TABLET (FP) PO SCH (10:22)
[2022-11-29] MEDS: ASPIRIN 81 MG CHEWABLE TABLETS PO SCH (10:22)
[2022-11-29] MEDS: amLODIPine BESYLATE 10 MG TABLET (FP) PO SCH (10:22)
[2022-11-29] MEDS: DIVALPROEX SODIUM 500 MG TABLET E.C. PO SCH ×2 (10:22→21:41)
[2022-11-29] MEDS: ARIPiprazole 10 MG TABLET PO SCH (10:22)
[2022-11-29 20:36] VITALS: RESP 18
[2022-11-29] MEDS: THIAMINE HCL 100 MG TABLET (FP) PO SCH (21:41)
[2022-11-29] MEDS: traZODone HCL 100 MG TABLET (FP) PO SCH (21:41)
[2022-11-30] MEDS ORDERED: diazePAM 5 MG TABLET PO ONE (06:00)
[2022-11-30] MEDS: methaDONE 40 MG, methaDONE 20 MG PO SCH (06:01)
[2022-11-30 09:39] VITALS: BP 145/74; PULSE 94; TEMP 98
[2022-11-30] MEDS: ARIPiprazole 10 MG TABLET PO SCH (09:46)
[2022-11-30] MEDS: DIVALPROEX SODIUM 500 MG TABLET E.C. PO SCH (09:46)
[2022-11-30] MEDS: PRENATAL VITAMINS W/ FOLIC ACID TABLET (FP) PO SCH (09:46)
[2022-11-30] MEDS: amLODIPine BESYLATE 10 MG TABLET (FP) PO SCH (09:46)
[2022-11-30] MEDS: ASPIRIN 81 MG CHEWABLE TABLETS PO SCH (09:46)
== END 2022-11-30 09:56 | disposition home or self-care (01) | DRG 773 ==
LOC: YASAS 14:00 → Y6N 18:21
PROVIDERS: ADMIT Allergy & Immunology; ATTEND Surgery
PROC: HZ2ZZZZ Detoxification Services for Substance Abuse Treatment (ICD-10-PCS; principal; 2022-11-26)
DX: F10.230 Alcohol dependence with withdrawal, uncomplicated (principal); F11.20 Opioid dependence, uncomplicated; F14.20 Cocaine dependence, uncomplicated; F17.210 Nicotine dependence, cigarettes, uncomplicated; F31.9 Bipolar disorder, unspecified; I10 Essential (primary) hypertension; E11.9 Type 2 diabetes mellitus without complications; H90.42 Sensorineural hearing loss, unilateral, left ear, with unrestricted hearing on the contralateral side; M54.50 Low back pain, unspecified; R76.11 Nonspecific reaction to tuberculin skin test without active tuberculosis; B18.2 Chronic viral hepatitis C; D57.3 Sickle-cell trait; Z86.73 Personal history of transient ischemic attack (TIA), and cerebral infarction without residual deficits; Z62.810 Personal history of physical and sexual abuse in childhood
CPT/HCPCS: 36415; 71046-TC-FY; 80053; 81003; 85027; 86593; 86780; 87811; 93005; 93010; C9803-CS; U0003; U0005

== ENCOUNTER 2023-01-07 13:35 | Inpatient (IN) | payer OTHER ==
[2023-01-07 14:46] VITALS: BMI 24.2
[2023-01-07] MEDS ORDERED: IBUPROFEN 600 MG TABLET (FP) PO PRN (18:31)
[2023-01-07] MEDS ORDERED: guaiFENesin 600 MG TABLET.ER (FP) PO PRN (18:31)
[2023-01-07] MEDS ORDERED: POLYETHYLENE GLYCOL (HEALTHYLAX) 3350 17 GM PACKET PO PRN (18:31)
[2023-01-07] MEDS ORDERED: MAG HYDROX/AL HYDROX/SIMETH 30 ML UNIT-DOSE CUP PO PRN (18:31)
[2023-01-07] MEDS ORDERED: hydrOXYzine PAMOATE 25 MG CAPSULE (FP) PO PRN (18:31)
[2023-01-07] MEDS ORDERED: NICOTINE 10 MG CARTRIDGE (INHALER) IH PRN (18:31)
[2023-01-07] MEDS ORDERED: LOPERAMIDE HCL 2 MG CAPSULE PO PRN (18:31)
[2023-01-07] MEDS ORDERED: BENZOCAINE/MENTHOL (CHLORASEPTIC ) LOZENGE MM PRN (18:31)
[2023-01-07] MEDS ORDERED: ONDANSETRON *ODT* 4 MG TABLET SL PRN (18:31)
[2023-01-07] MEDS ORDERED: ACETAMINOPHEN 325 MG TABLET (FP) PO PRN (18:31)
[2023-01-07] MEDS ORDERED: MAGNESIUM HYDROX 2400MG/30ML ORAL SUSPENSION 30 ML CUP PO PRN (18:31)
[2023-01-07] MEDS ORDERED: BISMUTH SUBSALICYLATE 524 MG/30 ML PO PRN (18:31)
[2023-01-07] MEDS ORDERED: diazePAM 5 MG TABLET PO PRN (18:31)
[2023-01-07] MEDS ORDERED: NALOXONE HCL 0.4 MG/ML VIAL IM PRN (18:31)
[2023-01-07] MEDS ORDERED: METHOCARBAMOL 500 MG TABLET PO PRN (18:31)
[2023-01-07] MEDS ORDERED: BENZONATATE 200 MG CAPSULE PO PRN (18:31)
[2023-01-07] MEDS ORDERED: NALOXONE HCL (KLOXXADO) 8 MG SPRAY NS PRN (18:31)
[2023-01-07] MEDS ORDERED: IBUPROFEN 400 MG TABLET (FP) PO PRN (18:31)
[2023-01-07] MEDS ORDERED: DICYCLOMINE HCL 10 MG CAPSULE PO PRN (18:31)
[2023-01-07] MEDS: THIAMINE HCL 100 MG TABLET (FP) PO SCH (23:04)
[2023-01-07] MEDS: MELATONIN 5 MG TABLETS PO SCH (23:04)
[2023-01-07] MEDS: diazePAM 5 MG TABLET PO SCH (23:05)
[2023-01-07] MEDS: BACITRACIN 0.9 GM PACKET TP SCH (23:05)
[2023-01-08] MEDS: diazePAM 5 MG TABLET PO SCH ×4 (06:00→22:43)
[2023-01-08] MEDS ORDERED: methaDONE HCL 10 MG TABLET PO SCH (09:30)
[2023-01-08] MEDS ORDERED: methaDONE 40 MG, methaDONE 30 MG PO ONE (09:45)
[2023-01-08] MEDS: ASPIRIN 81 MG CHEWABLE TABLETS PO SCH (10:18)
[2023-01-08] MEDS: amLODIPine BESYLATE 10 MG TABLET (FP) PO SCH (10:18)
[2023-01-08] MEDS: PRENATAL VITAMINS W/ FOLIC ACID TABLET (FP) PO SCH (10:18)
[2023-01-08] MEDS: BACITRACIN 0.9 GM PACKET TP SCH ×2 (10:18→22:43)
[2023-01-08] MEDS: NICOTINE 21 MG/24 HOURS TOPICAL PATCH TD SCH (10:19)
[2023-01-08 11:13] LABS: HEMATOCRIT 40.3 % (35.4-49); HEMOGLOBIN 13.6 GM/dL (11.7-16.9); MCH 29.9 pg (25.7-33.7); MCHC 33.7 g/dl (32.0-35.9); MEAN CELL VOLUME 88.5 fl (80-96); MEAN PLT VOLUME 8.1 fl (7.5-11.1); PLATELET COUNT 153 10^3/uL (134-434); RBC 4.55 M/mm3 (4.00-5.60); RDW 15.2 % (11.9-15.9); WHITE BLOOD COUNT 3.2 K/mm3 (4.0-10.0)
[2023-01-08 11:19] LABS: CALCIUM 9.1 mg/dL (8.5-10.1)
[2023-01-08 11:20] LABS: ALBUMIN 3.4 g/dl (3.4-5.0); BLOOD UREA NITROGEN 17.7 mg/dL (7-18)
[2023-01-08 11:23] LABS: CREATININE 1.2 mg/dL (0.55-1.3)
[2023-01-08 11:25] LABS: BILIRUBIN,TOTAL 0.8 mg/dL (0.2-1); TOT PROT 7.1 g/dl (6.4-8.2)
[2023-01-08] MEDS: THIAMINE HCL 100 MG TABLET (FP) PO SCH (22:42)
[2023-01-08] MEDS: traZODone HCL 100 MG TABLET (FP) PO SCH (22:42)
[2023-01-08] MEDS: DIVALPROEX SODIUM 500 MG TABLET E.C. PO SCH (22:43)
[2023-01-08] MEDS: MELATONIN 5 MG TABLETS PO SCH (22:43)
[2023-01-09] MEDS: methaDONE 40 MG, methaDONE 30 MG PO SCH (05:47)
[2023-01-09] MEDS: diazePAM 5 MG TABLET PO SCH ×3 (05:49→22:25)
[2023-01-09] MEDS ORDERED: ARIPiprazole 10 MG TABLET PO SCH (10:00)
[2023-01-09] MEDS: DIVALPROEX SODIUM 500 MG TABLET E.C. PO SCH ×2 (10:17→22:25)
[2023-01-09] MEDS: amLODIPine BESYLATE 10 MG TABLET (FP) PO SCH (10:17)
[2023-01-09] MEDS: PRENATAL VITAMINS W/ FOLIC ACID TABLET (FP) PO SCH (10:17)
[2023-01-09] MEDS: BACITRACIN 0.9 GM PACKET TP SCH ×2 (10:17→22:26)
[2023-01-09] MEDS: ASPIRIN 81 MG CHEWABLE TABLETS PO SCH (10:17)
[2023-01-09] MEDS: NICOTINE 21 MG/24 HOURS TOPICAL PATCH TD SCH (10:18)
[2023-01-09] MEDS: THIAMINE HCL 100 MG TABLET (FP) PO SCH (22:25)
[2023-01-09] MEDS: traZODone HCL 100 MG TABLET (FP) PO SCH (22:25)
[2023-01-09] MEDS: MELATONIN 5 MG TABLETS PO SCH (22:25)
[2023-01-10] MEDS: methaDONE 40 MG, methaDONE 30 MG PO SCH (05:34)
[2023-01-10] MEDS ORDERED: diazePAM 5 MG TABLET PO SCH (06:00)
[2023-01-10 09:20] VITALS: BP 106/59; PULSE 79; RESP 17; TEMP 97.3
[2023-01-11] MEDS ORDERED: diazePAM 5 MG TABLET PO ONE (06:00)
== END 2023-01-10 08:55 | disposition home or self-care (01) | DRG 773 ==
LOC: YASAS 13:35 → Y3N 15:44
PROVIDERS: ADMIT Allergy & Immunology; ATTEND Surgery
PROC: HZ2ZZZZ Detoxification Services for Substance Abuse Treatment (ICD-10-PCS; principal; 2023-01-07)
DX: F10.230 Alcohol dependence with withdrawal, uncomplicated (principal); F11.20 Opioid dependence, uncomplicated; F14.20 Cocaine dependence, uncomplicated; F12.20 Cannabis dependence, uncomplicated; F17.210 Nicotine dependence, cigarettes, uncomplicated; F25.0 Schizoaffective disorder, bipolar type; I10 Essential (primary) hypertension; H91.92 Unspecified hearing loss, left ear; Z62.810 Personal history of physical and sexual abuse in childhood; Z86.11 Personal history of tuberculosis; Z86.19 Personal history of other infectious and parasitic diseases; Z91.410 Personal history of adult physical and sexual abuse
CPT/HCPCS: 36415; 80053; 80164; 85027; 86593; 86780; 87811; C9803-CS; U0003; U0005

== ENCOUNTER 2023-02-06 12:55 | Inpatient (IN) | payer OTHER ==
[2023-02-06 14:17] VITALS: BMI 24.2
[2023-02-06] MEDS ORDERED: BENZOCAINE/MENTHOL (CHLORASEPTIC ) LOZENGE MM PRN (15:32)
[2023-02-06] MEDS ORDERED: guaiFENesin 600 MG TABLET.ER (FP) PO PRN (15:32)
[2023-02-06] MEDS ORDERED: DICYCLOMINE HCL 10 MG CAPSULE PO PRN (15:32)
[2023-02-06] MEDS ORDERED: IBUPROFEN 400 MG TABLET (FP) PO PRN (15:32)
[2023-02-06] MEDS ORDERED: ONDANSETRON *ODT* 4 MG TABLET SL PRN (15:32)
[2023-02-06] MEDS ORDERED: NICOTINE 10 MG CARTRIDGE (INHALER) IH PRN (15:32)
[2023-02-06] MEDS ORDERED: BISMUTH SUBSALICYLATE 524 MG/30 ML PO PRN (15:32)
[2023-02-06] MEDS ORDERED: hydrOXYzine PAMOATE 25 MG CAPSULE (FP) PO PRN (15:32)
[2023-02-06] MEDS ORDERED: MAG HYDROX/AL HYDROX/SIMETH 30 ML UNIT-DOSE CUP PO PRN (15:32)
[2023-02-06] MEDS ORDERED: MAGNESIUM HYDROX 2400MG/30ML ORAL SUSPENSION 30 ML CUP PO PRN (15:32)
[2023-02-06] MEDS ORDERED: cloNIDine HCL 0.1 MG TABLET PO PRN (15:32)
[2023-02-06] MEDS ORDERED: NALOXONE HCL (KLOXXADO) 8 MG SPRAY NS PRN (15:32)
[2023-02-06] MEDS ORDERED: ACETAMINOPHEN 325 MG TABLET (FP) PO PRN (15:32)
[2023-02-06] MEDS ORDERED: BENZONATATE 200 MG CAPSULE PO PRN (15:32)
[2023-02-06] MEDS ORDERED: LORazepam 1 MG TABLET PO PRN (15:32)
[2023-02-06] MEDS ORDERED: METHOCARBAMOL 500 MG TABLET PO PRN (15:32)
[2023-02-06] MEDS ORDERED: NALOXONE HCL 0.4 MG/ML VIAL IM PRN (15:32)
[2023-02-06] MEDS ORDERED: LOPERAMIDE HCL 2 MG CAPSULE PO PRN (15:32)
[2023-02-06] MEDS ORDERED: IBUPROFEN 600 MG TABLET (FP) PO PRN (15:32)
[2023-02-06] MEDS ORDERED: POLYETHYLENE GLYCOL (HEALTHYLAX) 3350 17 GM PACKET PO PRN (15:32)
[2023-02-06] MEDS ORDERED: methaDONE HCL 10 MG TABLET (FOR DETOX USE ONLY) PO ONE (16:30)
[2023-02-06] MEDS ORDERED: LORazepam 2 MG TABLET ONE (16:39)
[2023-02-06] MEDS ORDERED: methaDONE HCL 10 MG TABLET (FOR DETOX USE ONLY) ONE (16:39)
[2023-02-06] MEDS: PRENATAL VITAMINS W/ FOLIC ACID TABLET (FP) PO SCH (16:47)
[2023-02-06] MEDS: NICOTINE 14 MG/24 HOURS TOPICAL PATCH TD SCH (16:47)
[2023-02-06] MEDS: LORazepam 2 MG TABLET PO SCH ×2 (16:49→22:09)
[2023-02-06] MEDS ORDERED: MELATONIN 5 MG TABLETS PO SCH (22:00)
[2023-02-06] MEDS ORDERED: THIAMINE HCL 100 MG TABLET (FP) PO SCH (22:00)
[2023-02-06] MEDS: TOLNAFTATE 1% CREAM 15 GM TUBE TP SCH (22:10)
[2023-02-07] MEDS: LORazepam 2 MG TABLET PO SCH ×3 (05:18→17:41)
[2023-02-07] MEDS ORDERED: ASPIRIN 81 MG CHEWABLE TABLETS PO SCH (10:00)
[2023-02-07] MEDS ORDERED: DIVALPROEX SODIUM 500 MG TABLET E.C. PO SCH (10:00)
[2023-02-07] MEDS ORDERED: ARIPiprazole 10 MG TABLET PO SCH (10:00)
[2023-02-07] MEDS ORDERED: amLODIPine BESYLATE 10 MG TABLET (FP) PO SCH (10:00)
[2023-02-07] MEDS: PRENATAL VITAMINS W/ FOLIC ACID TABLET (FP) PO SCH (10:39)
[2023-02-07] MEDS: TOLNAFTATE 1% CREAM 15 GM TUBE TP SCH (10:40)
[2023-02-07] MEDS ORDERED: methaDONE HCL 10 MG TABLET PO ONE (10:40)
[2023-02-07] MEDS: NICOTINE 14 MG/24 HOURS TOPICAL PATCH TD SCH (10:41)
[2023-02-07 12:50] LABS: POTASSIUM 4.2 mmol/L (3.5-5.1)
[2023-02-07 12:52] LABS: CALCIUM 8.8 mg/dL (8.5-10.1)
[2023-02-07 12:53] LABS: ALBUMIN 3.4 g/dl (3.4-5.0)
[2023-02-07 12:55] LABS: BLOOD UREA NITROGEN 12.3 mg/dL (7-18)
[2023-02-07 12:56] LABS: CREATININE 0.9 mg/dL (0.55-1.3)
[2023-02-07 12:58] LABS: BILIRUBIN,TOTAL 0.3 mg/dL (0.2-1); TOT PROT 6.7 g/dl (6.4-8.2)
[2023-02-07 13:16] LABS: HEMOGLOBIN 12.4 GM/dL (11.7-16.9); MCH 29.9 pg (25.7-33.7); MCHC 34.3 g/dl (32.0-35.9); MEAN CELL VOLUME 87.1 fl (80-96); MEAN PLT VOLUME 8.9 fl (7.5-11.1); PLATELET COUNT 167 10^3/uL (134-434); RBC 4.14 M/mm3 (4.00-5.60); RDW 14.6 % (11.9-15.9); WHITE BLOOD COUNT 4.3 K/mm3 (4.0-10.0)
[2023-02-07 17:01] VITALS: BP 144/70; PULSE 80; RESP 17; TEMP 96.9
[2023-02-07] MEDS ORDERED: traZODone HCL 100 MG TABLET (FP) PO SCH (22:00)
[2023-02-08] MEDS ORDERED: LORazepam 1 MG TABLET PO SCH (05:00)
[2023-02-08] MEDS ORDERED: methaDONE HCL 40 MG DISPERSABLE TABLET PO ONE (06:00)
[2023-02-08] MEDS ORDERED: methaDONE HCL 10 MG TABLET (FOR DETOX USE ONLY) PO ONE (10:00)
[2023-02-09] MEDS ORDERED: LORazepam 0.5 MG TABLET PO PRN
[2023-02-09] MEDS ORDERED: LORazepam 0.5 MG TABLET PO SCH (05:00)
[2023-02-09] MEDS ORDERED: methaDONE HCL 10 MG TABLET PO ONE (06:00)
[2023-02-09] MEDS ORDERED: methaDONE 40 MG, methaDONE 10 MG PO ONE (06:00)
[2023-02-10] MEDS ORDERED: LORazepam 0.5 MG TABLET PO ONE (05:00)
[2023-02-10] MEDS ORDERED: methaDONE HCL 10 MG TABLET PO ONE (06:00)
[2023-02-10] MEDS ORDERED: methaDONE 40 MG, methaDONE 20 MG PO ONE (06:00)
[2023-02-10] MEDS ORDERED: methaDONE HCL 10 MG TABLET (FOR DETOX USE ONLY) PO ONE (10:00)
[2023-02-11] MEDS ORDERED: methaDONE HCL 10 MG TABLET PO ONE (06:00)
[2023-02-11] MEDS ORDERED: methaDONE 40 MG, methaDONE 30 MG PO ONE (06:00)
[2023-02-12] MEDS ORDERED: methaDONE HCL 40 MG DISPERSABLE TABLET PO SCH (06:00)
== END 2023-02-07 17:50 | disposition left against medical advice (07) | DRG 770 ==
LOC: YASAS 12:55 → Y6N 16:02
PROVIDERS: ADMIT Allergy & Immunology; ATTEND Surgery
PROC: HZ2ZZZZ Detoxification Services for Substance Abuse Treatment (ICD-10-PCS; principal; 2023-02-06)
DX: F11.23 Opioid dependence with withdrawal (principal); F10.230 Alcohol dependence with withdrawal, uncomplicated; F14.20 Cocaine dependence, uncomplicated; F12.20 Cannabis dependence, uncomplicated; F17.210 Nicotine dependence, cigarettes, uncomplicated; F19.282 Other psychoactive substance dependence with psychoactive substance-induced sleep disorder; F25.0 Schizoaffective disorder, bipolar type; E78.5 Hyperlipidemia, unspecified; I10 Essential (primary) hypertension; E11.9 Type 2 diabetes mellitus without complications; H90.42 Sensorineural hearing loss, unilateral, left ear, with unrestricted hearing on the contralateral side; Z62.810 Personal history of physical and sexual abuse in childhood; Z86.11 Personal history of tuberculosis; Z86.19 Personal history of other infectious and parasitic diseases; Z86.73 Personal history of transient ischemic attack (TIA), and cerebral infarction without residual deficits
CPT/HCPCS: 36415; 80053; 85027; 86593; 86780; C9803-CS; U0003; U0005

== ENCOUNTER 2023-03-08 15:07 | Inpatient (IN) | payer OTHER ==
[2023-03-08 16:32] VITALS: BMI 24.7
[2023-03-08] MEDS ORDERED: MAG HYDROX/AL HYDROX/SIMETH 30 ML UNIT-DOSE CUP PO PRN (19:21)
[2023-03-08] MEDS ORDERED: IBUPROFEN 600 MG TABLET (FP) PO PRN (19:21)
[2023-03-08] MEDS ORDERED: guaiFENesin 600 MG TABLET.ER (FP) PO PRN (19:21)
[2023-03-08] MEDS ORDERED: BISMUTH SUBSALICYLATE 524 MG/30 ML PO PRN (19:21)
[2023-03-08] MEDS ORDERED: NALOXONE HCL 0.4 MG/ML VIAL IM PRN (19:21)
[2023-03-08] MEDS ORDERED: NALOXONE HCL (KLOXXADO) 8 MG SPRAY NS PRN (19:21)
[2023-03-08] MEDS ORDERED: LORazepam 1 MG TABLET PO PRN (19:21)
[2023-03-08] MEDS ORDERED: LOPERAMIDE HCL 2 MG CAPSULE PO PRN (19:21)
[2023-03-08] MEDS ORDERED: MAGNESIUM HYDROX 2400MG/30ML ORAL SUSPENSION 30 ML CUP PO PRN (19:21)
[2023-03-08] MEDS ORDERED: BENZONATATE 200 MG CAPSULE PO PRN (19:21)
[2023-03-08] MEDS ORDERED: POLYETHYLENE GLYCOL (HEALTHYLAX) 3350 17 GM PACKET PO PRN (19:21)
[2023-03-08] MEDS ORDERED: METHOCARBAMOL 500 MG TABLET PO PRN (19:21)
[2023-03-08] MEDS ORDERED: BENZOCAINE/MENTHOL (CHLORASEPTIC ) LOZENGE MM PRN (19:21)
[2023-03-08] MEDS ORDERED: NICOTINE 10 MG CARTRIDGE (INHALER) IH PRN (19:21)
[2023-03-08] MEDS ORDERED: NICOTINE POLACRILEX 2 MG GUM BUC PRN (19:21)
[2023-03-08] MEDS ORDERED: ACETAMINOPHEN 325 MG TABLET (FP) PO PRN (19:21)
[2023-03-08] MEDS ORDERED: methaDONE HCL 10 MG TABLET (FOR DETOX USE ONLY) PO ONE (19:21)
[2023-03-08] MEDS ORDERED: DICYCLOMINE HCL 10 MG CAPSULE PO PRN (19:21)
[2023-03-08] MEDS ORDERED: IBUPROFEN 400 MG TABLET (FP) PO PRN (19:21)
[2023-03-08] MEDS ORDERED: methaDONE HCL 10 MG TABLET (FOR DETOX USE ONLY) ONE (20:45)
[2023-03-08] MEDS ORDERED: MELATONIN 5 MG TABLETS PO SCH (22:00)
[2023-03-08] MEDS: THIAMINE HCL 100 MG TABLET (FP) PO SCH (22:24)
[2023-03-08] MEDS: LORazepam 2 MG TABLET PO SCH (22:24)
[2023-03-09] MEDS: LORazepam 2 MG TABLET PO SCH ×4 (05:28→22:28)
[2023-03-09] MEDS ORDERED: amLODIPine BESYLATE 10 MG TABLET (FP) PO SCH (10:00)
[2023-03-09] MEDS: PRENATAL VITAMINS W/ FOLIC ACID TABLET (FP) PO SCH (10:07)
[2023-03-09] MEDS: methaDONE HCL 10 MG TABLET PO SCH (10:08)
[2023-03-09] MEDS: DIVALPROEX SODIUM 500 MG TABLET E.C. PO SCH ×2 (10:10→22:27)
[2023-03-09] MEDS: cloNIDine HCL 0.1 MG TABLET PO PRN (10:10)
[2023-03-09] MEDS: ARIPiprazole 10 MG TABLET PO SCH (10:10)
[2023-03-09 11:44] LABS: POTASSIUM 4.2 mmol/L (3.5-5.1)
[2023-03-09 11:51] LABS: CALCIUM 9.2 mg/dL (8.5-10.1)
[2023-03-09 11:53] LABS: ALBUMIN 3.5 g/dl (3.4-5.0); BLOOD UREA NITROGEN 12.6 mg/dL (7-18)
[2023-03-09 11:56] LABS: CREATININE 1.1 mg/dL (0.55-1.3)
[2023-03-09 11:58] LABS: BILIRUBIN,TOTAL 0.6 mg/dL (0.2-1); TOT PROT 6.9 g/dl (6.4-8.2)
[2023-03-09 12:00] LABS: HEMATOCRIT 39.1 % (35.4-49); HEMOGLOBIN 12.9 GM/dL (11.7-16.9); MCH 29.3 pg (25.7-33.7); MEAN CELL VOLUME 88.9 fl (80-96); MEAN PLT VOLUME 9.1 fl (7.5-11.1); PLATELET COUNT 166 10^3/uL (134-434); RDW 16.2 % (11.9-15.9); WHITE BLOOD COUNT 5.3 K/mm3 (4.0-10.0)
[2023-03-09] MEDS ORDERED: traZODone HCL 100 MG TABLET (FP) PO SCH (22:00)
[2023-03-09] MEDS: THIAMINE HCL 100 MG TABLET (FP) PO SCH (22:28)
[2023-03-10] MEDS: LORazepam 1 MG TABLET PO SCH ×2 (05:47→10:21)
[2023-03-10] MEDS: methaDONE HCL 10 MG TABLET PO SCH (05:47)
[2023-03-10] MEDS ORDERED: methaDONE HCL 10 MG TABLET (FOR DETOX USE ONLY) PO ONE (10:00)
[2023-03-10] MEDS: cloNIDine HCL 0.1 MG TABLET PO PRN (10:20)
[2023-03-10] MEDS: PRENATAL VITAMINS W/ FOLIC ACID TABLET (FP) PO SCH (10:20)
[2023-03-10] MEDS: ARIPiprazole 10 MG TABLET PO SCH (10:21)
[2023-03-10] MEDS: DIVALPROEX SODIUM 500 MG TABLET E.C. PO SCH (10:21)
[2023-03-10 13:30] VITALS: BP 153/73; PULSE 70; RESP 18; TEMP 98.1
[2023-03-11] MEDS ORDERED: LORazepam 0.5 MG TABLET PO PRN
[2023-03-11] MEDS ORDERED: LORazepam 0.5 MG TABLET PO SCH (05:00)
[2023-03-12] MEDS ORDERED: LORazepam 0.5 MG TABLET PO ONE (05:00)
[2023-03-12] MEDS ORDERED: methaDONE HCL 10 MG TABLET (FOR DETOX USE ONLY) PO ONE (10:00)
== END 2023-03-10 13:01 | disposition left against medical advice (07) | DRG 770 ==
LOC: YASAS 15:07 → Y6N 20:18
PROVIDERS: ADMIT Allergy & Immunology; ATTEND Surgery
PROC: HZ2ZZZZ Detoxification Services for Substance Abuse Treatment (ICD-10-PCS; principal; 2023-03-08)
DX: F11.23 Opioid dependence with withdrawal (principal); F10.230 Alcohol dependence with withdrawal, uncomplicated; F14.20 Cocaine dependence, uncomplicated; F17.210 Nicotine dependence, cigarettes, uncomplicated; F19.282 Other psychoactive substance dependence with psychoactive substance-induced sleep disorder; F31.9 Bipolar disorder, unspecified; E78.5 Hyperlipidemia, unspecified; I10 Essential (primary) hypertension; E11.9 Type 2 diabetes mellitus without complications; H90.42 Sensorineural hearing loss, unilateral, left ear, with unrestricted hearing on the contralateral side; Z62.810 Personal history of physical and sexual abuse in childhood; Z86.11 Personal history of tuberculosis; Z86.73 Personal history of transient ischemic attack (TIA), and cerebral infarction without residual deficits; Z86.19 Personal history of other infectious and parasitic diseases
CPT/HCPCS: 36415; 80053; 85027; 86593; 86780; 87635

== ENCOUNTER 2023-10-01 13:16 | Inpatient (IN) | payer MEDICARE, OTHER ==
[2023-10-01 13:55] VITALS: BMI 23.3
[2023-10-01] MEDS ORDERED: MAG HYDROX/AL HYDROX/SIMETH 30 ML UNIT-DOSE CUP PO PRN (14:35)
[2023-10-01] MEDS ORDERED: POLYETHYLENE GLYCOL (HEALTHYLAX) 3350 17 GM PACKET PO PRN (14:35)
[2023-10-01] MEDS ORDERED: P-EPHED 60MG/TRIPROLIDI 2.5MG TABLET PO PRN (14:35)
[2023-10-01] MEDS ORDERED: LOPERAMIDE HCL 2 MG CAPSULE PO PRN (14:35)
[2023-10-01] MEDS ORDERED: guaiFENesin 600 MG TABLET.ER (FP) PO PRN (14:35)
[2023-10-01] MEDS ORDERED: DICYCLOMINE HCL 10 MG CAPSULE PO PRN (14:35)
[2023-10-01] MEDS ORDERED: NICOTINE POLACRILEX 2 MG GUM BUC PRN (14:35)
[2023-10-01] MEDS ORDERED: BENZONATATE 200 MG CAPSULE PO PRN (14:35)
[2023-10-01] MEDS ORDERED: METHOCARBAMOL 500 MG TABLET PO PRN (14:35)
[2023-10-01] MEDS ORDERED: ACETAMINOPHEN 325 MG TABLET (FP) PO PRN (14:35)
[2023-10-01] MEDS ORDERED: IBUPROFEN 400 MG TABLET (FP) PO PRN (14:35)
[2023-10-01] MEDS ORDERED: MAGNESIUM HYDROX 2400MG/30ML ORAL SUSPENSION 30 ML CUP PO PRN (14:35)
[2023-10-01] MEDS ORDERED: NALOXONE HCL 0.4 MG/ML VIAL IM PRN (14:35)
[2023-10-01] MEDS ORDERED: BENZOCAINE/MENTHOL (CHLORASEPTIC ) LOZENGE MM PRN (14:35)
[2023-10-01] MEDS ORDERED: BISMUTH SUBSALICYLATE 262 MG/15 ML BTL PO PRN (14:35)
[2023-10-01] MEDS ORDERED: NALOXONE HCL (KLOXXADO) 8 MG SPRAY NS PRN (14:35)
[2023-10-01] MEDS ORDERED: ONDANSETRON *ODT* 4 MG TABLET SL PRN (14:35)
[2023-10-01] MEDS ORDERED: IBUPROFEN 600 MG TABLET (FP) PO PRN (14:35)
[2023-10-01] MEDS: amLODIPine BESYLATE 10 MG TABLET (FP) PO SCH (15:02)
[2023-10-01] MEDS: ASPIRIN 81 MG CHEWABLE TABLETS PO SCH (15:02)
[2023-10-01] MEDS: hydrOXYzine PAMOATE 25 MG CAPSULE (FP) PO PRN (15:03)
[2023-10-01] MEDS ORDERED: amLODIPine BESYLATE 5 MG TABLET (FP) ONE (15:15)
[2023-10-01] MEDS ORDERED: hydrOXYzine PAMOATE 25 MG CAPSULE (FP) PO ONE (15:16)
[2023-10-01] MEDS ORDERED: ONDANSETRON *ODT* 4 MG TABLET ONE (15:16)
[2023-10-01] MEDS ORDERED: MELATONIN 5 MG TABLETS PO SCH (22:00)
[2023-10-01] MEDS: THIAMINE HCL 100 MG TABLET (FP) PO SCH (22:35)
[2023-10-02] MEDS: PRENATAL VITAMINS W/ FOLIC ACID TABLET (FP) PO SCH (10:46)
[2023-10-02] MEDS: ASPIRIN 81 MG CHEWABLE TABLETS PO SCH (10:47)
[2023-10-02] MEDS: ARIPiprazole 10 MG TABLET PO SCH (10:47)
[2023-10-02] MEDS: amLODIPine BESYLATE 10 MG TABLET (FP) PO SCH (10:47)
[2023-10-02] MEDS: DIVALPROEX SODIUM 500 MG TABLET E.C. PO SCH ×2 (10:47→22:30)
[2023-10-02 11:05] LABS: HEMATOCRIT 37.5 % (35.4-49); HEMOGLOBIN 12.2 GM/dL (11.7-16.9); MCHC 32.5 g/dl (32.0-35.9); MEAN CELL VOLUME 92.4 fl (80-96); MEAN PLT VOLUME 8.7 fl (7.5-11.1); PLATELET COUNT 159 10^3/uL (134-434); RBC 4.06 M/mm3 (4.00-5.60); RDW 17.2 % (11.9-15.9); WHITE BLOOD COUNT 8.3 K/mm3 (4.0-10.0)
[2023-10-02] MEDS ORDERED: methaDONE HCL 10 MG TABLET (FOR DETOX USE ONLY) PO ONE ×2 (11:20→13:45)
[2023-10-02] MEDS ORDERED: diazePAM 5 MG TABLET PO PRN (11:21)
[2023-10-02 11:27] LABS: CHLORIDE 104 mmol/L (98-107); POTASSIUM 4.1 mmol/L (3.5-5.1); SODIUM 138 mmol/L (136-145)
[2023-10-02 11:32] LABS: CALCIUM 8.7 mg/dL (8.5-10.1)
[2023-10-02 11:33] LABS: ALBUMIN 3.1 g/dl (3.4-5.0); ANION GAP 7 mmol/L (4-13); BLOOD UREA NITROGEN 13.6 mg/dL (7-18); CO2 27 mmol/L (21-32); GLUCOSE,RANDOM 101 mg/dL (74-106)
[2023-10-02 11:35] LABS: SGOT/AST 19 U/L (15-37)
[2023-10-02 11:36] LABS: SGPT/ALT 12 U/L (13-61)
[2023-10-02 11:37] LABS: BILIRUBIN,TOTAL 0.7 mg/dL (0.2-1); TOT PROT 6.6 g/dl (6.4-8.2)
[2023-10-02 11:38] LABS: ALK PHOS 90 U/L (45-117)
[2023-10-02] MEDS: THIAMINE HCL 100 MG TABLET (FP) PO SCH (22:30)
[2023-10-02] MEDS: traZODone HCL 100 MG TABLET (FP) PO SCH (22:30)
[2023-10-03] MEDS: ARIPiprazole 10 MG TABLET PO SCH (09:50)
[2023-10-03] MEDS: amLODIPine BESYLATE 10 MG TABLET (FP) PO SCH (09:50)
[2023-10-03] MEDS: DIVALPROEX SODIUM 500 MG TABLET E.C. PO SCH ×2 (09:50→22:30)
[2023-10-03] MEDS: PRENATAL VITAMINS W/ FOLIC ACID TABLET (FP) PO SCH (09:50)
[2023-10-03] MEDS: ASPIRIN 81 MG CHEWABLE TABLETS PO SCH (09:50)
[2023-10-03] MEDS: traZODone HCL 100 MG TABLET (FP) PO SCH (22:29)
[2023-10-03] MEDS: THIAMINE HCL 100 MG TABLET (FP) PO SCH (22:29)
[2023-10-03] MEDS: hydrOXYzine PAMOATE 25 MG CAPSULE (FP) PO PRN (22:30)
[2023-10-04] MEDS: PRENATAL VITAMINS W/ FOLIC ACID TABLET (FP) PO SCH (09:45)
[2023-10-04] MEDS: DIVALPROEX SODIUM 500 MG TABLET E.C. PO SCH ×2 (09:48→23:14)
[2023-10-04] MEDS: ASPIRIN 81 MG CHEWABLE TABLETS PO SCH (09:48)
[2023-10-04] MEDS: ARIPiprazole 10 MG TABLET PO SCH (09:48)
[2023-10-04] MEDS: amLODIPine BESYLATE 10 MG TABLET (FP) PO SCH (09:48)
[2023-10-04] MEDS ORDERED: methaDONE HCL 10 MG TABLET (FOR DETOX USE ONLY) PO ONE (10:00)
[2023-10-04] MEDS: THIAMINE HCL 100 MG TABLET (FP) PO SCH (23:14)
[2023-10-04] MEDS: traZODone HCL 100 MG TABLET (FP) PO SCH (23:14)
[2023-10-05 09:45] VITALS: TEMP 97.3
[2023-10-05] MEDS: ASPIRIN 81 MG CHEWABLE TABLETS PO SCH (10:04)
[2023-10-05] MEDS: PRENATAL VITAMINS W/ FOLIC ACID TABLET (FP) PO SCH (10:04)
[2023-10-05] MEDS: ARIPiprazole 10 MG TABLET PO SCH (10:04)
[2023-10-05] MEDS: DIVALPROEX SODIUM 500 MG TABLET E.C. PO SCH (10:04)
[2023-10-05] MEDS: amLODIPine BESYLATE 10 MG TABLET (FP) PO SCH (10:04)
[2023-10-05 16:40] VITALS: BP 116/62; PULSE 65; RESP 18
[2023-10-06] MEDS ORDERED: methaDONE HCL 10 MG TABLET (FOR DETOX USE ONLY) PO ONE (10:00)
== END 2023-10-06 00:03 | disposition left against medical advice (07) | DRG 894 ==
LOC: YASAS 13:16 → Y6N 15:08
PROVIDERS: ADMIT Allergy & Immunology; ATTEND Surgery
PROC: HZ2ZZZZ Detoxification Services for Substance Abuse Treatment (ICD-10-PCS; principal; 2023-10-01)
DX: F11.23 Opioid dependence with withdrawal (principal); F19.282 Other psychoactive substance dependence with psychoactive substance-induced sleep disorder; F10.230 Alcohol dependence with withdrawal, uncomplicated; F14.10 Cocaine abuse, uncomplicated; F17.210 Nicotine dependence, cigarettes, uncomplicated; F25.0 Schizoaffective disorder, bipolar type; F31.9 Bipolar disorder, unspecified; E78.2 Mixed hyperlipidemia; I10 Essential (primary) hypertension; M54.50 Low back pain, unspecified; G89.29 Other chronic pain; E11.9 Type 2 diabetes mellitus without complications; H90.42 Sensorineural hearing loss, unilateral, left ear, with unrestricted hearing on the contralateral side; Z86.11 Personal history of tuberculosis; Z86.73 Personal history of transient ischemic attack (TIA), and cerebral infarction without residual deficits; Z62.810 Personal history of physical and sexual abuse in childhood; Z63.8 Other specified problems related to primary support group
CPT/HCPCS: 36415; 80053; 80307; 85027; 86593; 86780; Q0162

== ENCOUNTER 2023-11-22 14:23 | Inpatient (IN) | payer MEDICARE, OTHER ==
[2023-11-22 15:01] VITALS: BMI 23.8
[2023-11-22] MEDS ORDERED: NALOXONE HCL (KLOXXADO) 8 MG SPRAY NS PRN (15:43)
[2023-11-22] MEDS ORDERED: LOPERAMIDE HCL 2 MG CAPSULE PO PRN (15:43)
[2023-11-22] MEDS ORDERED: MAG HYDROX/AL HYDROX/SIMETH 30 ML UNIT-DOSE CUP PO PRN (15:43)
[2023-11-22] MEDS ORDERED: P-EPHED 60MG/TRIPROLIDI 2.5MG TABLET PO PRN (15:43)
[2023-11-22] MEDS ORDERED: BISMUTH SUBSALICYLATE 524 MG/30 ML PO PRN (15:43)
[2023-11-22] MEDS ORDERED: ACETAMINOPHEN 325 MG TABLET (FP) PO PRN (15:43)
[2023-11-22] MEDS ORDERED: NICOTINE POLACRILEX 2 MG GUM BUC PRN (15:43)
[2023-11-22] MEDS ORDERED: BENZOCAINE/MENTHOL (CHLORASEPTIC ) LOZENGE MM PRN (15:43)
[2023-11-22] MEDS ORDERED: MAGNESIUM HYDROX 2400MG/30ML ORAL SUSPENSION 30 ML CUP PO PRN (15:43)
[2023-11-22] MEDS ORDERED: NALOXONE HCL 0.4 MG/ML VIAL IM PRN (15:43)
[2023-11-22] MEDS ORDERED: BENZONATATE 200 MG CAPSULE PO PRN (15:43)
[2023-11-22] MEDS ORDERED: IBUPROFEN 600 MG TABLET (FP) PO PRN (15:43)
[2023-11-22] MEDS ORDERED: ONDANSETRON *ODT* 4 MG TABLET SL PRN (15:43)
[2023-11-22] MEDS ORDERED: guaiFENesin 600 MG TABLET.ER (FP) PO PRN (15:43)
[2023-11-22] MEDS ORDERED: POLYETHYLENE GLYCOL (HEALTHYLAX) 3350 17 GM PACKET PO PRN (15:43)
[2023-11-22] MEDS ORDERED: IBUPROFEN 400 MG TABLET (FP) PO PRN (15:43)
[2023-11-22] MEDS ORDERED: cloNIDine HCL 0.1 MG TABLET PO PRN (15:58)
[2023-11-22] MEDS: methaDONE HCL 10 MG TABLET (FOR DETOX USE ONLY) PO ONE (21:23)
[2023-11-22] MEDS: THIAMINE HCL 100 MG TABLET (FP) PO SCH (21:25)
[2023-11-22] MEDS: MELATONIN 5 MG TABLETS PO SCH (21:25)
[2023-11-23] MEDS: ASPIRIN 81 MG CHEWABLE TABLETS PO SCH (10:06)
[2023-11-23] MEDS: ARIPiprazole 10 MG TABLET PO SCH (10:06)
[2023-11-23] MEDS: PRENATAL VITAMINS W/ FOLIC ACID TABLET (FP) PO SCH (10:07)
[2023-11-23] MEDS: DIVALPROEX SODIUM 500 MG TABLET E.C. PO SCH (10:07)
[2023-11-23] MEDS: amLODIPine BESYLATE 10 MG TABLET (FP) PO SCH (17:26)
[2023-11-23] MEDS: diazePAM 5 MG TABLET PO PRN (17:28)
[2023-11-23] MEDS: traZODone HCL 100 MG TABLET (FP) PO SCH (22:48)
[2023-11-24] MEDS: methaDONE HCL 10 MG TABLET (FOR DETOX USE ONLY) PO ONE (10:02)
[2023-11-25 10:58] LABS: POTASSIUM 4.5 mmol/L (3.5-5.1)
[2023-11-25 11:05] LABS: ALBUMIN 2.8 g/dl (3.4-5.0); BLOOD UREA NITROGEN 10.6 mg/dL (7-18)
[2023-11-25 11:06] LABS: CALCIUM 8.4 mg/dL (8.5-10.1)
[2023-11-25 11:08] LABS: CREATININE 0.9 mg/dL (0.55-1.3)
[2023-11-25 11:09] LABS: BILIRUBIN,TOTAL 0.4 mg/dL (0.2-1); TOT PROT 6.1 g/dl (6.4-8.2)
[2023-11-25 11:16] LABS: BASO % 1.1 % (0-2.0); EOS % 6.4 % (0-4.5); HEMATOCRIT 38.9 % (35.4-49); HEMOGLOBIN 13.1 GM/dL (11.7-16.9); MCH 30.7 pg (25.7-33.7); MCHC 33.8 g/dl (32.0-35.9); MEAN CELL VOLUME 90.9 fl (80-96); MEAN PLT VOLUME 9.1 fl (7.5-11.1); MONO % 13.6 % (3.8-10.2); NEUT % 27.9 % (42.8-82.8); PLATELET COUNT 167 10^3/uL (134-434); RBC 4.28 M/mm3 (4.00-5.60); RDW 14.2 % (11.9-15.9); WHITE BLOOD COUNT 3.8 K/mm3 (4.0-10.0)
[2023-11-26 06:59] VITALS: RESP 16
[2023-11-26] MEDS: methaDONE HCL 10 MG TABLET (FOR DETOX USE ONLY) PO ONE (09:53)
[2023-11-26 13:36] VITALS: BP 121/58; PULSE 83; TEMP 97.6
== END 2023-11-26 14:00 | disposition home or self-care (01) | DRG 897 ==
LOC: YASAS 14:23 → Y6N 17:33
PROVIDERS: ADMIT Allergy & Immunology; ATTEND Surgery
PROC: HZ2ZZZZ Detoxification Services for Substance Abuse Treatment (ICD-10-PCS; principal; 2023-11-22)
DX: F11.23 Opioid dependence with withdrawal (principal); F14.20 Cocaine dependence, uncomplicated; F19.282 Other psychoactive substance dependence with psychoactive substance-induced sleep disorder; F12.20 Cannabis dependence, uncomplicated; F17.213 Nicotine dependence, cigarettes, with withdrawal; F25.0 Schizoaffective disorder, bipolar type; I10 Essential (primary) hypertension; E11.65 Type 2 diabetes mellitus with hyperglycemia; E78.5 Hyperlipidemia, unspecified; Z86.11 Personal history of tuberculosis; Z86.19 Personal history of other infectious and parasitic diseases; Z62.810 Personal history of physical and sexual abuse in childhood; Z63.8 Other specified problems related to primary support group
CPT/HCPCS: 36415; 80053; 82962; 85025; 86593; 86780; 87635

== ENCOUNTER 2024-01-15 14:09 | Inpatient (IN) | payer OTHER ==
[2024-01-15 14:26] VITALS: BMI 25.2
[2024-01-15] MEDS ORDERED: ONDANSETRON *ODT* 4 MG TABLET SL PRN (15:21)
[2024-01-15] MEDS ORDERED: MAG HYDROX/AL HYDROX/SIMETH 30 ML UNIT-DOSE CUP PO PRN (15:21)
[2024-01-15] MEDS ORDERED: IBUPROFEN 400 MG TABLET (FP) PO PRN (15:21)
[2024-01-15] MEDS ORDERED: BISMUTH SUBSALICYLATE 524 MG/30 ML PO PRN (15:21)
[2024-01-15] MEDS ORDERED: guaiFENesin 600 MG TABLET.ER (FP) PO PRN (15:21)
[2024-01-15] MEDS ORDERED: ACETAMINOPHEN 325 MG TABLET (FP) PO PRN (15:21)
[2024-01-15] MEDS ORDERED: DICYCLOMINE HCL 10 MG CAPSULE PO PRN (15:21)
[2024-01-15] MEDS ORDERED: MAGNESIUM HYDROX 2400MG/30ML ORAL SUSPENSION 30 ML CUP PO PRN (15:21)
[2024-01-15] MEDS ORDERED: BENZOCAINE/MENTHOL (CHLORASEPTIC ) LOZENGE MM PRN (15:21)
[2024-01-15] MEDS ORDERED: LOPERAMIDE HCL 2 MG CAPSULE PO PRN (15:21)
[2024-01-15] MEDS ORDERED: BENZONATATE 200 MG CAPSULE PO PRN (15:21)
[2024-01-15] MEDS ORDERED: NALOXONE HCL 0.4 MG/ML VIAL IM PRN (15:21)
[2024-01-15] MEDS ORDERED: IBUPROFEN 600 MG TABLET (FP) PO PRN (15:21)
[2024-01-15] MEDS ORDERED: LORazepam 1 MG TABLET PO PRN (15:21)
[2024-01-15] MEDS ORDERED: POLYETHYLENE GLYCOL (HEALTHYLAX) 3350 17 GM PACKET PO PRN (15:21)
[2024-01-15] MEDS ORDERED: NALOXONE HCL (KLOXXADO) 8 MG SPRAY NS PRN (15:21)
[2024-01-15] MEDS: methaDONE HCL 10 MG TABLET PO ONE ×2 (17:10→17:16)
[2024-01-15] MEDS: cloNIDine HCL 0.1 MG TABLET PO SCH (17:12)
[2024-01-15] MEDS: LORazepam 2 MG TABLET PO SCH (17:12)
[2024-01-15] MEDS ORDERED: methaDONE HCL 10 MG TABLET PO PRN (17:21)
[2024-01-15] MEDS: ASPIRIN COATED 81 MG TABLET.EC PO SCH (17:35)
[2024-01-15] MEDS: PRENATAL VITAMINS W/ FOLIC ACID TABLET (FP) PO SCH (17:35)
[2024-01-15] MEDS: THIAMINE 100 MG TABLET PO SCH (22:26)
[2024-01-15] MEDS: hydrOXYzine PAMOATE 25 MG CAPSULE (FP) PO PRN (22:26)
[2024-01-15] MEDS: MELATONIN 5 MG TABLETS PO SCH (22:27)
[2024-01-15] MEDS: BACITRACIN 0.9 GM PACKET TP ONE ×2 (23:04→23:08)
[2024-01-16] MEDS: methaDONE 40 MG, methaDONE 10 MG PO ONE (05:40)
[2024-01-16] MEDS: amLODIPine BESYLATE 10 MG TABLET (FP) PO SCH (10:20)
[2024-01-17] MEDS: LORazepam 1 MG TABLET PO SCH (05:35)
[2024-01-17] MEDS: methaDONE 40 MG, methaDONE 20 MG PO ONE (05:40)
[2024-01-17] MEDS: cloNIDine HCL 0.1 MG TABLET PO PRN (09:04)
[2024-01-17] MEDS: DIVALPROEX SODIUM 500 MG TABLET E.C. PO SCH (10:13)
[2024-01-17] MEDS: ARIPiprazole 10 MG TABLET PO SCH (10:13)
[2024-01-17] MEDS: ATORVASTATIN CA 20 MG TABLET (FP) PO SCH (22:22)
[2024-01-17] MEDS: traZODone HCL 100 MG TABLET (FP) PO SCH (22:22)
[2024-01-18] MEDS ORDERED: LORazepam 0.5 MG TABLET PO PRN
[2024-01-18] MEDS: LORazepam 0.5 MG TABLET PO SCH (05:37)
[2024-01-18] MEDS: methaDONE 40 MG, methaDONE 30 MG PO ONE (05:38)
[2024-01-18] MEDS: amLODIPine BESYLATE 10 MG TABLET (FP) PO SCH (10:25)
[2024-01-18 11:49] LABS: HEMATOCRIT 39.1 % (35.4-49); HEMOGLOBIN 13.1 GM/dL (11.7-16.9); MCH 29.8 pg (25.7-33.7); MCHC 33.5 g/dl (32.0-35.9); MEAN CELL VOLUME 88.9 fl (80-96); MEAN PLT VOLUME 9.1 fl (7.5-11.1); PLATELET COUNT 190 10^3/uL (134-434); RBC 4.39 M/mm3 (4.00-5.60); RDW 15.2 % (11.9-15.9); WHITE BLOOD COUNT 5.4 K/mm3 (4.0-10.0)
[2024-01-18 11:51] LABS: POTASSIUM 4.5 mmol/L (3.5-5.1)
[2024-01-18 12:00] LABS: BILIRUBIN,TOTAL 0.8 mg/dL (0.2-1); CREATININE 0.9 mg/dL (0.55-1.3)
[2024-01-18 12:01] LABS: TOT PROT 6.4 g/dl (6.4-8.2)
[2024-01-19] MEDS: LORazepam 0.5 MG TABLET PO ONE (05:40)
[2024-01-19] MEDS: methaDONE HCL 40 MG DISPERSABLE TABLET PO ONE (05:40)
[2024-01-19] MEDS: METHOCARBAMOL 500 MG TABLET PO PRN (10:15)
[2024-01-20] MEDS: methaDONE 80 MG, methaDONE 10 MG PO ONE (05:40)
[2024-01-21] MEDS: methaDONE 80 MG, methaDONE 10 MG PO ONE (05:27)
[2024-01-22] MEDS: methaDONE 80 MG, methaDONE 10 MG PO SCH (13:25)
[2024-01-31 06:39] VITALS: RESP 16; TEMP 97.2
[2024-01-31 09:02] VITALS: BP 116/71; PULSE 62
== END 2024-01-31 12:00 | disposition home or self-care (01) | DRG 895 ==
LOC: YASAS 14:09 → Y6N 15:28 → Y3E 01-22 13:57
PROVIDERS: ADMIT Surgery; ATTEND Psychiatry & Neurology Pain Medicine
PROC: HZ2ZZZZ Detoxification Services for Substance Abuse Treatment (ICD-10-PCS; 2024-01-15)
PROC: HZ42ZZZ Group Counseling for Substance Abuse Treatment, Cognitive-Behavioral (ICD-10-PCS; principal; 2024-01-22)
DX: F11.20 Opioid dependence, uncomplicated (principal); F14.20 Cocaine dependence, uncomplicated; F19.282 Other psychoactive substance dependence with psychoactive substance-induced sleep disorder; F10.20 Alcohol dependence, uncomplicated; F12.20 Cannabis dependence, uncomplicated; F17.210 Nicotine dependence, cigarettes, uncomplicated; F25.0 Schizoaffective disorder, bipolar type; D57.3 Sickle-cell trait; G47.00 Insomnia, unspecified; I10 Essential (primary) hypertension; H91.92 Unspecified hearing loss, left ear; M54.50 Low back pain, unspecified; G89.29 Other chronic pain; Z62.810 Personal history of physical and sexual abuse in childhood; Z63.8 Other specified problems related to primary support group; Z86.11 Personal history of tuberculosis; Z86.73 Personal history of transient ischemic attack (TIA), and cerebral infarction without residual deficits; Z86.19 Personal history of other infectious and parasitic diseases
CPT/HCPCS: 36415; 71046-TC-FY; 80053; 82962; 85027; 86593; 86780; 87811

== ENCOUNTER 2024-05-14 10:51 | Inpatient (IN) | payer OTHER ==
[2024-05-14 12:27] VITALS: BMI 24.5
[2024-05-14] MEDS ORDERED: MAG HYDROX/AL HYDROX/SIMETH 30 ML UNIT-DOSE CUP PO PRN (15:35)
[2024-05-14] MEDS ORDERED: BISMUTH SUBSALICYLATE 262 MG/15 ML BTL PO PRN (15:35)
[2024-05-14] MEDS ORDERED: hydrOXYzine PAMOATE 25 MG CAPSULE (FP) PO PRN (15:35)
[2024-05-14] MEDS ORDERED: IBUPROFEN 600 MG TABLET (FP) PO PRN (15:35)
[2024-05-14] MEDS ORDERED: NICOTINE POLACRILEX 2 MG GUM BUC PRN (15:35)
[2024-05-14] MEDS ORDERED: ACETAMINOPHEN 325 MG TABLET (FP) PO PRN (15:35)
[2024-05-14] MEDS ORDERED: NALOXONE (NARCAN) HCL 4 MG/0.1 ML SPRAY NS PRN (15:35)
[2024-05-14] MEDS ORDERED: POLYETHYLENE GLYCOL (HEALTHYLAX) 3350 17 GM PACKET PO PRN (15:35)
[2024-05-14] MEDS ORDERED: BENZOCAINE/MENTHOL (CHLORASEPTIC ) LOZENGE MM PRN (15:35)
[2024-05-14] MEDS ORDERED: METHOCARBAMOL 500 MG TABLET PO PRN (15:35)
[2024-05-14] MEDS ORDERED: IBUPROFEN 400 MG TABLET (FP) PO PRN (15:35)
[2024-05-14] MEDS ORDERED: guaiFENesin 600 MG TABLET.ER (FP) PO PRN (15:35)
[2024-05-14] MEDS ORDERED: MAGNESIUM HYDROX 2400MG/30ML ORAL SUSPENSION 30 ML CUP PO PRN (15:35)
[2024-05-14] MEDS ORDERED: DICYCLOMINE HCL 10 MG CAPSULE PO PRN (15:35)
[2024-05-14] MEDS ORDERED: BENZONATATE 200 MG CAPSULE PO PRN (15:35)
[2024-05-14] MEDS ORDERED: NALOXONE HCL 0.4 MG/ML VIAL IM PRN (15:35)
[2024-05-14] MEDS ORDERED: LOPERAMIDE HCL 2 MG CAPSULE PO PRN (15:35)
[2024-05-14] MEDS ORDERED: ONDANSETRON *ODT* 4 MG TABLET SL PRN (15:35)
[2024-05-14] MEDS: MELATONIN 5 MG TABLETS PO SCH (22:20)
[2024-05-14] MEDS: THIAMINE 100 MG TABLET PO SCH (22:20)
[2024-05-14] MEDS: traZODone HCL 100 MG TABLET (FP) PO SCH (22:20)
[2024-05-14] MEDS: DIVALPROEX SODIUM 500 MG TABLET E.C. PO SCH (22:20)
[2024-05-15] MEDS: PRENATAL VITAMINS W/ FOLIC ACID TABLET (FP) PO SCH (09:09)
[2024-05-15] MEDS: ASPIRIN 81 MG CHEWABLE TABLETS PO SCH (09:10)
[2024-05-15] MEDS: amLODIPine BESYLATE 10 MG TABLET (FP) PO SCH (09:10)
[2024-05-15] MEDS: ARIPiprazole 10 MG TABLET PO SCH (09:10)
[2024-05-15] MEDS: NICOTINE 14 MG/24 HOURS TOPICAL PATCH TD SCH (09:10)
[2024-05-15] MEDS ORDERED: diazePAM 5 MG TABLET PO PRN (10:07)
[2024-05-15] MEDS: diazePAM 5 MG TABLET PO SCH (10:47)
[2024-05-15] MEDS: methaDONE HCL 10 MG TABLET PO ONE (10:47)
[2024-05-15 11:40] LABS: CHLORIDE 106 mmol/L (98-107); POTASSIUM 4.2 mmol/L (3.5-5.1); SODIUM 141 mmol/L (136-145)
[2024-05-15 11:42] LABS: HEMATOCRIT 39.2 % (35.4-49); HEMOGLOBIN 13.7 GM/dL (11.7-16.9); MCH 30.7 pg (25.7-33.7); MEAN CELL VOLUME 87.7 fl (80-96); MEAN PLT VOLUME 8.3 fl (7.5-11.1); PLATELET COUNT 180 10^3/uL (134-434); RBC 4.47 M/mm3 (4.00-5.60); RDW 15.1 % (11.9-15.9); WHITE BLOOD COUNT 4.5 K/mm3 (4.0-10.0)
[2024-05-15 11:46] LABS: ALBUMIN 3.4 g/dl (3.4-5.0); ANION GAP 6 mmol/L (4-13); BLOOD UREA NITROGEN 12.5 mg/dL (7-18); CALCIUM 9.5 mg/dL (8.5-10.1); CO2 28 mmol/L (21-32); GLUCOSE,RANDOM 98 mg/dL (74-106)
[2024-05-15 11:49] LABS: CREATININE 0.9 mg/dL (0.55-1.3); SGPT/ALT 15 U/L (13-61)
[2024-05-15 11:50] LABS: SGOT/AST 22 U/L (15-37)
[2024-05-15 11:51] LABS: BILIRUBIN,TOTAL 0.8 mg/dL (0.2-1)
[2024-05-15 11:52] LABS: ALK PHOS 98 U/L (45-117)
[2024-05-15] MEDS: ATORVASTATIN CA 20 MG TABLET (FP) PO SCH (21:58)
[2024-05-16] MEDS: methaDONE HCL 40 MG DISPERSABLE TABLET PO ONE (10:02)
[2024-05-17] MEDS: diazePAM 5 MG TABLET PO SCH (06:10)
[2024-05-17] MEDS ORDERED: methaDONE 40 MG, methaDONE 10 MG PO ONE (10:00)
[2024-05-17] MEDS: methaDONE 40 MG, methaDONE 10 MG PO ONE (10:03)
[2024-05-18] MEDS: diazePAM 5 MG TABLET PO SCH (06:21)
[2024-05-18] MEDS ORDERED: methaDONE 40 MG, methaDONE 20 MG PO ONE (10:00)
[2024-05-18] MEDS: methaDONE 40 MG, methaDONE 20 MG PO ONE (10:19)
[2024-05-19] MEDS: diazePAM 5 MG TABLET PO ONE (05:24)
[2024-05-19] MEDS ORDERED: methaDONE 40 MG, methaDONE 30 MG PO ONE (10:00)
[2024-05-19] MEDS: methaDONE 40 MG, methaDONE 30 MG PO ONE (10:12)
[2024-05-20] MEDS: methaDONE HCL 40 MG DISPERSABLE TABLET PO ONE (09:21)
[2024-05-20 23:28] VITALS: BP 166/93; PULSE 118; RESP 36; TEMP 97.8
[2024-05-21] MEDS ORDERED: methaDONE 80 MG, methaDONE 10 MG PO ONE ×2 (10:00)
== END 2024-05-21 03:20 | disposition short-term general hospital (02) | DRG 897 ==
LOC: YASAS 10:51 → Y3N 15:33
PROVIDERS: ADMIT Allergy & Immunology; ATTEND Psychiatry & Neurology Pain Medicine
PROC: HZ2ZZZZ Detoxification Services for Substance Abuse Treatment (ICD-10-PCS; principal; 2024-05-14)
DX: F11.23 Opioid dependence with withdrawal (principal); F14.20 Cocaine dependence, uncomplicated; F10.230 Alcohol dependence with withdrawal, uncomplicated; F12.20 Cannabis dependence, uncomplicated; F17.210 Nicotine dependence, cigarettes, uncomplicated; F25.0 Schizoaffective disorder, bipolar type; I10 Essential (primary) hypertension; E78.5 Hyperlipidemia, unspecified; R00.0 Tachycardia, unspecified; R01.1 Cardiac murmur, unspecified; R53.83 Other fatigue; R23.0 Cyanosis; G47.00 Insomnia, unspecified; E11.9 Type 2 diabetes mellitus without complications; D57.3 Sickle-cell trait; H91.92 Unspecified hearing loss, left ear; Z91.148 Patient's other noncompliance with medication regimen for other reason; Z62.810 Personal history of physical and sexual abuse in childhood; Z87.438 Personal history of other diseases of male genital organs; Z86.11 Personal history of tuberculosis; Z86.73 Personal history of transient ischemic attack (TIA), and cerebral infarction without residual deficits; Z86.19 Personal history of other infectious and parasitic diseases; Z87.828 Personal history of other (healed) physical injury and trauma; Z56.0 Unemployment, unspecified
CPT/HCPCS: 36415; 80053; 80164; 80305; 80307; 85027; 86593; 86780; 93005; 93010

== ENCOUNTER 2024-05-20 23:46 | Inpatient (IN) | payer OTHER ==
[2024-05-21 01:53] LABS: BASO % 0.2 % (0-2.0); EOS % 0.2 % (0-4.5); HEMATOCRIT 41.9 % (35.4-49); HEMOGLOBIN 14.3 GM/dL (11.7-16.9); LYMPH % 6.3 % (8-40); MCH 30.3 pg (25.7-33.7); MCHC 34.2 g/dl (32.0-35.9); MEAN CELL VOLUME 88.5 fl (80-96); MEAN PLT VOLUME 7.8 fl (7.5-11.1); MONO % 6.7 % (3.8-10.2); NEUT % 86.6 % (42.8-82.8); PLATELET COUNT 184 10^3/uL (134-434); RBC 4.73 M/mm3 (4.00-5.60); RDW 15.1 % (11.9-15.9); WHITE BLOOD COUNT 6.8 K/mm3 (4.0-10.0)
[2024-05-21 02:18] LABS: POTASSIUM 4.4 mmol/L (3.5-5.1)
[2024-05-21 02:20] LABS: ALBUMIN 3.3 g/dl (3.4-5.0)
[2024-05-21 02:25] LABS: BILIRUBIN,TOTAL 0.9 mg/dL (0.2-1); TOT PROT 7.1 g/dl (6.4-8.2)
[2024-05-21 02:48] LABS: VENOUS BASE EXCESS 3.4 mmol/L (-2-2); VENOUS O2 SATURATION 66.8 % (70-80); VENOUS PH 7.283 (7.310-7.410)
[2024-05-21 02:59] LABS: VENOUS PCO2 70.8 mmHg (38-52)
[2024-05-21] MEDS ORDERED: PIPERACILLIN/TAZOB 4.5 GM 4.5 GM/100 ML BAG IVPB ONE ×3 (03:47→17:39)
[2024-05-21] MEDS: PIPERACILLIN/TAZOB 4.5 GM 4.5 GM in DEXTROSE 5%-WATER 100 ML IVPB ONE (03:55)
[2024-05-21 04:58] LABS: ARTERIAL BLD GAS O2 SATURATION 94.3 % (95-98); ARTERIAL BLOOD GAS BASE EXCESS 1.3 mmol/L (-2-2); ARTERIAL BLOOD GAS PO2 80.1 mmHg (80-100); ARTERIAL BLOOD GAS pH 7.296 (7.350-7.450)
[2024-05-21 04:59] LABS: ALLENS TEST POSITIVE
[2024-05-21 07:18] LABS: BASO % 0.3 % (0-2.0); HEMATOCRIT 40.9 % (35.4-49); HEMOGLOBIN 13.7 GM/dL (11.7-16.9); LYMPH % 8.6 % (8-40); MCH 30.2 pg (25.7-33.7); MCHC 33.5 g/dl (32.0-35.9); MEAN PLT VOLUME 8.2 fl (7.5-11.1); MONO % 5.3 % (3.8-10.2); NEUT % 85.8 % (42.8-82.8); PLATELET COUNT 184 10^3/uL (134-434); RBC 4.54 M/mm3 (4.00-5.60); RDW 14.9 % (11.9-15.9); WHITE BLOOD COUNT 8.6 K/mm3 (4.0-10.0)
[2024-05-21 07:31] LABS: POTASSIUM 4.9 mmol/L (3.5-5.1)
[2024-05-21 07:33] LABS: CALCIUM 8.9 mg/dL (8.5-10.1)
[2024-05-21 07:34] LABS: BLOOD UREA NITROGEN 11.2 mg/dL (7-18); MAGNESIUM 2.2 mg/dL (1.8-2.4)
[2024-05-21] MEDS: SODIUM CHLORIDE 1,000 ML IV SCH (07:35)
[2024-05-21 07:37] LABS: CREATININE 1.3 mg/dL (0.55-1.3)
[2024-05-21 07:39] LABS: BILIRUBIN,TOTAL 0.8 mg/dL (0.2-1)
[2024-05-21] MEDS ORDERED: ENOXAPARIN NA (PORCINE) 40 MG/0.4 ML DISP.SYRIN SQ ONE (09:18)
[2024-05-21] MEDS: ARIPiprazole 10 MG TABLET PO SCH (09:30)
[2024-05-21] MEDS: ENOXAPARIN NA (PORCINE) 40 MG/0.4 ML DISP.SYRIN SQ SCH (09:31)
[2024-05-21] MEDS: DIVALPROEX SODIUM 500 MG TABLET E.C. PO SCH (09:31)
[2024-05-21] MEDS: amLODIPine BESYLATE 10 MG TABLET (FP) PO SCH (09:31)
[2024-05-21] MEDS: PIPERACILLIN/TAZOB 4.5 GM 4.5 GM in DEXTROSE 5%-WATER 100 ML IVPB SCH ×3 (09:31→17:45)
[2024-05-21] MEDS ORDERED: ALBUTEROL SO4 2.5/IPRATROPIUM 0.5 INH SOL 3 ML VIAL.NEB. NEB PRN (11:29)
[2024-05-21 11:51] LABS: ARTERIAL BLD GAS O2 SATURATION 96.8 % (95-98); ARTERIAL BLOOD GAS BASE EXCESS 0.2 mmol/L (-2-2); ARTERIAL BLOOD GAS PO2 98.9 mmHg (80-100); ARTERIAL BLOOD GAS pH 7.306 (7.350-7.450)
[2024-05-21 11:54] LABS: ALLENS TEST POSITIVE
[2024-05-21] MEDS ORDERED: methylPREDNISolone NA SUCC 40 MG/1 ML VIAL ONE (14:30)
[2024-05-21] MEDS: methylPREDNISolone NA SUCC 40 MG/1 ML VIAL IVPUSH SCH (14:30)
[2024-05-21] MEDS ORDERED: ALBUTEROL SO4 2.5/IPRATROPIUM 0.5 INH SOL 3 ML VIAL.NEB. NEB ONE ×2 (15:55→19:47)
[2024-05-21] MEDS: ALBUTEROL SO4 2.5/IPRATROPIUM 0.5 INH SOL 3 ML VIAL.NEB. NEB SCH (15:56)
[2024-05-21 22:09] LABS: URINE BARBITURATES NEGATIVE (NEGATIVE)
[2024-05-21 22:10] LABS: OPIATES, URI NEGATIVE (NEGATIVE); PHENCYCLIDINE,URINE NEGATIVE (NEGATIVE)
[2024-05-21 22:12] LABS: COCAINE, UR NEGATIVE (NEGATIVE); METHADONE, UR POSITIVE (NEGATIVE); URINE AMPHETAMINES NEGATIVE (NEGATIVE); URINE BENZODIAZEPINES POSITIVE (NEGATIVE)
[2024-05-21] MEDS: ATORVASTATIN CA 20 MG TABLET (FP) PO SCH (22:57)
[2024-05-21] MEDS: MELATONIN 5 MG TABLETS PO SCH (22:57)
[2024-05-22 01:02] VITALS: BMI 30.3
[2024-05-22 08:31] LABS: HEMATOCRIT 39.8 % (35.4-49); HEMOGLOBIN 13.3 GM/dL (11.7-16.9); LYMPH % 15.4 % (8-40); MCH 30.2 pg (25.7-33.7); MCHC 33.3 g/dl (32.0-35.9); MEAN CELL VOLUME 90.7 fl (80-96); MEAN PLT VOLUME 8.7 fl (7.5-11.1); MONO % 5.2 % (3.8-10.2); NEUT % 79.4 % (42.8-82.8); PLATELET COUNT 176 10^3/uL (134-434); RBC 4.39 M/mm3 (4.00-5.60); RDW 15.2 % (11.9-15.9); WHITE BLOOD COUNT 12.1 K/mm3 (4.0-10.0)
[2024-05-22 08:39] LABS: POTASSIUM 4.8 mmol/L (3.5-5.1)
[2024-05-22 08:42] LABS: ALBUMIN 2.8 g/dl (3.4-5.0); BLOOD UREA NITROGEN 15.4 mg/dL (7-18); CALCIUM 8.5 mg/dL (8.5-10.1)
[2024-05-22 08:47] LABS: BILIRUBIN,TOTAL 0.4 mg/dL (0.2-1); TOT PROT 6.9 g/dl (6.4-8.2)
[2024-05-22 13:03] LABS: HIV INTERPRETATION NEGATIVE (NEGATIVE)
[2024-05-22] MEDS: NICOTINE 14 MG/24 HOURS TOPICAL PATCH TD SCH (17:52)
[2024-05-22] MEDS: traZODone HCL 100 MG TABLET (FP) PO SCH (21:44)
[2024-05-23 07:01] LABS: BASO % 0.1 % (0-2.0); HEMATOCRIT 33.5 % (35.4-49); HEMOGLOBIN 11.4 GM/dL (11.7-16.9); LYMPH % 14.3 % (8-40); MCH 30.3 pg (25.7-33.7); MCHC 34.1 g/dl (32.0-35.9); MEAN CELL VOLUME 89.1 fl (80-96); MEAN PLT VOLUME 8.4 fl (7.5-11.1); NEUT % 80.6 % (42.8-82.8); PLATELET COUNT 165 10^3/uL (134-434); RBC 3.76 M/mm3 (4.00-5.60); RDW 14.9 % (11.9-15.9); WHITE BLOOD COUNT 8.6 K/mm3 (4.0-10.0)
[2024-05-23 07:12] LABS: POTASSIUM 4.1 mmol/L (3.5-5.1)
[2024-05-23 07:13] LABS: CALCIUM 8.6 mg/dL (8.5-10.1)
[2024-05-23 07:14] LABS: BLOOD UREA NITROGEN 13.3 mg/dL (7-18)
[2024-05-23 07:17] LABS: CREATININE 0.9 mg/dL (0.55-1.3)
[2024-05-23] MEDS: methaDONE 40 MG, methaDONE 20 MG PO ONE (07:36)
[2024-05-23] MEDS: methaDONE HCL 40 MG DISPERSABLE TABLET PO ONE (08:07)
[2024-05-24 07:48] LABS: HEMATOCRIT 35.2 % (35.4-49); HEMOGLOBIN 11.6 GM/dL (11.7-16.9); MCH 29.6 pg (25.7-33.7); MCHC 32.8 g/dl (32.0-35.9); MEAN CELL VOLUME 90.2 fl (80-96); MEAN PLT VOLUME 8.9 fl (7.5-11.1); PLATELET COUNT 166 10^3/uL (134-434); RBC 3.91 M/mm3 (4.00-5.60); RDW 14.7 % (11.9-15.9); WHITE BLOOD COUNT 7.8 K/mm3 (4.0-10.0)
[2024-05-24 08:10] LABS: POTASSIUM 4.3 mmol/L (3.5-5.1)
[2024-05-24 08:21] LABS: CALCIUM 8.9 mg/dL (8.5-10.1)
[2024-05-24 08:22] LABS: ALBUMIN 2.6 g/dl (3.4-5.0); BLOOD UREA NITROGEN 16.5 mg/dL (7-18)
[2024-05-24 08:26] LABS: BILIRUBIN,TOTAL 0.5 mg/dL (0.2-1); TOT PROT 6.2 g/dl (6.4-8.2)
[2024-05-24] MEDS ORDERED: methaDONE HCL 40 MG DISPERSABLE TABLET PO SCH (08:30)
[2024-05-24 09:17] LABS: ANISOCYTOSIS 0; MACROCYTOSIS 0
[2024-05-24] MEDS: methaDONE HCL 40 MG DISPERSABLE TABLET PO SCH (10:53)
[2024-05-25] MEDS: AMOX TR/POT CLAV 875MG/125MG TABLETS (FP) PO SCH (17:04)
[2024-05-26 01:19] VITALS: RESP 18
[2024-05-26 06:42] VITALS: BP 145/79; PULSE 54; TEMP 98.1
[2024-05-26 08:22] LABS: HEMATOCRIT 37.8 % (35.4-49); HEMOGLOBIN 12.9 GM/dL (11.7-16.9); MCH 30.1 pg (25.7-33.7); MEAN CELL VOLUME 88.5 fl (80-96); MEAN PLT VOLUME 9.1 fl (7.5-11.1); PLATELET COUNT 223 10^3/uL (134-434); RBC 4.27 M/mm3 (4.00-5.60); RDW 14.9 % (11.9-15.9); WHITE BLOOD COUNT 8.5 K/mm3 (4.0-10.0)
[2024-05-26 08:23] LABS: POTASSIUM 4.3 mmol/L (3.5-5.1)
[2024-05-26 08:27] LABS: BLOOD UREA NITROGEN 14.8 mg/dL (7-18); CALCIUM 8.9 mg/dL (8.5-10.1)
[2024-05-26 08:31] LABS: CREATININE 0.9 mg/dL (0.55-1.3)
[2024-05-26 09:55] LABS: ANISOCYTOSIS 0; MACROCYTOSIS 0
[2024-05-26] MEDS: predniSONE 20 MG TABLET (UD) PO SCH (10:38)
[2024-05-26] MEDS: methaDONE HCL 10 MG TABLET PO ONE (10:38)
== END 2024-05-26 13:37 | disposition other institution (70) | DRG 177 ==
LOC: JER 23:46 → JERBED 05-21 03:17 → OBSVTOIN 05-21 10:16 → J4S 05-21 21:43
PROVIDERS: ADMIT Internal Medicine; ATTEND Nurse Practitioner
DX: J69.0 Pneumonitis due to inhalation of food and vomit (principal); J96.01 Acute respiratory failure with hypoxia; J96.02 Acute respiratory failure with hypercapnia; F11.23 Opioid dependence with withdrawal; F10.239 Alcohol dependence with withdrawal, unspecified; I10 Essential (primary) hypertension; E11.9 Type 2 diabetes mellitus without complications; F14.10 Cocaine abuse, uncomplicated; F12.20 Cannabis dependence, uncomplicated; F31.9 Bipolar disorder, unspecified; F25.0 Schizoaffective disorder, bipolar type; D57.3 Sickle-cell trait; H90.42 Sensorineural hearing loss, unilateral, left ear, with unrestricted hearing on the contralateral side; M54.50 Low back pain, unspecified; K76.0 Fatty (change of) liver, not elsewhere classified; E78.5 Hyperlipidemia, unspecified; F17.210 Nicotine dependence, cigarettes, uncomplicated; J44.9 Chronic obstructive pulmonary disease, unspecified
CPT/HCPCS: 36415; 36600; 71045-TC-FY; 71275-TC; 80048; 80053; 80307; 82803; 83735; 84100; 85025; 86803; 87389; 93005; 93010; 94010; 94640; 99285-25; G0378; Q9967

== ENCOUNTER 2024-05-26 14:31 | Inpatient (IN) | payer OTHER ==
[2024-05-26 15:48] VITALS: BMI 24.5
[2024-05-26] MEDS ORDERED: guaiFENesin 600 MG TABLET.ER (FP) PO PRN (16:41)
[2024-05-26] MEDS ORDERED: MAG HYDROX/AL HYDROX/SIMETH 30 ML UNIT-DOSE CUP PO PRN (16:41)
[2024-05-26] MEDS ORDERED: ACETAMINOPHEN 325 MG TABLET (FP) PO PRN (16:41)
[2024-05-26] MEDS ORDERED: IBUPROFEN 400 MG TABLET (FP) PO PRN (16:41)
[2024-05-26] MEDS ORDERED: POLYETHYLENE GLYCOL (HEALTHYLAX) 3350 17 GM PACKET PO PRN (16:41)
[2024-05-26] MEDS ORDERED: NICOTINE POLACRILEX 2 MG GUM BUC PRN (16:41)
[2024-05-26] MEDS ORDERED: LOPERAMIDE HCL 2 MG CAPSULE PO PRN (16:41)
[2024-05-26] MEDS ORDERED: NICOTINE POLACRILEX 2 MG LOZENGE BC PRN (16:41)
[2024-05-26] MEDS ORDERED: NALOXONE HCL 0.4 MG/ML VIAL IVPUSH PRN (16:41)
[2024-05-26] MEDS ORDERED: BENZONATATE 200 MG CAPSULE PO PRN (16:41)
[2024-05-26] MEDS ORDERED: MAGNESIUM HYDROX 2400MG/30ML ORAL SUSPENSION 30 ML CUP PO PRN (16:41)
[2024-05-26] MEDS ORDERED: P-EPHED 60MG/TRIPROLIDI 2.5MG TABLET PO PRN (16:41)
[2024-05-26] MEDS ORDERED: NALOXONE (NARCAN) HCL 4 MG/0.1 ML SPRAY NS PRN (16:41)
[2024-05-26] MEDS ORDERED: BENZOCAINE/MENTHOL (CHLORASEPTIC ) LOZENGE MM PRN (16:41)
[2024-05-26] MEDS ORDERED: IBUPROFEN 600 MG TABLET (FP) PO PRN (16:41)
[2024-05-26] MEDS ORDERED: ALBUTEROL SO4 2.5/IPRATROPIUM 0.5 INH SOL 3 ML VIAL.NEB. NEB PRN (16:44)
[2024-05-26] MEDS: THIAMINE 100 MG TABLET PO SCH (21:36)
[2024-05-26] MEDS: ATORVASTATIN CA 20 MG TABLET (FP) PO SCH (21:36)
[2024-05-26] MEDS: AMOX TR/POT CLAV 875MG/125MG TABLETS (FP) PO SCH (21:36)
[2024-05-27] MEDS: methaDONE HCL 40 MG DISPERSABLE TABLET PO SCH (09:12)
[2024-05-27] MEDS: ASPIRIN 81 MG CHEWABLE TABLETS PO SCH (09:12)
[2024-05-27] MEDS: PRENATAL VITAMINS W/ FOLIC ACID TABLET (FP) PO SCH (09:12)
[2024-05-27] MEDS: predniSONE 20 MG TABLET (UD) PO SCH (09:12)
[2024-05-27] MEDS: ARIPiprazole 10 MG TABLET PO SCH (10:41)
[2024-05-27] MEDS: DIVALPROEX SODIUM 500 MG TABLET E.C. PO SCH (10:41)
[2024-05-27] MEDS ORDERED: PNEUMOC 20-VAL CONJ-DIP CRM/PF 0.5 ML SYRINGE IM ONE (13:00)
[2024-05-27] MEDS: traZODone HCL 100 MG TABLET (FP) PO SCH (21:02)
[2024-06-05 06:31] VITALS: BP 159/80; PULSE 80; RESP 18; TEMP 98.2
== END 2024-06-05 09:34 | disposition home or self-care (01) | DRG 895 ==
LOC: YASAS 14:31 → Y3NR 17:22 → Y3W 05-27 12:15
PROVIDERS: ADMIT Psychiatry & Neurology Pain Medicine; ATTEND Psychiatry & Neurology Pain Medicine
PROC: HZ42ZZZ Group Counseling for Substance Abuse Treatment, Cognitive-Behavioral (ICD-10-PCS; principal; 2024-05-26)
DX: F11.20 Opioid dependence, uncomplicated (principal); F14.20 Cocaine dependence, uncomplicated; F19.282 Other psychoactive substance dependence with psychoactive substance-induced sleep disorder; F10.20 Alcohol dependence, uncomplicated; F12.20 Cannabis dependence, uncomplicated; F17.210 Nicotine dependence, cigarettes, uncomplicated; F31.9 Bipolar disorder, unspecified; F19.24 Other psychoactive substance dependence with psychoactive substance-induced mood disorder; E78.5 Hyperlipidemia, unspecified; I10 Essential (primary) hypertension; Z87.01 Personal history of pneumonia (recurrent); Z86.73 Personal history of transient ischemic attack (TIA), and cerebral infarction without residual deficits
CPT/HCPCS: 80305; 87811

== ENCOUNTER 2024-12-21 12:55 | Inpatient (IN) | payer BC, OTHER ==
[2024-12-21 13:43] VITALS: BMI 22.6
[2024-12-21] MEDS ORDERED: IBUPROFEN 400 MG TABLET (FP) PO PRN (14:17)
[2024-12-21] MEDS ORDERED: BISMUTH SUBSALICYLATE 524 MG/30 ML PO PRN (14:17)
[2024-12-21] MEDS ORDERED: P-EPHED 60MG/TRIPROLIDI 2.5MG TABLET PO PRN (14:17)
[2024-12-21] MEDS ORDERED: ONDANSETRON *ODT* 4 MG TABLET SL PRN (14:17)
[2024-12-21] MEDS ORDERED: IBUPROFEN 600 MG TABLET (FP) PO PRN (14:17)
[2024-12-21] MEDS ORDERED: ACETAMINOPHEN 325 MG TABLET (FP) PO PRN (14:17)
[2024-12-21] MEDS ORDERED: MAGNESIUM HYDROX 2400MG/30ML ORAL SUSPENSION 30 ML CUP PO PRN (14:17)
[2024-12-21] MEDS ORDERED: MAG HYDROX/AL HYDROX/SIMETH 30 ML UNIT-DOSE CUP PO PRN (14:17)
[2024-12-21] MEDS ORDERED: guaiFENesin 600 MG TABLET.ER (FP) PO PRN (14:17)
[2024-12-21] MEDS ORDERED: POLYETHYLENE GLYCOL (HEALTHYLAX) 3350 17 GM PACKET PO PRN (14:17)
[2024-12-21] MEDS ORDERED: LOPERAMIDE HCL 2 MG CAPSULE PO PRN (14:17)
[2024-12-21] MEDS ORDERED: NALOXONE (NARCAN) HCL 4 MG/0.1 ML SPRAY NS PRN (14:17)
[2024-12-21] MEDS ORDERED: NICOTINE POLACRILEX 2 MG GUM BUC PRN (14:17)
[2024-12-21] MEDS ORDERED: NICOTINE POLACRILEX 2 MG LOZENGE BC PRN (14:17)
[2024-12-21] MEDS ORDERED: METOPROLOL TARTRATE 25 MG TABLET (FP) ONE (15:20)
[2024-12-21] MEDS: METOPROLOL TARTRATE 25 MG TABLET (FP) PO ONE (15:22)
[2024-12-21] MEDS: methaDONE HCL 10 MG TABLET PO ONE (17:03)
[2024-12-21] MEDS: ASPIRIN COATED 81 MG TABLET.EC PO SCH (17:03)
[2024-12-21] MEDS: THIAMINE 100 MG TABLET PO SCH (22:07)
[2024-12-21] MEDS: diazePAM 5 MG TABLET PO PRN (22:07)
[2024-12-21] MEDS: MELATONIN 5 MG TABLETS PO SCH (22:07)
[2024-12-21] MEDS: diazePAM 5 MG TABLET PO SCH (22:48)
[2024-12-22] MEDS: PRENATAL VITAMINS W/ FOLIC ACID TABLET (FP) PO SCH (09:35)
[2024-12-22] MEDS ORDERED: methaDONE HCL 40 MG DISPERSABLE TABLET PO ONE (10:00)
[2024-12-22] MEDS: ARIPiprazole 10 MG TABLET PO SCH (10:54)
[2024-12-22] MEDS: DIVALPROEX SODIUM 500 MG TABLET E.C. PO SCH (10:54)
[2024-12-22] MEDS: amLODIPine BESYLATE 10 MG TABLET (FP) PO SCH (10:54)
[2024-12-22] MEDS: CYPROHEPTADINE HCL 4 MG TABLET PO SCH (12:49)
[2024-12-22 14:50] LABS: HEMATOCRIT 35.4 % (40.1-51.0); HEMOGLOBIN 11.7 g/dL (13.7-17.5); MCHC 33.1 g/dl (32.3-36.5); MEAN CELL VOLUME 86.3 fl (79.0-92.2); MEAN PLT VOLUME 10.3 fl (9.4-12.4); PLATELET COUNT # 242 x10^3/uL (163-337); RDW 14.1 % (12.2-16.4)
[2024-12-22 14:58] LABS: CHLORIDE 102 mmol/L (98-107); SODIUM 136 mmol/L (136-145)
[2024-12-22 15:14] LABS: CALCIUM 8.8 mg/dL (8.5-10.1)
[2024-12-22 15:15] LABS: ANION GAP 6 mmol/L (4-13); BLOOD UREA NITROGEN 5.4 mg/dL (7-18); CO2 28 mmol/L (21-32); GLUCOSE,RANDOM 91 mg/dL (74-106)
[2024-12-22 15:17] LABS: CREATININE 0.8 mg/dL (0.55-1.3); SGPT/ALT 13 U/L (13-61)
[2024-12-22 15:18] LABS: BILIRUBIN,TOTAL 0.6 mg/dL (0.2-1); SGOT/AST 17 U/L (15-37); TOT PROT 6.4 g/dl (6.4-8.2)
[2024-12-22 15:19] LABS: ALK PHOS 83 U/L (45-117)
[2024-12-22] MEDS: BENZONATATE 200 MG CAPSULE PO PRN (15:26)
[2024-12-22] MEDS: ATORVASTATIN CA 20 MG TABLET (FP) PO SCH (22:23)
[2024-12-22] MEDS: traZODone HCL 100 MG TABLET (FP) PO SCH (22:24)
[2024-12-23] MEDS: diazePAM 5 MG TABLET PO SCH (06:04)
[2024-12-23] MEDS: methaDONE HCL 40 MG DISPERSABLE TABLET PO ONE (09:30)
[2024-12-23] MEDS: ASPIRIN 81 MG CHEWABLE TABLETS PO SCH (09:30)
[2024-12-23] MEDS: BENZOCAINE/MENTHOL (CHLORASEPTIC ) LOZENGE MM PRN (15:06)
[2024-12-23 20:49] VITALS: RESP 16
[2024-12-24] MEDS: diazePAM 5 MG TABLET PO SCH (05:53)
[2024-12-24] MEDS ORDERED: methaDONE HCL 40 MG DISPERSABLE TABLET PO ONE (10:00)
[2024-12-25] MEDS: diazePAM 5 MG TABLET PO ONE (05:59)
[2024-12-25 07:17] VITALS: BP 142/67; PULSE 90; TEMP 97.8
[2024-12-25] MEDS ORDERED: methaDONE HCL 40 MG DISPERSABLE TABLET PO ONE ×2 (10:00)
[2024-12-25] MEDS ORDERED: methaDONE 40 MG, methaDONE 10 MG PO ONE (10:00)
== END 2024-12-25 08:33 | disposition home or self-care (01) | DRG 897 ==
LOC: YASAS 12:55 → Y6N 15:11
PROVIDERS: ADMIT Neuromusculoskeletal Medicine & OMM; ATTEND Allergy & Immunology
PROC: HZ2ZZZZ Detoxification Services for Substance Abuse Treatment (ICD-10-PCS; principal; 2024-12-21)
DX: F11.23 Opioid dependence with withdrawal (principal); F14.20 Cocaine dependence, uncomplicated; F10.230 Alcohol dependence with withdrawal, uncomplicated; F17.210 Nicotine dependence, cigarettes, uncomplicated; F31.9 Bipolar disorder, unspecified; G47.00 Insomnia, unspecified; I10 Essential (primary) hypertension; E78.5 Hyperlipidemia, unspecified; H90.42 Sensorineural hearing loss, unilateral, left ear, with unrestricted hearing on the contralateral side; Z86.11 Personal history of tuberculosis; Z86.19 Personal history of other infectious and parasitic diseases
CPT/HCPCS: 36415; 80053; 80305; 80307; 85027; 86593; 86780; 93005; 93010

== ENCOUNTER 2025-05-22 11:36 | Inpatient (IN) | payer BC, OTHER ==
[2025-05-22 11:51] VITALS: BMI 23.8
[2025-05-22] MEDS ORDERED: guaiFENesin 600 MG TABLET.ER (FP) PO PRN (12:47)
[2025-05-22] MEDS ORDERED: LOPERAMIDE HCL 2 MG CAPSULE PO PRN (12:47)
[2025-05-22] MEDS ORDERED: IBUPROFEN 400 MG TABLET (FP) PO PRN (12:47)
[2025-05-22] MEDS ORDERED: BISMUTH SUBSALICYLATE 524 MG/30 ML PO PRN (12:47)
[2025-05-22] MEDS ORDERED: MAGNESIUM HYDROX 2400MG/30ML ORAL SUSPENSION 30 ML CUP PO PRN (12:47)
[2025-05-22] MEDS ORDERED: DICYCLOMINE HCL 10 MG CAPSULE PO PRN (12:47)
[2025-05-22] MEDS ORDERED: ONDANSETRON *ODT* 4 MG TABLET SL PRN (12:47)
[2025-05-22] MEDS ORDERED: BENZOCAINE/MENTHOL (CHLORASEPTIC ) LOZENGE MM PRN (12:47)
[2025-05-22] MEDS ORDERED: NALOXONE (NARCAN) HCL 4 MG/0.1 ML SPRAY NS PRN (12:47)
[2025-05-22] MEDS ORDERED: MAG HYDROX/AL HYDROX/SIMETH 30 ML UNIT-DOSE CUP PO PRN (12:47)
[2025-05-22] MEDS ORDERED: BENZONATATE 200 MG CAPSULE PO PRN (12:47)
[2025-05-22] MEDS ORDERED: IBUPROFEN 600 MG TABLET (FP) PO PRN (12:47)
[2025-05-22] MEDS ORDERED: POLYETHYLENE GLYCOL (HEALTHYLAX) 3350 17 GM PACKET PO PRN (12:47)
[2025-05-22] MEDS ORDERED: ACETAMINOPHEN 325 MG TABLET (FP) PO PRN (12:47)
[2025-05-22] MEDS: PRENATAL VITAMINS W/ FOLIC ACID TABLET (FP) PO SCH (14:04)
[2025-05-22] MEDS: traZODone HCL 100 MG TABLET (FP) PO SCH (21:26)
[2025-05-22] MEDS: DIVALPROEX SODIUM 500 MG TABLET E.C. PO SCH (21:26)
[2025-05-22] MEDS: MELATONIN 5 MG TABLETS PO SCH (21:26)
[2025-05-22] MEDS: ATORVASTATIN CA 20 MG TABLET (FP) PO SCH (21:26)
[2025-05-22] MEDS: THIAMINE 100 MG TABLET PO SCH (21:26)
[2025-05-23] MEDS: ASPIRIN 81 MG CHEWABLE TABLETS PO SCH (10:04)
[2025-05-23] MEDS: METHOCARBAMOL 500 MG TABLET PO PRN (10:04)
[2025-05-23] MEDS: amLODIPine BESYLATE 10 MG TABLET (FP) PO SCH (10:04)
[2025-05-23] MEDS: hydrOXYzine PAMOATE 25 MG CAPSULE (FP) PO PRN (10:04)
[2025-05-23 10:22] LABS: GLUCOSE,RANDOM 82.0 mg/dL (74-106)
[2025-05-23 10:23] LABS: CO2 27.0 mmol/L (21-32); TOT PROT 7.4 g/dl (6.4-8.2)
[2025-05-23 10:25] LABS: ALK PHOS 82.0 U/L (40-150)
[2025-05-23 10:28] LABS: CREATININE 1.74 mg/dL (0.55-1.3); SGOT/AST 32.0 U/L (5-34); SGPT/ALT 20.0 U/L (0-55)
[2025-05-23 10:31] LABS: MCHC 34.4 g/dl (32.3-36.5); MEAN CELL VOLUME 86.5 fl (79.0-92.2); MEAN PLT VOLUME 12.2 fl (9.4-12.4); RDW 12.9 % (12.2-16.4)
[2025-05-23 10:56] LABS: SYPHILIS W/ RPR CONF REACTIVE (NONREACTIVE)
[2025-05-23 23:51] LABS: RPR REFLEX REACTIVE 1:1 (NONREACTIVE)
[2025-05-24 21:12] VITALS: RESP 16
[2025-05-25 13:45] LABS: CO2 26.0 mmol/L (21-32)
[2025-05-25 13:50] LABS: CREATININE 1.03 mg/dL (0.55-1.3)
[2025-05-25 13:53] LABS: GLUCOSE,RANDOM 96.0 mg/dL (74-106)
[2025-05-26 09:11] VITALS: BP 105/60; PULSE 100; TEMP 97.8
== END 2025-05-26 12:42 | disposition other institution (70) | DRG 897 ==
LOC: SUATTDRO 11:36 → YASAS 11:36 → Y6N 13:22
PROVIDERS: ADMIT Allergy & Immunology; ATTEND Counselor Addiction (Substance Use Disorder)
PROC: HZ2ZZZZ Detoxification Services for Substance Abuse Treatment (ICD-10-PCS; principal; 2025-05-22)
DX: F11.23 Opioid dependence with withdrawal (principal); F14.20 Cocaine dependence, uncomplicated; F13.20 Sedative, hypnotic or anxiolytic dependence, uncomplicated; F10.20 Alcohol dependence, uncomplicated; F12.20 Cannabis dependence, uncomplicated; F17.210 Nicotine dependence, cigarettes, uncomplicated; F31.9 Bipolar disorder, unspecified; E78.5 Hyperlipidemia, unspecified; I10 Essential (primary) hypertension; M54.50 Low back pain, unspecified; G89.29 Other chronic pain; Z86.11 Personal history of tuberculosis; Z86.73 Personal history of transient ischemic attack (TIA), and cerebral infarction without residual deficits; Z86.19 Personal history of other infectious and parasitic diseases
CPT/HCPCS: 36415; 80053; 80069; 80164; 80307; 85027; 86593; 86780; 93005; 93010

== ENCOUNTER 2025-05-26 13:21 | Inpatient (IN) | payer BC, OTHER ==
[2025-05-26 13:58] VITALS: BMI 23.8
[2025-05-26] MEDS ORDERED: NALOXONE HCL 0.4 MG/ML VIAL IVPUSH PRN (16:22)
[2025-05-26] MEDS ORDERED: IBUPROFEN 600 MG TABLET (FP) PO PRN ×2 (16:22→16:24)
[2025-05-26] MEDS ORDERED: POLYETHYLENE GLYCOL (HEALTHYLAX) 3350 17 GM PACKET PO PRN ×2 (16:22→16:24)
[2025-05-26] MEDS ORDERED: MAG HYDROX/AL HYDROX/SIMETH 30 ML UNIT-DOSE CUP PO PRN ×2 (16:22→16:24)
[2025-05-26] MEDS ORDERED: BENZONATATE 200 MG CAPSULE PO PRN ×2 (16:22→16:24)
[2025-05-26] MEDS ORDERED: IBUPROFEN 400 MG TABLET (FP) PO PRN ×2 (16:22→16:24)
[2025-05-26] MEDS ORDERED: BENZOCAINE/MENTHOL (CHLORASEPTIC ) LOZENGE MM PRN ×2 (16:22→16:24)
[2025-05-26] MEDS ORDERED: ACETAMINOPHEN 325 MG TABLET (FP) PO PRN ×2 (16:22→16:24)
[2025-05-26] MEDS ORDERED: hydrOXYzine PAMOATE 25 MG CAPSULE (FP) PO PRN (16:22)
[2025-05-26] MEDS ORDERED: LOPERAMIDE HCL 2 MG CAPSULE PO PRN ×2 (16:22→16:24)
[2025-05-26] MEDS ORDERED: MAGNESIUM HYDROX 2400MG/30ML ORAL SUSPENSION 30 ML CUP PO PRN ×2 (16:22→16:24)
[2025-05-26] MEDS ORDERED: NALOXONE (NARCAN) HCL 4 MG/0.1 ML SPRAY NS PRN (16:22)
[2025-05-26] MEDS ORDERED: guaiFENesin 600 MG TABLET.ER (FP) PO PRN ×2 (16:22→16:24)
[2025-05-26] MEDS ORDERED: BACLOFEN 10 MG TABLET (FP) PO PRN (16:24)
[2025-05-26] MEDS: ATORVASTATIN CA 20 MG TABLET (FP) PO SCH (21:35)
[2025-05-26] MEDS: MELATONIN 5 MG TABLETS PO SCH (21:35)
[2025-05-26] MEDS: DIVALPROEX SODIUM 500 MG TABLET E.C. PO SCH (21:35)
[2025-05-26] MEDS: THIAMINE 100 MG TABLET PO SCH (21:35)
[2025-05-26] MEDS: traZODone HCL 100 MG TABLET (FP) PO SCH (21:36)
[2025-05-26] MEDS ORDERED: THIAMINE 100 MG TABLET PO SCH (22:00)
[2025-05-26] MEDS ORDERED: MELATONIN 5 MG TABLETS PO SCH (22:00)
[2025-05-27] MEDS ORDERED: PRENATAL VITAMINS W/ FOLIC ACID TABLET (FP) PO SCH (06:00)
[2025-05-27] MEDS: PRENATAL VITAMINS W/ FOLIC ACID TABLET (FP) PO SCH (09:59)
[2025-05-27] MEDS: ASPIRIN 81 MG CHEWABLE TABLETS PO SCH (09:59)
[2025-05-27] MEDS: amLODIPine BESYLATE 10 MG TABLET (FP) PO SCH (09:59)
[2025-06-01] MEDS: METHOCARBAMOL 500 MG TABLET PO PRN (21:38)
[2025-06-03 06:43] VITALS: RESP 16; TEMP 96
[2025-06-03 11:09] VITALS: BP 124/67; PULSE 85
== END 2025-06-03 11:40 | disposition home or self-care (01) | DRG 895 ==
LOC: YASAS 13:21 → Y3NR 13:24 → Y5N 17:54
PROVIDERS: ADMIT Psychiatry & Neurology Pain Medicine; ATTEND Psychiatry & Neurology Pain Medicine
PROC: HZ42ZZZ Group Counseling for Substance Abuse Treatment, Cognitive-Behavioral (ICD-10-PCS; principal; 2025-05-26)
DX: F11.20 Opioid dependence, uncomplicated (principal); F14.20 Cocaine dependence, uncomplicated; F13.20 Sedative, hypnotic or anxiolytic dependence, uncomplicated; F10.20 Alcohol dependence, uncomplicated; F17.210 Nicotine dependence, cigarettes, uncomplicated; F25.1 Schizoaffective disorder, depressive type; E78.5 Hyperlipidemia, unspecified; E11.9 Type 2 diabetes mellitus without complications; M54.50 Low back pain, unspecified; G89.29 Other chronic pain; Z86.19 Personal history of other infectious and parasitic diseases; Z86.73 Personal history of transient ischemic attack (TIA), and cerebral infarction without residual deficits
CPT/HCPCS: 36415; 83036; 86803